=== PATIENT | female | born 1950 | race Caucasian/White ===

== ENCOUNTER → 2023-11-18 13:52 | Outpatient (REF) | payer MEDICARE, SELFPAY | LOC: RAD 13:52 | PROVIDERS: ATTENDING PHYSICIAN Obstetrics & Gynecology; FAMILY PHYSICIAN Internal Medicine | DX: C54.9 Malignant neoplasm of corpus uteri, unspecified (principal) | CPT/HCPCS: 71260; 74177; Q9967 ==

== ENCOUNTER 2023-12-30 13:35 | Emergency (ER) | payer MEDICARE, SELFPAY ==
[2023-12-30 14:14] VITALS: BP 134/54
--- NOTE | 2023-12-30 14:14 | ED.PDOC.TRB ---
ED Provider Triage
-
Patient seen by provider in Triage?: Seen in Triage
73F with PMH of endometrial cancer. diffuse abd pain with persistent diarrhea. noticed blood when wiping. no fevers. new chemo regimen this past wednesday. no vomiting. States never had the symptoms with her old chemo regimen but would intermittently
have some nausea and vomiting with that. Patient is otherwise hemodynamically stable and in no acute distress. I did order 1 L of IV fluids as I do anticipate patient will require fluids once. To place an IV.
[2023-12-30] MEDS: NSS 1000 IV (14:41)
[2023-12-30 15:11] LABS: % Basophils 0.1 % (0-2); % Eosinophils 0.3 % (0-6); % Immature Granulocytes 0.4 % (0-0.5); % Lymphocytes 4.6 % (20.5-51.1); % Monocytes 0.7 % (1.7-9.3); % Neutrophils 93.9 % (42.2-75.2); Absolute Lymphocytes 0.5 10^3/uL (1.2-3.4); Absolute Monocytes 0.1 10^3/uL (0.1-0.6); Absolute Neutrophils 10.6 10^3/uL (1.4-6.5); Hematocrit 43.4 % (37.0-47.0); Hemoglobin 14.7 g/dL (12.0-16.0); Mean Corp Hgb Conc. 33.9 g/dL (33.0-37.0); Mean Corpuscular Hgb 30.5 pg (27.0-31.0); Nucleated Red Blood Cells % 0 %; Red Blood Cell Count 4.82 10^6/uL (4.20-5.40); Red Cell Dist. Width 13.7 % (11.5-14.5); White Blood Cell Count 11.2 10^3/uL (4.8-10.8)
[2023-12-30 15:16] LABS: ALT (SGPT) 31 U/L (0-35); AST (SGOT) 40 U/L (14-36); Albumin 3.6 g/dl (3.5-5.0); Alkaline Phosphatase 80 U/L (38-126); Blood Urea Nitrogen 10 mg/dl (7-17); Calcium 8.8 mg/dl (8.4-10.2); Carbon Dioxide 20 mmol/L (22-30); Chloride 103 mmol/L (98-107); Glucose 111 mg/dl (70-99); Potassium 4.2 mmol/L (3.5-5.1); Sodium 134 mmol/L (135-145); eGFR > 60.00
--- NOTE | 2023-12-30 15:39 | ED.GENMED ---
History of Present Illness
General
Chief Complaint: Abdominal Symptoms
Source: patient
Exam Limitations: none
Time Seen by Provider: 12/30/23 15:00
Travel History
Have you had any contact with someone who has COVID-19?: No
Do you have any symptoms of coronavirus? Fever > 100 degrees, chills, cough, shortness of breath, sore throat, loss of taste or smell, muscle aches, or headache?: No
History of Present Illness
History of Present Illness:
73 year old female with history of endometrial cancer with mets to abdomen presents with abdominal pain/diarrhea onset this past Wednesday, 3 days ago. She notes multiple episodes of watery diarrhea daily. This is likely a result of the new
medication regimen for her chemo per the patient. She has had diarrhea ongoing but worse after she added 2 new agent several days ago. No vomiting. She notes mild diffuse abdominal pain. No fever. There is occasionally red blood in the stool
however she notes her bottom is very irritated. No other complaints
Phy Exam
Physical Exam
Physical Exam:
General: Well-appearing female no acute respiratory distress
HEENT: Normocephalic atraumatic
Heart: Regular rate and rhythm no murmurs lungs: Clear no wheeze or rales
Abdomen: Soft mildly diffusely tender no guarding or rebound normal bowel sounds slightly distended
Extremities: No cyanosis or edema
Course
Orders/Labs/Results
Orders:
Orders
12/30/23 14:15
0.9% Sodium Chloride 1000 ml [Nss] 1,000 ml IV BOLUS
12/30/23 14:27
Complete Blood Count/With Diff Urgent
Comprehensive Metabolic Panel Urgent
TSH Reflex To Free T4 Urgent
Comment: TSH REFLEX ADDED ON BY FLOOR 3:30PM 12-30-23
12/30/23 15:27
STOOL [C difficile Antigen & Toxins] Urgent
PETRONA Source: Feces/Stool
Specimen Description:
Stool Culture Urgent
PETRONA Source: Feces/Stool
Specimen Description:
12/30/23 15:30
Add On- LAB Urgent
Tests Added?: tsh reflex to free t4
Abnormal Lab Results
12/30/23
14:27
WBC 11.2 H 10^3/uL
(4.8-10.8)
MPV 10.7 H fL
(7.4-10.4)
Absolute Neuts (auto) 10.6 H 10^3/uL
(1.4-6.5)
Absolute Lymphs (auto) 0.5 L 10^3/uL
(1.2-3.4)
Neutrophils % 93.9 H %
(42.2-75.2)
Lymphocytes % 4.6 L %
(20.5-51.1)
Monocytes % 0.7 L %
(1.7-9.3)
Sodium 134 L mmol/L
(135-145)
Carbon Dioxide 20 L mmol/L
(22-30)
Glucose 111 H mg/dl
(70-99)
AST 40 H U/L
(14-36)
Total Protein 6.0 L g/dl
(6.3-8.2)
12/30/23 14:27
12/30/23 14:27
Vital Signs
Initial and Last Documented VS:
Initial Vital Signs
Temp Pulse Resp BP Pulse Ox
98.4 F 77 18 134/54 96
12/30/23 14:14 12/30/23 14:14 12/30/23 14:14 12/30/23 14:14 12/30/23 14:14
Last Documented Vital Signs
Temp Pulse Resp BP Pulse Ox
98.4 F 77 18 134/54 96
12/30/23 14:14 12/30/23 14:14 12/30/23 14:14 12/30/23 14:14 12/30/23 14:14
MDM/Problems Addressed
Differential Diagnosis Includes:
Ongoing diarrhea worse after starting new chemo regimen. Likely product of recent chemotherapy. Will check stool studies for infection or C. difficile. No overwhelming indication for CT scan at this time. Labs pending. Fluids ordered
*Critical Care Note
Total Time (30-74mins, 75-104mins- exclusive of procedures): Not Applicable
Update Note
Update Note:
Patient did receive a liter of fluid here and is feeling better requesting to go home. Advanced imaging not indicated at this time. Suspect diarrhea likely related to side effects of recent chemo initiation. Advise she follow-up with her
oncologist.
ED Attending Note
-
Portions of this chart may have been created with voice recognition software.� Occasional wrong word or��sound alike� substitutions may have occurred due to the inherent limitations of voice recognition software.
Discharge Plan
Departure
Patient Disposition: Home (Routine Discharge)
Date of Disposition: 12/30/23
Time of Disposition: 16:31
Patient with high blood pressure during this ER visit?: No
Discharge Problem:
Diarrhea
Instructions: Diarrhea in teens and adults
Prescriptions:
No Action
clorazepate dipotassium 3.75 MG tablet
3.75 mg PO Q12H
atenolol 25 MG tablet
12.5 mg PO BID
levothyroxine 75 MCG tablet
75 mcg PO MOFR
levothyroxine 50 MCG tablet
50 mcg PO DIRECTED
Rx Instructions:
Wednesday, Wednesday, , Wednesday, Wednesday
acetaminophen 325 MG tablet
650 mg PO Q4HPRN PRN (Reason: mild pain) 0RF
lidocaine-prilocaine 5 GRAM/TUBE cream
1 applic topical DIRECTED PRN (Reason: pre-port use)
Referrals:
Jose Giang DO [Family Provider] -
Activity Restrictions/Additional Instructions:
Stay hydrated. Please follow up with oncologist. Return if needed otherwise.
Interventions
Interventions:
*ED COVID-19 Vaccine History Last Done: 12/30/23 14:14
Discharge Date and Time
Print Language: GEORGIAN
[2023-12-30 15:50] LABS: Mean Platelet Volume 10.7 fL (7.4-10.4); Platelet Count 164 10^3/uL (130-400)
== END 2023-12-30 16:55 | disposition home or self-care (01) ==
LOC: EMR 13:35
PROVIDERS: Physician Assistant Medical; EMERGENCY PHYSICIAN Emergency Medicine; FAMILY PHYSICIAN Internal Medicine
DX: R19.7 Diarrhea, unspecified (principal); R10.84 Generalized abdominal pain; K92.1 Melena; C54.1 Malignant neoplasm of endometrium; Z91.048 Other nonmedicinal substance allergy status
CPT/HCPCS: 99284; 96360; 80053; 84443; 85025; 87045; 87046; 87324; 87427; 87449

== ENCOUNTER 2024-01-17 10:49 | Emergency (ER) | payer MEDICARE, SELFPAY ==
[2024-01-17 11:08] VITALS: BP 164/76
[2024-01-17 12:21] VITALS: BMI 21.5
[2024-01-17 12:26] VITALS: BP 161/78
[2024-01-17 12:32] LABS: % Basophils 0.7 % (0-2); % Eosinophils 0.3 % (0-6); % Immature Granulocytes 0.8 % (0-0.5); % Lymphocytes 10.8 % (20.5-51.1); % Neutrophils 79.4 % (42.2-75.2); Absolute Basophils 0.1 10^3/uL (0-0.2); Absolute Immature Granulocytes 0.1 10^3/uL (0-0.05); Absolute Monocytes 0.8 10^3/uL (0.1-0.6); Absolute Neutrophils 7.6 10^3/uL (1.4-6.5); Hematocrit 44.5 % (37.0-47.0); Hemoglobin 15.4 g/dL (12.0-16.0); Mean Corp Hgb Conc. 34.6 g/dL (33.0-37.0); Mean Corpuscular Hgb 30.7 pg (27.0-31.0); Mean Corpuscular Volume 88.6 fL (81.0-99.0); Mean Platelet Volume 9.1 fL (7.4-10.4); Nucleated Red Blood Cells % 0 %; Platelet Count 243 10^3/uL (130-400); Red Blood Cell Count 5.02 10^6/uL (4.20-5.40); Red Cell Dist. Width 14.5 % (11.5-14.5); White Blood Cell Count 9.6 10^3/uL (4.8-10.8)
[2024-01-17 12:57] LABS: ALT (SGPT) 50 U/L (0-35); AST (SGOT) 44 U/L (14-36); Alkaline Phosphatase 114 U/L (38-126); Blood Urea Nitrogen 7 mg/dl (7-17); Calcium 9.7 mg/dl (8.4-10.2); Carbon Dioxide 24 mmol/L (22-30); Chloride 104 mmol/L (98-107); Estimated Creatinine Clearance 47 ml/min; Glucose 113 mg/dl (70-99); Lipase 284 U/L (23-300); Potassium 4.6 mmol/L (3.5-5.1); Sodium 137 mmol/L (135-145); Total Bilirubin 0.4 mg/dl (0.2-1.3); Total Protein 6.6 g/dl (6.3-8.2); eGFR > 60.00
[2024-01-17] MEDS: ZOFRAN 4 MG IV (12:58)
[2024-01-17] MEDS: NSS 1000 IV (12:58)
[2024-01-17 13:00] VITALS: BP 151/97
[2024-01-17 13:14] LABS: Albumin 4.3 g/dl (3.5-5.0)
[2024-01-17 14:00] VITALS: BP 152/62
[2024-01-17 15:00] VITALS: BP 152/63
--- NOTE | 2024-01-17 15:54 | ED.GENMED ---
History of Present Illness
General
Chief Complaint: Abdominal Symptoms
Source: patient
Exam Limitations: none
Time Seen by Provider: 01/17/24 12:32
History of Present Illness
History of Present Illness:
73-year-old female with known metastatic cancer presents with feelings of nausea fatigue loose stool. She was supposed to receive a chemo treatment today but felt too bad to do so. She also is in the process of switching to the oncologist here.
No chest pain or shortness of breath
Phy Exam
Physical Exam
Physical Exam:
General: Overall well-appearing female no acute respiratory distress
HEENT: Normocephalic atraumatic mucosa dry neck is supple
Heart: Regular rate and rhythm no murmurs
Lungs: Clear no wheeze
Abdomen soft nontender nondistended guarding rebound normal bowel sounds
Extremities: No cyanosis or edema
Course
Orders/Labs/Results
Orders:
Orders
01/17/24 12:24
Complete Blood Count/With Diff Urgent
Comprehensive Metabolic Panel Urgent
Lipase Urgent
TSH Reflex To Free T4 Urgent
Comment: ADD ON
01/17/24 12:28
Add On- LAB Urgent
Tests Added?: TSH reflex free T4
01/17/24 12:47
0.9% Sodium Chloride 1000 ml [Nss] 1,000 ml IV BOLUS
Ondansetron Injectable [Zofran] 4 mg IV NOW STA
Abnormal Lab Results
01/17/24
12:24
Abs Immat Gran (auto) 0.1 H 10^3/uL
(0-0.05)
Absolute Neuts (auto) 7.6 H 10^3/uL
(1.4-6.5)
Absolute Lymphs (auto) 1.0 L 10^3/uL
(1.2-3.4)
Absolute Monos (auto) 0.8 H 10^3/uL
(0.1-0.6)
Immature Gran % 0.8 H %
(0-0.5)
Neutrophils % 79.4 H %
(42.2-75.2)
Lymphocytes % 10.8 L %
(20.5-51.1)
Glucose 113 H mg/dl
(70-99)
AST 44 H U/L
(14-36)
ALT 50 H U/L
(0-35)
01/17/24 12:24
01/17/24 12:24
Vital Signs
Initial and Last Documented VS:
Initial Vital Signs
Temp Pulse Resp BP Pulse Ox
98.0 F 66 18 164/76 96
01/17/24 11:08 01/17/24 11:08 01/17/24 11:08 01/17/24 11:08 01/17/24 11:08
Last Documented Vital Signs
Temp Pulse Resp BP Pulse Ox
98.0 F 64 18 151/97 96
01/17/24 11:08 01/17/24 13:45 01/17/24 13:45 01/17/24 13:00 01/17/24 13:45
MDM/Problems Addressed
Differential Diagnosis Includes:
Patient with overall sensation of not feeling well with nausea and occasional loose stool. Consider electrolyte abnormality versus dehydration versus product of illness and recent chemotherapy. Abdomen exam is benign. Considered CT but not
indicated at this time.
Patient was hydrated and looks well tolerating oral fluids feeling better. No indication for admission will advise she follow-up with her oncology team.
*Critical Care Note
Total Time (30-74mins, 75-104mins- exclusive of procedures): Not Applicable
ED Attending Note
-
Portions of this chart may have been created with voice recognition software.� Occasional wrong word or��sound alike� substitutions may have occurred due to the inherent limitations of voice recognition software.
Discharge Plan
Departure
Patient Disposition: Home (Routine Discharge)
Date of Disposition: 01/17/24
Time of Disposition: 15:56
Patient with high blood pressure during this ER visit?: No
Discharge Problem:
Acute dehydration
Instructions: Dehydration, Adult (DC)
Prescriptions:
No Action
clorazepate dipotassium 3.75 MG tablet
3.75 mg PO Q12H
atenolol 25 MG tablet
12.5 mg PO BID
levothyroxine 75 MCG tablet
75 mcg PO MOFR
levothyroxine 50 MCG tablet
50 mcg PO DIRECTED
Rx Instructions:
Wednesday, Wednesday, , Wednesday, Wednesday
acetaminophen 325 MG tablet
650 mg PO Q4HPRN PRN (Reason: mild pain) 0RF
lidocaine-prilocaine 5 GRAM/TUBE cream
1 applic topical DIRECTED PRN (Reason: pre-port use)
Referrals:
Jose Giang, [Family Provider] -
Activity Restrictions/Additional Instructions:
Stay hydrated. Use your nausea medicine as prescribed. Return if worse otherwise follow-up with your oncology team
Interventions
Interventions:
*Risk Screen - Suicide Last Done: 01/17/24 12:23
*General Assessment Last Done: 01/17/24 12:23
*Neglect/Abuse Screening Last Done: 01/17/24 12:23
ED- Fall Risk Assessment Last Done: 01/17/24 12:23
*ED COVID-19 Vaccine History Last Done: 01/17/24 12:23
NQ-Leisjk-Lotbbzmazf Assessment Last Done: 01/17/24 12:23
Discharge Date and Time
Print Language: TAMAZIGHT
[2024-01-17 16:00] LABS: TSH Reflex To Free T4 1.41 uIU/ml (0.47-4.68)
== END 2024-01-17 16:15 | disposition home or self-care (01) ==
LOC: EMR 10:49
PROVIDERS: EMERGENCY PHYSICIAN Emergency Medicine; FAMILY PHYSICIAN Internal Medicine; REFERRING PHYSICIAN Obstetrics & Gynecology
DX: E86.0 Dehydration (principal); R11.0 Nausea; R53.83 Other fatigue; R19.7 Diarrhea, unspecified
CPT/HCPCS: 99283; 96374; 96361; 80053; 83690; 84443; 85025

== ENCOUNTER → 2024-03-09 08:51 | Outpatient (REF) | payer MEDICARE, SELFPAY ==
[2024-03-09 09:11] VITALS: BP 145/62; BP_SYST 62
[2024-03-09] MEDS: ANCEF 10 IV (09:20)
[2024-03-09 11:10] VITALS: BP 145/62
== END ==
LOC: RADI 08:51
PROVIDERS: ATTENDING PHYSICIAN Internal Medicine Hematology & Oncology; FAMILY PHYSICIAN Internal Medicine
DX: C54.1 Malignant neoplasm of endometrium (principal)
CPT/HCPCS: 36561; 76937; 77001; 99152; 99153; C1788

== ENCOUNTER → 2024-03-28 13:33 | Outpatient (REF) | payer MEDICARE, SELFPAY | LOC: RAD 13:33 | PROVIDERS: ATTENDING PHYSICIAN Nurse Practitioner Family; FAMILY PHYSICIAN Internal Medicine | DX: C54.1 Malignant neoplasm of endometrium (principal); K62.5 Hemorrhage of anus and rectum; R11.2 Nausea with vomiting, unspecified | CPT/HCPCS: 76700 ==

== ENCOUNTER → 2024-03-28 16:16 | Outpatient (REF) | payer MEDICARE, SELFPAY ==
[2024-03-28 09:42] LABS: % Basophils 0.8 % (0-2); % Eosinophils 0.8 % (0-6); % Immature Granulocytes 0.8 % (0-0.5); % Lymphocytes 15.5 % (20.5-51.1); % Monocytes 5.4 % (1.7-9.3); % Neutrophils 76.7 % (42.2-75.2); Absolute Basophils 0.1 10^3/uL (0-0.2); Absolute Eosinophils 0.1 10^3/uL (0-0.7); Absolute Immature Granulocytes 0.1 10^3/uL (0-0.05); Absolute Monocytes 0.4 10^3/uL (0.1-0.6); Hematocrit 43.5 % (37.0-47.0); Hemoglobin 14.5 g/dL (12.0-16.0); Mean Corp Hgb Conc. 33.3 g/dL (33.0-37.0); Mean Corpuscular Hgb 31.5 pg (27.0-31.0); Mean Corpuscular Volume 94.4 fL (81.0-99.0); Mean Platelet Volume 9.7 fL (7.4-10.4); Platelet Count 225 10^3/uL (130-400); Red Blood Cell Count 4.61 10^6/uL (4.20-5.40); Red Cell Dist. Width 14.4 % (11.5-14.5); White Blood Cell Count 6.5 10^3/uL (4.8-10.8)
== END ==
LOC: OIDL 16:16
PROVIDERS: ATTENDING PHYSICIAN Internal Medicine Hematology & Oncology
DX: C54.1 Malignant neoplasm of endometrium (principal)
CPT/HCPCS: 85025

== ENCOUNTER → 2024-04-05 11:42 | Outpatient (REF) | payer MEDICARE, SELFPAY | LOC: RAD 11:42 | PROVIDERS: ATTENDING PHYSICIAN Internal Medicine Hematology & Oncology; FAMILY PHYSICIAN Internal Medicine | DX: C54.1 Malignant neoplasm of endometrium (principal); K62.5 Hemorrhage of anus and rectum; R11.2 Nausea with vomiting, unspecified | CPT/HCPCS: 71260; 74177; Q9967 ==

== ENCOUNTER → 2024-04-15 11:09 | Outpatient (REF) | payer MEDICARE, SELFPAY ==
[2024-04-15 12:43] LABS: ALT (SGPT) 38 U/L (0-35); AST (SGOT) 36 U/L (14-36); Albumin 4.1 g/dl (3.5-5.0); Alkaline Phosphatase 96 U/L (38-126); Blood Urea Nitrogen 9 mg/dl (7-17); Calcium 9.6 mg/dl (8.4-10.2); Carbon Dioxide 26 mmol/L (22-30); Chloride 100 mmol/L (98-107); Glucose 127 mg/dl (70-99); Potassium 4.1 mmol/L (3.5-5.1); Sodium 138 mmol/L (135-145); Total Bilirubin 0.5 mg/dl (0.2-1.3); Total Protein 6.2 g/dl (6.3-8.2); eGFR > 60.00
[2024-04-15 13:20] LABS: Urine Protein 12 mg/dl
[2024-04-15 13:27] LABS: % Basophils 0.6 % (0-2); % Eosinophils 0.6 % (0-6); % Immature Granulocytes 0.8 % (0-0.5); % Lymphocytes 11.7 % (20.5-51.1); % Monocytes 6.3 % (1.7-9.3); Absolute Basophils 0.1 10^3/uL (0-0.2); Absolute Eosinophils 0.1 10^3/uL (0-0.7); Absolute Immature Granulocytes 0.1 10^3/uL (0-0.05); Absolute Lymphocytes 1.1 10^3/uL (1.2-3.4); Absolute Monocytes 0.6 10^3/uL (0.1-0.6); Absolute Neutrophils 7.4 10^3/uL (1.4-6.5); Hematocrit 45.4 % (37.0-47.0); Hemoglobin 15.5 g/dL (12.0-16.0); Mean Corp Hgb Conc. 34.1 g/dL (33.0-37.0); Mean Corpuscular Hgb 31.2 pg (27.0-31.0); Mean Corpuscular Volume 91.3 fL (81.0-99.0); Nucleated Red Blood Cells % 0 %; Red Blood Cell Count 4.97 10^6/uL (4.20-5.40); Red Cell Dist. Width 14.6 % (11.5-14.5); White Blood Cell Count 9.3 10^3/uL (4.8-10.8)
[2024-04-15 16:07] LABS: Protein/creatinine Ratio 0.2
== END ==
LOC: REG 11:09
PROVIDERS: ATTENDING PHYSICIAN Internal Medicine Hematology & Oncology; FAMILY PHYSICIAN Internal Medicine
DX: C54.1 Malignant neoplasm of endometrium (principal)
CPT/HCPCS: 36415; 80053; 82570; 84156; 85025

== ENCOUNTER → 2024-04-29 08:17 | Outpatient (REF) | payer MEDICARE, SELFPAY ==
[2024-04-29 09:07] LABS: % Basophils 0.9 % (0-2); % Immature Granulocytes 0.4 % (0-0.5); % Lymphocytes 20.2 % (20.5-51.1); % Neutrophils 68.5 % (42.2-75.2); Absolute Basophils 0.1 10^3/uL (0-0.2); Absolute Eosinophils 0.1 10^3/uL (0-0.7); Absolute Lymphocytes 1.4 10^3/uL (1.2-3.4); Absolute Monocytes 0.6 10^3/uL (0.1-0.6); Absolute Neutrophils 4.7 10^3/uL (1.4-6.5); Hematocrit 44.7 % (37.0-47.0); Mean Corp Hgb Conc. 33.6 g/dL (33.0-37.0); Mean Corpuscular Hgb 30.6 pg (27.0-31.0); Mean Corpuscular Volume 91.2 fL (81.0-99.0); Mean Platelet Volume 9.5 fL (7.4-10.4); Nucleated Red Blood Cells % 0 %; Platelet Count 321 10^3/uL (130-400); Red Cell Dist. Width 13.7 % (11.5-14.5); White Blood Cell Count 6.9 10^3/uL (4.8-10.8)
[2024-04-29 09:34] LABS: ALT (SGPT) 49 U/L (0-35); AST (SGOT) 43 U/L (14-36); Albumin 4.2 g/dl (3.5-5.0); Alkaline Phosphatase 92 U/L (38-126); Blood Urea Nitrogen 10 mg/dl (7-17); Calcium 9.6 mg/dl (8.4-10.2); Carbon Dioxide 25 mmol/L (22-30); Chloride 104 mmol/L (98-107); Glucose 99 mg/dl (70-99); HDL Cholesterol 55 mg/dl; LDL Cholesterol, Calculated 120 mg/dl; Potassium 4.8 mmol/L (3.5-5.1); Sodium 140 mmol/L (135-145); Total Bilirubin 0.5 mg/dl (0.2-1.3); Total Cholesterol 202 mg/dl (50-199); Total Protein 6.5 g/dl (6.3-8.2); Triglyceride 135 mg/dl (10-149); Very Low Density Lipoprotein 27 mg/dl (0-30); eGFR > 60.00
[2024-04-29 09:51] LABS: Free T4 1.71 ng/dl (0.78-2.19)
[2024-04-29 10:04] LABS: TSH 1.91 uIU/ml (0.47-4.68)
[2024-04-29 10:14] LABS: Glycohemoglobin (HgbA1c) 5.6 % (4.0-5.6)
[2024-04-29 10:50] LABS: Protein/creatinine Ratio 0.1; Urine Protein 10 mg/dl
[2024-05-01 19:19] LABS: Hepatitis C Antibody Negative (Negative)
== END ==
LOC: REG 08:17
PROVIDERS: ATTENDING PHYSICIAN Internal Medicine Hematology & Oncology; FAMILY PHYSICIAN Internal Medicine
DX: C54.1 Malignant neoplasm of endometrium (principal); Z11.59 Encounter for screening for other viral diseases; Z13.1 Encounter for screening for diabetes mellitus; Z13.6 Encounter for screening for cardiovascular disorders
CPT/HCPCS: 36415; 80053; 80061; 82570; 83036; 84156; 84439; 84443; 85025; 86803

== ENCOUNTER → 2024-05-13 09:56 | Outpatient (REF) | payer MEDICARE, SELFPAY ==
[2024-05-13 10:33] LABS: % Basophils 0.9 % (0-2); % Eosinophils 0.7 % (0-6); % Immature Granulocytes 0.6 % (0-0.5); % Lymphocytes 17.8 % (20.5-51.1); % Monocytes 8.2 % (1.7-9.3); % Neutrophils 71.8 % (42.2-75.2); Absolute Basophils 0.1 10^3/uL (0-0.2); Absolute Eosinophils 0.1 10^3/uL (0-0.7); Absolute Lymphocytes 1.2 10^3/uL (1.2-3.4); Absolute Monocytes 0.6 10^3/uL (0.1-0.6); Absolute Neutrophils 4.9 10^3/uL (1.4-6.5); Hematocrit 41.4 % (37.0-47.0); Hemoglobin 14.1 g/dL (12.0-16.0); Mean Corp Hgb Conc. 34.1 g/dL (33.0-37.0); Mean Platelet Volume 9.5 fL (7.4-10.4); Nucleated Red Blood Cells % 0 %; Platelet Count 262 10^3/uL (130-400); Red Blood Cell Count 4.55 10^6/uL (4.20-5.40); Red Cell Dist. Width 13.6 % (11.5-14.5); White Blood Cell Count 6.8 10^3/uL (4.8-10.8)
[2024-05-13 11:08] LABS: ALT (SGPT) 55 U/L (0-35); AST (SGOT) 38 U/L (14-36); Albumin 4.2 g/dl (3.5-5.0); Alkaline Phosphatase 85 U/L (38-126); Blood Urea Nitrogen 8 mg/dl (7-17); Calcium 9.4 mg/dl (8.4-10.2); Carbon Dioxide 27 mmol/L (22-30); Chloride 102 mmol/L (98-107); Glucose 91 mg/dl (70-99); Potassium 4.8 mmol/L (3.5-5.1); Sodium 140 mmol/L (135-145); Total Bilirubin 0.3 mg/dl (0.2-1.3); Total Protein 6.4 g/dl (6.3-8.2); eGFR > 60.00
[2024-05-13 11:11] LABS: Urine Protein 11 mg/dl
== END ==
LOC: REG 09:56
PROVIDERS: ATTENDING PHYSICIAN Internal Medicine Hematology & Oncology; FAMILY PHYSICIAN Internal Medicine
DX: C54.1 Malignant neoplasm of endometrium (principal)
CPT/HCPCS: 36415; 80053; 82570; 84156; 85025

== ENCOUNTER → 2024-05-20 09:57 | Outpatient (REF) | payer MEDICARE, SELFPAY ==
[2024-05-20 10:51] LABS: % Basophils 0.9 % (0-2); % Eosinophils 0.9 % (0-6); % Immature Granulocytes 0.3 % (0-0.5); % Monocytes 3.5 % (1.7-9.3); % Neutrophils 74.4 % (42.2-75.2); Absolute Basophils 0.1 10^3/uL (0-0.2); Absolute Eosinophils 0.1 10^3/uL (0-0.7); Absolute Lymphocytes 1.2 10^3/uL (1.2-3.4); Absolute Monocytes 0.2 10^3/uL (0.1-0.6); Absolute Neutrophils 4.3 10^3/uL (1.4-6.5); Hematocrit 41.8 % (37.0-47.0); Hemoglobin 14.6 g/dL (12.0-16.0); Mean Corp Hgb Conc. 34.9 g/dL (33.0-37.0); Mean Corpuscular Hgb 30.7 pg (27.0-31.0); Mean Platelet Volume 10.5 fL (7.4-10.4); Nucleated Red Blood Cells % 0 %; Platelet Count 244 10^3/uL (130-400); Red Blood Cell Count 4.75 10^6/uL (4.20-5.40); Red Cell Dist. Width 13.2 % (11.5-14.5); White Blood Cell Count 5.8 10^3/uL (4.8-10.8)
[2024-05-20 11:02] LABS: Protein/creatinine Ratio 0.4; Urine Protein 12 mg/dl
[2024-05-20 11:15] LABS: ALT (SGPT) 73 U/L (0-35); AST (SGOT) 53 U/L (14-36); Albumin 4.3 g/dl (3.5-5.0); Alkaline Phosphatase 80 U/L (38-126); Blood Urea Nitrogen 10 mg/dl (7-17); Calcium 9.7 mg/dl (8.4-10.2); Carbon Dioxide 26 mmol/L (22-30); Chloride 102 mmol/L (98-107); Glucose 107 mg/dl (70-99); Sodium 142 mmol/L (135-145); Total Bilirubin 0.5 mg/dl (0.2-1.3); Total Protein 6.6 g/dl (6.3-8.2); eGFR > 60.00
[2024-05-20 11:20] LABS: Potassium 4.1 mmol/L (3.5-5.1)
== END ==
LOC: REG 09:57
PROVIDERS: ATTENDING PHYSICIAN Internal Medicine Hematology & Oncology; FAMILY PHYSICIAN Internal Medicine
DX: C54.1 Malignant neoplasm of endometrium (principal)
CPT/HCPCS: 36415; 80053; 82570; 84156; 85025

== ENCOUNTER 2024-05-26 16:33 | Emergency (ER) | payer MEDICARE, SELFPAY ==
[2024-05-26 16:34] VITALS: BP 127/91
[2024-05-26 17:03] LABS: % Basophils 0.7 % (0-2); % Eosinophils 0.9 % (0-6); % Immature Granulocytes 0.4 % (0-0.5); % Lymphocytes 19.8 % (20.5-51.1); % Monocytes 2.4 % (1.7-9.3); % Neutrophils 75.8 % (42.2-75.2); Absolute Eosinophils 0.1 10^3/uL (0-0.7); Absolute Lymphocytes 1.1 10^3/uL (1.2-3.4); Absolute Monocytes 0.1 10^3/uL (0.1-0.6); Absolute Neutrophils 4.1 10^3/uL (1.4-6.5); Hemoglobin 13.3 g/dL (12.0-16.0); Mean Corpuscular Hgb 31.2 pg (27.0-31.0); Mean Corpuscular Volume 89.2 fL (81.0-99.0); Mean Platelet Volume 10.1 fL (7.4-10.4); Nucleated Red Blood Cells % 0 %; Platelet Count 225 10^3/uL (130-400); Red Blood Cell Count 4.26 10^6/uL (4.20-5.40); Red Cell Dist. Width 13.4 % (11.5-14.5); White Blood Cell Count 5.4 10^3/uL (4.8-10.8)
[2024-05-26 17:11] LABS: INR 0.96; PT 12.6 Sec (11.4-14.6)
[2024-05-26 17:12] LABS: APTT 29.2 Sec (23.4-35.0)
[2024-05-26 17:30] LABS: ALT (SGPT) 54 U/L (0-35); AST (SGOT) 36 U/L (14-36); Albumin 3.9 g/dl (3.5-5.0); Alkaline Phosphatase 77 U/L (38-126); Blood Urea Nitrogen 11 mg/dl (7-17); Calcium 9.5 mg/dl (8.4-10.2); Carbon Dioxide 22 mmol/L (22-30); Chloride 104 mmol/L (98-107); Glucose 120 mg/dl (70-99); Potassium 4.3 mmol/L (3.5-5.1); Sodium 139 mmol/L (135-145); Total Bilirubin 0.5 mg/dl (0.2-1.3); Total Protein 6.2 g/dl (6.3-8.2); eGFR > 60.00
--- NOTE | 2024-05-26 19:23 | ED.GENMED ---
History of Present Illness
General
Chief Complaint: Rectal Bleeding
Source: patient
Exam Limitations: none
Time Seen by Provider: 05/26/24 18:41
History of Present Illness
History of Present Illness:
This is 73 year old female that comes in with c/o lower abd pain and rectal bleeding. States that she just had her second round of Avastin for her endometrial cancer with mets. States that this was 2 Tuesdays ago and this past Wednesday she had Taxol.
States that she has had headache, nose bleed and pain in her teeth since starting the new chemo. States that she has felt spacie since Wednesday. Today she started with lower abd pain. States that last night she went to the BR before bed and this was
unusual for her. Then she moved her bowels again in the morning. Then at 3:30pm she need to have another BM which was also unusual. States that this was bright red blood and mucous. States that it was not diarrhea. States that she has gone 3-4 times
since and a little blood on the paper. States that she had chills in the morning, has been nauseated with the lower abd pain, has a headache and dizziness. Denies any fever, chest pain, SOB, vomiting, urinary burning.
Past History
Past History
ED Past Medical History: Cancer (Thyroid cancer, Endometrial Cancer), GERD, Psychiatric (Anxiety) and Other (Headache, MVP. Idiopoathic edema, )
ED Past Surgical History: Gynecological (Hysterectomy, fibroidectomy), Tonsilectomy and Other (Partial thyroidectomy, Vocal cord Polypectomy)
Social History
Tobacco: Smoker
Alcohol: None
Personal:
Living: with family
Review of Systems
Review of Systems
All Other Systems: ROS reviewed and negative except as documented in HPI and ROS
Constitutional: Reports chills (in the morning); Denies fever
EENT: Reports no symptoms
Respiratory: Reports no symptoms; Denies cough or trouble breathing
Cardiac: Reports no symptoms; Denies chest pain
ABD/GI: Reports abdominal pain and nausea; Denies vomiting or diarrhea
: Reports no symptoms; Denies dysuria, frequency or urgency
Musculoskeletal: Reports no symptoms
Skin: Reports no symptoms
Neurological: Reports dizzy and headache
Psychiatric: Reports no symptoms
Phy Exam
General Physical Exam
General Presentation: no apparent distress (Patient refused pain medication at this time. )
General age: appears stated age
General Skin: warm and dry
General Habitus: elderly
General Mental: alert
General Hydration: appears well hydrated
ENT Exam
ENT Exam: TM's normal, pharynx normal and neck supple
Eye Exam
Eye Exam: EOMI
Cardiovascular Exam
Cardiovascular Exam: regular rate/rhythm, no edema, no murmur and normal peripheral pulses
Pulmonary Exam
Pulmonary Exam: lungs clear, no respiratory distress, no rales, chest non tender, no crackles, no rhonchi, no wheezing and no cough
Gastrointestinal Exam
Gastrointestinal Exam: normal bowel sounds, soft, no organomegaly, no pulsatile mass, non distended and tender (Lower abd tenderness with palpation)
Musculoskeletal Exam
Musculoskeletal Exam: full ROM and no edema
Skin Exam
Skin Exam: normal color, warm/dry, no rash and no petechia
Psychiatric Exam
Psychiatric Exam: normal mood/affect
Course
Orders/Labs/Results
Orders:
Orders
05/26/24 16:50
Type+Screen Urgent
Complete Blood Count/With Diff Urgent
Comprehensive Metabolic Panel Urgent
PTT Urgent
Prothrombin Time Urgent
05/26/24 19:21
CT Abd/pel W Iv And Oral Contr Urgent
Comment:
Reason For Exam: Lower abd pain, bright red blood with mucous
0.9% Sodium Chloride 1000 ml [Nss] 1,000 ml IV BOLUS
Iohexol [Omnipaque] See Protocol PO NOW STA
05/26/24 19:27
Ondansetron Injectable [Zofran] 4 mg IV NOW STA
05/26/24 19:37
Clorazepate Dipotassium [Tranxene] 3.75 mg PO NOW STA
05/26/24 19:38
Atenolol [Tenormin] 12.5 mg PO NOW STA
05/26/24 20:19
Urinalysis Reflex To Culture Urgent
Date Specimen was Collected: 05/26/24
Time Specimen was Collected: 20:05
05/26/24 22:45
Prochlorperazine [Compazine] 10 mg IV NOW STA
05/26/24 23:14
Metoclopramide [Reglan] 10 mg IV NOW STA
Abnormal Lab Results
05/26/24
16:50
MCH 31.2 H pg
(27.0-31.0)
Absolute Lymphs (auto) 1.1 L 10^3/uL
(1.2-3.4)
Neutrophils % 75.8 H %
(42.2-75.2)
Lymphocytes % 19.8 L %
(20.5-51.1)
Glucose 120 H mg/dl
(70-99)
ALT 54 H U/L
(0-35)
Total Protein 6.2 L g/dl
(6.3-8.2)
05/26/24 16:50
05/26/24 16:50
Hyperglycemia. ALT elevation. PT 12.6 with INR 0.96, PTT 29.2, Urine negative for infection.
Vital Signs
Initial and Last Documented VS:
Initial Vital Signs
Temp Pulse Resp BP Pulse Ox
97.8 F 73 16 127/91 96
05/26/24 16:34 05/26/24 16:34 05/26/24 16:34 05/26/24 16:34 05/26/24 16:34
Last Documented Vital Signs
Temp Pulse Resp BP Pulse Ox
97.8 F 68 16 138/77 97
05/26/24 16:34 05/26/24 23:55 05/26/24 16:34 05/26/24 23:55 05/26/24 23:55
MDM/Problems Addressed
Differential Diagnosis Includes:
Colitis, Metastatis disease
MDM/Problems Addressed:
This is a 73 year old female that comes in with c/o blood in her stool and mucous. States that she has lower abd pain and that this started today.
Will get labs and CT scan.
Ordered Compazine for patient as she continues wth vomiting. Patient refused as states that this give her Vertigo. Will try Reglan at this time. Patient was sent for CT.
Back into see patient. Explained that her CT shows colitis. Will start patient on antibiotics. Offered patient admission but she does not want to stay. States that the coughing comes as she gets upset and her husand knows how to settle her down.
Will give first dose of antibiotic here and have patient follow up with the family doctor and her oncologist. Patient to return with any concerns.
Chronic conditions affecting care: Cancer
Acute Exacerbation and/or Progression of Chronic Illness: Cancer
*Radiology
Radiology exam reviewed: radiology read reviewed (Ct night hawk- Mild discending and sigmoid coonic wall thickening compatible with Colitis. NO bowel obstruction. Mild ascites not significantly changed form Prior CT. Infiltrative appearance of the
omentum concerning for carcinomatosis/omental disease. NO calciied gallstones. Questionable mild ) and other (CT cont- mild gallbladder wall thickening. Urinary bladder wall thickening may be related to underdistension, consider correlation for
Cystitis. )
*Pulse Oximetry
Patient hypoxic: no
*EKG
Interpreted by ED Provider?: NA
Rate: EKG- N/A
*Design Teacher Interpretation
Rate: Design Teacher- N/A
*Critical Care Note
Total Time (30-74mins, 75-104mins- exclusive of procedures): Not Applicable
ED Attending Note
-
Portions of this chart may have been created with voice recognition software.� Occasional wrong word or��sound alike� substitutions may have occurred due to the inherent limitations of voice recognition software.
Discharge Plan
Departure
Patient Disposition: Home (Routine Discharge)
Date of Disposition: 05/27/24
Time of Disposition: 00:25
Patient with high blood pressure during this ER visit?: Yes
Condition: Good
Covid-19: Not Applicable
Discharge Problem:
Colitis
Instructions: Colitis (DC), BLOOD PRESSURE
Prescriptions:
New
amoxicillin-pot clavulanate 875-125 mg tablet
1 tab PO BID Qty: 19 0RF
No Action
clorazepate dipotassium 3.75 MG tablet
3.75 mg PO Q12H
atenolol 25 MG tablet
25 mg PO BID
lidocaine-prilocaine 5 GRAM/TUBE cream
1 applic topical DIRECTED PRN (Reason: pre-port use)
ondansetron HCl 8 mg Tablet
8 mg PO Q12H PRN (Reason: nausea)
levothyroxine [Levoxyl] 50 mcg Tablet
50 mcg PO DAILY
Referrals:
Jose Giang, [Family Provider] - Follow up in 5-7 days
Activity Restrictions/Additional Instructions:
As discussed, your blood work shows that our Liver enzyme was sightly elevated. Your CT shows that you have colitis. You have been given your first dose of antibiotic here and a prescription has been sent to your pharmacy. Please take as directed.
Please also have your Oncologist look at the CT scan as this will given them further information. IF YOU HAVE FEVER, INCREASED OR CHANGING PAIN, OR YOU HAVE ANY OTHER CONCERNS PLEASE RETURN TO THE EMERGENCY ROOM.
Interventions
Interventions:
*Risk Screen - Suicide Last Done: 05/26/24 16:34
*General Assessment Last Done: 05/26/24 16:34
*Neglect/Abuse Screening Last Done: 05/26/24 16:34
ZI-Knyktp-Hhloubzygj Assessment Last Done: 05/26/24 23:58
Discharge Date and Time
Print Language: WELSH
[2024-05-26] MEDS: OMNIPAQUE 50 ML PO (19:56)
[2024-05-26] MEDS: TENORMIN 12.5 MG PO (19:56)
[2024-05-26 19:58] VITALS: BP 174/67
[2024-05-26] MEDS: TRANXENE 3.75 MG PO (19:58)
[2024-05-26] MEDS: NSS 1000 IV (20:17)
[2024-05-26] MEDS: ZOFRAN 4 MG IV (20:17)
[2024-05-26 20:34] LABS: Urine Albumin Negative (Neg - Trace); Urine Bilirubin Negative (Negative); Urine Character Clear (Clear); Urine Color Straw; Urine Glucose Negative (Negative); Urine Ketone Negative (Negative); Urine Leukocyte Negative (Negative); Urine Nitrite Negative (Negative); Urine Occult Blood Negative (Negative); Urine Urobilinogen Negative (Neg - 1+); Urine pH 6.5 (5.0-9.0)
[2024-05-26 21:00] VITALS: BP 192/74
[2024-05-26 22:00] VITALS: BP 179/61
[2024-05-26] MEDS: REGLAN 10 MG IV (23:40)
[2024-05-26 23:55] VITALS: BP 138/77
[2024-05-27] MEDS: AUGMENTIN 875 MG/125 MG 1 TABLET PO (00:32)
== END 2024-05-27 00:43 | disposition home or self-care (01) ==
LOC: EMR 16:33
PROVIDERS: Clinical Nurse Specialist Family Health; Emergency Medicine; EMERGENCY PHYSICIAN Student in an Organized Health Care Education/Training Program; FAMILY PHYSICIAN Internal Medicine
DX: K52.9 Noninfective gastroenteritis and colitis, unspecified (principal); K21.9 Gastro-esophageal reflux disease without esophagitis; F41.9 Anxiety disorder, unspecified; I34.1 Nonrheumatic mitral (valve) prolapse; F17.200 Nicotine dependence, unspecified, uncomplicated; C54.1 Malignant neoplasm of endometrium; Z85.42 Personal history of malignant neoplasm of other parts of uterus; Z85.850 Personal history of malignant neoplasm of thyroid; Z90.710 Acquired absence of both cervix and uterus
CPT/HCPCS: 99284; 96374; 96375; 96361; 74177; 80053; 81003; 85025; 85610; 85730; 86850; 86900; 86901; Q9967

== ENCOUNTER → 2024-06-12 09:39 | Outpatient (REF) | payer MEDICARE, SELFPAY ==
[2024-06-12 10:16] LABS: % Basophils 1.1 % (0-2); % Eosinophils 0.9 % (0-6); % Immature Granulocytes 0.5 % (0-0.5); % Lymphocytes 18.8 % (20.5-51.1); % Monocytes 8.9 % (1.7-9.3); % Neutrophils 69.8 % (42.2-75.2); Absolute Basophils 0.1 10^3/uL (0-0.2); Absolute Eosinophils 0.1 10^3/uL (0-0.7); Absolute Lymphocytes 1.4 10^3/uL (1.2-3.4); Absolute Monocytes 0.7 10^3/uL (0.1-0.6); Absolute Neutrophils 5.2 10^3/uL (1.4-6.5); Hematocrit 42.7 % (37.0-47.0); Hemoglobin 14.4 g/dL (12.0-16.0); Mean Corp Hgb Conc. 33.7 g/dL (33.0-37.0); Mean Corpuscular Hgb 30.9 pg (27.0-31.0); Mean Corpuscular Volume 91.6 fL (81.0-99.0); Mean Platelet Volume 9.5 fL (7.4-10.4); Nucleated Red Blood Cells % 0 %; Platelet Count 234 10^3/uL (130-400); Red Blood Cell Count 4.66 10^6/uL (4.20-5.40); Red Cell Dist. Width 14.2 % (11.5-14.5); White Blood Cell Count 7.5 10^3/uL (4.8-10.8)
[2024-06-12 11:35] LABS: ALT (SGPT) 36 U/L (0-35); AST (SGOT) 35 U/L (14-36); Albumin 4.1 g/dl (3.5-5.0); Alkaline Phosphatase 78 U/L (38-126); Blood Urea Nitrogen 7 mg/dl (7-17); Calcium 9.3 mg/dl (8.4-10.2); Carbon Dioxide 24 mmol/L (22-30); Chloride 104 mmol/L (98-107); Glucose 102 mg/dl (70-99); Potassium 4.3 mmol/L (3.5-5.1); Sodium 140 mmol/L (135-145); Total Bilirubin 0.3 mg/dl (0.2-1.3); Total Protein 6.3 g/dl (6.3-8.2); eGFR > 60.00
== END ==
LOC: REG 09:39
PROVIDERS: ATTENDING PHYSICIAN Internal Medicine Hematology & Oncology; FAMILY PHYSICIAN Internal Medicine
DX: C54.1 Malignant neoplasm of endometrium (principal); K62.5 Hemorrhage of anus and rectum; R11.2 Nausea with vomiting, unspecified
CPT/HCPCS: 36415; 80053; 85025

== ENCOUNTER → 2024-06-13 14:40 | Outpatient (REF) | payer MEDICARE, SELFPAY ==
[2024-06-13 14:41] LABS: Magnesium 1.8 mg/dl (1.6-2.3)
== END ==
LOC: OIDL 14:40
PROVIDERS: ATTENDING PHYSICIAN Internal Medicine Hematology & Oncology
DX: C54.1 Malignant neoplasm of endometrium (principal); K62.5 Hemorrhage of anus and rectum; R11.2 Nausea with vomiting, unspecified
CPT/HCPCS: 83735

== ENCOUNTER → 2024-06-19 11:22 | Outpatient (REF) | payer MEDICARE, SELFPAY ==
[2024-06-19 12:30] LABS: % Eosinophils 1.4 % (0-6); % Immature Granulocytes 0.7 % (0-0.5); % Lymphocytes 21.6 % (20.5-51.1); % Monocytes 4.1 % (1.7-9.3); % Neutrophils 71.2 % (42.2-75.2); Absolute Basophils 0.1 10^3/uL (0-0.2); Absolute Eosinophils 0.1 10^3/uL (0-0.7); Absolute Lymphocytes 1.3 10^3/uL (1.2-3.4); Absolute Monocytes 0.2 10^3/uL (0.1-0.6); Absolute Neutrophils 4.2 10^3/uL (1.4-6.5); Hematocrit 42.1 % (37.0-47.0); Hemoglobin 13.8 g/dL (12.0-16.0); Mean Corp Hgb Conc. 32.8 g/dL (33.0-37.0); Mean Corpuscular Hgb 30.3 pg (27.0-31.0); Mean Corpuscular Volume 92.3 fL (81.0-99.0); Mean Platelet Volume 10.4 fL (7.4-10.4); Nucleated Red Blood Cells % 0 %; Platelet Count 228 10^3/uL (130-400); Red Blood Cell Count 4.56 10^6/uL (4.20-5.40); Red Cell Dist. Width 14.3 % (11.5-14.5); White Blood Cell Count 5.8 10^3/uL (4.8-10.8)
[2024-06-19 12:56] LABS: ALT (SGPT) 83 U/L (0-35); AST (SGOT) 59 U/L (14-36); Albumin 4.3 g/dl (3.5-5.0); Alkaline Phosphatase 85 U/L (38-126); Blood Urea Nitrogen 12 mg/dl (7-17); Calcium 9.5 mg/dl (8.4-10.2); Carbon Dioxide 25 mmol/L (22-30); Chloride 103 mmol/L (98-107); Glucose 102 mg/dl (70-99); Potassium 4.7 mmol/L (3.5-5.1); Sodium 138 mmol/L (135-145); Total Bilirubin 0.6 mg/dl (0.2-1.3); Total Protein 6.5 g/dl (6.3-8.2); eGFR > 60.00
== END ==
LOC: REG 11:22
PROVIDERS: ATTENDING PHYSICIAN Internal Medicine Hematology & Oncology; FAMILY PHYSICIAN Internal Medicine
DX: C54.1 Malignant neoplasm of endometrium (principal); K62.5 Hemorrhage of anus and rectum; R11.2 Nausea with vomiting, unspecified
CPT/HCPCS: 36415; 80053; 85025

== ENCOUNTER → 2024-06-26 10:08 | Outpatient (REF) | payer MEDICARE, SELFPAY ==
[2024-06-26 11:34] LABS: % Basophils 1.3 % (0-2); % Eosinophils 1.7 % (0-6); % Immature Granulocytes 0.6 % (0-0.5); % Lymphocytes 23.9 % (20.5-51.1); % Monocytes 11.4 % (1.7-9.3); % Neutrophils 61.1 % (42.2-75.2); Absolute Basophils 0.1 10^3/uL (0-0.2); Absolute Eosinophils 0.1 10^3/uL (0-0.7); Absolute Lymphocytes 1.2 10^3/uL (1.2-3.4); Absolute Monocytes 0.6 10^3/uL (0.1-0.6); Absolute Neutrophils 3.2 10^3/uL (1.4-6.5); Hematocrit 43.1 % (37.0-47.0); Hemoglobin 14.3 g/dL (12.0-16.0); Mean Corp Hgb Conc. 33.2 g/dL (33.0-37.0); Mean Corpuscular Hgb 30.8 pg (27.0-31.0); Mean Corpuscular Volume 92.7 fL (81.0-99.0); Mean Platelet Volume 9.8 fL (7.4-10.4); Nucleated Red Blood Cells % 0 %; Platelet Count 297 10^3/uL (130-400); Red Blood Cell Count 4.65 10^6/uL (4.20-5.40); Red Cell Dist. Width 14.9 % (11.5-14.5); White Blood Cell Count 5.2 10^3/uL (4.8-10.8)
[2024-06-26 12:04] LABS: ALT (SGPT) 51 U/L (0-35); AST (SGOT) 44 U/L (14-36); Albumin 4.6 g/dl (3.5-5.0); Alkaline Phosphatase 92 U/L (38-126); Blood Urea Nitrogen 10 mg/dl (7-17); Calcium 9.9 mg/dl (8.4-10.2); Carbon Dioxide 26 mmol/L (22-30); Chloride 103 mmol/L (98-107); Glucose 86 mg/dl (70-99); Potassium 5.1 mmol/L (3.5-5.1); Sodium 141 mmol/L (135-145); Total Bilirubin 0.5 mg/dl (0.2-1.3); Total Protein 7.1 g/dl (6.3-8.2); eGFR > 60.00
== END ==
LOC: REG 10:08
PROVIDERS: ATTENDING PHYSICIAN Internal Medicine Hematology & Oncology; FAMILY PHYSICIAN Internal Medicine
DX: C54.1 Malignant neoplasm of endometrium (principal); K62.5 Hemorrhage of anus and rectum; R11.2 Nausea with vomiting, unspecified
CPT/HCPCS: 36415; 80053; 85025

== ENCOUNTER → 2024-07-03 12:06 | Outpatient (REF) | payer MEDICARE, SELFPAY ==
[2024-07-03 13:27] LABS: % Basophils 1.4 % (0-2); % Eosinophils 1.2 % (0-6); % Immature Granulocytes 1.2 % (0-0.5); % Lymphocytes 21.6 % (20.5-51.1); % Monocytes 4.1 % (1.7-9.3); % Neutrophils 70.5 % (42.2-75.2); Absolute Basophils 0.1 10^3/uL (0-0.2); Absolute Eosinophils 0.1 10^3/uL (0-0.7); Absolute Immature Granulocytes 0.1 10^3/uL (0-0.05); Absolute Lymphocytes 1.3 10^3/uL (1.2-3.4); Absolute Monocytes 0.2 10^3/uL (0.1-0.6); Absolute Neutrophils 4.1 10^3/uL (1.4-6.5); Hematocrit 39.2 % (37.0-47.0); Hemoglobin 13.2 g/dL (12.0-16.0); Mean Corp Hgb Conc. 33.7 g/dL (33.0-37.0); Mean Corpuscular Hgb 30.8 pg (27.0-31.0); Mean Corpuscular Volume 91.6 fL (81.0-99.0); Mean Platelet Volume 10.9 fL (7.4-10.4); Nucleated Red Blood Cells % 0 %; Platelet Count 230 10^3/uL (130-400); Red Blood Cell Count 4.28 10^6/uL (4.20-5.40); Red Cell Dist. Width 14.7 % (11.5-14.5); White Blood Cell Count 5.8 10^3/uL (4.8-10.8)
[2024-07-03 14:01] LABS: ALT (SGPT) 47 U/L (0-35); AST (SGOT) 36 U/L (14-36); Alkaline Phosphatase 72 U/L (38-126); Blood Urea Nitrogen 9 mg/dl (7-17); Calcium 9.2 mg/dl (8.4-10.2); Carbon Dioxide 27 mmol/L (22-30); Chloride 104 mmol/L (98-107); Glucose 106 mg/dl (70-99); Potassium 4.7 mmol/L (3.5-5.1); Sodium 139 mmol/L (135-145); Total Bilirubin 0.5 mg/dl (0.2-1.3); Total Protein 6.2 g/dl (6.3-8.2); eGFR > 60.00
== END ==
LOC: REG 12:06
PROVIDERS: ATTENDING PHYSICIAN Internal Medicine Hematology & Oncology; FAMILY PHYSICIAN Internal Medicine
DX: C54.1 Malignant neoplasm of endometrium (principal); K62.5 Hemorrhage of anus and rectum; R11.2 Nausea with vomiting, unspecified
CPT/HCPCS: 36415; 80053; 85025

== ENCOUNTER → 2024-07-12 11:00 | Outpatient (REF) | payer MEDICARE, SELFPAY ==
[2024-07-12 11:55] LABS: % Basophils 2.1 % (0-2); % Eosinophils 1.3 % (0-6); % Immature Granulocytes 0.8 % (0-0.5); % Monocytes 10.2 % (1.7-9.3); % Neutrophils 52.6 % (42.2-75.2); Absolute Basophils 0.1 10^3/uL (0-0.2); Absolute Eosinophils 0.1 10^3/uL (0-0.7); Absolute Lymphocytes 1.2 10^3/uL (1.2-3.4); Absolute Monocytes 0.4 10^3/uL (0.1-0.6); Hematocrit 36.5 % (37.0-47.0); Hemoglobin 12.4 g/dL (12.0-16.0); Mean Corpuscular Hgb 30.9 pg (27.0-31.0); Mean Platelet Volume 10.2 fL (7.4-10.4); Nucleated Red Blood Cells % 0 %; Platelet Count 273 10^3/uL (130-400); Red Blood Cell Count 4.01 10^6/uL (4.20-5.40); Red Cell Dist. Width 15.4 % (11.5-14.5); White Blood Cell Count 3.7 10^3/uL (4.8-10.8)
[2024-07-12 12:13] LABS: ALT (SGPT) 44 U/L (0-35); AST (SGOT) 34 U/L (14-36); Alkaline Phosphatase 79 U/L (38-126); Blood Urea Nitrogen 7 mg/dl (7-17); Calcium 9.4 mg/dl (8.4-10.2); Carbon Dioxide 25 mmol/L (22-30); Chloride 104 mmol/L (98-107); Glucose 101 mg/dl (70-99); Potassium 4.8 mmol/L (3.5-5.1); Sodium 136 mmol/L (135-145); Total Bilirubin 0.2 mg/dl (0.2-1.3); Total Protein 6.2 g/dl (6.3-8.2); eGFR > 60.00
== END ==
LOC: REG 11:00
PROVIDERS: ATTENDING PHYSICIAN Internal Medicine Hematology & Oncology; PRIMARYCARE PHYSICIAN Internal Medicine
DX: C54.1 Malignant neoplasm of endometrium (principal); K62.5 Hemorrhage of anus and rectum; R11.2 Nausea with vomiting, unspecified
CPT/HCPCS: 36415; 80053; 85025

== ENCOUNTER → 2024-07-24 12:46 | Outpatient (REF) | payer MEDICARE, SELFPAY ==
[2024-07-24 14:09] LABS: Hematocrit 38.3 % (37.0-47.0); Hemoglobin 12.5 g/dL (12.0-16.0); Mean Corp Hgb Conc. 32.6 g/dL (33.0-37.0); Mean Corpuscular Hgb 30.6 pg (27.0-31.0); Mean Corpuscular Volume 93.6 fL (81.0-99.0); Mean Platelet Volume 9.7 fL (7.4-10.4); Platelet Count 322 10^3/uL (130-400); Red Blood Cell Count 4.09 10^6/uL (4.20-5.40); Red Cell Dist. Width 16.6 % (11.5-14.5); White Blood Cell Count 4.8 10^3/uL (4.8-10.8)
[2024-07-24 14:22] LABS: ALT (SGPT) 47 U/L (0-35); AST (SGOT) 37 U/L (14-36); Albumin 4.2 g/dl (3.5-5.0); Alkaline Phosphatase 82 U/L (38-126); Blood Urea Nitrogen 8 mg/dl (7-17); Calcium 9.5 mg/dl (8.4-10.2); Carbon Dioxide 26 mmol/L (22-30); Chloride 102 mmol/L (98-107); Glucose 91 mg/dl (70-99); Potassium 4.9 mmol/L (3.5-5.1); Sodium 137 mmol/L (135-145); Total Bilirubin 0.3 mg/dl (0.2-1.3); Total Protein 6.5 g/dl (6.3-8.2); eGFR > 60.00
[2024-07-24 14:30] LABS: % Basophils 1.3 % (0-2); % Eosinophils 1.3 % (0-6); % Immature Granulocytes 0.6 % (0-0.5); % Lymphocytes 31.9 % (20.5-51.1); % Neutrophils 54.9 % (42.2-75.2); Absolute Basophils 0.1 10^3/uL (0-0.2); Absolute Eosinophils 0.1 10^3/uL (0-0.7); Absolute Lymphocytes 1.5 10^3/uL (1.2-3.4); Absolute Monocytes 0.5 10^3/uL (0.1-0.6); Absolute Neutrophils 2.6 10^3/uL (1.4-6.5); Nucleated Red Blood Cells % 0 %
== END ==
LOC: REG 12:46
PROVIDERS: ATTENDING PHYSICIAN Internal Medicine Hematology & Oncology; FAMILY PHYSICIAN Internal Medicine
DX: C54.1 Malignant neoplasm of endometrium (principal); K62.5 Hemorrhage of anus and rectum; R11.2 Nausea with vomiting, unspecified
CPT/HCPCS: 36415; 80053; 85025

== ENCOUNTER → 2024-08-02 11:29 | Outpatient (REF) | payer MEDICARE, SELFPAY ==
[2024-08-02 13:13] LABS: % Basophils 1.1 % (0-2); % Immature Granulocytes 1.3 % (0-0.5); % Lymphocytes 23.5 % (20.5-51.1); % Monocytes 4.9 % (1.7-9.3); % Neutrophils 68.2 % (42.2-75.2); Absolute Basophils 0.1 10^3/uL (0-0.2); Absolute Eosinophils 0.1 10^3/uL (0-0.7); Absolute Immature Granulocytes 0.1 10^3/uL (0-0.05); Absolute Lymphocytes 1.4 10^3/uL (1.2-3.4); Absolute Monocytes 0.3 10^3/uL (0.1-0.6); Absolute Neutrophils 4.2 10^3/uL (1.4-6.5); Hematocrit 39.8 % (37.0-47.0); Hemoglobin 12.9 g/dL (12.0-16.0); Mean Corp Hgb Conc. 32.4 g/dL (33.0-37.0); Mean Corpuscular Hgb 30.1 pg (27.0-31.0); Mean Corpuscular Volume 92.8 fL (81.0-99.0); Mean Platelet Volume 10.4 fL (7.4-10.4); Nucleated Red Blood Cells % 0 %; Platelet Count 273 10^3/uL (130-400); Red Blood Cell Count 4.29 10^6/uL (4.20-5.40); Red Cell Dist. Width 15.8 % (11.5-14.5); White Blood Cell Count 6.1 10^3/uL (4.8-10.8)
[2024-08-02 14:15] LABS: ALT (SGPT) 53 U/L (0-35); AST (SGOT) 42 U/L (14-36); Albumin 4.2 g/dl (3.5-5.0); Alkaline Phosphatase 82 U/L (38-126); Blood Urea Nitrogen 9 mg/dl (7-17); Calcium 9.7 mg/dl (8.4-10.2); Carbon Dioxide 28 mmol/L (22-30); Chloride 100 mmol/L (98-107); Glucose 91 mg/dl (70-99); Potassium 4.7 mmol/L (3.5-5.1); Sodium 137 mmol/L (135-145); Total Bilirubin 0.6 mg/dl (0.2-1.3); Total Protein 6.5 g/dl (6.3-8.2); eGFR > 60.00
== END ==
LOC: REG 11:29
PROVIDERS: ATTENDING PHYSICIAN Internal Medicine Hematology & Oncology; FAMILY PHYSICIAN Internal Medicine
DX: C54.1 Malignant neoplasm of endometrium (principal); K62.5 Hemorrhage of anus and rectum; R11.2 Nausea with vomiting, unspecified
CPT/HCPCS: 36415; 80053; 85025

== ENCOUNTER → 2024-08-09 10:18 | Outpatient (REF) | payer MEDICARE, SELFPAY ==
[2024-08-09 11:13] LABS: % Basophils 1.9 % (0-2); % Eosinophils 2.6 % (0-6); % Immature Granulocytes 2.3 % (0-0.5); % Monocytes 6.8 % (1.7-9.3); % Neutrophils 51.4 % (42.2-75.2); Absolute Basophils 0.1 10^3/uL (0-0.2); Absolute Eosinophils 0.1 10^3/uL (0-0.7); Absolute Immature Granulocytes 0.1 10^3/uL (0-0.05); Absolute Lymphocytes 1.1 10^3/uL (1.2-3.4); Absolute Monocytes 0.2 10^3/uL (0.1-0.6); Absolute Neutrophils 1.6 10^3/uL (1.4-6.5); Hematocrit 37.6 % (37.0-47.0); Hemoglobin 12.5 g/dL (12.0-16.0); Mean Corp Hgb Conc. 33.2 g/dL (33.0-37.0); Mean Corpuscular Hgb 30.9 pg (27.0-31.0); Mean Corpuscular Volume 92.8 fL (81.0-99.0); Mean Platelet Volume 9.7 fL (7.4-10.4); Nucleated Red Blood Cells % 0 %; Platelet Count 263 10^3/uL (130-400); Red Blood Cell Count 4.05 10^6/uL (4.20-5.40); White Blood Cell Count 3.1 10^3/uL (4.8-10.8)
[2024-08-09 11:40] LABS: ALT (SGPT) 68 U/L (0-35); AST (SGOT) 51 U/L (14-36); Albumin 4.3 g/dl (3.5-5.0); Alkaline Phosphatase 90 U/L (38-126); Blood Urea Nitrogen 9 mg/dl (7-17); Calcium 9.7 mg/dl (8.4-10.2); Carbon Dioxide 26 mmol/L (22-30); Chloride 102 mmol/L (98-107); Glucose 94 mg/dl (70-99); Potassium 4.7 mmol/L (3.5-5.1); Sodium 137 mmol/L (135-145); Total Bilirubin 0.4 mg/dl (0.2-1.3); Total Protein 6.6 g/dl (6.3-8.2); eGFR > 60.00
== END ==
LOC: REG 10:18
PROVIDERS: ATTENDING PHYSICIAN Internal Medicine Hematology & Oncology
DX: C54.1 Malignant neoplasm of endometrium (principal); K62.5 Hemorrhage of anus and rectum; R11.2 Nausea with vomiting, unspecified
CPT/HCPCS: 36415; 80053; 85025

== ENCOUNTER → 2024-08-17 13:41 | Outpatient (REF) | payer MEDICARE, SELFPAY | LOC: RAD 13:41 | PROVIDERS: ATTENDING PHYSICIAN Internal Medicine Hematology & Oncology; FAMILY PHYSICIAN Internal Medicine; REFERRING PHYSICIAN Internal Medicine Endocrinology, Diabetes & Metabolism | DX: C54.1 Malignant neoplasm of endometrium (principal); K62.5 Hemorrhage of anus and rectum; R11.2 Nausea with vomiting, unspecified | CPT/HCPCS: 71260; 74177; Q9967 ==

== ENCOUNTER → 2024-10-30 11:23 | Outpatient (REF) | payer MEDICARE, SELFPAY ==
[2024-10-30 12:47] LABS: % Basophils 0.8 % (0-2); % Eosinophils 0.9 % (0-6); % Immature Granulocytes 0.4 % (0-0.5); % Lymphocytes 20.7 % (20.5-51.1); % Monocytes 6.7 % (1.7-9.3); % Neutrophils 70.5 % (42.2-75.2); Absolute Basophils 0.1 10^3/uL (0-0.2); Absolute Eosinophils 0.1 10^3/uL (0-0.7); Absolute Lymphocytes 1.5 10^3/uL (1.2-3.4); Absolute Monocytes 0.5 10^3/uL (0.1-0.6); Absolute Neutrophils 5.2 10^3/uL (1.4-6.5); Hematocrit 43.4 % (37.0-47.0); Hemoglobin 14.3 g/dL (12.0-16.0); Mean Corp Hgb Conc. 32.9 g/dL (33.0-37.0); Mean Corpuscular Hgb 29.9 pg (27.0-31.0); Mean Corpuscular Volume 90.8 fL (81.0-99.0); Mean Platelet Volume 9.8 fL (7.4-10.4); Nucleated Red Blood Cells % 0 %; Platelet Count 292 10^3/uL (130-400); Red Blood Cell Count 4.78 10^6/uL (4.20-5.40); Red Cell Dist. Width 14.3 % (11.5-14.5); White Blood Cell Count 7.4 10^3/uL (4.8-10.8)
[2024-10-30 13:19] LABS: ALT (SGPT) 61 U/L (0-35); AST (SGOT) 44 U/L (14-36); Albumin 4.2 g/dl (3.5-5.0); Alkaline Phosphatase 97 U/L (38-126); Blood Urea Nitrogen 12 mg/dl (7-17); Calcium 10.2 mg/dl (8.4-10.2); Carbon Dioxide 31 mmol/L (22-30); Chloride 103 mmol/L (98-107); Glucose 89 mg/dl (70-99); Potassium 5.4 mmol/L (3.5-5.1); Sodium 140 mmol/L (135-145); Total Bilirubin 0.4 mg/dl (0.2-1.3); Total Protein 6.7 g/dl (6.3-8.2); eGFR 58.39
[2024-10-30 19:04] LABS: CA 125 527 U/mL (0-35)
== END ==
LOC: REG 11:23
PROVIDERS: ATTENDING PHYSICIAN Internal Medicine Hematology & Oncology; FAMILY PHYSICIAN Internal Medicine
DX: C54.1 Malignant neoplasm of endometrium (principal); K62.5 Hemorrhage of anus and rectum; R11.2 Nausea with vomiting, unspecified
CPT/HCPCS: 36415; 80053; 85025; 86304

== ENCOUNTER → 2024-11-06 11:19 | Outpatient (REF) | payer MEDICARE, SELFPAY | LOC: RAD 11:19 | PROVIDERS: ATTENDING PHYSICIAN Internal Medicine Hematology & Oncology; FAMILY PHYSICIAN Internal Medicine | DX: C54.1 Malignant neoplasm of endometrium (principal); K62.5 Hemorrhage of anus and rectum; R11.2 Nausea with vomiting, unspecified | CPT/HCPCS: 71260; 74177; Q9967 ==

== ENCOUNTER → 2024-11-21 13:05 | Outpatient (REF) | payer MEDICARE, SELFPAY ==
[2024-11-21 14:14] LABS: % Basophils 0.5 % (0-2); % Eosinophils 0.7 % (0-6); % Immature Granulocytes 0.5 % (0-0.5); % Lymphocytes 18.9 % (20.5-51.1); % Monocytes 7.4 % (1.7-9.3); Absolute Eosinophils 0.1 10^3/uL (0-0.7); Absolute Lymphocytes 1.7 10^3/uL (1.2-3.4); Absolute Monocytes 0.7 10^3/uL (0.1-0.6); Absolute Neutrophils 6.4 10^3/uL (1.4-6.5); Hematocrit 40.8 % (37.0-47.0); Hemoglobin 13.7 g/dL (12.0-16.0); Mean Corp Hgb Conc. 33.6 g/dL (33.0-37.0); Mean Corpuscular Hgb 29.9 pg (27.0-31.0); Mean Corpuscular Volume 89.1 fL (81.0-99.0); Mean Platelet Volume 10.1 fL (7.4-10.4); Nucleated Red Blood Cells % 0 %; Platelet Count 228 10^3/uL (130-400); Red Blood Cell Count 4.58 10^6/uL (4.20-5.40); Red Cell Dist. Width 14.6 % (11.5-14.5); White Blood Cell Count 8.8 10^3/uL (4.8-10.8)
[2024-11-21 15:06] LABS: ALT (SGPT) 45 U/L (0-35); AST (SGOT) 39 U/L (14-36); Albumin 4.4 g/dl (3.5-5.0); Alkaline Phosphatase 81 U/L (38-126); Blood Urea Nitrogen 10 mg/dl (7-17); Calcium 9.7 mg/dl (8.4-10.2); Carbon Dioxide 27 mmol/L (22-30); Chloride 102 mmol/L (98-107); Glucose 89 mg/dl (70-99); Potassium 4.8 mmol/L (3.5-5.1); Sodium 137 mmol/L (135-145); Total Bilirubin 0.5 mg/dl (0.2-1.3); Total Protein 6.5 g/dl (6.3-8.2); eGFR > 60.00
== END ==
LOC: REG 13:05
PROVIDERS: ATTENDING PHYSICIAN Internal Medicine Hematology & Oncology
DX: C54.1 Malignant neoplasm of endometrium (principal); K62.5 Hemorrhage of anus and rectum; R11.2 Nausea with vomiting, unspecified
CPT/HCPCS: 36415; 80053; 85025

== ENCOUNTER → 2024-12-06 12:02 | Outpatient (REF) | payer MEDICARE, SELFPAY ==
[2024-12-06 13:39] LABS: % Basophils 0.8 % (0-2); % Eosinophils 0.8 % (0-6); % Immature Granulocytes 1.3 % (0-0.5); % Lymphocytes 21.4 % (20.5-51.1); % Monocytes 3.5 % (1.7-9.3); % Neutrophils 72.2 % (42.2-75.2); Absolute Basophils 0.1 10^3/uL (0-0.2); Absolute Eosinophils 0.1 10^3/uL (0-0.7); Absolute Immature Granulocytes 0.1 10^3/uL (0-0.05); Absolute Lymphocytes 1.3 10^3/uL (1.2-3.4); Absolute Monocytes 0.2 10^3/uL (0.1-0.6); Absolute Neutrophils 4.3 10^3/uL (1.4-6.5); Hematocrit 37.9 % (37.0-47.0); Hemoglobin 12.3 g/dL (12.0-16.0); Mean Corp Hgb Conc. 32.5 g/dL (33.0-37.0); Mean Corpuscular Hgb 28.9 pg (27.0-31.0); Mean Platelet Volume 10.3 fL (7.4-10.4); Nucleated Red Blood Cells % 0 %; Platelet Count 245 10^3/uL (130-400); Red Blood Cell Count 4.26 10^6/uL (4.20-5.40); Red Cell Dist. Width 14.5 % (11.5-14.5); White Blood Cell Count 5.9 10^3/uL (4.8-10.8)
[2024-12-06 14:04] LABS: ALT (SGPT) 98 U/L (0-35); AST (SGOT) 56 U/L (14-36); Albumin 4.3 g/dl (3.5-5.0); Alkaline Phosphatase 110 U/L (38-126); Blood Urea Nitrogen 9 mg/dl (7-17); Calcium 9.6 mg/dl (8.4-10.2); Carbon Dioxide 27 mmol/L (22-30); Chloride 105 mmol/L (98-107); Glucose 115 mg/dl (70-99); Potassium 4.9 mmol/L (3.5-5.1); Sodium 139 mmol/L (135-145); Total Bilirubin 0.4 mg/dl (0.2-1.3); Total Protein 6.4 g/dl (6.3-8.2); eGFR > 60.00
[2024-12-06 14:35] LABS: CA 125 704 U/mL (0-35)
== END ==
LOC: REG 12:02
PROVIDERS: ATTENDING PHYSICIAN Internal Medicine Hematology & Oncology; FAMILY PHYSICIAN Internal Medicine
DX: C54.1 Malignant neoplasm of endometrium (principal); K62.5 Hemorrhage of anus and rectum; R11.2 Nausea with vomiting, unspecified
CPT/HCPCS: 36415; 80053; 85025; 86304

== ENCOUNTER → 2024-12-13 09:43 | Outpatient (REF) | payer MEDICARE, SELFPAY ==
[2024-12-13 10:45] LABS: ALT (SGPT) 72 U/L (0-35); AST (SGOT) 34 U/L (14-36); Albumin 4.3 g/dl (3.5-5.0); Alkaline Phosphatase 85 U/L (38-126); Blood Urea Nitrogen 9 mg/dl (7-17); Calcium 9.7 mg/dl (8.4-10.2); Carbon Dioxide 29 mmol/L (22-30); Chloride 107 mmol/L (98-107); Glucose 85 mg/dl (70-99); Sodium 140 mmol/L (135-145); Total Bilirubin 0.3 mg/dl (0.2-1.3); Total Protein 6.8 g/dl (6.3-8.2); eGFR > 60.00
[2024-12-13 11:33] LABS: % Basophils 1.4 % (0-2); % Eosinophils 0.9 % (0-6); % Immature Granulocytes 0.9 % (0-0.5); % Lymphocytes 41.6 % (20.5-51.1); % Monocytes 6.3 % (1.7-9.3); % Neutrophils 48.9 % (42.2-75.2); Absolute Lymphocytes 0.9 10^3/uL (1.2-3.4); Absolute Monocytes 0.1 10^3/uL (0.1-0.6); Absolute Neutrophils 1.1 10^3/uL (1.4-6.5); Hematocrit 38.7 % (37.0-47.0); Mean Corp Hgb Conc. 33.6 g/dL (33.0-37.0); Mean Corpuscular Hgb 29.5 pg (27.0-31.0); Mean Corpuscular Volume 87.8 fL (81.0-99.0); Mean Platelet Volume 9.9 fL (7.4-10.4); Nucleated Red Blood Cells % 0 %; Platelet Count 278 10^3/uL (130-400); Red Blood Cell Count 4.41 10^6/uL (4.20-5.40); White Blood Cell Count 2.2 10^3/uL (4.8-10.8)
[2024-12-14 18:16] LABS: CA 125 525 U/mL (0-35)
== END ==
LOC: REG 09:43
PROVIDERS: ATTENDING PHYSICIAN Internal Medicine Hematology & Oncology; FAMILY PHYSICIAN Internal Medicine
DX: C54.1 Malignant neoplasm of endometrium (principal); K62.5 Hemorrhage of anus and rectum; R11.2 Nausea with vomiting, unspecified
CPT/HCPCS: 36415; 80053; 85025; 86304

== ENCOUNTER → 2024-12-27 11:49 | Outpatient (REF) | payer MEDICARE, SELFPAY ==
[2024-12-27 13:10] LABS: Hematocrit 36.1 % (37.0-47.0); Hemoglobin 11.8 g/dL (12.0-16.0); Mean Corp Hgb Conc. 32.7 g/dL (33.0-37.0); Mean Corpuscular Hgb 29.6 pg (27.0-31.0); Mean Corpuscular Volume 90.5 fL (81.0-99.0); Mean Platelet Volume 9.7 fL (7.4-10.4); Platelet Count 161 10^3/uL (130-400); Red Blood Cell Count 3.99 10^6/uL (4.20-5.40); Red Cell Dist. Width 18.5 % (11.5-14.5); White Blood Cell Count 32.3 10^3/uL (4.8-10.8)
[2024-12-27 13:37] LABS: Absolute Neutrophils -Man Diff 28.4 10^3/uL (1.4-6.5); Band Neutrophils 2 % (0-3); Lymphocytes 8 % (20-51); Metamyelocytes 2 % (-); Monocytes 2 % (2-9); Normal RBC Morphology No; Nucleated Red Blood Cells 1 (-); Platelets Checked Yes; Segmented Neutrophils 86 % (42-75)
[2024-12-27 13:38] LABS: Anisocytosis 1+; Hypochromasia 1+; Ovalocytes 1+; Polychromasia 1+; Total Cells Counted 100
[2024-12-27 14:14] LABS: ALT (SGPT) 30 U/L (0-35); AST (SGOT) 24 U/L (14-36); Albumin 4.2 g/dl (3.5-5.0); Alkaline Phosphatase 203 U/L (38-126); Blood Urea Nitrogen 5 mg/dl (7-17); Carbon Dioxide 22 mmol/L (22-30); Chloride 108 mmol/L (98-107); Glucose 125 mg/dl (70-99); Potassium 3.5 mmol/L (3.5-5.1); Sodium 143 mmol/L (135-145); Total Bilirubin 0.3 mg/dl (0.2-1.3); Total Protein 6.3 g/dl (6.3-8.2); eGFR > 60.00
[2024-12-28 19:35] LABS: CA 125 330 U/mL (0-35)
== END ==
LOC: REG 11:49
PROVIDERS: ATTENDING PHYSICIAN Internal Medicine Hematology & Oncology; FAMILY PHYSICIAN Internal Medicine
DX: C54.1 Malignant neoplasm of endometrium (principal); K62.5 Hemorrhage of anus and rectum; R11.2 Nausea with vomiting, unspecified
CPT/HCPCS: 36415; 80053; 85025; 86304

== ENCOUNTER 2024-12-29 12:58 | Emergency (ER) | payer MEDICARE, SELFPAY ==
[2024-12-29 13:00] VITALS: BP 146/95; BMI 18.1
[2024-12-29 13:02] VITALS: BP 146/95
[2024-12-29 14:00] VITALS: BP 123/47
--- NOTE | 2024-12-29 14:32 | ED.GENMED ---
History of Present Illness
General
Chief Complaint: Allergic Reaction
Source: patient
Exam Limitations: none
Time Seen by Provider: 12/29/24 14:11
Nursing documentation reviewed up to this point in time: agreed with
History of Present Illness
History of Present Illness:
74 yo female w h/o currently under treatment for endometrial cancer arrives from [facility] where she developed tightness in throat, nausea, shakiness during her 2nd dose of Carboplatin.. Given Epi Pen, Benadryl, Decadron and Solumedrol PATTERN HANGER.
Pt states she is feeling much better.
Solumedrol 125 mg, Benadryl 50 mg, Decadron 10 mg, Pepcid 20 mg, Epinephrine, at [place] prior to coming here.
Past History
Past History
ED Past Medical History: Cancer (Thyroid cancer, Endometrial Cancer), GERD, Psychiatric (Anxiety) and Other (Headache, MVP. Idiopoathic edema, )
ED Past Surgical History: Gynecological (Hysterectomy, fibroidectomy), Tonsilectomy and Other (Partial thyroidectomy, Vocal cord Polypectomy)
Social History
Tobacco: Smoker
Alcohol: None
Personal:
Living: with family
Review of Systems
Review of Systems
Allergies reviewed?: Yes
All Other Systems: ROS reviewed and negative except as documented in HPI and ROS
Phy Exam
Physical Exam
Physical Exam:
GENERAL: No acute distress. A&Ox3.
CONSTITUTIONAL: Afebrile.
EYES: clear, conjunctivae normal
ENMT: moist mucus membranes, Pharynx nl
RESPIRATORY: Regular respirations, nonlabored, lungs clear.
CARDIOVASCULAR: Regular rate and rhythm, no murmurs, no rubs.
GI: Soft, nontender, normal BS
MUSCULOSKELETAL: Moves with ease. Well perfused.
SKIN: Warm, dry, pale
PSYCH: Normal mood and affect. Well kept, interactive and appropriate
NEUROLOGIC: Awake, alert and oriented. No focal neurological deficits
Course
Orders/Labs/Results
Orders:
Orders
12/29/24 13:17
Electrocardiogram (*1) Urgent
Reason for Study: Vertigo / Dizzy
EKG- Treatment ONCE
12/29/24 14:44
CMP [Comprehensive Metabolic Panel] Urgent
Complete Blood Count/With Diff Urgent
12/29/24 15:26
Potassium Chloride [KCl] 40 meq PO NOW STA
12/29/24 15:31
Potassium Chloride [KCl] 40 meq .ROUTE .STK-MED ONE
Abnormal Lab Results
12/29/24
14:44
WBC 21.4 H 10^3/uL
(4.8-10.8)
RBC 3.43 L 10^6/uL
(4.20-5.40)
Hgb 10.2 L g/dL
(12.0-16.0)
Hct 30.6 L %
(37.0-47.0)
RDW 17.9 H %
(11.5-14.5)
MPV 10.8 H fL
(7.4-10.4)
Abs Immat Gran (auto) 0.3 H 10^3/uL
(0-0.05)
Absolute Neuts (auto) 15.0 H 10^3/uL
(1.4-6.5)
Absolute Lymphs (auto) 4.5 H 10^3/uL
(1.2-3.4)
Absolute Monos (auto) 1.5 H 10^3/uL
(0.1-0.6)
Immature Gran % 1.5 H %
(0-0.5)
Potassium 3.2 L mmol/L
(3.5-5.1)
Chloride 110 H mmol/L
(98-107)
Carbon Dioxide 19 L mmol/L
(22-30)
BUN 6 L mg/dl
(7-17)
Glucose 210 H mg/dl
(70-99)
Calcium 7.9 L mg/dl
(8.4-10.2)
Alkaline Phosphatase 174 H U/L
(38-126)
Total Protein 5.2 L g/dl
(6.3-8.2)
Albumin 3.4 L g/dl
(3.5-5.0)
12/29/24 14:44
12/29/24 14:44
Vital Signs
Initial and Last Documented VS:
Initial Vital Signs
Temp Pulse Resp BP
98.4 F 93 18 146/95
12/29/24 13:00 12/29/24 13:00 12/29/24 13:00 12/29/24 13:00
Last Documented Vital Signs
Temp Pulse Resp BP Pulse Ox
98.4 F 70 17 138/63 97
12/29/24 13:00 12/29/24 15:00 12/29/24 15:00 12/29/24 15:00 12/29/24 14:45
MDM/Problems Addressed
Differential Diagnosis Includes:
allergic reaction, adverse drug reaction, anaphylaxis
MDM/Problems Addressed:
74 yo female w h/o currently under treatment for endometrial cancer arrives from [facility] where she developed tightness in throat, nausea, shakiness during her 2nd dose of Carboplatin.. Given Epi Pen, Benadryl, Decadron and Solumedrol PATTERN HANGER.
Pt states she is feeling much better.
Solumedrol 125 mg, Benadryl 50 mg, Decadron 10 mg, Pepcid 20 mg, Epinephrine, at [place] prior to coming here.
3:00 p.m.
CBC with no clinically significant abnormality (at pt baseline)
CMP: Mild hypokalemia
3:30 p.m.
Pt back to baseline, stable for discharge, no rx for steroids as she does not want to take due to previous facial redness and swelling 24 hours after receiving a steroid.
*Critical Care Note
Total Time (30-74mins, 75-104mins- exclusive of procedures): Not Applicable
ED Attending Note
-
Portions of this chart may have been created with voice recognition software.� Occasional wrong word or��sound alike� substitutions may have occurred due to the inherent limitations of voice recognition software.
Discharge Plan
Departure
Patient Disposition: Home (Routine Discharge)
Date of Disposition: 12/29/24
Time of Disposition: 15:30
Patient with high blood pressure during this ER visit?: No
Condition: Good
Discharge Problem:
Adverse drug reaction
Instructions: Adverse Drug Reactions, Adult (DC), High-potassium diet
Prescriptions:
No Action
clorazepate dipotassium 3.75 MG tablet
3.75 mg PO Q12H
atenolol 25 MG tablet
25 mg PO BID
lidocaine-prilocaine 5 GRAM/TUBE cream
1 applic topical DIRECTED PRN (Reason: pre-port use)
ondansetron HCl 8 mg Tablet
8 mg PO Q12H PRN (Reason: nausea)
levothyroxine [Levoxyl] 50 mcg Tablet
50 mcg PO DAILY
amoxicillin-pot clavulanate 875-125 mg tablet
1 tab PO BID Qty: 19 0RF
Referrals:
Jose Giang DO [Family Provider, Internal Medicine]
Activity Restrictions/Additional Instructions:
As we discussed, you received Potassium 40 meq here. I have provided you with a list of foods high in potassium (don't overdo it, it wasn't that low).
They will check it next Wednesday at your next appointment.
You were given Solumedrol 125 mg (a steroid), Benadryl 50 mg, Decadron (a steroid) 10 mg, Pepcid (antihistamine) 20 mg, Epinephrine, at [place] prior to coming here.
Since you had a reaction to steroids in the past, we will hold off on any more steroids at this time.
Return here immediately for feeling throat swelling or any of the symptoms you experienced earlier today.
Interventions
Interventions:
*Risk Screen - Suicide Last Done: 12/29/24 13:00
*General Assessment Last Done: 12/29/24 13:00
*Neglect/Abuse Screening Last Done: 12/29/24 13:00
*ED- Fall Risk Assessment Last Done: 12/29/24 13:00
*ED COVID-19 Vaccine History Last Done: 12/29/24 13:00
*Nursing Disposition Last Done: 12/29/24 15:55
ED- Cardiac Assessment Last Done: 12/29/24 13:00
ED- Pulmonary Assessment Last Done: 12/29/24 13:00
ED-Skin Assessment Last Done: 12/29/24 13:00
Discharge Date and Time
Discharge Date/Time: 12/29/24 15:56
Print Language: [place]
[2024-12-29 14:49] LABS: % Basophils 0.5 % (0-2); % Eosinophils 0.1 % (0-6); % Immature Granulocytes 1.5 % (0-0.5); % Lymphocytes 21.1 % (20.5-51.1); % Monocytes 6.9 % (1.7-9.3); % Neutrophils 69.9 % (42.2-75.2); Absolute Basophils 0.1 10^3/uL (0-0.2); Absolute Immature Granulocytes 0.3 10^3/uL (0-0.05); Absolute Lymphocytes 4.5 10^3/uL (1.2-3.4); Absolute Monocytes 1.5 10^3/uL (0.1-0.6); Hematocrit 30.6 % (37.0-47.0); Hemoglobin 10.2 g/dL (12.0-16.0); Mean Corp Hgb Conc. 33.3 g/dL (33.0-37.0); Mean Corpuscular Hgb 29.7 pg (27.0-31.0); Mean Corpuscular Volume 89.2 fL (81.0-99.0); Mean Platelet Volume 10.8 fL (7.4-10.4); Nucleated Red Blood Cells % 0 %; Platelet Count 178 10^3/uL (130-400); Red Blood Cell Count 3.43 10^6/uL (4.20-5.40); Red Cell Dist. Width 17.9 % (11.5-14.5); White Blood Cell Count 21.4 10^3/uL (4.8-10.8)
[2024-12-29 15:00] VITALS: BP 138/63
[2024-12-29 15:16] LABS: ALT (SGPT) 28 U/L (0-35); AST (SGOT) 27 U/L (14-36); Albumin 3.4 g/dl (3.5-5.0); Alkaline Phosphatase 174 U/L (38-126); Blood Urea Nitrogen 6 mg/dl (7-17); Calcium 7.9 mg/dl (8.4-10.2); Carbon Dioxide 19 mmol/L (22-30); Chloride 110 mmol/L (98-107); Estimated Creatinine Clearance 44 ml/min; Glucose 210 mg/dl (70-99); Potassium 3.2 mmol/L (3.5-5.1); Sodium 138 mmol/L (135-145); Total Bilirubin 0.5 mg/dl (0.2-1.3); Total Protein 5.2 g/dl (6.3-8.2); eGFR > 60.00
[2024-12-29] MEDS: KCL 40 MEQ PO (15:37)
== END 2024-12-29 15:56 | disposition home or self-care (01) ==
LOC: EMR 12:58
PROVIDERS: Registered Nurse; EMERGENCY PHYSICIAN Emergency Medicine; FAMILY PHYSICIAN Internal Medicine
DX: R07.0 Pain in throat (principal); R11.0 Nausea; T45.1X5A Adverse effect of antineoplastic and immunosuppressive drugs, initial encounter; Y92.9 Unspecified place or not applicable; E87.6 Hypokalemia; F17.200 Nicotine dependence, unspecified, uncomplicated; Z85.42 Personal history of malignant neoplasm of other parts of uterus; Z85.850 Personal history of malignant neoplasm of thyroid; Z90.710 Acquired absence of both cervix and uterus; C54.1 Malignant neoplasm of endometrium
CPT/HCPCS: 99283; 80053; 85025; 93005

== ENCOUNTER → 2024-12-30 10:51 | Outpatient (REF) | payer MEDICARE, SELFPAY | LOC: RCS 10:51 | PROVIDERS: ATTENDING PHYSICIAN Internal Medicine Hematology & Oncology; FAMILY PHYSICIAN Internal Medicine | DX: C54.1 Malignant neoplasm of endometrium (principal); K62.5 Hemorrhage of anus and rectum; R11.2 Nausea with vomiting, unspecified | CPT/HCPCS: 93306; 93356 ==

== ENCOUNTER → 2025-01-03 10:44 | Outpatient (REF) | payer MEDICARE, SELFPAY ==
[2025-01-03 12:58] LABS: % Basophils 1.5 % (0-2); % Eosinophils 0.8 % (0-6); % Immature Granulocytes 1.9 % (0-0.5); % Lymphocytes 17.6 % (20.5-51.1); % Monocytes 2.8 % (1.7-9.3); % Neutrophils 75.4 % (42.2-75.2); Absolute Basophils 0.1 10^3/uL (0-0.2); Absolute Immature Granulocytes 0.1 10^3/uL (0-0.05); Absolute Lymphocytes 0.9 10^3/uL (1.2-3.4); Absolute Monocytes 0.2 10^3/uL (0.1-0.6); Hematocrit 31.4 % (37.0-47.0); Hemoglobin 10.3 g/dL (12.0-16.0); Mean Corp Hgb Conc. 32.8 g/dL (33.0-37.0); Mean Corpuscular Hgb 29.1 pg (27.0-31.0); Mean Corpuscular Volume 88.7 fL (81.0-99.0); Mean Platelet Volume 10.5 fL (7.4-10.4); Nucleated Red Blood Cells % 0 %; Platelet Count 296 10^3/uL (130-400); Red Blood Cell Count 3.54 10^6/uL (4.20-5.40); Red Cell Dist. Width 17.7 % (11.5-14.5); White Blood Cell Count 5.3 10^3/uL (4.8-10.8)
[2025-01-03 13:23] LABS: ALT (SGPT) 72 U/L (0-35); AST (SGOT) 39 U/L (14-36); Albumin 3.8 g/dl (3.5-5.0); Alkaline Phosphatase 131 U/L (38-126); Blood Urea Nitrogen 7 mg/dl (7-17); Calcium 9.3 mg/dl (8.4-10.2); Carbon Dioxide 27 mmol/L (22-30); Chloride 106 mmol/L (98-107); Glucose 111 mg/dl (70-99); Potassium 4.6 mmol/L (3.5-5.1); Sodium 139 mmol/L (135-145); Total Bilirubin 0.4 mg/dl (0.2-1.3); eGFR > 60.00
[2025-01-05 17:59] LABS: CA 125 299 U/mL (0-35)
== END ==
LOC: REG 10:44
PROVIDERS: ATTENDING PHYSICIAN Internal Medicine Hematology & Oncology; FAMILY PHYSICIAN Internal Medicine; REFERRING PHYSICIAN Internal Medicine Endocrinology, Diabetes & Metabolism
DX: C54.1 Malignant neoplasm of endometrium (principal); K62.5 Hemorrhage of anus and rectum; R11.2 Nausea with vomiting, unspecified
CPT/HCPCS: 36415; 80053; 85025; 86304

== ENCOUNTER → 2025-01-10 10:12 | Outpatient (REF) | payer MEDICARE, SELFPAY ==
[2025-01-10 12:05] LABS: ALT (SGPT) 39 U/L (0-35); AST (SGOT) 26 U/L (14-36); Albumin 4.1 g/dl (3.5-5.0); Alkaline Phosphatase 108 U/L (38-126); Blood Urea Nitrogen 6 mg/dl (7-17); Calcium 9.4 mg/dl (8.4-10.2); Carbon Dioxide 25 mmol/L (22-30); Chloride 105 mmol/L (98-107); Glucose 106 mg/dl (70-99); Potassium 4.7 mmol/L (3.5-5.1); Sodium 137 mmol/L (135-145); Total Bilirubin 0.5 mg/dl (0.2-1.3); Total Protein 6.3 g/dl (6.3-8.2); eGFR > 60.00
[2025-01-10 12:24] LABS: % Basophils 1.7 % (0-2); % Eosinophils 0.6 % (0-6); % Immature Granulocytes 1.1 % (0-0.5); % Lymphocytes 39.1 % (20.5-51.1); % Monocytes 8.6 % (1.7-9.3); % Neutrophils 48.9 % (42.2-75.2); Absolute Lymphocytes 0.7 10^3/uL (1.2-3.4); Absolute Monocytes 0.2 10^3/uL (0.1-0.6); Absolute Neutrophils 0.9 10^3/uL (1.4-6.5); Hematocrit 31.3 % (37.0-47.0); Hemoglobin 10.2 g/dL (12.0-16.0); Mean Corp Hgb Conc. 32.6 g/dL (33.0-37.0); Mean Corpuscular Hgb 29.8 pg (27.0-31.0); Mean Corpuscular Volume 91.5 fL (81.0-99.0); Mean Platelet Volume 9.8 fL (7.4-10.4); Nucleated Red Blood Cells % 0 %; Platelet Count 271 10^3/uL (130-400); Red Blood Cell Count 3.42 10^6/uL (4.20-5.40); Red Cell Dist. Width 19.8 % (11.5-14.5); White Blood Cell Count 1.7 10^3/uL (4.8-10.8)
[2025-01-12 13:27] LABS: CA 125 274 U/mL (0-35)
== END ==
LOC: REG 10:12
PROVIDERS: ATTENDING PHYSICIAN Internal Medicine Hematology & Oncology; FAMILY PHYSICIAN Internal Medicine
DX: C54.1 Malignant neoplasm of endometrium (principal); K62.5 Hemorrhage of anus and rectum; R11.2 Nausea with vomiting, unspecified
CPT/HCPCS: 36415; 80053; 85025; 86304

== ENCOUNTER 2025-01-16 13:19 | Inpatient (IN) | payer MEDICARE, SELFPAY ==
[2025-01-15 19:33] VITALS: BP 147/73
[2025-01-15 19:58] LABS: Hematocrit 29.2 % (37.0-47.0); Hemoglobin 10.0 g/dL (12.0-16.0); Mean Corp Hgb Conc. 34.2 g/dL (33.0-37.0); Mean Corpuscular Volume 88.8 fL (81.0-99.0); Nucleated Red Blood Cells % 0 %; Platelet Count 251 10^3/uL (130-400); Red Cell Dist. Width 20.5 % (11.5-14.5)
[2025-01-15 20:13] LABS: ALT (SGPT) 36 U/L (0-35); AST (SGOT) 39 U/L (14-36); Albumin 4.0 g/dl (3.5-5.0); Alkaline Phosphatase 109 U/L (38-126); Blood Urea Nitrogen 4 mg/dl (7-17); Calcium 9.0 mg/dl (8.4-10.2); Carbon Dioxide 26 mmol/L (22-30); Chloride 102 mmol/L (98-107); Glucose 136 mg/dl (70-99); Potassium 4.3 mmol/L (3.5-5.1); Sodium 133 mmol/L (135-145); Total Protein 6.2 g/dl (6.3-8.2); eGFR > 60.00
[2025-01-15 20:58] VITALS: BMI 19.5
[2025-01-15 21:00] VITALS: BP 164/54
--- NOTE | 2025-01-15 21:54 | ED.GENMED ---
History of Present Illness
<Ximena Polo PA-C - Last Filed: 01/16/25 12:45>
General
Chief Complaint: Cancer Problem
Source: patient and spouse (Spouse at bedside)
Exam Limitations: none
Time Seen by Provider: 01/15/25 21:53
Nursing documentation reviewed up to this point in time: agreed with
History of Present Illness
History of Present Illness:
TIME OF INITIAL EVALUATION
-22:09
REVIEW OF OLD RECORDS
- ED visit from 12/29/2024 after suspected reaction to chemotherapy carboplatin�discharged home with outpatient follow-up
CHIEF COMPLAINT(S)
Cough and tachycardia.
HISTORY OF PRESENT ILLNESS
The patient is a 74-year-old female with a past medical history significant for endometrial cancer, currently reporting a persistent cough for the past few weeks, described as an 'acidic' cough attributable to gastroesophageal reflux disease (GERD),
with associated sore throat and clear sputum production. The patient also reports an increased heart rate at rest, pervasive weakness, and breathlessness.
A recent history includes a severe allergic reaction to chemotherapy requiring intervention with steroids and epinephrine about two weeks ago. Since then, the patient has undergone two additional chemotherapy treatments, which she feels have
exacerbated her symptoms. She reports nausea and vomiting due to GERD and diarrhea without hematochezia.
She has no significant new abdominal pain but notes chronic discomfort in the omentum area due to metastasized endometrial cancer. The patient denies fever, chest pain, hematemesis. She has no known sick contacts.
She did recently stop her atenolol this past week.
CHRONIC MEDICAL CONDITIONS SIGNIFICANTLY AFFECTING CARE
Chronic conditions affecting care: Endometrial cancer with metastasis, GERD.
REVIEW OF SYSTEMS
- Respiratory: Cough with wheezing, shortness of breath.
- Gastrointestinal: Nausea, vomiting, diarrhea.
- Cardiovascular: Tachycardia.
- General: Weakness.
- Ear, Nose, and Throat: Sore throat.
PHYSICAL EXAM
- Vitals: Tachycardic, hypertensive
- General: Chronically ill-appearing
- HEENT: Dry mucous membranes. No significant pharyngeal erythema,, tonsillar edema or exudates, no TOOL PROGRAMMER
- Cardiovascular: Tachycardic, normal rhythm. No murmurs
- Pulmonary: Fine crackles at bilateral bases with expiratory wheeze
- Abdomen: Soft. Mild tenderness left upper abdomen. No rebound tenderness or guarding
- Neurologic: Generally weak. Alert and oriented.
- Psychiatric: Appropriate mental status, normal insight and judgement
- Extremities: Nontender, no edema, moves all extremities equally
- Skin: No rash, no lesions
PLAN
-Check labs, lactic acid
- Order chest imaging to evaluate for potential infection or other pulmonary pathology.
- Administer intravenous fluids to address potential dehydration.
-Will treat symptoms with DuoNeb, IV Pepcid, IV Zofran
DIFFERENTIAL DIAGNOSIS
The Differential Diagnosis includes, in no particular order and is not limited to:
1. Gastroesophageal reflux disease exacerbation.
2. Asthma or reactive airway disease.
3. Pulmonary infection (e.g., pneumonia).
4. Chemotherapy-induced esophagitis.
5. Tachyarrhythmia secondary to dehydration or infection.
6. Chronic obstructive pulmonary disease exacerbation.
7. Laryngitis from persistent coughing.
8. Pulmonary embolism.
9. Hypokalemia.
10. Viral upper respiratory infection.
RADIOLOGY
- Chest x-ray reviewed which shows no acute abnormalities
- CTA chest ordered
EKG
- Sinus tachycardia, 111 bpm, no acute ischemic changes
LABS
- CBC with mild anemia, hemoglobin of 10 which is stable, chemistry with mild hyponatremia and mild elevation in LFTs. Lactic acid normal.
UPDATE
- I did reassess patient at bedside when she returned from chest x-ray. She does have mild improvement in cough following DuoNeb and her lungs sound clear with no current wheeze. However�she remains tachycardic despite IV fluids. She was found to
be febrile at 100.7 F. Will draw blood cultures, give Tylenol. Given persistent tachycardia despite IV fluids�will obtain CT chest. Will check cardiac markers and proBNP.
- Case signed out to attending physician pending CT report. Patient will likely require admission.
Past History
<Ximena Polo PA-C - Last Filed: 01/16/25 12:45>
Past History
ED Past Medical History: Cancer (Thyroid cancer, Endometrial Cancer), GERD, Psychiatric (Anxiety) and Other (Headache, MVP. Idiopoathic edema, )
ED Past Surgical History: Gynecological (Hysterectomy, fibroidectomy), Tonsilectomy and Other (Partial thyroidectomy, Vocal cord Polypectomy)
Social History
Tobacco: Smoker
Alcohol: None
Personal:
Living: with family
Review of Systems
<Ximena Polo PA-C - Last Filed: 01/16/25 12:45>
Review of Systems
Allergies reviewed?: Yes
All Other Systems: ROS reviewed and negative except as documented in HPI and ROS
Phy Exam
<Ximena Polo PA-C - Last Filed: 01/16/25 12:45>
Physical Exam
Physical Exam:
See HPI
Course
<Ximena Polo PA-C - Last Filed: 01/16/25 12:45>
Orders/Labs/Results
Orders:
Orders
01/15/25 19:27
ECG [Electrocardiogram (*1)] Urgent
Reason for Study: Shortness of Breath
EKG- Treatment ONCE
01/15/25 19:47
Complete Blood Count/With Diff Urgent
Comprehensive Metabolic Panel Urgent
01/15/25 22:10
0.9% Sodium Chloride 1000 ml [Nss] 1,000 ml IV BOLUS
Famotidine [Pepcid] 20 mg IV NOW STA
Ondansetron Injectable [Zofran] 4 mg IV NOW STA
01/15/25 22:11
CR Chest - 2 Views Urgent
Comment:
Reason For Exam: Cough, tachycarida
01/15/25 22:12
Ipratropium/Albuterol Sulfate [Duoneb] 3 ml INH R NOW STA
01/15/25 23:22
Lactic Acid Q4H
Comment: CANCEL 2nd LACTIC ACID IF 1st LACTIC ACID IS LESS THAN 2
01/16/25 00:41
CT Chest PE Study Urgent
Comment:
Reason For Exam: Cough, tachycardia
01/16/25 00:59
Acetaminophen [Tylenol] 650 mg PO NOW STA
01/16/25 01:30
NT-proBNP Urgent
Troponin I Urgent
Blood Culture Q30M
PETRONA Source: Blood/Venous
Specimen Description:
01/16/25 01:38
Blood Culture Q30M
PETRONA Source: Blood/Venous
Specimen Description:
01/16/25 05:52
Azithromycin [Zithromax] 500 mg PO NOW STA
Dexamethasone Sod Phosphate [Decadron] 10 mg IV NOW STA
Ipratropium/Albuterol Sulfate [Duoneb] 3 ml INH R NOW STA
01/16/25 09:45
COVID-19 Antigen Urgent
Source: Nasal Swab
Influenza A+B Rapid Molecular Urgent
PETRONA Source: Nasal Swab
Specimen Description:
01/16/25 11:18
Admit/Transfer Patient As Directed
Co-Sign Provider:
Level of Care: Inpatient admission
Assign to:: Medical/Surgical
Physician / Group: [facility]/Hospitalist
Diagnosis: Respiratory Distress
Reason for Hospitalization: Respiratory Distress
Endometrial Cancer
Expected length of stay greater than two midnights?: Yes
ELOS- Estimated Length of Stay in days: 4
I certify the patient meets the requirements for IP care: Yes
01/16/25 11:19
PRN Pain Medication Management As Directed
May give lesser potent ordered pain med per pt: Yes
preference::
Protocol:: Medication orders for pain may be administered in a
manner that supports deferring to patient preference
when the pt is:
- Requesting an ordered lesser potent pain medication.
Least to most potent pain medications are defined
as: acetaminophen < NSAID < tramadol < opioids
(morphine, oxycodone, hydromorphone).
- Requesting a lesser dose of the same medication IF
ORDERED.
- Requesting a less intrusive route of administration
if both routes are prescribed by the provider (PO <
IV).
01/16/25 11:21
Code Status As Directed
Resuscitation Status: Do not resuscitate
Reached after discussion with pt or family/Healthcare POA: Yes
Decision communicated with: patient
01/16/25 11:22
DNR Bracelet Application ONCE
Abnormal Lab Results
01/15/25
19:47
RBC 3.29 L 10^6/uL
(4.20-5.40)
Hgb 10.0 L g/dL
(12.0-16.0)
Hct 29.2 L %
(37.0-47.0)
RDW 20.5 H %
(11.5-14.5)
Abs Immat Gran (auto) 0.1 H 10^3/uL
(0-0.05)
Absolute Neuts (auto) 9.6 H 10^3/uL
(1.4-6.5)
Absolute Lymphs (auto) 0.5 L 10^3/uL
(1.2-3.4)
Immature Gran % 0.9 H %
(0-0.5)
Neutrophils % 91.0 H %
(42.2-75.2)
Lymphocytes % 4.6 L %
(20.5-51.1)
Sodium 133 L mmol/L
(135-145)
BUN 4 L mg/dl
(7-17)
Glucose 136 H mg/dl
(70-99)
AST 39 H U/L
(14-36)
ALT 36 H U/L
(0-35)
Total Protein 6.2 L g/dl
(6.3-8.2)
01/15/25 19:47
01/15/25 19:47
Vital Signs
Initial and Last Documented VS:
Initial Vital Signs
Temp Pulse Resp BP Pulse Ox
99.3 F 115 18 147/73 95
01/15/25 19:33 01/15/25 19:33 01/15/25 19:33 01/15/25 19:33 01/15/25 19:33
Last Documented Vital Signs
Temp Pulse Resp BP Pulse Ox
98.1 F 100 26 127/61 95
01/16/25 07:59 01/16/25 12:02 01/16/25 12:02 01/16/25 12:02 01/16/25 12:02
<Edelmira Rodriguez, DO - Last Filed: 01/16/25 06:01>
Orders/Labs/Results
Orders:
Orders
01/15/25 19:27
ECG [Electrocardiogram (*1)] Urgent
Reason for Study: Shortness of Breath
EKG- Treatment ONCE
01/15/25 19:47
Complete Blood Count/With Diff Urgent
Comprehensive Metabolic Panel Urgent
01/15/25 22:10
0.9% Sodium Chloride 1000 ml [Nss] 1,000 ml IV BOLUS
Famotidine [Pepcid] 20 mg IV NOW STA
Ondansetron Injectable [Zofran] 4 mg IV NOW STA
01/15/25 22:11
CR Chest - 2 Views Urgent
Comment:
Reason For Exam: Cough, tachycarida
01/15/25 22:12
Ipratropium/Albuterol Sulfate [Duoneb] 3 ml INH R NOW STA
01/15/25 23:22
Lactic Acid Q4H
Comment: CANCEL 2nd LACTIC ACID IF 1st LACTIC ACID IS LESS THAN 2
01/16/25 00:41
CT Chest PE Study Urgent
Comment:
Reason For Exam: Cough, tachycardia
01/16/25 00:59
Acetaminophen [Tylenol] 650 mg PO NOW STA
01/16/25 01:30
NT-proBNP Urgent
Troponin I Urgent
Blood Culture Q30M
PETRONA Source: Blood/Venous
Specimen Description:
01/16/25 01:38
Blood Culture Q30M
PETRONA Source: Blood/Venous
Specimen Description:
01/16/25 05:52
Azithromycin [Zithromax] 500 mg PO NOW STA
Dexamethasone Sod Phosphate [Decadron] 10 mg IV NOW STA
Ipratropium/Albuterol Sulfate [Duoneb] 3 ml INH R NOW STA
01/16/25 09:45
COVID-19 Antigen Urgent
Source: Nasal Swab
Influenza A+B Rapid Molecular Urgent
PETRONA Source: Nasal Swab
Specimen Description:
01/16/25 11:18
Admit/Transfer Patient As Directed
Co-Sign Provider:
Level of Care: Inpatient admission
Assign to:: Medical/Surgical
Physician / Group: [facility]/Hospitalist
Diagnosis: Respiratory Distress
Reason for Hospitalization: Respiratory Distress
Endometrial Cancer
Expected length of stay greater than two midnights?: Yes
ELOS- Estimated Length of Stay in days: 4
I certify the patient meets the requirements for IP care: Yes
01/16/25 11:19
PRN Pain Medication Management As Directed
May give lesser potent ordered pain med per pt: Yes
preference::
Protocol:: Medication orders for pain may be administered in a
manner that supports deferring to patient preference
when the pt is:
- Requesting an ordered lesser potent pain medication.
Least to most potent pain medications are defined
as: acetaminophen < NSAID < tramadol < opioids
(morphine, oxycodone, hydromorphone).
- Requesting a lesser dose of the same medication IF
ORDERED.
- Requesting a less intrusive route of administration
if both routes are prescribed by the provider (PO <
IV).
01/16/25 11:21
Code Status As Directed
Resuscitation Status: Do not resuscitate
Reached after discussion with pt or family/Healthcare POA: Yes
Decision communicated with: patient
01/16/25 11:22
DNR Bracelet Application ONCE
Abnormal Lab Results
01/15/25
19:47
RBC 3.29 L 10^6/uL
(4.20-5.40)
Hgb 10.0 L g/dL
(12.0-16.0)
Hct 29.2 L %
(37.0-47.0)
RDW 20.5 H %
(11.5-14.5)
Abs Immat Gran (auto) 0.1 H 10^3/uL
(0-0.05)
Absolute Neuts (auto) 9.6 H 10^3/uL
(1.4-6.5)
Absolute Lymphs (auto) 0.5 L 10^3/uL
(1.2-3.4)
Immature Gran % 0.9 H %
(0-0.5)
Neutrophils % 91.0 H %
(42.2-75.2)
Lymphocytes % 4.6 L %
(20.5-51.1)
Sodium 133 L mmol/L
(135-145)
BUN 4 L mg/dl
(7-17)
Glucose 136 H mg/dl
(70-99)
AST 39 H U/L
(14-36)
ALT 36 H U/L
(0-35)
Total Protein 6.2 L g/dl
(6.3-8.2)
01/15/25 19:47
01/15/25 19:47
Vital Signs
Temp: 100.9 F
Initial and Last Documented VS:
Initial Vital Signs
Temp Pulse Resp BP Pulse Ox
99.3 F 115 18 147/73 95
01/15/25 19:33 01/15/25 19:33 01/15/25 19:33 01/15/25 19:33 01/15/25 19:33
Last Documented Vital Signs
Temp Pulse Resp BP Pulse Ox
98.1 F 100 26 127/61 95
01/16/25 07:59 01/16/25 12:02 01/16/25 12:02 01/16/25 12:02 01/16/25 12:02
<Elsa Gannon, DO - Last Filed: 01/16/25 08:36>
Orders/Labs/Results
Orders:
Orders
01/15/25 19:27
ECG [Electrocardiogram (*1)] Urgent
Reason for Study: Shortness of Breath
EKG- Treatment ONCE
01/15/25 19:47
Complete Blood Count/With Diff Urgent
Comprehensive Metabolic Panel Urgent
01/15/25 22:10
0.9% Sodium Chloride 1000 ml [Nss] 1,000 ml IV BOLUS
Famotidine [Pepcid] 20 mg IV NOW STA
Ondansetron Injectable [Zofran] 4 mg IV NOW STA
01/15/25 22:11
CR Chest - 2 Views Urgent
Comment:
Reason For Exam: Cough, tachycarida
01/15/25 22:12
Ipratropium/Albuterol Sulfate [Duoneb] 3 ml INH R NOW STA
01/15/25 23:22
Lactic Acid Q4H
Comment: CANCEL 2nd LACTIC ACID IF 1st LACTIC ACID IS LESS THAN 2
01/16/25 00:41
CT Chest PE Study Urgent
Comment:
Reason For Exam: Cough, tachycardia
01/16/25 00:59
Acetaminophen [Tylenol] 650 mg PO NOW STA
01/16/25 01:30
NT-proBNP Urgent
Troponin I Urgent
Blood Culture Q30M
PETRONA Source: Blood/Venous
Specimen Description:
01/16/25 01:38
Blood Culture Q30M
PETRONA Source: Blood/Venous
Specimen Description:
01/16/25 05:52
Azithromycin [Zithromax] 500 mg PO NOW STA
Dexamethasone Sod Phosphate [Decadron] 10 mg IV NOW STA
Ipratropium/Albuterol Sulfate [Duoneb] 3 ml INH R NOW STA
01/16/25 09:45
COVID-19 Antigen Urgent
Source: Nasal Swab
Influenza A+B Rapid Molecular Urgent
PETRONA Source: Nasal Swab
Specimen Description:
01/16/25 11:18
Admit/Transfer Patient As Directed
Co-Sign Provider:
Level of Care: Inpatient admission
Assign to:: Medical/Surgical
Physician / Group: [facility]/Hospitalist
Diagnosis: Respiratory Distress
Reason for Hospitalization: Respiratory Distress
Endometrial Cancer
Expected length of stay greater than two midnights?: Yes
ELOS- Estimated Length of Stay in days: 4
I certify the patient meets the requirements for IP care: Yes
01/16/25 11:19
PRN Pain Medication Management As Directed
May give lesser potent ordered pain med per pt: Yes
preference::
Protocol:: Medication orders for pain may be administered in a
manner that supports deferring to patient preference
when the pt is:
- Requesting an ordered lesser potent pain medication.
Least to most potent pain medications are defined
as: acetaminophen < NSAID < tramadol < opioids
(morphine, oxycodone, hydromorphone).
- Requesting a lesser dose of the same medication IF
ORDERED.
- Requesting a less intrusive route of administration
if both routes are prescribed by the provider (PO <
IV).
01/16/25 11:21
Code Status As Directed
Resuscitation Status: Do not resuscitate
Reached after discussion with pt or family/Healthcare POA: Yes
Decision communicated with: patient
01/16/25 11:22
DNR Bracelet Application ONCE
Abnormal Lab Results
01/15/25
19:47
RBC 3.29 L 10^6/uL
(4.20-5.40)
Hgb 10.0 L g/dL
(12.0-16.0)
Hct 29.2 L %
(37.0-47.0)
RDW 20.5 H %
(11.5-14.5)
Abs Immat Gran (auto) 0.1 H 10^3/uL
(0-0.05)
Absolute Neuts (auto) 9.6 H 10^3/uL
(1.4-6.5)
Absolute Lymphs (auto) 0.5 L 10^3/uL
(1.2-3.4)
Immature Gran % 0.9 H %
(0-0.5)
Neutrophils % 91.0 H %
(42.2-75.2)
Lymphocytes % 4.6 L %
(20.5-51.1)
Sodium 133 L mmol/L
(135-145)
BUN 4 L mg/dl
(7-17)
Glucose 136 H mg/dl
(70-99)
AST 39 H U/L
(14-36)
ALT 36 H U/L
(0-35)
Total Protein 6.2 L g/dl
(6.3-8.2)
01/15/25 19:47
01/15/25 19:47
Vital Signs
Initial and Last Documented VS:
Initial Vital Signs
Temp Pulse Resp BP Pulse Ox
99.3 F 115 18 147/73 95
01/15/25 19:33 01/15/25 19:33 01/15/25 19:33 01/15/25 19:33 01/15/25 19:33
Last Documented Vital Signs
Temp Pulse Resp BP Pulse Ox
98.1 F 100 26 127/61 95
01/16/25 07:59 01/16/25 12:02 01/16/25 12:02 01/16/25 12:02 01/16/25 12:02
<Ximena Polo PA-C - Last Filed: 01/16/25 12:45>
*Pulse Oximetry
SaO2: 96
Oxygen Mode of Delivery: Room air
Patient hypoxic: no
*EKG
Interpreted by ED Provider?: Yes
EKG Intrepretation Date: 01/15/25
Interpretation: abnormal
Comparison EKG: no changes
Heart Rate: 111
Rate: tachycardiac
Rhythm: sinus
Rice: normal axis
Interval: normal QT interval
QRS Pattern: normal QRS
Ischemia: non-specific ST changes
*Tuber Operator Interpretation
Rate: tachycardiac
Interpretation: abnormal
Heart Rate: 108
Rhythm: sinus
*Critical Care Note
Total Time (30-74mins, 75-104mins- exclusive of procedures): Not Applicable
<Edelmira Rodriguez DO - Last Filed: 01/16/25 06:01>
*Radiology
Radiology exam reviewed: radiology read reviewed (CT of the chest/PE study shows no evidence of PE. There is evidence of bronchitis/bronchiolitis versus aspiration. No definitive infiltrate.)
<Elsa Gannon DO - Last Filed: 01/16/25 08:36>
Update Note
Update Note:
Attending signout note (Elsa Gannon DO)
08:00 -alerted by nursing staff of patient's dyspnea and hypoxia. Patient's initial disposition was home. This is a 74-year-old female with history of endometrial carcinoma receiving chemotherapy. She is presenting for cough, worsening episodes
of coughing with difficulty breathing, which all started after receiving IV dose of carboplatin 2 weeks ago. Most recent chemotherapy was 4 days ago. Vital signs stable in the emergency department, initially tachycardic. Patient had extensive
workup in the emergency department, including CT of her chest, without acute pathology. Noted to have low-grade fever in the ER. Patient received DuoNebs in the ER with concern for possible bronchitis. Upon discharge planning, patient got up to
the bathroom, became acutely dyspneic, desaturated to the 80s. Unsafe disposition home at this time. On my assessment, patient hypoxic at rest, high 80s. Rhonchorous breath sounds and wheezing. Concern for reactive airway disease versus
bronchitis. Patient received 2 DuoNebs and steroids while in the hospital. Will plan for admission given hypoxia, with continued respiratory monitoring and treatment
ED Attending Note
<Ximena Polo PA-C - Last Filed: 01/16/25 12:45>
-
Portions of this chart may have been created with voice recognition software.� Occasional wrong word or��sound alike� substitutions may have occurred due to the inherent limitations of voice recognition software.
<Edelmira R. Rodriguez, DO - Last Filed: 01/16/25 06:01>
ED Attending Note
Patient seen and examined by attending physician: Yes
I performed a history and physical exam of patient and discussed management with resident, I reviewed resident's note and agree with documented findings and plan of care.: Yes
ED Attending Note:
74-year-old woman with history of endometrial carcinoma currently receiving chemotherapy treatments via [facility]. She states after receiving an IV dose of carboplatin 2 weeks ago and reports acute adverse reaction with some
shortness of breath, cough, tightness in throat and nausea treated with EpiPen, Benadryl, Decadron. Since then she has had persistent cough. Cough has been worsening with episodes of paroxysms of cough with gagging and vomiting. She has not
noticed a fever, nor chest pain.
Most recent chemotherapy dose was Wednesday, 3 days ago.
She also has history of MVP, palpitations and had been chronically maintained on atenolol 12.5 mg twice daily. With cough and shortness of breath over the past 2 weeks, oncologist recommended she discontinue her atenolol which was stopped 4 days
ago.
She presents tonight with complaints of palpitations, loose stools, generalized weakness and nausea along with ongoing cough, posttussive emesis. Multiple home COVID test have been negative.
No close contacts with similar symptoms.
74-year-old woman appears her stated age, awake and alert, noted to have mildly nasal, stuffy voice. Noted to have low-grade fever up to 100.9 �F.
No cough appreciated during my exam.
Lungs with scant scattered expiratory wheezing, no rales or rhonchi.
Heart with regular rate, mildly tachycardic, split S2.
Concern for pneumonia, CHF, other consideration is PE.
Labs thus far are reassuring with normal white blood cell count, mild but stable anemia. Minimally elevated LFTs but stable and unchanged from previous. Abdomen is soft without appreciable tenderness.
Chest x-ray overall unremarkable. Nothing to suggest CHF nor infiltrate.
Will check CT of the chest/PE study. Will check troponin, EKG, BNP and noted to have low-grade fever thus we will check lactic acid, blood cultures.
Will give Tylenol for fever.
05:45
Patient had been feeling improved, markedly improved after nebulizer treatment but now has return of cough, wheezing, shortness of breath.
Mild resting tachypnea, mild to moderate dyspnea on exertion and lungs with scattered expiratory wheezing.
CT shows no evidence of PE. There is evidence of bronchitis/bronchiolitis. No evidence of infiltrate.
Pulse ox 93 to 95% on room air. She is currently afebrile. Overall eager to be discharged to home.
Will repeat DuoNeb nebulizer and given IV dose of Decadron.
Would recommend initiation of Zithromax for coverage of potential pertussis as cause for asthmatic bronchitis.
Will plan to discharge to home with prednisone taper, prescription for Zithromax and nebulizer along with prescription for DuoNeb Nebules.
Prompt follow-up with oncologist for recheck.
Return precautions discussed.
Discharge Plan
Departure
Patient Disposition: Admit
Date of Disposition: 01/16/25
Time of Disposition: 08:38
Presentation/result/management discussed w/ accepting MD/DO: Hospitalist
Patient with high blood pressure during this ER visit?: No
Condition: Fair
Discharge Problem:
Dyspnea, Hypoxia, Bronchitis
Prescriptions:
No Action
clorazepate dipotassium 3.75 MG tablet
3.75 mg PO Q12H
atenolol 25 MG tablet
12.5 mg PO BID
levothyroxine [Levoxyl] 50 mcg Tablet
50 mcg PO DAILY
loperamide 2 mg Tablet
2 mg PO BIDPRN PRN (Reason: dairrhea)
bismuth subsalicylate [Pepto-Bismol] 262 mg Tablet,Chewable
2 tab PO DAILYPRN PRN (Reason: gerd)
loratadine [Claritin] 10 mg Tablet
10 mg PO DAILY
calcium carb-D3-mag ox-zinc ox 333 mg-133 unit -133 mg-5 mg Tablet
1 tab PO DAILY
Referrals:
Remy Box DO [Active, Hematology / Oncology] - Call in 1-3 days for appt
Jose Giang DO [Family Provider, Internal Medicine] - Call in 1-3 days for appt
Interventions
Interventions:
*Risk Screen - Suicide Last Done: 01/15/25 19:33
*General Assessment Last Done: 01/15/25 19:33
*Neglect/Abuse Screening Last Done: 01/15/25 19:33
*ED- Fall Risk Assessment Last Done: 01/15/25 20:48
*ED COVID-19 Vaccine History Last Done: 01/15/25 20:48
*Nursing Disposition Last Done: 01/16/25 07:59
Discharge Date and Time
Print Language: WOLOF
[2025-01-15 22:00] VITALS: BP 158/61
[2025-01-15] MEDS: ZOFRAN 4 MG IV (22:50)
[2025-01-15] MEDS: PEPCID 20 MG IV (22:54)
[2025-01-15 23:00] VITALS: BP 151/50
[2025-01-15] MEDS: NSS 1000 IV (23:03)
[2025-01-15] MEDS: DUONEB 3 ML INH (23:06)
[2025-01-16] VITALS (14 sets, daily range): BP systolic 93–171; BP diastolic 33–65; BMI 19.3
[2025-01-16] MEDS: TYLENOL 650 MG PO (01:44)
[2025-01-16 02:23] LABS: Troponin I 0.034 ng/ml
[2025-01-16] MEDS: DECADRON 10 MG IV (06:09)
[2025-01-16] MEDS: DUONEB 3 ML INH ×3 (06:10→19:23)
[2025-01-16] MEDS: ZITHROMAX 500 MG PO (06:10)
[2025-01-16 10:13] LABS: COVID-19 Antigen Negative (Negative)
--- NOTE | 2025-01-16 11:33 | W.PN.HOSP.TC ---
Today's Communication/Plan
-
Decadron
Azithromycin
Assessment / Plan
Assessment / Plan
Acute respiratory distress
had been coughing past 2-3 weeks, becoming sob today that rapidly worsened. Unclear if this is infectious or inflammatory
will consult Pulm and Onc
Hx of metastatic endometrial cancer
originally dx in 2020. Follows with Dr. Box in office. Underwent robotic assisted lap hysterectomy 07/29/2021
Distant past hx of Thyroid Cancer
Cigarette use and as of yesterday still smoking 1/2 ppd
P:IV Decadron
duonebs
Pulm and Onc consults
empiric Azithromycin
DNR and confirmed x 2 with patient
see dictated note
Anticipated Discharge: > 48 hours
Subjective/Interval History
-
Date of Service: January 16, 2025
remains very sob
Objective Data
-
Vital Signs:
Vital Signs
Temp Pulse Resp BP Pulse Ox
98.1 F 94 19 116/65 95
01/16/25 07:59 01/16/25 09:47 01/16/25 09:47 01/16/25 09:47 01/16/25 09:52
Review of Systems
-
History Source: Patient and Coordinated Provider
Constitutional: Reports Fever (100.9)
EENT: Reports No Symptoms Reported
Respiratory: Reports Trouble Breathing (remains very sob)
Cardiac: Reports No Symptoms; Denies Chest Pain
Abdomen/GI: Reports Abdominal Pain (chronic related to known cancer)
Musculoskeletal: Reports No Symptoms
Neuro: Reports No Symptoms
Physical Exam
-
General: Well Developed, Well Nourished and No Apparent Distress (at rest on oxygen)
HEENT: Normocephalic
Respiratory: Clear to Auscultation; Negative Wheezes, Rales or Rhonchi
Cardiac: Regular Rhythm and S1/S2
GI: Soft, Nontender and Nondistended
Genito-urinary: No Costovertebral Tender
Musculoskeletal: No Clubbing, No Cyanosis and No Edema
Skin: Warm and Dry
Neuro: Awake, Alert and Oriented
--- NOTE | 2025-01-16 14:09 | EDRN ---
Patient taken to room 339-1 on stretcher on O2 2LNC by prosthetic technician.
--- NOTE | 2025-01-16 14:19 | PTCARENOTE ---
pt received from ED. ambulated from stretcher. awake alert x3. tachycardia and hypertensive, SOB at rest. Very Pronounced inspiratory and expiratory wheezes- paging respiratory. abd soft, NT pt reports weight loss and decreased appetite. cont b&B.
trace pedal edema, pt reports baseline d/t chemo. pt also has HX of neuropathy. skin CDI. +PP CB in reach. spouse at bedside, awaiting respiratory
[2025-01-16] MEDS: DUONEB INH (14:36)
--- NOTE | 2025-01-16 15:12 | CON.PUL ---
Consultation
Consultation Request
Date/Time Consultation Requested: 01/16/2025
Date/Time Consultation Performed: 01/16/2025
Requesting Provider: Tab Balderas
Performing Provider: Shruthi Frank
Reason for Consultation: Dyspnea
Medical History
-
Chief Complaint: Shortness of breath
History of Present Illness:
Patient is a 74-year-old female who presented to the hospital with few weeks of progressively increasing weakness, shortness of breath. Patient also reports that her oxygen saturation at home have been running around 90-92. She has close to
72-fwvh-ddtt smoking history and currently smokes about a pack per day. Patient reports frequent cough occasional wheezing and significant exertional dyspnea. Over the last few days she is reporting increased cough with clear expectoration with
occasional wheezing. Symptoms tend to be worse when she lies down and also reports occasional episodes of gastroesophageal reflux disease with regurgitation. She takes Tums on an as-needed basis currently. In the emergency room, patient had a CT
scan performed which showed bilateral bronchitis changes without any consolidation and some mediastinal lymphadenopathy. Pulmonary consultation was requested for further input.
Known history of high-grade carcinosarcoma of the endometrium, s/p surgery in 2021, currently on chemotherapy. Patient also carries a diagnosis of papillary thyroid carcinoma s/p surgery.
Patient had an ER visit on 12/29 after second dose of carboplatin when she developed tightness in throat, nausea, shakiness which was treated with EpiPen, Benadryl, Decadron. Patient improved in the emergency room and was subsequently discharged.
Past medical history: Endometrial Sarco-carcinoma, diagnosed in 2021 s/p extensive abdominal surgery, gastroesophageal reflux disease
Social history. Smokes about a pack per day since age 14, more than 80-mvcg-cztc smoking history
Allergies / Home Medications
Allergies
Allergy/AdvReac Type Severity Reaction Status Date / Time
ENVIRONMENTAL Allergy Unknown Uncoded 05/26/24 16:34
Home Medications
�Medication �Instructions �Recorded �Confirmed �Last Taken �Type
atenolol 25 mg tablet 12.5 mg PO BID Blood Pressure 07/23/21 01/16/2525 History
clorazepate dipotassium 3.75 mg 3.75 mg PO Q12H Neurological 07/23/21 01/16/25 01/15/25 History
tablet Condition
levothyroxine 50 mcg tablet 50 mcg PO DAILY Thyroid 03/07/24 01/16/25 01/15/25 History
(Levoxyl)
bismuth subsalicylate 262 mg 2 tab PO DAILYPRN PRN gerd 01/16/25 01/16/25 Unknown History
chewable tablet (Pepto-Bismol)
calcium 333 mg-vit D3 133 1 tab PO DAILY Supplement 01/16/25 01/16/25 Unknown History
unit-magnesium 133 mg-zinc 5 mg
tablet
loperamide 2 mg tablet 2 mg PO BIDPRN PRN dairrhea 01/16/25 01/16/25 Unknown History
loratadine 10 mg tablet (Claritin) 10 mg PO DAILY Allergies 01/16/25 01/16/25 01/15/25 History
Review of Systems
-
Hematologic/Lymphatic: Other (All 14 systems reviewed and negative except as stated above in the history of present illness.)
Vitals / Labs / Diagnostic Testing
Vital Signs
Temp Pulse Resp BP Pulse Ox
98.0 F 98 20 171/65 96
01/16/25 14:22 01/16/25 14:26 01/16/25 14:26 01/16/25 14:22 01/16/25 14:26
Lab Data
01/15/25 19:47
01/15/25 19:47
Microbiology
01/16/25 09:45 Nasal Swab Influenza Types A & B (POLLY) - Final
Negative for Influenza A & B, NAAT
Negative results must be combined with clinical observations
and patient history.
Nucleic Acid Amplification test (NAAT)performed on the
[employer] platform.
Diagnostic Testing:
Physical Exam
-
HEENT: Normocephalic
Cardiovascular: S1/S2
Respiratory: Rhonchi and Other (Faint end expiratory wheezing)
GI: Soft and Non Distended
Neurology: Awake and Alert
Skin: Warm
General: Comfortable
Assessment
-
#1. Acute bronchitis
- ?Infectious vs GERD related
- Influenza A, B screen negative. Blood cultures pending, WBC count is normal and patient is afebrile. Lactate is normal at 0.9
- Continue Azithromycin for Atypical pneumonitis coverage
- Start PPI 40 mg daily, frequent GERD symptoms with regurgitation
- Follow up on c/s.
#2. Hyperactive airway disease, suspect underlying undiagnosed COPD with Acute exacerbation
- Patient has more than 79-ttze-[id number] smoking history, suspect underlying COPD with current presentation consistent with acute exacerbation with acute bronchitis
- Continue Duoneb, short term steroids and monitor.
- Add nebulized budesonide twice daily
- Will check bedside spirometry
#3. Mediastinal lymphadenopathy.
- ?Infection related vs malignant with know h/o CA Endometrium
- Monitor for now, can pursue short term CT imaging in 6 weeks time
- With longstanding history of smoking, malignancy is certainly a concern
#4. H/o Smoking.
- Patient smokes about a pack per day since age 14, has close to 31-espy-lvjm smoking history
- Last cigarette was 2 days ago
- Suspect patient has underlying undiagnosed COPD
Other medical diagnoses:
- Endometrial Sarcocarcinoma, since 2021, Oncology service on case
- Poor tolerance of chemotherapeutic agents.
Total time spent on this consultation/encounter __80__ minutes which includes review of history, physical exam, medications, laboratory data, personal review of imaging, extensive review of outpatient records, discussion with care team and
respiratory therapy.
Data:
CT-PE 12/2024: Suboptimal opacification of the pulmonary arteries. No evidence for central pulmonary embolism.
Diffuse bronchial wall thickening, new from prior examination, suggesting bronchitis. Branching small nodular opacities within the mid to lower lungs bilaterally, suggesting small airway pneumonitis, also new.
Mediastinal lymphadenopathy as described, increasing from prior CT examinations, and suspicious for neoplastic lymphadenopathy.
13 mm nodular low-density lesion in the region of the splenic hilum and the left upper quadrant the abdomen, suspicious for a peritoneal neoplastic implant. Small amount of ascites within the upper abdomen, mainly within the left upper quadrant,
raising concern for ascites associated with peritoneal carcinomatosis.
Probable cholelithiasis.
CXR 12/2024: No evidence of active cardiopulmonary disease.
ECHO 12/2024: Left ventricle is small in size. LV ejection fraction is >75%, by visual
assessment. No regional wall motion abnormalities are seen. Global longitudinal
strain values are within normal limits GLS -21.6%.
Normal right ventricular size and function.
Mild tricuspid regurgitation. Estimated pulmonary artery pressure of 40-45
mmHg.
Normal pericardium without effusion.
No prior study available for comparison.
[2025-01-16] MEDS: CLARITIN 10 MG PO (15:37)
[2025-01-16] MEDS: HEPARIN 5000 UNITS SC ×2 (15:38→22:19)
[2025-01-16] MEDS: DECADRON 4 MG IV ×2 (15:38→23:35)
--- NOTE | 2025-01-16 16:06 | CON.ONC ---
Consultation
-
Date Consultation Requested: 01/16/25
Date Consultation Performed: 01/16/25
Requesting Provider: Dr Balderas
Performing Provider: Lynette Lovelace
Reason for Consultation: endometrial cancer, bronchitis
Impression
Impression
metastatic endometrial cancer
bronchitis
Plan
Plan
antibiotics, steroids, nebs/inhalers per primary team; pulm consult pending
Suspect infectious bronchitis more than drug-induced pneumonitis, though will await pulm input
CBC adequate, monitor
outpatient f/u with Dr. Box on 01/31/25, next chemo scheduled for 02/02
Patient History
History of Present Illness
This is a 74yo F w/ metastatic endometrial cancer, on abraxane chemotherapy (carboplatin recently stopped due to episode of hypotension/confusion). Last chemo was on 01/12, with GCSF on 01/15. She presented to the ER yesterday with low grade fever,
cough, and weakness. CT suggested bronchitis. She's been started on abx and steroids. Pulm consult is pending.
Past-Medical/Surgical History
PMH - as per the HPI
Patient Medication
�Medication �Instructions �Recorded �Confirmed �Last Taken �Type
atenolol 25 mg tablet 12.5 mg PO BID Blood Pressure 07/23/21 01/16/25 01/15/25 History
clorazepate dipotassium 3.75 mg 3.75 mg PO Q12H Neurological 07/23/21 01/16/25 01/15/25 History
tablet Condition
levothyroxine 50 mcg tablet 50 mcg PO DAILY Thyroid 03/07/24 01/16/25 01/15/25 History
(Levoxyl)
bismuth subsalicylate 262 mg 2 tab PO DAILYPRN PRN gerd 01/16/25 01/16/25 Unknown History
chewable tablet (Pepto-Bismol)
calcium 333 mg-vit D3 133 1 tab PO DAILY Supplement 01/16/25 01/16/25 Unknown History
unit-magnesium 133 mg-zinc 5 mg
tablet
loperamide 2 mg tablet 2 mg PO BIDPRN PRN dairrhea 01/16/25 01/16/25 Unknown History
loratadine 10 mg tablet (Claritin) 10 mg PO DAILY Allergies 01/16/25 01/16/25 01/15/25 History
Active Medications
Generic Name Dose Route Start Last Admin
Trade Name Freq PRN Reason Stop Dose Admin
Albuterol/Ipratropium 3 ml 01/16/25 14:17 01/16/25 14:36
Ipratropium 0.5/Albuterol 3 Mg (3 Ml Ampul) INH Not Given
R QID JUAN
Protocol
Alprazolam 0.5 mg 01/16/25 16:03
Alprazolam 0.5 Mg Tablet PO 02/13/25 16:02
Q6HPRN PRN
anxiety
Bisacodyl 10 mg 01/16/25 14:17
Bisacodyl 10 Mg Rectal Suppository RECTAL 02/13/25 14:16
[id number] PRN
constipation
Bismuth Subsalicylate 2 tablet 01/16/25 14:17
Pepto-Bismol Chewable Tablet (Bismuth Subsalicylate 262 Mg) PO 02/13/25 14:16
DAILYPRN PRN
gerd
Calcium/Vitamin D 500 mg 01/17/25 08:00
Calcium Carbonate 500 Mg/Vitamin D 5 Mcg (200 Units) Tablet PO 02/14/25 07:59
DAILY JUAN
Clorazepate Dipotassium 3.75 mg 01/16/25 20:00
Clorazepate Dipotassium 3.75 Mg Tablet PO 02/13/25 19:59
Q12 JUAN
Dexamethasone Sodium Phosphate 4 mg 01/16/25 16:00 01/16/25 15:38
Dexamethasone 4 Mg/Ml 1 Ml Vial IV 02/13/25 15:59 4 mg
Q8H JUAN Administration
Heparin Sodium 5,000 units 01/16/25 14:17 01/16/25 15:38
Heparin 5,000 Units/Ml 1 Ml Vial SC 02/13/25 14:16 5,000 units
Q12 JUAN Administration
Azithromycin 250 mg/ Sodium 252.5 mls @ 252.5 mls/hr 01/17/25 08:00
Chloride IV
Q24H JUAN
Levothyroxine Sodium 50 mcg 01/16/25 14:17 01/16/25 15:43
Levothyroxine 50 Mcg Tablet PO 02/13/25 14:16 Not Given
DAILY@0600 JUAN
Loperamide HCl 2 mg 01/16/25 14:42
Loperamide 2 Mg Capsule PO 02/13/25 14:41
BIDPRN PRN
dairrhea
Loratadine 10 mg 01/16/25 14:17 01/16/25 15:37
Loratadine 10 Mg Tablet PO 02/13/25 14:16 10 mg
DAILY JUAN Administration
Ondansetron HCl 4 mg 01/16/25 16:04
Ondansetron 4 Mg/2 Ml Vial IV 02/13/25 16:03
Q6HPRN PRN
nausea
Oxycodone HCl 5 mg 01/16/25 14:17
Oxycodone 5 Mg Regular Release Tablet PO 01/30/25 14:16
Q4HPRN PRN
moderate pain
Polyethylene Glycol 17 grams 01/16/25 14:17
Polyethylene Glycol Powder 17 Grams Packet PO 02/13/25 14:16
DAILYPRN PRN
constipation
Senna/Docusate Sodium 1 tablet 01/16/25 14:17
Docusate W/Senna (Nayana-Colace) Tablet PO 02/13/25 14:16
BIDPRN PRN
constipation
Sodium Chloride 0 flush 01/16/25 15:00
Sodium Chloride 0.9% (Flush) Syringe IV 02/13/25 14:59
PER PROTOCOL JUAN
Physical Exam
-
General: Well Developed, Well Nourished and Conversant; Negative Appears in Distress
HEENT: Negative Jaundice
Cardiology: Normal Sinus Rhythm
Pulmonary: Rales
Musculoskeletal: No Clubbing, No Cyanosis and No Edema
Neurology: Non Focal, No Lateralizing Symptoms and No Word Finding Difficulty
Skin: Warm and Dry
Psych: Anxious
Labs
Lab Results
WBC 10.6 10^3/uL (4.8-10.8) 01/15/25 19:47
RBC 3.29 10^6/uL (4.20-5.40) L 01/15/25 19:47
Hgb 10.0 g/dL (12.0-16.0) L 01/15/25 19:47
Hct 29.2 % (37.0-47.0) L 01/15/25 19:47
MCV 88.8 fL (81.0-99.0) 01/15/25 19:47
MCH 30.4 pg (27.0-31.0) 01/15/25 19:47
MCHC 34.2 g/dL (33.0-37.0) 01/15/25 19:47
RDW 20.5 % (11.5-14.5) H 01/15/25 19:47
Plt Count 251 10^3/uL (130-400) 01/15/25 19:47
MPV 9.7 fL (7.4-10.4) 01/15/25 19:47
Abs Immat Gran (auto) 0.1 10^3/uL (0-0.05) H 01/15/25 19:47
Absolute Neuts (auto) 9.6 10^3/uL (1.4-6.5) H 01/15/25 19:47
Absolute Lymphs (auto) 0.5 10^3/uL (1.2-3.4) L 01/15/25 19:47
Absolute Monos (auto) 0.2 10^3/uL (0.1-0.6) 01/15/25 19:47
Absolute Eos (auto) 0.1 10^3/uL (0-0.7) 01/15/25 19:47
Absolute Basos (auto) 0.0 10^3/uL (0-0.2) 01/15/25 19:47
Immature Gran % 0.9 % (0-0.5) H 01/15/25 19:47
Neutrophils % 91.0 % (42.2-75.2) H 01/15/25 19:47
Lymphocytes % 4.6 % (20.5-51.1) L 01/15/25 19:47
Monocytes % 2.3 % (1.7-9.3) 01/15/25 19:47
Eosinophils % 0.8 % (0-6) 01/15/25 19:47
Basophils % 0.4 % (0-2) 01/15/25 19:47
Creatinine 0.7 mg/dL (0.6-1.0) 01/15/25 19:47
Vital Signs
Vital Signs
Temp Pulse Resp BP Pulse Ox
98.0 F 98 20 171/65 96
01/16/25 14:22 01/16/25 14:26 01/16/25 14:26 01/16/25 14:22 01/16/25 14:26
[2025-01-16] MEDS: PROTONIX 40 MG PO (17:08)
[2025-01-16] MEDS: ZOFRAN 4 MG IV (17:13)
[2025-01-16] MEDS: XANAX 0.5 MG PO (17:23)
[2025-01-16] MEDS: PULMICORT 0.5 MG INH (19:23)
[2025-01-16] MEDS: TRANXENE 3.75 MG PO (19:51)
[2025-01-17 06:36] LABS: Blood Urea Nitrogen 4 mg/dl (7-17); Calcium 8.5 mg/dl (8.4-10.2); Carbon Dioxide 25 mmol/L (22-30); Chloride 107 mmol/L (98-107); Estimated Creatinine Clearance 41 ml/min; Glucose 114 mg/dl (70-99); Potassium 4.4 mmol/L (3.5-5.1); Sodium 135 mmol/L (135-145); eGFR > 60.00
[2025-01-17 07:00] VITALS: BP 108/49
[2025-01-17] MEDS: PULMICORT 0.5 MG INH ×2 (07:08→19:35)
[2025-01-17] MEDS: DUONEB 3 ML INH ×4 (07:09→19:35)
[2025-01-17 07:44] LABS: Hematocrit 23.5 % (37.0-47.0); Hemoglobin 8.0 g/dL (12.0-16.0); Mean Corp Hgb Conc. 34.0 g/dL (33.0-37.0); Mean Corpuscular Volume 91.1 fL (81.0-99.0); Nucleated Red Blood Cells % 0 %; Platelet Count 208 10^3/uL (130-400); Red Cell Dist. Width 21.5 % (11.5-14.5)
[2025-01-17] MEDS: TRANXENE 3.75 MG PO ×2 (08:08→20:43)
[2025-01-17] MEDS: OSCAL 500 + D 500 MG PO (08:09)
[2025-01-17] MEDS: CLARITIN 10 MG PO (08:09)
[2025-01-17] MEDS: PROTONIX 40 MG PO (08:09)
[2025-01-17] MEDS: DECADRON 4 MG IV (08:10)
[2025-01-17] MEDS: HEPARIN 5000 UNITS SC ×2 (08:10→20:43)
[2025-01-17] MEDS: ZITHROMAX 252.5 MG IV (08:11)
[2025-01-17 08:23] LABS: Absolute Neutrophils -Man Diff 17.4 10^3/uL (1.4-6.5)
[2025-01-17 08:24] LABS: Normal RBC Morphology No; Platelets Checked Yes; Total Cells Counted 100
[2025-01-17 08:25] LABS: Anisocytosis 2+; Hypochromasia 1+; Polychromasia Slight
[2025-01-17 08:33] LABS: Hepatitis C Antibody Negative (Negative)
--- NOTE | 2025-01-17 11:01 | W.PN.PUL3 ---
Today's Communication / Plan
-
- Switch to Solumedrol 40 mg daily
- Continue Duoneb, Budesonide, Azithromycin
- Bedside Spirometry ordered
Assessment
-
Patient is a 74-year-old female who presented to the hospital with few weeks of progressively increasing weakness, shortness of breath. Patient also reports that her oxygen saturation at home have been running around 90-92. She has close to
57-gyqb-npbf smoking history and currently smokes about a pack per day. Patient reports frequent cough occasional wheezing and significant exertional dyspnea. Over the last few days she is reporting increased cough with clear expectoration with
occasional wheezing. Symptoms tend to be worse when she lies down and also reports occasional episodes of gastroesophageal reflux disease with regurgitation. She takes Tums on an as-needed basis currently. In the emergency room, patient had a CT
scan performed which showed bilateral bronchitis changes without any consolidation and some mediastinal lymphadenopathy. Pulmonary consultation was requested for further input.
Known history of high-grade carcinosarcoma of the endometrium, s/p surgery in 2021, currently on chemotherapy. Patient also carries a diagnosis of papillary thyroid carcinoma s/p surgery.
Patient had an ER visit on 12/29 after second dose of carboplatin when she developed tightness in throat, nausea, shakiness which was treated with EpiPen, Benadryl, Decadron. Patient improved in the emergency room and was subsequently discharged
#1. Acute bronchitis
- ?Infectious vs GERD related
- Influenza A, B screen negative. Blood cultures pending, WBC count was normal and patient is afebrile. Lactate is normal at 0.9
- Continue Azithromycin for Atypical pneumonitis coverage
- Started PPI 40 mg daily, frequent GERD symptoms with regurgitation
- Follow up on c/s.
#2. Hyperactive airway disease, suspect underlying undiagnosed COPD with Acute exacerbation
- Patient has more than 11-cdkg-bgti smoking history, suspect underlying COPD with current presentation consistent with acute exacerbation with acute bronchitis
- Continue Duoneb, short term steroids and monitor.
- Added nebulized budesonide twice daily
- Will check bedside spirometry
- D/c and start Solumedrol 40 mg IV daily
#3. Mediastinal lymphadenopathy.
- ?Infection related vs malignant with know h/o CA Endometrium
- Monitor for now, can pursue short term CT imaging in 6 weeks time
- With longstanding history of smoking, malignancy is certainly a concern
#4. H/o Smoking.
- Patient smokes about a pack per day since age 14, has close to 56-nqao-mfpr smoking history
- Last cigarette was 2 days ago
- Suspect patient has underlying undiagnosed COPD
Other medical diagnoses:
- Endometrial Sarcocarcinoma, since 2021, Oncology service on case
- Poor tolerance of chemotherapeutic agents.
Total time spent on this consultation/encounter __43__ minutes which includes review of history, physical exam, medications, laboratory data, personal review of imaging, extensive review of outpatient records, discussion with care team and
respiratory therapy.
Data:
CT-PE 12/2024: Suboptimal opacification of the pulmonary arteries. No evidence for central pulmonary embolism.
Diffuse bronchial wall thickening, new from prior examination, suggesting bronchitis. Branching small nodular opacities within the mid to lower lungs bilaterally, suggesting small airway pneumonitis, also new.
Mediastinal lymphadenopathy as described, increasing from prior CT examinations, and suspicious for neoplastic lymphadenopathy.
13 mm nodular low-density lesion in the region of the splenic hilum and the left upper quadrant the abdomen, suspicious for a peritoneal neoplastic implant. Small amount of ascites within the upper abdomen, mainly within the left upper quadrant,
raising concern for ascites associated with peritoneal carcinomatosis.
Probable cholelithiasis.
CXR 12/2024: No evidence of active cardiopulmonary disease.
ECHO 12/2024: Left ventricle is small in size. LV ejection fraction is >75%, by visual
assessment. No regional wall motion abnormalities are seen. Global longitudinal
strain values are within normal limits GLS -21.6%.
Normal right ventricular size and function.
Mild tricuspid regurgitation. Estimated pulmonary artery pressure of 40-45
mmHg.
Normal pericardium without effusion.
No prior study available for comparison.
Subjective Data
-
Date of Service:
Date of Service: January 17, 2025
Subjective:
Patient comfortably lying in bed no acute distress, continues to feel shortness of breath and wheezing particularly with exertion
Review of Systems
Genitourinary: Other (No new symptoms reported)
Objective Data
Data Reviewed
Vital Signs / I&O / Oxygen:
Vital Signs
Temp Pulse Resp BP Pulse Ox
97.7 F 88 16 108/49 95
01/17/25 07:00 01/17/25 07:09 01/17/25 07:09 01/17/25 07:00 01/17/25 07:09
Intake and Output
01/16/25 01/17/25 01/18/25
06:59 06:59 06:59
Intake Total 120 / 120 480 / 480
Balance 120 / 120 480 / 480
SaO2 95
Nasal Cannula flow liters per 4
minute
Physical Exam
General: Comfortable
HEENT: Normocephalic
Cardiovascular: S1-S2
Respiratory: Wheeze and Other (Diffuse end expiratory wheezing)
GI: Soft and Non Distended
Neurology: Awake and Alert
Skin: Warm
Labs/Micro/Reports
Lab Data
01/17/25 07:32
01/17/25 05:55
Microbiology
01/16/25 01:30 Blood/Venous Blood Culture - Preliminary
No Growth in 24 hours- Final report to follow
01/16/25 01:38 Blood/Venous Blood Culture - Preliminary
No Growth in 24 hours- Final report to follow
01/16/25 09:45 Nasal Swab Influenza Types A & B (POLLY) - Final
Negative for Influenza A & B, NAAT
Negative results must be combined with clinical observations
and patient history.
Nucleic Acid Amplification test (NAAT)performed on the
[email or web address] platform.
[2025-01-17] MEDS: XANAX 0.5 MG PO (13:12)
[2025-01-17] MEDS: NON-FORMULARY ITEM PO (13:12)
--- NOTE | 2025-01-17 13:24 | PTCARENOTE ---
pt anxious, talking about chemo, wanting to get back to chemo, wanting to feel stronger, asking if chemo is actually working....very fast repetitive and anxious conversations. Tearful, looking at pictures of herself 3 years ago and saying 'I don't
even know her anymore'. Pt complains she feels SOB when she is talking. reassurance and education provided, PRN xanex administered, rest encouraged. Reaching out to [facility] and volunteer services.
--- NOTE | 2025-01-17 14:18 | W.PN.HOSP.TC ---
Today's Communication/Plan
-
continue current Tx
check procal and sputum
recheck CBC
Assessment / Plan
Assessment / Plan
Acute respiratory distress. Lungs demonstrate improved air movement, but pt states she is not feeling any better
had been coughing past 2-3 weeks, becoming sob day of admission that rapidly worsened. Unclear if this is infectious or inflammatory
consulted Pulm and Onc, input appreciated
Reviewed with Dr. Frank, he recommends getting a procalcitonin level and sputum sample
WBC 10.6-->19.8k
Hx of metastatic endometrial cancer
originally dx in 2020. Follows with Dr. Box in office. Underwent robotic assisted lap hysterectomy 07/29/2021
Distant past hx of Thyroid Cancer
Cigarette use and as of day prior to admission still smoking 1/2 ppd
P:IV Decadron, changed to Solumedrol
duonebs
Pulm and Onc consults
empiric Azithromycin
DNR and confirmed x 2 with patient
Anticipated Discharge: > 48 hours
Subjective/Interval History
-
Date of Service: January 17, 2025
States feels much better
Objective Data
-
Labs:
Laboratory Results
01/17/25 01/17/25
05:55 07:32
WBC Cancelled 19.8 H
Hgb Cancelled 8.0 L
Hct Cancelled 23.5 L
Plt Count Cancelled 208
Sodium 135
Potassium 4.4
Chloride 107
Carbon Dioxide 25
BUN 4 L
Creatinine 0.8
Glucose 114 H
Calcium 8.5
Vital Signs:
Vital Signs
Temp Pulse Resp BP Pulse Ox
97.7 F 94 18 108/49 95
01/17/25 07:00 01/17/25 12:34 01/17/25 12:34 01/17/25 07:00 01/17/25 07:09
I&O
01/16/25 01/17/25 01/18/25
06:59 06:59 06:59
Intake Total 120 / 120 480 / 480
Balance 120 / 120 480 / 480
Review of Systems
-
History Source: Patient and Coordinated Provider
Constitutional: Reports Fever (100.9 01/16, 02:19, afebrile since)
EENT: Reports No Symptoms Reported
Respiratory: Reports Trouble Breathing (remains very sob)
Cardiac: Reports No Symptoms; Denies Chest Pain
Abdomen/GI: Reports Abdominal Pain (chronic related to known cancer)
Musculoskeletal: Reports No Symptoms
Neuro: Reports No Symptoms
Physical Exam
-
General: Well Developed, Well Nourished, No Apparent Distress and Appears Chronically Ill
HEENT: Normocephalic
Respiratory: Wheezes (improved air movement with coarse wheeze); Negative Rales or Rhonchi
Cardiac: Regular Rhythm and S1/S2
GI: Soft, Nontender and Nondistended
Genito-urinary: No Costovertebral Tender
Musculoskeletal: No Clubbing, No Cyanosis and No Edema
Skin: Warm and Dry
Neuro: Awake, Alert and Oriented
[2025-01-17 15:00] VITALS: BP 98/42
[2025-01-17 15:20] VITALS: BMI 19.3
--- NOTE | 2025-01-17 16:34 | CM ---
Pt is sleeping oriented who
lives with her Wilberto . Nurse asked me to speak with and not wake her. Spoke with Wilberto he said they lives in 2 story home with 0 steps to enter and 10 steps to bed bathroom . She has been sleeping on first floor. She is
independent in activates of daily living.She does not drive .No adaptive devices.On new oxygen . Will need home oxygen test.
No VN in past . No SNF hx
Pharmacy [address]
PCP Dr Giang
[employer] for oxygen need. Plan will depend on hospital course
[2025-01-17] MEDS: SOLU-MEDROL PF 40 MG IV (17:22)
[2025-01-17 23:00] VITALS: BP 130/55
[2025-01-18] VITALS (9 sets, daily range): BP systolic 95–169; BP diastolic 42–68; PULSE 2–119
[2025-01-18] MEDS: NON-FORMULARY ITEM 1 UNIT PO (05:39)
[2025-01-18 05:42] LABS: Hematocrit 23.5 % (37.0-47.0); Hemoglobin 7.8 g/dL (12.0-16.0); Mean Corp Hgb Conc. 33.2 g/dL (33.0-37.0); Mean Corpuscular Volume 91.4 fL (81.0-99.0); Platelet Count 254 10^3/uL (130-400); Red Cell Dist. Width 21.3 % (11.5-14.5)
[2025-01-18 06:07] LABS: Procalcitonin 0.23 ng/ml (0.0-0.25)
[2025-01-18 06:22] LABS: ALT (SGPT) 22 U/L (0-35); AST (SGOT) 21 U/L (14-36); Albumin 3.4 g/dl (3.5-5.0); Alkaline Phosphatase 114 U/L (38-126); Blood Urea Nitrogen 6 mg/dl (7-17); Calcium 8.9 mg/dl (8.4-10.2); Carbon Dioxide 26 mmol/L (22-30); Chloride 103 mmol/L (98-107); Estimated Creatinine Clearance 47 ml/min; Glucose 87 mg/dl (70-99); Potassium 4.0 mmol/L (3.5-5.1); Sodium 134 mmol/L (135-145); Total Protein 5.5 g/dl (6.3-8.2); eGFR > 60.00
[2025-01-18] MEDS: DUONEB 3 ML INH ×4 (07:24→20:16)
[2025-01-18] MEDS: PULMICORT 0.5 MG INH ×2 (07:24→20:16)
--- NOTE | 2025-01-18 07:33 | W.PN.ONC2 ---
Addendum entered and electronically signed by Horace Huitron MD 01/19/25 06:25:
Acute Reparatory failure
Addendum entered and electronically signed by Horace Huitron MD 01/18/25 07:52:
Saw order from pulm to switch from Dex 4 IV Q8 to Solu-Mederol 40 QD yesterday. I still want her to get higher dose in light of worsening respiratory status...1 gm QD x 3 days.
Original Note:
Today's Communication / Plan
-
New concerns that we have chemo related pneumonitis or worse endometrial cancer POD in the lungs.
Pulse Solu-Mederol.
CA-125
Impression
Impression
metastatic endometrial cancer
Dyspnea and respiratory failure
bronchitis
DNR
Plan
Plan
antibiotics, steroids, nebs/inhalers are not improving her symptoms.
Sp02 on 4L 87%...increased to 6L and repeat SpO2 91%.
On Dex 4 mg Q8.
Will give pulse higher dose Solu-Medrol as opposed to Bronchitis dose Dex in case Abraxane pneumonitis.
Start Solu-Mederol 1 gm QD x 3 days
Initially this was suggestive of acute bronchitis > chemotherapy related pneumonitis.
I am now concerned that this could be at least potentially 2* to POD in lung (lymphangitic pneumonitis from endometrial cancer) especially based on the 01/16 CT that shows potential POD in lungs and mediastinum:
>>>>>
Diffuse bronchial wall thickening, new from prior examination, suggesting bronchitis. Branching small nodular opacities within the mid to lower lungs bilaterally, suggesting small airway pneumonitis, also new. Mediastinal lymphadenopathy as
described, increasing from prior CT examinations, and suspicious for neoplastic lymphadenopathy.
>>>>>
WBC rising but this can be G-CSF related as that was given on 01/15.
CA-125 has been improving since recent salvage Carbo + Abraxane was started but Carbo stopped permanently 2* to severe Carboplatin reaction
Subjective/Objective
Chief Complaint
ACS Oncology F/U
Subjective
Patient feeling worse since admission 01/16. Worse SOB, cannot eat or talk without dyspnea. Still with diarrhea. MiniNeb aren't helping her at all.
Vital Signs:
Vital Signs
Temp Pulse Resp BP Pulse Ox
97.7 F 107 16 130/55 96
01/17/25 23:00 01/17/25 23:00 01/17/25 23:00 01/17/25 23:00 01/17/25 23:00
Lab Results:
Laboratory Data
WBC 30.8 10^3/uL (4.8-10.8) H 01/18/25 05:03
Hgb 7.8 g/dL (12.0-16.0) L 01/18/25 05:03
Plt Count 254 10^3/uL (130-400) D 01/18/25 05:03
eGFR > 60.00 01/18/25 05:03
Physical Exam
Unable to talk comfortably in complete sentences.
HEENT: No Jaundice
Cardiology: S1 and S2
Pulmonary: Other (decreased air movement); No Rales or Rhonchi
GI: Soft
Extremities: No C/C/E
[2025-01-18 07:46] LABS: Absolute Neutrophils -Man Diff 25.5 10^3/uL (1.4-6.5)
[2025-01-18 07:47] LABS: Anisocytosis 1+; Normal RBC Morphology No; Platelets Checked Yes
[2025-01-18 07:48] LABS: Acanthocytes 1+; Hypochromasia 1+; Polychromasia 1+; Total Cells Counted 100
[2025-01-18] MEDS: TRANXENE 3.75 MG PO ×2 (07:48→19:44)
[2025-01-18] MEDS: CLARITIN 10 MG PO (07:48)
[2025-01-18] MEDS: SOLU-MEDROL PF 40 MG IV (07:48)
[2025-01-18] MEDS: HEPARIN 5000 UNITS SC ×2 (07:48→19:44)
[2025-01-18] MEDS: PROTONIX 40 MG PO (07:48)
[2025-01-18] MEDS: OSCAL 500 + D 500 MG PO (07:48)
[2025-01-18] MEDS: ZITHROMAX 252.5 MG IV (07:53)
[2025-01-18] MEDS: XANAX 0.5 MG PO (08:00)
[2025-01-18] MEDS: SOLU-MEDROL 258 MG IV (09:00)
--- NOTE | 2025-01-18 10:11 | CM ---
Patient transferred to IMU for higher level of care.
Oxygen needs have increased to 5 liters Oxygen.
PLAN Will depend on hospital course of care.
[2025-01-18] MEDS: ROCEPHIN 1000 MG IV (10:20)
[2025-01-18] MEDS: STERILE WATER FOR INJECTION 10 ML IV (10:20)
[2025-01-18 10:34] LABS: B.E. 1.0 mmol/L; HCO3 25.1 mmol/L (21-28); O2 Saturation % 99.9 % (94-98); PCO2 37 mmHg (32-35); PO2 91 mmHg (83-108)
--- NOTE | 2025-01-18 10:45 | PN.CDI ---
CDI
- -
CDI:
Physician Documentation Request
Admit Date: 01/16/25 13:19
Dear Doctor,
Please review the following and provide your response in the progress notes.
Clinical Indicators:
Pt admitted with acute bronchitis vs chemo related pneumonitis
Oncology progress note 01/18, ' Saw order from pulm to switch from Dex 4 IV Q8 to Solu-Mederol 40 QD yesterday. I still want her to get higher dose in light of worsening respiratory status...1 gm QD x 3 days....Dyspnea and respiratory
failure....Unable to talk comfortably in complete sentences....Pulmonary: Other (decreased air movement...'
Pt now on 5 LPM via NC
Please Clarify which of the following accurately represents the acuity of the (Reparatory failure ):
Acute
Acute on Chronic
Other ( please specify)
Use of terms such as suspected, likely, concern for, or probable (associated with a specific diagnosis that is being evaluated, monitored, or treated as if it exists) are acceptable and can be coded in the inpatient setting, when documented at the
time of discharge.
Thank you,
Janice Recio RN
CDI Specialist
[place] [facility]
Please use your independent medical judgment in providing your response.
--- NOTE | 2025-01-18 10:50 | PN.CDI ---
CDI
- -
CDI:
Physician Documentation Request
Admit Date: 01/16/25 13:19
Dear Doctor Andrey,
Please review the following and provide your response in the progress notes.
Clinical Indicators:
Pt admitted with Acute respiratory distress Acute Bronchitis vs Chemo induced Pneumonitis
Progress note 01/17, ' Reviewed with Dr. Frank, he recommends getting a procalcitonin level and sputum sample
WBC 10.6-->19.8k...Fever (100.9 01/16...'
On admission Tmax 100.9, HR 116, Respirations 30 bands 12( 01/17)
On Zithromax
Please clarify which of the following most accurately describes the status of the patient's infection:
Sepsis- POA
- Systemic manifestations of infection, with 2 or more SIRS criteria which include:
- Fever >100.9 degrees F or hypothermia < 96.8 degrees F
- Leukocytosis - WBC > 12,000 or leukopenia - WBC < 4,000 or > 10% bands
- Tachycardia > 90 beats per minute
- Tachypnea - RR > 20 breaths per minute or PaCO2 , 32mmHg
Source: Merck Manual 2012
Sepsis-evolved during hospitalization
Acute bronchitis only, Without Systemic Illness
Other
Use of terms such as suspected, likely, concern for, or probable (associated with a specific diagnosis that is being evaluated, monitored, or treated as if it exists) are acceptable and can be coded in the inpatient setting, when documented at the
time of discharge.
Thank you,
Janice Recio RN
CDI Specialist
[place] [facility]
Please use your independent medical judgment in providing your response.
--- NOTE | 2025-01-18 13:25 | W.PN.PUL3 ---
Today's Communication / Plan
-
- Stat ABG
- Initiate BiPAP 12 x 6 in view of increased work of breathing, transfer to IMU
- Follow-up chest x-ray and VBG in a.m
- Continue IV azithromycin, add ceftriaxone 1 g daily
Assessment
-
Patient is a 74-year-old female who presented to the hospital with few weeks of progressively increasing weakness, shortness of breath. Patient also reports that her oxygen saturation at home have been running around 90-92. She has close to
[id number] smoking history and currently smokes about a pack per day. Patient reports frequent cough occasional wheezing and significant exertional dyspnea. Over the last few days she is reporting increased cough with clear expectoration with
occasional wheezing. Symptoms tend to be worse when she lies down and also reports occasional episodes of gastroesophageal reflux disease with regurgitation. She takes Tums on an as-needed basis currently. In the emergency room, patient had a CT
scan performed which showed bilateral bronchitis changes without any consolidation and some mediastinal lymphadenopathy. Pulmonary consultation was requested for further input.
Known history of high-grade carcinosarcoma of the endometrium, s/p surgery in 2021, currently on chemotherapy. Patient also carries a diagnosis of papillary thyroid carcinoma s/p surgery.
Patient had an ER visit on 12/29 after second dose of carboplatin when she developed tightness in throat, nausea, shakiness which was treated with EpiPen, Benadryl, Decadron. Patient improved in the emergency room and was subsequently discharged
#1. Worsening acute hypoxic respiratory failure (01/18/2025)
- Overnight patient has increased oxygen requirement, increased to wheezing as well as work of breathing. Accessory muscle use during my evaluation
- Stat ABG, 7.44, 37, 91 on 5 L oxygen. Chest x-ray, 01/18, without any active infiltrates.
- Bedside spirometry 01/17, severe obstructive airway disease with postbronchodilator FEV1 of 0.57 L.
- CT scan and today's x-ray are not suggestive of typical groundglass opacities noted in chemotherapy related pneumonitis
- Patient's worsening status appears more related to obstructive airway disease, start BiPAP in view of increased work of breathing, supplemental oxygen to keep saturations above 90%, will transfer patient to IMU for close monitoring. Reviewed
oncology correspondence, 1 g Solu-Medrol daily started in case patient has underlying chemotherapy related pneumonitis
- Discussed CODE STATUS with patient, she confirmed DNR/DNI
- Follow-up chest x-ray and VBG in a.m.
#1a. Acute bronchitis
- ?Infectious vs GERD related
- Influenza A, B screen negative. Blood cultures pending, WBC count was normal and patient is afebrile. Lactate is normal at 0.9
- Patient has been on azithromycin for atypical coverage. Procalcitonin borderline at 0.23, add ceftriaxone 1 g daily for CAP coverage
- Started PPI 40 mg daily, frequent GERD symptoms with regurgitation
- Follow up on c/s
- Admission CT scan and today's chest x-ray are not suggestive of any parenchymal opacities. No typical groundglass multifocal opacities noted as seen in severe chemotherapy related pneumonitis.
- Reviewed oncology correspondence, 1 g Solu-Medrol daily started for presumed underlying chemical therapy related pneumonitis.
- Follow-up chest x-ray in a.m.
#2. Hyperactive airway disease, suspect underlying undiagnosed COPD with Acute exacerbation
- Patient has more than 46-[id number]-[id number] smoking history, bedside spirometry suggestive of severe obstructive airway disease
- Continue Duoneb, short term steroids and monitor.
- Added nebulized budesonide twice daily
#3. Mediastinal lymphadenopathy.
- ?Infection related vs malignant with know h/o CA Endometrium
- Monitor for now, can pursue short term CT imaging in 6 weeks time
- With longstanding history of smoking, malignancy is certainly a concern
#4. H/o Smoking.
- Patient smokes about a pack per day since age 14, has close to 79-rgci-rgus smoking history
- Last cigarette was 2 days ago
Other medical diagnoses:
- Endometrial Sarcocarcinoma, since 2021, Oncology service on case
- Poor tolerance of chemotherapeutic agents.
Total time spent on this consultation/encounter __63__ minutes which includes review of history, physical exam, medications, laboratory data, personal review of imaging, extensive review of outpatient records, discussion with care team and
respiratory therapy.
Data:
CT-PE 12/2024: Suboptimal opacification of the pulmonary arteries. No evidence for central pulmonary embolism.
Diffuse bronchial wall thickening, new from prior examination, suggesting bronchitis. Branching small nodular opacities within the mid to lower lungs bilaterally, suggesting small airway pneumonitis, also new.
Mediastinal lymphadenopathy as described, increasing from prior CT examinations, and suspicious for neoplastic lymphadenopathy.
13 mm nodular low-density lesion in the region of the splenic hilum and the left upper quadrant the abdomen, suspicious for a peritoneal neoplastic implant. Small amount of ascites within the upper abdomen, mainly within the left upper quadrant,
raising concern for ascites associated with peritoneal carcinomatosis.
Probable cholelithiasis.
CXR 12/2024: No evidence of active cardiopulmonary disease.
ECHO 12/2024: Left ventricle is small in size. LV ejection fraction is >75%, by visual
assessment. No regional wall motion abnormalities are seen. Global longitudinal
strain values are within normal limits GLS -21.6%.
Normal right ventricular size and function.
Mild tricuspid regurgitation. Estimated pulmonary artery pressure of 40-45
mmHg.
Normal pericardium without effusion.
No prior study available for comparison.
Subjective Data
-
Date of Service:
Date of Service: January 18, 2025
Subjective:
Patient appears more short of breath today, increased work of breathing as well as increased oxygen requirement
Review of Systems
Genitourinary: Other (Increased chest tightness, accessory muscle use, increased work of breathing.)
Objective Data
Data Reviewed
Vital Signs / I&O / Oxygen:
Vital Signs
Temp Pulse Resp BP Pulse Ox
98.7 F 110 20 169/67 91
01/18/25 07:00 01/18/25 10:32 01/18/25 10:32 01/18/25 07:00 01/18/25 10:32
Intake and Output
01/17/25 01/18/25 01/19/25
06:59 06:59 06:59
Intake Total 120 / 120 780 / 780 480 / 480
Balance 120 / 120 780 / 780 480 / 480
SaO2 91
Nasal Cannula flow liters per 2
minute
Physical Exam
General: Respiratory Distress (Mild)
HEENT: Normocephalic
Cardiovascular: S1-S2
Respiratory: Wheeze (Increased wheezing), Accessory Resp Muscle Use and Other (Diffuse end expiratory wheezing)
GI: Soft and Non Distended
Neurology: Awake and Alert
Skin: Warm
Labs/Micro/Reports
Lab Data
01/18/25 05:03
01/18/25 05:03
Laboratory Results
01/18/25
10:19
pH 7.44
pCO2 37 H
pO2 91
HCO3 25.1
O2 Delivery Level
Microbiology
01/16/25 01:38 Blood/Venous Blood Culture - Preliminary
No Growth in 48 hours- Final report to follow
01/16/25 01:30 Blood/Venous Blood Culture - Preliminary
No Growth in 48 hours- Final report to follow
01/16/25 09:45 Nasal Swab Influenza Types A & B (POLLY) - Final
Negative for Influenza A & B, NAAT
Negative results must be combined with clinical observations
and patient history.
Nucleic Acid Amplification test (NAAT)performed on the
[employer] platform.
--- NOTE | 2025-01-18 14:59 | PTCARENOTE ---
1459 Pt transferred to 3345 a bed report given to JOSE LUIS Serrano. All belongs with pt's .
[2025-01-18] MEDS: CHLORASEPTIC/SORE THROAT SPRAY 1 SPRAY PO ×2 (15:39→22:13)
--- NOTE | 2025-01-18 15:39 | PTCARENOTE ---
Pt arrived to floor on stretcher; Pulled over to bed with assistance; Pt on 4L O2 via NC, SpO2 = 92%; Pt dyspneic on exertion and at rest, Pt needed to be redirected frequently to stop talking and take breaths through nose. Lungs with Rhonchi, exp
wheeze and noted to be course; AAO x 3; HR ~ 110's-120's; Oriented to room, call cronin within reach. Will continue to monitor and assess.
--- NOTE | 2025-01-18 16:49 | W.PN.HOSP.TC ---
Today's Communication/Plan
-
Rocephin added
steroid dosing changed
pt transferred to IMU
Assessment / Plan
Assessment / Plan
Acute respiratory distress. Lungs demonstrate improved air movement, but pt states she is not feeling any better
had been coughing past 2-3 weeks, becoming sob day of admission that rapidly worsened. Unclear if this is infectious or inflammatory
consulted Pulm and Onc, input appreciated. Input appreciated. Agree with Dr. Huitron that significant concern for lymphangitic pneumonitis from endometrial cancer
Reviewed with Dr. Frank, he recommends getting a procalcitonin level and sputum sample
WBC 10.6-->19.8-->30.8k
Procalcitonin 0.23
Leukocytosis possibly due to G-CSF given on 01/15 versus steroids or related to progressive cancer
Sepsis present on admission
Rocephin added to medication
Hx of metastatic endometrial cancer
originally dx in 2020. Follows with Dr. Box in office. Underwent robotic assisted lap hysterectomy 07/29/2021
Distant past hx of Thyroid Cancer
Cigarette use and as of day prior to admission still smoking 1/2 ppd
P:IV Decadron, changed to Solumedrol, dose now 1 gm daily
duonebs
Pulm and Onc consults
empiric Azithromycin, Rocephin added
DNR and confirmed x 2 with patient
extensive review of situation with at bedside
Anticipated Discharge: > 48 hours
Subjective/Interval History
-
Date of Service: January 18, 2025
Does not feel well
Objective Data
-
Labs:
Laboratory Results
01/18/25 01/18/25
05:03 10:19
WBC 30.8 H
Hgb 7.8 L
Hct 23.5 L
Plt Count 254 D
HCO3 25.1
Sodium 134 L
Potassium 4.0
Chloride 103
Carbon Dioxide 26
BUN 6 L
Creatinine 0.7
Glucose 87
Calcium 8.9
Total Bilirubin 0.4
AST 21
ALT 22
Alkaline Phosphatase 114
Vital Signs:
Vital Signs
Temp Pulse Resp BP Pulse Ox
97.8 F 107 19 169/67 95
01/18/25 15:40 01/18/25 15:37 01/18/25 15:37 01/18/25 07:00 01/18/25 15:37
I&O
01/17/25 01/18/25 01/19/25
06:59 06:59 06:59
Intake Total 120 / 120 780 / 780 480 / 480
Balance 120 / 120 780 / 780 480 / 480
Review of Systems
-
History Source: Patient and Coordinated Provider
Constitutional: Reports Fever (100.9 01/16, 02:19, afebrile since)
EENT: Reports No Symptoms Reported
Respiratory: Reports Trouble Breathing (remains very sob)
Cardiac: Reports No Symptoms; Denies Chest Pain
Abdomen/GI: Reports Abdominal Pain (chronic related to known cancer, not worse than baseline)
Musculoskeletal: Reports No Symptoms
Neuro: Reports No Symptoms
Physical Exam
-
General: Well Developed, Well Nourished, No Apparent Distress and Appears Chronically Ill
HEENT: Normocephalic
Respiratory: Wheezes (improved air movement with coarse wheeze); Negative Rales or Rhonchi
Cardiac: Regular Rhythm and S1/S2
GI: Soft, Nontender, Nondistended and Normal Bowel Sounds
Genito-urinary: No Costovertebral Tender
Musculoskeletal: No Clubbing, No Cyanosis and No Edema
Skin: Warm and Dry
Neuro: Awake, Alert and Oriented
[2025-01-18] MEDS: TENORMIN 12.5 MG PO ×2 (17:18→22:10)
[2025-01-18 18:41] LABS: CA 125 156 U/mL (0-35)
[2025-01-19] VITALS (12 sets, daily range): BP systolic 109–147; BP diastolic 48–79; PULSE 2–111
[2025-01-19] MEDS: NON-FORMULARY ITEM 1 UNIT PO (05:10)
[2025-01-19 05:18] LABS: Venous Blood Gas B.E. 2.1 mmol/L (-4 to +4); Venous Blood Gas O2 Sat % 91.2 %
--- NOTE | 2025-01-19 05:23 | PTCARENOTE ---
received patient from previous RN. Patient is AAO3 and very pleasant. 5l NC CHAVEZ with harsh dry cough at times. assessment and vital signs as documented. Morning lab drawn. No acute events overnight. call cronin in reach.
[2025-01-19 05:32] LABS: Hematocrit 25.2 % (37.0-47.0); Hemoglobin 8.5 g/dL (12.0-16.0); Mean Corp Hgb Conc. 33.7 g/dL (33.0-37.0); Mean Corpuscular Volume 91.3 fL (81.0-99.0); Platelet Count 286 10^3/uL (130-400); Red Cell Dist. Width 21.8 % (11.5-14.5)
[2025-01-19 05:46] LABS: Blood Urea Nitrogen 8 mg/dl (7-17); Calcium 9.2 mg/dl (8.4-10.2); Carbon Dioxide 26 mmol/L (22-30); Chloride 106 mmol/L (98-107); Estimated Creatinine Clearance 41 ml/min; Glucose 108 mg/dl (70-99); Potassium 4.4 mmol/L (3.5-5.1); Sodium 138 mmol/L (135-145); eGFR > 60.00
[2025-01-19 06:07] LABS: Absolute Neutrophils -Man Diff 56.1 10^3/uL (1.4-6.5)
[2025-01-19 06:08] LABS: Anisocytosis 1+; Normal RBC Morphology No; Platelets Checked Yes; Total Cells Counted 100
--- NOTE | 2025-01-19 06:51 | W.PN.ONC2 ---
Today's Communication / Plan
-
CA-125 remains improved.
Continue aggressive Tx or resp failure and bronchospasm.
Impression
Impression
metastatic endometrial cancer
Dyspnea and respiratory failure
bronchitis
Leukocytosis (GCSF, Steroids, infection/inflammation)
DNR
Plan
Plan
Somewhat improved likely a combo of higher dose steroids and pulm Tx of bronchospasm.
On Solu-Mederol 1 gm QD x 3 days. Will defer to pulmonary management of resp failure going forward.
Suspect metastatic disease might be contributing to her resp failure based on CT:
Mediastinal lymphadenopathy as described, increasing from prior CT examinations, and suspicious for neoplastic lymphadenopathy although could all be inflammatory.
WBC rising but this can be G-CSF related as that was given on 01/15 in addition to inflammatory and steroid related leukemoid reaction
CA-125 has been improving since recent salvage Carbo + Abraxane was started but Carbo stopped permanently 2* to severe Carboplatin reaction. It still is continuing to improve
Subjective/Objective
Chief Complaint
ACS Heme Onc
Subjective
Currently on commode. States better day and night yesterday. Speaking better (friends came to visit). Less cough. Slept better. Breathless now but up to commode.
Vital Signs:
Vital Signs
Temp Pulse Resp BP Pulse Ox
97.0 F 94 18 126/62 88
01/19/25 03:30 01/19/25 05:15 01/19/25 05:15 01/19/25 04:00 01/19/25 05:15
Lab Results:
Laboratory Data
WBC 79.1 10^3/uL (4.8-10.8) H* 01/19/25 05:09
Hgb 8.5 g/dL (12.0-16.0) L 01/19/25 05:09
Plt Count 286 10^3/uL (130-400) 01/19/25 05:09
eGFR > 60.00 01/19/25 05:09
Laboratory Tests
12/06/24 12/27/24 01/03/25
12:23 12:16 11:01
CA 125 Antigen 704 H 330 H 299 H
01/10/25 01/18/25
10:36 05:03
CA 125 Antigen 274 H 156 H
Physical Exam
Deferred PE as on commode but still some accessory muscle usage.
Orders
Orders
Orders From Last 24 Hours
01/18/25 08:00
MethylPREDNISolone. [Solu-Medrol] 1,000 mg 0.9% Sodium Chloride 250 ml [Nss] 250 ml IV Q24H
[2025-01-19] MEDS: SOLU-MEDROL 258 MG IV (08:15)
[2025-01-19] MEDS: TENORMIN 12.5 MG PO ×2 (08:16→20:42)
[2025-01-19] MEDS: XANAX 0.5 MG PO ×2 (08:17→23:17)
[2025-01-19] MEDS: OSCAL 500 + D 500 MG PO (08:17)
[2025-01-19] MEDS: PROTONIX 40 MG PO (08:17)
[2025-01-19] MEDS: TRANXENE 3.75 MG PO ×2 (08:17→20:42)
[2025-01-19] MEDS: CLARITIN PO ×2 (08:17→08:20)
[2025-01-19] MEDS: PULMICORT 0.5 MG INH ×2 (08:18→20:41)
[2025-01-19] MEDS: DUONEB 3 ML INH ×4 (08:18→20:41)
[2025-01-19] MEDS: HEPARIN 5000 UNITS SC ×2 (08:19→20:43)
[2025-01-19] MEDS: ZITHROMAX 252.5 MG IV (09:42)
[2025-01-19] MEDS: ZOFRAN 4 MG IV (10:41)
[2025-01-19] MEDS: ROCEPHIN 1000 MG IV (11:16)
[2025-01-19] MEDS: STERILE WATER FOR INJECTION 10 ML IV (11:16)
--- NOTE | 2025-01-19 13:24 | CM ---
Patient with Hx metastatic endometrial cancer with Dx Acute respiratory distress, sepsis. O2 6L. Receiving IV Abx, IV methylprednisone. Per nurse; A/O, weak gait/transfers.
Patient would benefit from PT/OT Evals when medically stable/appropriate.
Plan TBD.
--- NOTE | 2025-01-19 15:42 | PTCARENOTE ---
Rec'd pt this AM. Pt becomes very tachypnic, short of breath and desats when OOB to BSC. Placed on 6L with MF NC, increased O2 to 10L for recovery when pt getting back to bed. all other vital signs stable. spouse at bedside.
--- NOTE | 2025-01-19 17:36 | W.PN.HOSP.TC ---
Today's Communication/Plan
-
continue current Tx
Follow labs
Assessment / Plan
Assessment / Plan
Acute respiratory distress. Lungs demonstrate improved air movement, but pt states she is not feeling any better
had been coughing past 2-3 weeks, becoming sob day of admission that rapidly worsened. Unclear if this is infectious or inflammatory
consulted Pulm and Onc, input appreciated. Input appreciated. Agree with Dr. Huitron that significant concern for lymphangitic pneumonitis from endometrial cancer
Reviewed with Dr. Frank, he recommends getting a procalcitonin level and sputum sample
WBC 10.6-->19.8-->30.8-->79.1k
(Dr Huitron feels leukocytosis could be due to G-CSF, steroids, infection/inflammation)
Procalcitonin 0.23
Pt appears ill, though also appears to be showing some degree of improvement
Leukocytosis possibly due to G-CSF given on 01/15 versus steroids or related to progressive cancer
Sepsis present on admission
Rocephin added to medication
Hx of metastatic endometrial cancer
originally dx in 2020. Follows with Dr. Box in office. Underwent robotic assisted lap hysterectomy 07/29/2021
Distant past hx of Thyroid Cancer
Cigarette use and as of day prior to admission still smoking 1/2 ppd
P:IV Decadron, changed to Solumedrol, dose now 1 gm daily
duonebs
Pulm and Onc consults. Reviewed extensively with pulmonary
empiric Azithromycin, Rocephin added
DNR and confirmed x 2 with patient
extensive review of situation with at bedside
Anticipated Discharge: > 48 hours
Subjective/Interval History
-
Date of Service: January 19, 2025
Pt remains very weak
Objective Data
-
Labs:
Laboratory Results
01/19/25
05:09
WBC 79.1 H*
Sodium 138
Potassium 4.4
Chloride 106
Carbon Dioxide 26
BUN 8
Creatinine 0.8
Glucose 108 H
Calcium 9.2
Vital Signs:
Vital Signs
Temp Pulse Resp BP Pulse Ox
97.8 F 84 16 135/58 99
01/19/25 15:10 01/19/25 15:58 01/19/25 15:58 01/19/25 14:11 01/19/25 15:58
I&O
01/18/25 01/19/25 01/20/25
06:59 06:59 06:59
Intake Total 780 / 780 480 / 480
Balance 780 / 780 480 / 480
Review of Systems
-
History Source: Patient and Coordinated Provider
Constitutional: Reports Fever (100.9 01/16, 02:19, afebrile since)
EENT: Reports No Symptoms Reported
Respiratory: Reports Trouble Breathing (remains very sob)
Cardiac: Reports No Symptoms; Denies Chest Pain
Abdomen/GI: Reports Abdominal Pain (chronic related to known cancer, not worse than baseline)
Musculoskeletal: Reports No Symptoms
Neuro: Reports No Symptoms
Physical Exam
-
General: Well Developed, Well Nourished, No Apparent Distress and Appears Chronically Ill
HEENT: Normocephalic
Respiratory: Wheezes (improved air movement with coarse wheeze); Negative Rales or Rhonchi
Cardiac: Regular Rhythm and S1/S2
GI: Soft, Nontender, Nondistended and Normal Bowel Sounds
Genito-urinary: No Costovertebral Tender
Musculoskeletal: No Clubbing, No Cyanosis and No Edema
Skin: Warm and Dry
Neuro: Awake, Alert and Oriented
--- NOTE | 2025-01-19 18:22 | W.PN.PUL3 ---
Today's Communication / Plan
-
- Continue mid flow during daytime
- BiPAP nightly as well as as needed during daytime
- Follow-up chest x-ray and ABG in a.m.
Assessment
-
Patient is a 74-year-old female who presented to the hospital with few weeks of progressively increasing weakness, shortness of breath. Patient also reports that her oxygen saturation at home have been running around 90-92. She has close to
64-uyrp-uzfz smoking history and currently smokes about a pack per day. Patient reports frequent cough occasional wheezing and significant exertional dyspnea. Over the last few days she is reporting increased cough with clear expectoration with
occasional wheezing. Symptoms tend to be worse when she lies down and also reports occasional episodes of gastroesophageal reflux disease with regurgitation. She takes Tums on an as-needed basis currently. In the emergency room, patient had a CT
scan performed which showed bilateral bronchitis changes without any consolidation and some mediastinal lymphadenopathy. Pulmonary consultation was requested for further input.
Known history of high-grade carcinosarcoma of the endometrium, s/p surgery in 2021, currently on chemotherapy. Patient also carries a diagnosis of papillary thyroid carcinoma s/p surgery.
Patient had an ER visit on 12/29 after second dose of carboplatin when she developed tightness in throat, nausea, shakiness which was treated with EpiPen, Benadryl, Decadron. Patient improved in the emergency room and was subsequently discharged
#1. Worsening acute hypoxic respiratory failure (01/18/2025)
- Overnight patient has increased oxygen requirement, increased to wheezing as well as work of breathing. Accessory muscle use during my evaluation
- Stat ABG, 7.44, 37, 91 on 5 L oxygen. Chest x-ray, 01/18, without any active infiltrates.
- Bedside spirometry 01/17, severe obstructive airway disease with postbronchodilator FEV1 of 0.57 L.
- CT scan and x-ray are not suggestive of typical groundglass opacities noted in chemotherapy related pneumonitis
- Patient's worsening status appears more related to obstructive airway disease, started BiPAP in view of increased work of breathing, supplemental oxygen to keep saturations above 90%, transferred patient to IMU for close monitoring. Reviewed
oncology correspondence, 1 g Solu-Medrol daily started in case patient has underlying chemotherapy related pneumonitis
- Discussed CODE STATUS with patient, she confirmed DNR/DNI
- 01/19, doing better, Mid flow during day time, BIPAP nightly and as needed for work of breathing.
#1a. Acute bronchitis
- ?Infectious vs GERD related
- Influenza A, B screen negative. Blood cultures pending, WBC count was normal and patient is afebrile. Lactate is normal at 0.9
- Patient has been on azithromycin for atypical coverage. Procalcitonin borderline at 0.23, added ceftriaxone 1 g daily for CAP coverage
- Started PPI 40 mg daily, frequent GERD symptoms with regurgitation
- Follow up on c/s
- Admission CT scan and today's chest x-ray are not suggestive of any parenchymal opacities. No typical groundglass multifocal opacities noted as seen in severe chemotherapy related pneumonitis.
- Reviewed oncology correspondence, 1 g Solu-Medrol daily started for presumed underlying chemical therapy related pneumonitis.
- Follow-up chest x-ray in a.m. ABG in AM,
#2. Hyperactive airway disease, suspect underlying undiagnosed COPD with Acute exacerbation
- Patient has more than 80-[id number]-[id number] smoking history, bedside spirometry suggestive of severe obstructive airway disease
- Continue Duoneb, short term steroids and monitor.
- Added nebulized budesonide twice daily
#3. Mediastinal lymphadenopathy.
- ?Infection related vs malignant with know h/o CA Endometrium
- Monitor for now, can pursue short term CT imaging in 6 weeks time
- With longstanding history of smoking, malignancy is certainly a concern
#4. H/o Smoking.
- Patient smokes about a pack per day since age 14, has close to 58-wkwb-hqvh smoking history
- Last cigarette was 2 days ago
Other medical diagnoses:
- Endometrial Sarcocarcinoma, since 2021, Oncology service on case
- Poor tolerance of chemotherapeutic agents.
Total time spent on this consultation/encounter __43__ minutes which includes review of history, physical exam, medications, laboratory data, personal review of imaging, extensive review of outpatient records, discussion with care team and
respiratory therapy.
Data:
CT-PE 12/2024: Suboptimal opacification of the pulmonary arteries. No evidence for central pulmonary embolism.
Diffuse bronchial wall thickening, new from prior examination, suggesting bronchitis. Branching small nodular opacities within the mid to lower lungs bilaterally, suggesting small airway pneumonitis, also new.
Mediastinal lymphadenopathy as described, increasing from prior CT examinations, and suspicious for neoplastic lymphadenopathy.
13 mm nodular low-density lesion in the region of the splenic hilum and the left upper quadrant the abdomen, suspicious for a peritoneal neoplastic implant. Small amount of ascites within the upper abdomen, mainly within the left upper quadrant,
raising concern for ascites associated with peritoneal carcinomatosis.
Probable cholelithiasis.
CXR 12/2024: No evidence of active cardiopulmonary disease.
ECHO 12/2024: Left ventricle is small in size. LV ejection fraction is >75%, by visual
assessment. No regional wall motion abnormalities are seen. Global longitudinal
strain values are within normal limits GLS -21.6%.
Normal right ventricular size and function.
Mild tricuspid regurgitation. Estimated pulmonary artery pressure of 40-45
mmHg.
Normal pericardium without effusion.
No prior study available for comparison.
Subjective Data
-
Date of Service:
Date of Service: January 19, 2025
Subjective:
Reports feeling somewhat better
Review of Systems
Genitourinary: Other (No new symptoms reported )
Objective Data
Data Reviewed
Vital Signs / I&O / Oxygen:
Vital Signs
Temp Pulse Resp BP Pulse Ox
97.8 F 103 22 136/65 97
01/19/25 15:10 01/19/25 18:00 01/19/25 18:00 01/19/25 18:00 01/19/25 18:00
Intake and Output
01/18/25 01/19/25 01/20/25
06:59 06:59 06:59
Intake Total 780 / 780 480 / 480
Balance 780 / 780 480 / 480
SaO2 97
Nasal Cannula flow liters per 6
minute
Physical Exam
General: Comfortable
HEENT: Normocephalic
Cardiovascular: S1-S2
Respiratory: Wheeze (Improving wheezing)
GI: Soft and Non Distended
Neurology: Awake and Alert
Skin: Warm
Labs/Micro/Reports
Lab Data
01/19/25 05:09
01/19/25 05:09
Microbiology
01/16/25 01:38 Blood/Venous Blood Culture - Preliminary
No Growth in 72 hours- Final report to follow
01/16/25 01:30 Blood/Venous Blood Culture - Preliminary
No Growth in 72 hours- Final report to follow
[2025-01-20] VITALS (11 sets, daily range): BP systolic 106–159; BP diastolic 37–107
[2025-01-20] MEDS: PEPTO-BISMOL 2 TABLET PO (02:55)
[2025-01-20] MEDS: NON-FORMULARY ITEM 1 UNIT PO (04:57)
[2025-01-20 05:10] LABS: Hematocrit 24.3 % (37.0-47.0); Hemoglobin 8.1 g/dL (12.0-16.0); Mean Corp Hgb Conc. 33.3 g/dL (33.0-37.0); Mean Corpuscular Volume 93.1 fL (81.0-99.0); Platelet Count 263 10^3/uL (130-400); Red Cell Dist. Width 22.6 % (11.5-14.5)
--- NOTE | 2025-01-20 05:18 | PTCARENOTE ---
This morning critical WBC result of 113.4 reported to JOHN Paredes.
Pt remains on 5-6L NC. Tolerated Bipap for about 2 overs overnight. Prn xanax given for anxiety. Up to BSC to void; no gi/gu complaints. Repositioning self while in bed. CHAVEZ & coughing episodes intermittently. NSR/ST on tele. Afebrile. Right SQ port
dressing intact, +blood return, Hep locked. Call cronin and tray table within reach. Pt calls appropriately for assistance. thankful for care.
[2025-01-20 05:26] LABS: AST (SGOT) 42 U/L (14-36); Albumin 3.5 g/dl (3.5-5.0); Alkaline Phosphatase 234 U/L (38-126); Blood Urea Nitrogen 13 mg/dl (7-17); Calcium 8.9 mg/dl (8.4-10.2); Carbon Dioxide 29 mmol/L (22-30); Chloride 105 mmol/L (98-107); Estimated Creatinine Clearance 41 ml/min; Glucose 114 mg/dl (70-99); Potassium 4.0 mmol/L (3.5-5.1); Sodium 140 mmol/L (135-145); Total Protein 5.7 g/dl (6.3-8.2); eGFR > 60.00
[2025-01-20 05:37] LABS: ALT (SGPT) 45 U/L (0-35)
[2025-01-20 05:49] LABS: B.E. 2.6 mmol/L; HCO3 27.2 mmol/L (21-28); O2 Saturation % 98.0 % (94-98); PCO2 41 mmHg (32-35); PO2 72 mmHg (83-108)
[2025-01-20 06:43] LABS: Absolute Neutrophils -Man Diff 78.2 10^3/uL (1.4-6.5); Anisocytosis 2+; Normal RBC Morphology No; Platelets Checked Yes
[2025-01-20 06:46] LABS: Toxic Granulation 1+
[2025-01-20 06:47] LABS: Hypochromasia 1+; Polychromasia 1+; Vacuolated Segs 1+
[2025-01-20 06:48] LABS: Acanthocytes Occasional; Schistocytes Occasional
[2025-01-20 06:49] LABS: Total Cells Counted 100
[2025-01-20] MEDS: DUONEB 3 ML INH ×3 (08:08→21:08)
[2025-01-20] MEDS: PULMICORT 0.5 MG INH ×2 (08:08→21:07)
--- NOTE | 2025-01-20 08:27 | W.PN.ONC2 ---
Today's Communication / Plan
-
Slowly improving.
Impression
Impression
metastatic endometrial cancer
Dyspnea and respiratory failure
bronchitis
Leukocytosis (GCSF, Steroids, infection/inflammation)
DNR
Plan
Plan
Slowly improving.
Will defer steroid management to pulmonary but likely can wean down the Solu-Medrol.
Leukocytosis from G-CSF given 01/15 + steroids. Very marked leukocytosis but not harmful.
CA-125 has been improving since recent salvage Carbo + Abraxane was started but Carbo stopped permanently 2* to severe Carboplatin reaction. It still is continuing to improve
Subjective/Objective
Chief Complaint
ACS Heme Onc
Subjective
Seems slightly better today. Less air hunger and accessory muscle use.
Vital Signs:
Vital Signs
Temp Pulse Resp BP Pulse Ox
98.6 F 76 16 141/64 93
01/20/25 03:08 01/20/25 08:13 01/20/25 08:13 01/20/25 06:00 01/20/25 08:13
Lab Results:
Laboratory Data
WBC 113.4 10^3/uL (4.8-10.8) H* 01/20/25 04:54
Hgb 8.1 g/dL (12.0-16.0) L 01/20/25 04:54
Plt Count 263 10^3/uL (130-400) 01/20/25 04:54
eGFR > 60.00 01/20/25 04:54
Physical Exam
Cardiology: Normal Sinus Rhythm, S1 and S2
Pulmonary: Clear
GI: Soft
[2025-01-20] MEDS: HEPARIN 5000 UNITS SC ×2 (08:35→20:43)
[2025-01-20] MEDS: SOLU-MEDROL 258 MG IV (08:35)
[2025-01-20] MEDS: PROTONIX 40 MG PO (08:35)
[2025-01-20] MEDS: TENORMIN 12.5 MG PO ×2 (08:35→20:44)
[2025-01-20] MEDS: CLARITIN PO ×2 (08:36→08:41)
[2025-01-20] MEDS: TRANXENE 3.75 MG PO ×2 (08:36→20:44)
[2025-01-20] MEDS: OSCAL 500 + D 500 MG PO (08:36)
--- NOTE | 2025-01-20 09:43 | W.PN.HOSP.TC ---
Today's Communication/Plan
-
continue current Rx, follow labs
Assessment / Plan
Assessment / Plan
Acute respiratory distress. Lungs demonstrate improved air movement, but pt states she is not feeling any better
had been coughing past 2-3 weeks [employer], becoming sob day of admission that rapidly worsened. Unclear if this is infectious or inflammatory
consulted Pulm and Onc, input appreciated. Input appreciated. Agree with Dr. Huitron that significant concern for lymphangitic pneumonitis from endometrial cancer
Reviewed with Dr. Frank, he recommended getting a procalcitonin level and sputum sample (no sputum obtained)
WBC 10.6-->19.8-->30.8-->79.1-->113.4k
(Dr Huitron feels leukocytosis could be due to G-CSF, steroids, infection/inflammation)
Procalcitonin 0.23
Pt appears ill, though also appears to be showing some degree of improvement, voice is stronger. Marginal appetite, Ensure added, reviewed with Madyson to make sure pt receives.
Remains very weak
Leukocytosis possibly due to G-CSF given on 01/15 versus steroids or related to progressive cancer
Sepsis present on admission
Rocephin added to medication
Hx of metastatic endometrial cancer
originally dx in 2020. Follows with Dr. Box in office. Underwent robotic assisted lap hysterectomy 07/29/2021
Distant past hx of Thyroid Cancer
Cigarette use and as of day prior to admission still smoking 1/2 ppd
P:IV Decadron, changed to Solumedrol, dose now 1 gm daily
duonebs
Pulm and Onc consults. Reviewed extensively with pulmonary
empiric Azithromycin, Rocephin added
DNR and confirmed x 2 with patient
extensive review of situation with at bedside 01/20
Anticipated Discharge: > 48 hours
Subjective/Interval History
-
Date of Service: January 20, 2025
More alert and stronger voice today
Objective Data
-
Labs:
Laboratory Results
01/20/25 01/20/25
04:54 05:35
WBC 113.4 H*
Hgb 8.1 L
Hct 24.3 L
Plt Count 263
HCO3 27.2
Sodium 140
Potassium 4.0
Chloride 105
Carbon Dioxide 29
BUN 13
Creatinine 0.8
Glucose 114 H
Calcium 8.9
Total Bilirubin 0.3
AST 42 H
ALT 45 H
Alkaline Phosphatase 234 H
Vital Signs:
Vital Signs
Temp Pulse Resp BP Pulse Ox
98.2 F 91 23 124/68 96
01/20/25 07:03 01/20/25 08:28 01/20/25 08:28 01/20/25 08:28 01/20/25 08:30
I&O
01/19/25 01/20/25 01/21/25
06:59 06:59 06:59
Intake Total 480 / 480 240 / 240
Balance 480 / 480 240 / 240
Review of Systems
-
History Source: Patient and Coordinated Provider
Constitutional: Reports Fever (100.9 01/16, 02:19, afebrile since)
EENT: Reports No Symptoms Reported
Respiratory: Reports Trouble Breathing (remains very sob)
Cardiac: Reports No Symptoms; Denies Chest Pain
Abdomen/GI: Reports Abdominal Pain (chronic related to known cancer, not worse than baseline)
Musculoskeletal: Reports No Symptoms
Neuro: Reports No Symptoms
Physical Exam
-
General: Well Developed, Well Nourished, No Apparent Distress and Appears Chronically Ill
HEENT: Normocephalic
Respiratory: Wheezes (improved air movement with coarse wheeze); Negative Rales or Rhonchi
Cardiac: Regular Rhythm and S1/S2
GI: Soft, Nontender, Nondistended and Normal Bowel Sounds
Genito-urinary: No Costovertebral Tender
Musculoskeletal: No Clubbing, No Cyanosis and No Edema
Skin: Warm and Dry
Neuro: Awake, Alert and Oriented
[2025-01-20] MEDS: STERILE WATER FOR INJECTION 10 ML IV (10:25)
[2025-01-20] MEDS: ZITHROMAX 252.5 MG IV (10:25)
[2025-01-20] MEDS: ROCEPHIN 1000 MG IV (10:25)
--- NOTE | 2025-01-20 13:50 | PTCARENOTE ---
Pt's assessment as documented. Aox3; anxious at times. NSR on tele monitor. Satting mid 90's on 4L MF, however pt desats on exertion and requires time to recover. OOB to BSC X1. Medications administered as ordered. Ringing appropriately, call cronin
within reach.
--- NOTE | 2025-01-20 15:47 | W.PN.PUL3 ---
Today's Communication / Plan
-
- Continue mid flow during daytime
- BiPAP nightly as well as as needed during daytime
- Continue pulse dose steroids
- DuoNebs + budesonide
- Aspiration precautions
- Antibiotics
- Pulmonary service will continue to follow along
Assessment
-
Patient is a 74-year-old female who presented to the hospital with few weeks of progressively increasing weakness, shortness of breath. Patient also reports that her oxygen saturation at home have been running around 90-92. She has close to
48-ozot-ydpa smoking history and currently smokes about a pack per day. Patient reports frequent cough occasional wheezing and significant exertional dyspnea. Over the last few days she is reporting increased cough with clear expectoration with
occasional wheezing. Symptoms tend to be worse when she lies down and also reports occasional episodes of gastroesophageal reflux disease with regurgitation. She takes Tums on an as-needed basis currently. In the emergency room, patient had a CT
scan performed which showed bilateral bronchitis changes without any consolidation and some mediastinal lymphadenopathy. Pulmonary consultation was requested for further input.
Known history of high-grade carcinosarcoma of the endometrium, s/p surgery in 2021, currently on chemotherapy. Patient also carries a diagnosis of papillary thyroid carcinoma s/p surgery.
Patient had an ER visit on 12/29 after second dose of carboplatin when she developed tightness in throat, nausea, shakiness which was treated with EpiPen, Benadryl, Decadron. Patient improved in the emergency room and was subsequently discharged
#1. Worsening acute hypoxic respiratory failure (01/18/2025)
- Patient has increased oxygen requirement, increased to wheezing as well as work of breathing --> improved as of 01/20 and now breathing comfortably on 4L/min NC
- Stat ABG, 7.44, 37, 91 on 5 L oxygen. Chest x-ray, 01/18, without any active infiltrates.
- Bedside spirometry 01/17, severe obstructive airway disease with postbronchodilator FEV1 of 0.57 L, although difficult study with prebronchodilator effort poor; repeat as outpatient
- CT scan and x-ray are not suggestive of typical groundglass opacities noted in chemotherapy related pneumonitis
- Patient's worsening status appears more related to obstructive airway disease, started BiPAP in view of increased work of breathing, supplemental oxygen to keep saturations above 90%, transferred patient to IMU for close monitoring. Reviewed
oncology correspondence, 1 g Solu-Medrol daily started in case patient has underlying chemotherapy related pneumonitis
- Discussed CODE STATUS with patient, she confirmed DNR/DNI
- 01/19, doing better, Mid flow during day time, BIPAP nightly and as needed for work of breathing.
#1a. Acute bronchitis
- ?Infectious vs GERD related
- Influenza A, B screen negative. Blood cultures show NGTD; lactate 0.9 on 01/15/2025
- Patient has been on azithromycin for atypical coverage. Procalcitonin borderline at 0.23, continue ceftriaxone (started 01/18) 1 g daily for CAP coverage
- Continue PPI 40 mg daily, frequent GERD symptoms with regurgitation
- Admission CT scan and chest x-ray are not suggestive of any parenchymal opacities. No typical groundglass multifocal opacities noted as seen in severe chemotherapy related pneumonitis.
- Reviewed oncology correspondence, 1 g Solu-Medrol daily started for presumed underlying chemical therapy related pneumonitis.
#2. Hyperactive airway disease, suspect underlying undiagnosed COPD with Acute exacerbation
- Patient has more than 98-hwcj-ibwu smoking history, bedside spirometry suggestive of severe obstructive airway disease, however pre-BD effort is poor; repeat full PFT as outpatient
- Continue Duoneb, steroids as above; continue to monitor.
- Continue nebulized budesonide twice daily
#3. Mediastinal lymphadenopathy.
- ?Infection related vs malignant with know h/o CA Endometrium
- Monitor for now, can pursue short term CT imaging in 6 weeks time
- With longstanding history of smoking, malignancy is certainly a concern
#4. H/o Smoking.
- Patient smokes about a pack per day since age 14, has close to 16-vcjv-eolq smoking history
- Last cigarette was >2 days ago
Other medical diagnoses:
- Endometrial Sarcocarcinoma, since 2021, Oncology service on case
- Poor tolerance of chemotherapeutic agents.
Pulmonary service will continue to follow along
Total time spent on this consultation/encounter __36__ minutes which includes review of history, physical exam, medications, laboratory data, personal review of imaging, extensive review of outpatient records, discussion with care team and
respiratory therapy.
Data:
CT-PE 12/2024: Suboptimal opacification of the pulmonary arteries. No evidence for central pulmonary embolism.
Diffuse bronchial wall thickening, new from prior examination, suggesting bronchitis. Branching small nodular opacities within the mid to lower lungs bilaterally, suggesting small airway pneumonitis, also new.
Mediastinal lymphadenopathy as described, increasing from prior CT examinations, and suspicious for neoplastic lymphadenopathy.
13 mm nodular low-density lesion in the region of the splenic hilum and the left upper quadrant the abdomen, suspicious for a peritoneal neoplastic implant. Small amount of ascites within the upper abdomen, mainly within the left upper quadrant,
raising concern for ascites associated with peritoneal carcinomatosis.
Probable cholelithiasis.
CXR 12/2024: No evidence of active cardiopulmonary disease.
ECHO 12/2024: Left ventricle is small in size. LV ejection fraction is >75%, by visual
assessment. No regional wall motion abnormalities are seen. Global longitudinal
strain values are within normal limits GLS -21.6%.
Normal right ventricular size and function.
Mild tricuspid regurgitation. Estimated pulmonary artery pressure of 40-45
mmHg.
Normal pericardium without effusion.
No prior study available for comparison.
Subjective Data
-
Date of Service:
Date of Service: January 20, 2025
Chief Complaint: Pulmonary Follow Up
Subjective:
Patient seen and evaluated earlier this morning (late note entry). Currently resting in bed in no acute distress. Heart rate 78, BP 126/72 and saturating 99% on 4 L/min nasal cannula. No acute events reported overnight. Denies AYALA, abdominal
pain, nausea, fevers or chills. Placed onto BiPAP in the evening but only tolerated for a few hours.
Review of Systems
General: Other (Negative unless mentioned above)
Objective Data
Data Reviewed
Vital Signs / I&O / Oxygen:
Vital Signs
Temp Pulse Resp BP Pulse Ox
98.2 F 91 23 124/68 96
01/20/25 07:03 01/20/25 08:28 01/20/25 08:28 01/20/25 08:28 01/20/25 08:30
Intake and Output
01/19/25 01/20/25 01/21/25
06:59 06:59 06:59
Intake Total 480 / 480 240 / 240
Balance 480 / 480 240 / 240
SaO2 96
Nasal Cannula flow liters per 4
minute
Physical Exam
General: Respiratory Distress (negative) and Comfortable
HEENT: Normocephalic and Anicteric
Cardiovascular: S1-S2 and Peripheral Edema (negative)
Respiratory: Wheeze (Improving wheezing), Crackles (negative) and Rhonchi (negative)
GI: Soft, Non Distended, Non Tender and Normal Bowel Sounds
Neurology: Awake, Alert and Tremors (negative)
Skin: Warm, Dry and Cyanosis (negative)
Labs/Micro/Reports
Lab Data
01/20/25 04:54
01/20/25 04:54
Laboratory Results
01/20/25
05:35
pH 7.43
pCO2 41 H
pO2 72 L
HCO3 27.2
O2 Delivery Level
Microbiology
01/16/25 01:38 Blood/Venous Blood Culture - Preliminary
No Growth in 4 days- Final report to follow
01/16/25 01:30 Blood/Venous Blood Culture - Preliminary
No Growth in 4 days- Final report to follow
[2025-01-21] VITALS (12 sets, daily range): BP systolic 130–155; BP diastolic 51–110
[2025-01-21] MEDS: XANAX 0.5 MG PO (05:10)
[2025-01-21] MEDS: NON-FORMULARY ITEM 1 UNIT PO (05:28)
--- NOTE | 2025-01-21 05:48 | PTCARENOTE ---
No acute changes overnight. Remains on 4L. Refused Bipap HS. CHAVEZ when OOB; recovers upon rest. PRN xanax given per pt request. Up to BSC; one person assist. NSR on tele. call cronin and tray table within reach.
[2025-01-21 06:00] LABS: Hematocrit 24.6 % (37.0-47.0); Hemoglobin 8.0 g/dL (12.0-16.0); Mean Corp Hgb Conc. 32.5 g/dL (33.0-37.0); Mean Corpuscular Volume 93.9 fL (81.0-99.0); Platelet Count 240 10^3/uL (130-400); Red Cell Dist. Width 22.7 % (11.5-14.5)
[2025-01-21 06:11] LABS: Blood Urea Nitrogen 15 mg/dl (7-17); Calcium 9.0 mg/dl (8.4-10.2); Carbon Dioxide 28 mmol/L (22-30); Chloride 105 mmol/L (98-107); Estimated Creatinine Clearance 41 ml/min; Glucose 121 mg/dl (70-99); Potassium 3.8 mmol/L (3.5-5.1); Sodium 140 mmol/L (135-145); eGFR > 60.00
[2025-01-21 06:38] LABS: Absolute Neutrophils -Man Diff 82.3 10^3/uL (1.4-6.5); Anisocytosis 2+; Macrocytosis 2+; Normal RBC Morphology No; Platelets Checked Yes; Polychromasia 2+; Total Cells Counted 100
--- NOTE | 2025-01-21 06:41 | W.PN.ONC2 ---
Today's Communication / Plan
-
Weaned steroids today (Solu-Mederol 1 gm QD x 3 days down to Prednisone 1 mg/kg = 40 mg PO daily) if okay with pulmonary. Prefer they resume steroid management going forward for respiratory failure.
Impression
Impression
metastatic endometrial cancer
Dyspnea and respiratory failure
bronchitis w bronchospasm
Leukocytosis (GCSF, Steroids, infection/inflammation)
DNR
Plan
Plan
Continues to slowly improve.
Still on high dose Solu-Medrol . Prefer to have pulmonary take over steroid management but since I increased Solu-Medrol will reduce back to Prednisone 1 mg/kg this AM BUT prefer for pulmonary to manage steroids for bronchospasm going forward.
Leukocytosis from G-CSF given 01/15 + steroids. Very marked leukocytosis but not harmful.
CA-125 has been improving since recent salvage Carbo + Abraxane was started but Carbo stopped permanently 2* to severe Carboplatin reaction. It still is continuing to improve.
Not sure if this is I/O related pneumonitis. Seems as if pulmonary feels this is mostly bronchitis.
Subjective/Objective
Chief Complaint
ACS Heme Onc
Subjective
Asleep when I made rounds. First time. Seems to be breathing much better but still states she gets winded ambulating to commode.
Vital Signs:
Vital Signs
Temp Pulse Resp BP Pulse Ox
97.9 F 76 17 140/65 97
01/21/25 04:30 01/21/25 06:29 01/21/25 06:29 01/21/25 06:29 01/21/25 06:29
Lab Results:
Laboratory Data
WBC 90.5 10^3/uL (4.8-10.8) H* 01/21/25 05:27
Hgb 8.0 g/dL (12.0-16.0) L 01/21/25 05:27
Plt Count 240 10^3/uL (130-400) 01/21/25 05:27
eGFR > 60.00 01/21/25 05:27
Physical Exam
Pulmonary: Other (decreased, improving wheezing)
Extremities: No C/C/E
Orders
Orders
Orders From Last 24 Hours
01/21/25 08:00
Prednisone [Deltasone] 40 mg PO DAILY
--- NOTE | 2025-01-21 08:08 | W.PN.HOSP.TC ---
Addendum entered and electronically signed by Tab Balderas MD 01/21/25 15:54:
Azithromycin stopped
Original Note:
Today's Communication/Plan
-
continue oxygen support
encourage OOB to chair
Ensure supplement
Assessment / Plan
Assessment / Plan
Acute respiratory distress. Lungs demonstrate improved air movement, but pt states she is not feeling any better, though not worsening. Feels weak
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 Unclear if this is infectious or inflammatory
consulted Pulm and Onc, input appreciated. Agree with Dr. Huitron that significant concern for lymphangitic pneumonitis from endometrial cancer. Steroids decreased today back down to 40 mg daily Prednisone
Reviewed with Dr. Frank, he recommended getting a procalcitonin level and sputum sample (no sputum obtained)
WBC 10.6-->19.8-->30.8-->79.1-->113.4-->90.5k
(Dr Huitron feels leukocytosis could be due to G-CSF, steroids, infection/inflammation)
Procalcitonin 0.[address] scan 01/16: Suboptimal opacification of the pulmonary arteries. No evidence for central pulmonary embolism.
Diffuse bronchial wall thickening, new from prior examination, suggesting bronchitis. Branching small nodular opacities within the mid to lower lungs bilaterally, suggesting small airway pneumonitis, also new.
Mediastinal lymphadenopathy as described, increasing from prior CT examinations, and suspicious for neoplastic lymphadenopathy.
13 mm nodular low-density lesion in the region of the splenic hilum and the left upper quadrant the abdomen, suspicious for a peritoneal neoplastic implant. Small amount of ascites within the upper abdomen, mainly within the left upper quadrant,
raising concern for ascites associated with peritoneal carcinomatosis.
Probable cholelithiasis.
Pt appears ill, though also appears to be showing some degree of improvement, voice is stronger. Marginal appetite, Ensure added, reviewed with Madyson to make sure pt receives and hopefully can tolerate
Remains very weak. Pt encouraged to be oob to chair, reviewed with nursing
Glu 121 - fortunately pt tolerated high dose steroids without diabetic manifestations
Oxygen sat 99% on 5 L/M NC midflow
01/20 CXR: Small faint opacity in the lingula likely related to atelectasis. Mild bilateral peribronchial thickening/bronchitis. No pleural effusion or pneumothorax. Stable right Port-A-Cath with the catheter tip in the SVC. The cardiomediastinal
silhouette is normal.
Leukocytosis possibly due to G-CSF given on 01/15 versus steroids or related to progressive cancer
Sepsis present on admission
Rocephin added to medication
Hx of metastatic endometrial cancer
originally dx in 2020. Follows with Dr. Box in office. Underwent robotic assisted lap hysterectomy 07/29/2021
Distant past hx of Thyroid Cancer
Cigarette use and as of day prior to admission still smoking 1/2 ppd
P:IV Decadron, changed to Solumedrol, dose 1 gm daily, as of 01/21 back to Prednisone 40 mg daily
duonebs
Pulm and Onc consults.
empiric Azithromycin, Rocephin added
DNR and confirmed x 2 with patient
extensive review of situation with at bedside 01/20
Anticipated Discharge: > 48 hours
Subjective/Interval History
-
Date of Service: January 21, 2025
In good spirits. Remains weak, but denies active abd pain, still sob with any activity
Objective Data
-
Labs:
Laboratory Results
01/21/25
05:27
WBC 90.5 H*
Hgb 8.0 L
Hct 24.6 L
Plt Count 240
Sodium 140
Potassium 3.8
Chloride 105
Carbon Dioxide 28
BUN 15
Creatinine 0.8
Glucose 121 H
Calcium 9.0
Vital Signs:
Vital Signs
Temp Pulse Resp BP Pulse Ox
97.9 F 76 17 140/65 97
01/21/25 04:30 01/21/25 06:29 01/21/25 06:29 01/21/25 06:29 01/21/25 06:29
I&O
01/20/25 01/21/25 01/22/25
06:59 06:59 06:59
Intake Total 240 / 240
Balance 240 / 240
Review of Systems
-
History Source: Patient and Coordinated Provider
Constitutional: Reports Fever (100.9 01/16, 02:19, afebrile since)
EENT: Reports No Symptoms Reported
Respiratory: Reports Trouble Breathing (remains very sob)
Cardiac: Reports No Symptoms; Denies Chest Pain
Abdomen/GI: Reports Abdominal Pain (chronic related to known cancer, not worse than baseline, currently she is denying pain)
Musculoskeletal: Reports No Symptoms
Neuro: Reports No Symptoms
Physical Exam
-
General: Well Developed, Well Nourished, No Apparent Distress and Appears Chronically Ill
HEENT: Normocephalic
Respiratory: Wheezes (improved air movement with coarse wheeze) and Rhonchi (sonorous rhonchi on deep breaths with forced expiration); Negative Rales
Cardiac: Regular Rhythm and S1/S2
GI: Soft, Nontender, Nondistended and Normal Bowel Sounds
Genito-urinary: No Costovertebral Tender
Musculoskeletal: No Clubbing, No Cyanosis and No Edema
Skin: Warm and Dry
Neuro: Awake, Alert and Oriented
[2025-01-21] MEDS: DUONEB 3 ML INH ×2 (08:12→20:15)
[2025-01-21] MEDS: PULMICORT 0.5 MG INH ×2 (08:12→20:15)
[2025-01-21] MEDS: CLARITIN PO (08:13)
[2025-01-21] MEDS: ROCEPHIN 1000 MG IV (09:30)
[2025-01-21] MEDS: STERILE WATER FOR INJECTION 10 ML IV (09:31)
[2025-01-21] MEDS: TENORMIN 12.5 MG PO ×2 (09:31→19:38)
[2025-01-21] MEDS: HEPARIN 5000 UNITS SC ×2 (09:31→19:38)
[2025-01-21] MEDS: PROTONIX 40 MG PO (09:32)
[2025-01-21] MEDS: DELTASONE 40 MG PO (09:32)
[2025-01-21] MEDS: TRANXENE 3.75 MG PO ×2 (09:32→19:39)
[2025-01-21] MEDS: OSCAL 500 + D 500 MG PO (09:32)
--- NOTE | 2025-01-21 13:47 | PTCARENOTE ---
Pt's assessment as documented. Aox3; anxious at times. NSR on tele monitor. Satting mid 90's on 4L MF. OOB to BSC X1. Medications administered as ordered. Ringing appropriately, call cronin within reach.
[2025-01-21] MEDS: CHLORASEPTIC/SORE THROAT SPRAY 1 SPRAY PO (15:30)
[2025-01-21] MEDS: VENTOLIN NEBULES 1.25 MG INH (15:30)
--- NOTE | 2025-01-21 16:22 | W.PN.PUL3 ---
Today's Communication / Plan
-
- Continue midflow during daytime, prn BiPAP
- s/p pulse dose steroids, now on prednisone 40mg daily -continue weaning as she clinically improves
- DuoNebs + budesonide
- Add nebulized 3% BID
- Acapella
- [place] saline mist
- Aspiration precautions
- Antibiotics
- Pulmonary service will continue to follow along
Assessment
-
Patient is a 74-year-old female who presented to the hospital with few weeks of progressively increasing weakness, shortness of breath. Patient also reports that her oxygen saturation at home have been running around 90-92. She has close to
94-tvbi-[id number] smoking history and currently smokes about a pack per day. Patient reports frequent cough occasional wheezing and significant exertional dyspnea. Over the last few days she is reporting increased cough with clear expectoration with
occasional wheezing. Symptoms tend to be worse when she lies down and also reports occasional episodes of gastroesophageal reflux disease with regurgitation. She takes Tums on an as-needed basis currently. In the emergency room, patient had a CT
scan performed which showed bilateral bronchitis changes without any consolidation and some mediastinal lymphadenopathy. Pulmonary consultation was requested for further input.
Known history of high-grade carcinosarcoma of the endometrium, s/p surgery in 2021, currently on chemotherapy. Patient also carries a diagnosis of papillary thyroid carcinoma s/p surgery.
Patient had an ER visit on 12/29 after second dose of carboplatin when she developed tightness in throat, nausea, shakiness which was treated with EpiPen, Benadryl, Decadron. Patient improved in the emergency room and was subsequently discharged
#1. Worsening acute hypoxic respiratory failure (01/18/2025)
- Patient has increased oxygen requirement, increased to wheezing as well as work of breathing --> improved as of 01/20 and now breathing comfortably on 4-6L/min NC
- Stat ABG, 7.44, 37, 91 on 5 L oxygen. Chest x-ray, 01/18, without any active infiltrates.
- Bedside spirometry 01/17, severe obstructive airway disease with postbronchodilator FEV1 of 0.57 L, although difficult study with pre-bronchodilator effort poor; repeat as outpatient
- CT scan and x-ray are not suggestive of typical groundglass opacities noted in chemotherapy related pneumonitis
- Patient's worsening status appears more related to obstructive airway disease, started BiPAP in view of increased work of breathing, supplemental oxygen to keep saturations above 90%, transferred patient to IMU for close monitoring. Reviewed
oncology correspondence, 1 g Solu-Medrol daily started in case patient has underlying chemotherapy related pneumonitis
- Now down to prednisone 40mg daily --> continue weaning with assistance of oncology
- Discussed CODE STATUS with patient, she confirmed DNR/DNI
- 01/19, doing better, Mid flow during day time, BIPAP nightly and as needed for work of breathing.
#1a. Acute bronchitis
- ?Infectious vs GERD related
- Influenza A, B screen negative. Blood cultures show NGTD; lactate 0.9 on 01/15/2025
- Patient has been on azithromycin for atypical coverage. Procalcitonin borderline at 0.23, continue ceftriaxone (started 01/18) 1 g daily for CAP coverage
- Continue PPI 40 mg daily, frequent GERD symptoms with regurgitation
- Admission CT scan and chest x-ray are not suggestive of any parenchymal opacities. No typical groundglass multifocal opacities noted as seen in severe chemotherapy related pneumonitis.
- Reviewed oncology correspondence, 1 g Solu-Medrol daily started for presumed underlying chemical therapy related pneumonitis --> now on prednisone 40mg daily; continue to wean as she clinically improves
- She continues to complain of difficulty getting out her phlegm as well as nasal congestion. Start nebulized 3% as well as [place] mist.
- Acapella
#2. Hyperactive airway disease, suspect underlying undiagnosed COPD with Acute exacerbation
- Patient has more than 07-[id number]-hjpn smoking history, bedside spirometry suggestive of severe obstructive airway disease, however pre-BD effort is poor; repeat full PFT as outpatient
- Continue Duoneb, steroids as above; continue to monitor.
- Continue nebulized budesonide twice daily
#3. Mediastinal lymphadenopathy.
- ?Infection related vs malignant with know h/o CA Endometrium
- Monitor for now, can pursue short term CT imaging in 6 weeks time
- With longstanding history of smoking, malignancy is certainly a concern
#4. H/o Smoking.
- Patient smokes about a pack per day since age 14, has close to 49-[id number]-bpkl smoking history
- Last cigarette was >2 days ago
Other medical diagnoses:
- Endometrial Sarcocarcinoma, since 2021, Oncology service on case
- Poor tolerance of chemotherapeutic agents.
Pulmonary service will continue to follow along
Total time spent on this consultation/encounter __41__ minutes which includes review of history, physical exam, medications, laboratory data, personal review of imaging, extensive review of outpatient records, discussion with care team and
respiratory therapy.
Data:
CT-PE 12/2024: Suboptimal opacification of the pulmonary arteries. No evidence for central pulmonary embolism.
Diffuse bronchial wall thickening, new from prior examination, suggesting bronchitis. Branching small nodular opacities within the mid to lower lungs bilaterally, suggesting small airway pneumonitis, also new.
Mediastinal lymphadenopathy as described, increasing from prior CT examinations, and suspicious for neoplastic lymphadenopathy.
13 mm nodular low-density lesion in the region of the splenic hilum and the left upper quadrant the abdomen, suspicious for a peritoneal neoplastic implant. Small amount of ascites within the upper abdomen, mainly within the left upper quadrant,
raising concern for ascites associated with peritoneal carcinomatosis.
Probable cholelithiasis.
CXR 12/2024: No evidence of active cardiopulmonary disease.
ECHO 12/2024: Left ventricle is small in size. LV ejection fraction is >75%, by visual
assessment. No regional wall motion abnormalities are seen. Global longitudinal
strain values are within normal limits GLS -21.6%.
Normal right ventricular size and function.
Mild tricuspid regurgitation. Estimated pulmonary artery pressure of 40-45
mmHg.
Normal pericardium without effusion.
No prior study available for comparison.
Subjective Data
-
Date of Service:
Date of Service: January 21, 2025
Chief Complaint: Pulmonary Follow Up
Subjective:
Patient was seen and evaluated earlier today (late note entry). Currently breathing comfortably on 6 L/min nasal cannula, saturating 95%. Patient's , Omar, present at bedside. She has a cough with difficulty getting out her phlegm due to
overall generalized weakness. Also has nasal congestion which is not helping. She currently denies AYALA, nausea, vomiting, fevers or chills.
Review of Systems
General: Other (Negative unless mentioned above)
Objective Data
Data Reviewed
Vital Signs / I&O / Oxygen:
Vital Signs
Temp Pulse Resp BP Pulse Ox
98.8 F 66 25 140/65 96
01/21/25 08:19 01/21/25 08:16 01/21/25 08:16 01/21/25 06:29 01/21/25 08:48
Intake and Output
01/20/25 01/21/25 01/22/25
06:59 06:59 06:59
Intake Total 240 / 240
Balance 240 / 240
SaO2 96
Nasal Cannula flow liters per 4
minute
Physical Exam
General: Respiratory Distress (negative) and Comfortable
HEENT: Normocephalic and Anicteric
Cardiovascular: S1-S2 and Peripheral Edema (negative)
Respiratory: Wheeze (negative), Crackles (Bilateral), Rhonchi (negative) and Non-Labored Respirations
GI: Soft, Non Distended, Non Tender and Normal Bowel Sounds
Neurology: Awake, Alert, Oriented and Tremors (negative)
Skin: Warm, Dry and Cyanosis (negative)
Labs/Micro/Reports
Lab Data
01/21/25 05:27
01/21/25 05:27
Microbiology
01/16/25 01:38 Blood/Venous Blood Culture - Final
No Growth - Final Report
01/16/25 01:30 Blood/Venous Blood Culture - Final
No Growth - Final Report
[2025-01-21] MEDS: OCEAN, SALINE MIST 2 SPRAYS NASAL ×2 (18:21→19:40)
[2025-01-21] MEDS: SODIUM CHLORIDE 3% FOR INHALATION 1 VIAL INH (20:15)
--- NOTE | 2025-01-21 20:42 | PTCARENOTE ---
Caring for patient overnight. aaox3, anxious. Denies pain. Denies SOB, just c/o shallow breathing & difficulty having a productive cough from being tired. Remains on 4LNC, bipap overnight and educated the importance of this. NSR on monitor. OOB to
BSC x1. R SQ port. pt c/o ringing & difficulty hearing that has begun since having respiratory issues. Will continue to monitor.
[2025-01-22] VITALS (16 sets, daily range): BP systolic 121–170; BP diastolic 48–73; PULSE 77; O2SAT 96–98
[2025-01-22] MEDS: NON-FORMULARY ITEM 1 UNIT PO (05:46)
[2025-01-22 06:16] LABS: Hematocrit 24.6 % (37.0-47.0); Hemoglobin 8.1 g/dL (12.0-16.0); Mean Corp Hgb Conc. 32.9 g/dL (33.0-37.0); Mean Corpuscular Volume 94.6 fL (81.0-99.0); Platelet Count 198 10^3/uL (130-400); Red Cell Dist. Width 22.9 % (11.5-14.5)
[2025-01-22 06:36] LABS: Blood Urea Nitrogen 18 mg/dl (7-17); Calcium 8.5 mg/dl (8.4-10.2); Carbon Dioxide 30 mmol/L (22-30); Chloride 105 mmol/L (98-107); Estimated Creatinine Clearance 41 ml/min; Glucose 94 mg/dl (70-99); Potassium 3.7 mmol/L (3.5-5.1); Sodium 139 mmol/L (135-145); eGFR > 60.00
[2025-01-22] MEDS: DUONEB 3 ML INH ×2 (07:22→19:51)
[2025-01-22] MEDS: SODIUM CHLORIDE 3% FOR INHALATION 1 VIAL INH ×2 (07:22→19:51)
[2025-01-22] MEDS: PULMICORT 0.5 MG INH ×2 (07:22→19:51)
[2025-01-22 07:44] LABS: Absolute Neutrophils -Man Diff 42.4 10^3/uL (1.4-6.5); Platelets Checked Yes
[2025-01-22 07:45] LABS: Anisocytosis 2+; Normal RBC Morphology No; Polychromasia 1+; Total Cells Counted 100
[2025-01-22] MEDS: PROTONIX 40 MG PO (07:52)
[2025-01-22] MEDS: OSCAL 500 + D 500 MG PO (07:52)
[2025-01-22] MEDS: DELTASONE 40 MG PO (07:52)
[2025-01-22] MEDS: TENORMIN 12.5 MG PO ×2 (07:53→19:53)
[2025-01-22] MEDS: CLARITIN PO (07:53)
[2025-01-22] MEDS: TRANXENE 3.75 MG PO ×2 (07:54→19:54)
[2025-01-22] MEDS: OCEAN, SALINE MIST 2 SPRAYS NASAL ×4 (07:55→19:59)
[2025-01-22] MEDS: HEPARIN 5000 UNITS SC ×2 (07:55→19:54)
[2025-01-22] MEDS: STERILE WATER FOR INJECTION 10 ML IV (11:21)
[2025-01-22] MEDS: ROCEPHIN 1000 MG IV (11:21)
--- NOTE | 2025-01-22 11:30 | W.PN.PUL3 ---
Today's Communication / Plan
-
Continues to be improved objectively and subjectively
Increase activity, physical therapy, encourage ambulation
Steroid taper per oncology
Consider discontinuing antibiotics in the next 48 hours depending on clinical course
DVT prophylaxis, GI prophylaxis continues
Assessment
-
Patient is a 74-year-old female who presented to the hospital with few weeks of progressively increasing weakness, shortness of breath. Patient also reports that her oxygen saturation at home have been running around 90-92. She has close to
14-dobb-mmey smoking history and currently smokes about a pack per day. Patient reports frequent cough occasional wheezing and significant exertional dyspnea. Over the last few days she is reporting increased cough with clear expectoration with
occasional wheezing. Symptoms tend to be worse when she lies down and also reports occasional episodes of gastroesophageal reflux disease with regurgitation. She takes Tums on an as-needed basis currently. In the emergency room, patient had a CT
scan performed which showed bilateral bronchitis changes without any consolidation and some mediastinal lymphadenopathy. Pulmonary consultation was requested for further input.
Known history of high-grade carcinosarcoma of the endometrium, s/p surgery in 2021, currently on chemotherapy. Patient also carries a diagnosis of papillary thyroid carcinoma s/p surgery.
Patient had an ER visit on 12/29 after second dose of carboplatin when she developed tightness in throat, nausea, shakiness which was treated with EpiPen, Benadryl, Decadron. Patient improved in the emergency room and was subsequently discharged
#1. Worsening acute hypoxic respiratory failure (01/18/2025)
- Patient has increased oxygen requirement, increased to wheezing as well as work of breathing --> improved as of 01/20 and now breathing comfortably on 4L, 99%
- Stat ABG, 7.44, 37, 91 on 5 L oxygen. Chest x-ray, 01/18, without any active infiltrates.
- Bedside spirometry 01/17, severe obstructive airway disease with postbronchodilator FEV1 of 0.57 L, although difficult study with pre-bronchodilator effort poor; repeat as outpatient
- CT scan and x-ray are not suggestive of typical groundglass opacities noted in chemotherapy related pneumonitis
- Patient's worsening status appears more related to obstructive airway disease, started BiPAP in view of increased work of breathing, supplemental oxygen to keep saturations above 90%, transferred patient to IMU for close monitoring. Reviewed
oncology correspondence, 1 g Solu-Medrol daily started in case patient has underlying chemotherapy related pneumonitis, now on prednisone 40 mg
- continue weaning with assistance of oncology
- Discussed CODE STATUS with patient, she confirmed DNR/DNI
- Overall much improved as of 01/22
- Physical therapy, encourage ambulation
#1a. Acute bronchitis
- ?Infectious vs GERD related
- Influenza A, B screen negative. Blood cultures show NGTD; lactate 0.9 on 01/15/2025
- Patient has been on azithromycin for atypical coverage. Procalcitonin borderline at 0.23, ceftriaxone (started 01/18) 1 g daily for CAP coverage, consider discontinuation in the next 24 to 48 hours
- Continue PPI 40 mg daily, frequent GERD symptoms with regurgitation
- Admission CT scan and chest x-ray are not suggestive of any parenchymal opacities. No typical groundglass multifocal opacities noted as seen in severe chemotherapy related pneumonitis.
- Reviewed oncology correspondence, 1 g Solu-Medrol daily started for presumed underlying chemical therapy related pneumonitis --> now on prednisone 40mg daily; continue to wean as she clinically improves
- She continues to complain of difficulty getting out her phlegm as well as nasal congestion. Start nebulized 3% as well as [place] mist.
- Acapella
#2. Hyperactive airway disease, suspect underlying undiagnosed COPD with Acute exacerbation
- Patient has more than 32-gtvj-[id number] smoking history, bedside spirometry suggestive of severe obstructive airway disease, however pre-BD effort is poor; repeat full PFT as outpatient
- Continue Duoneb, steroids as above; continue to monitor.
- Continue nebulized budesonide twice daily
#3. Mediastinal lymphadenopathy.
- ?Infection related vs malignant with know h/o CA Endometrium
- Monitor for now, can pursue short term CT imaging in 6 weeks time
- With longstanding history of smoking, malignancy is certainly a concern
#4. H/o Smoking.
- Patient smokes about a pack per day since age 14, has close to 32-bhro-wodj smoking history
- Last cigarette was >2 days ago
Other medical diagnoses:
- Endometrial Sarcocarcinoma, since 2021, Oncology service on case
- Poor tolerance of chemotherapeutic agents.
DVT prophylaxis: Subcutaneous heparin 5000 units every 12h
GI prophylaxis: Remains on pantoprazole
Pulmonary service will continue to follow along
Data:
CT-PE 12/2024: Suboptimal opacification of the pulmonary arteries. No evidence for central pulmonary embolism.
Diffuse bronchial wall thickening, new from prior examination, suggesting bronchitis. Branching small nodular opacities within the mid to lower lungs bilaterally, suggesting small airway pneumonitis, also new.
Mediastinal lymphadenopathy as described, increasing from prior CT examinations, and suspicious for neoplastic lymphadenopathy.
13 mm nodular low-density lesion in the region of the splenic hilum and the left upper quadrant the abdomen, suspicious for a peritoneal neoplastic implant. Small amount of ascites within the upper abdomen, mainly within the left upper quadrant,
raising concern for ascites associated with peritoneal carcinomatosis.
Probable cholelithiasis.
CXR 12/2024: No evidence of active cardiopulmonary disease.
ECHO 12/2024: Left ventricle is small in size. LV ejection fraction is >75%, by visual
assessment. No regional wall motion abnormalities are seen. Global longitudinal
strain values are within normal limits GLS -21.6%.
Normal right ventricular size and function.
Mild tricuspid regurgitation. Estimated pulmonary artery pressure of 40-45
mmHg.
Normal pericardium without effusion.
No prior study available for comparison.
Subjective Data
-
Date of Service:
Date of Service: January 22, 2025
Chief Complaint: Pulmonary Follow Up
Subjective:
Patient feels much improved but is feeling wiped out. I did observe earlier this morning on the commode. She had some lightheadedness and was profoundly fatigued upon returning to bed but otherwise overall feels improved. Denies chest pain,
significant cough. Appears to be in good spirits, currently on 4 L, 99%
Objective Data
Data Reviewed
Vital Signs / I&O / Oxygen:
Vital Signs
Temp Pulse Resp BP Pulse Ox
98.6 F 85 16 163/71 97
01/22/25 07:49 01/22/25 08:00 01/22/25 08:00 01/22/25 07:53 01/22/25 08:00
SaO2 97
Nasal Cannula flow liters per 4
minute
Physical Exam
General: Comfortable
HEENT: Normocephalic and Anicteric
Cardiovascular: S1-S2, Regular Rhythm, Murmur (n), Rub (n), Peripheral Edema (negative) and Calf Tenderness (n)
Respiratory: Wheeze (negative), Crackles (Few at base), Rhonchi (negative), Non-Labored Respirations and Stridor (n)
GI: Soft, Non Distended, Non Tender and Normal Bowel Sounds
Neurology: Awake, Alert and No Motor Deficits (Able to sit up without assistance)
Skin: Warm, Dry, Cyanosis (negative) and Rash (n)
Labs/Micro/Reports
Lab Data
01/22/25 05:47
01/22/25 05:47
Microbiology
01/16/25 01:38 Blood/Venous Blood Culture - Final
No Growth - Final Report
01/16/25 01:30 Blood/Venous Blood Culture - Final
No Growth - Final Report
--- NOTE | 2025-01-22 13:48 | W.PN.HOSP.TC ---
Today's Communication/Plan
-
Monitor vital signs see plan
PT
Continue with prednisone per pulmonary and oncology
Continue with nebs, Pulmicort
Continue with antibiotics for now
Wean oxygen as tolerated
Assessment / Plan
Assessment / Plan
Acute hypoxic respiratory failure. Likely secondary to acute bronchitis
had been coughing past 2-3 weeks [employer], becoming sob day of admission that rapidly worsened. Unclear if this is infectious or inflammatory
consulted Pulm and Onc, input appreciated. Steroids decreased today back down to 40 mg daily Prednisone
Further steroids per oncology and pulmonary
Pulmonary does not believe this is secondary to pneumonitis and rather appears more likely bronchitis
WBC 10.6-->19.8-->30.8-->79.1-->113.4-->90.5k, now coming down. 51 today
(Dr Huitron feels leukocytosis could be due to G-CSF, steroids, infection/inflammation)
Procalcitonin 0.[address] scan 01/16: Suboptimal opacification of the pulmonary arteries. No evidence for central pulmonary embolism.
Diffuse bronchial wall thickening, new from prior examination, suggesting bronchitis. Branching small nodular opacities within the mid to lower lungs bilaterally, suggesting small airway pneumonitis, also new.
Mediastinal lymphadenopathy as described, increasing from prior CT examinations, and suspicious for neoplastic lymphadenopathy.
13 mm nodular low-density lesion in the region of the splenic hilum and the left upper quadrant the abdomen, suspicious for a peritoneal neoplastic implant. Small amount of ascites within the upper abdomen, mainly within the left upper quadrant,
raising concern for ascites associated with peritoneal carcinomatosis.
Probable cholelithiasis.
Pt appears ill, though also appears to be showing some degree of improvement, voice is stronger. Marginal appetite, Ensure added,
PT
Currently on 4 L O2, wean oxygen as tolerated
01/20 CXR: Small faint opacity in the lingula likely related to atelectasis. Mild bilateral peribronchial thickening/bronchitis. No pleural effusion or pneumothorax. Stable right Port-A-Cath with the catheter tip in the SVC. The cardiomediastinal
silhouette is normal.
Leukocytosis possibly due to G-CSF given on 01/15 versus steroids or related to progressive cancer
Sepsis present on admission
Rocephin added to medication
Hx of metastatic endometrial cancer
originally dx in 2020. Follows with Dr. Box in office. Underwent robotic assisted lap hysterectomy 07/29/2021
Anemia of chronic disease
Monitor
Distant past hx of Thyroid Cancer
Cigarette use and as of day prior to admission still smoking 1/2 ppd
P: Continue with steroids, nebs
duonebs, pulmicort
Pulm and Onc consults.
empiric Azithromycin, Rocephin added
Consider discontinuation in next 48 hours if continues to improve
Does not have formal COPD diagnosis, suggest outpatient PFTs
DNR and confirmed x 2 with patient
General: Well Developed, Well Nourished, No Apparent Distress and Appears Chronically Ill
HEENT: Normocephalic
Respiratory: Wheezes (improved air movement with coarse wheeze); Negative Rales or Rhonchi
Cardiac: Regular Rhythm and S1/S2
GI: Soft, Nontender, Nondistended and Normal Bowel Sounds
Genito-urinary: No Costovertebral Tender
Musculoskeletal: No Edema
Neuro: Awake, Alert and Oriented
I spent a total of 52 minutes with the patient or on the floor. More than 50% of this time involved counseling and coordination of care.
Anticipated Discharge: > 48 hours
Subjective/Interval History
-
Date of Service: January 22, 2025
Denies pain
Objective Data
-
Labs:
Laboratory Results
01/22/25
05:47
WBC 51.1 H*
Hgb 8.1 L
Hct 24.6 L
Plt Count 198
Sodium 139
Potassium 3.7
Chloride 105
Carbon Dioxide 30
BUN 18 H
Creatinine 0.8
Glucose 94
Calcium 8.5
Vital Signs:
Vital Signs
Temp Pulse Resp BP Pulse Ox
97.6 F 81 24 137/57 92
01/22/25 11:25 01/22/25 12:00 01/22/25 12:00 01/22/25 12:00 01/22/25 12:00
I&O
01/21/25 01/22/25 01/23/25
06:59 06:59 06:59
Intake Total 480 / 480
Balance 480 / 480
--- NOTE | 2025-01-22 16:53 | PTCARENOTE ---
AOx3. Patient anxious throughout shift, but refused PRN anxiety medication. [place]. 4L midflow with SpO2 greater than 92%. Dry non productive cough. NSR on monitor. Stress incontinence. Poor appetite. Assist x1 when OOB. Call cronin within reach, bed in
lowest position, and bed of wheels locked
[2025-01-23] VITALS (12 sets, daily range): BP systolic 108–159; BP diastolic 42–73
[2025-01-23] MEDS: NON-FORMULARY ITEM 1 UNIT PO (04:21)
--- NOTE | 2025-01-23 04:49 | PTCARENOTE ---
Caring for pt overnight. NSR pac/SA. Remains on 4LNC. occasional cough. pt oob to bscx1. denies pain. in good spirits. VSS. will monitor.
[2025-01-23 04:52] LABS: Hematocrit 25.5 % (37.0-47.0); Hemoglobin 8.4 g/dL (12.0-16.0); Mean Corp Hgb Conc. 32.9 g/dL (33.0-37.0); Mean Corpuscular Volume 94.8 fL (81.0-99.0); Platelet Count 195 10^3/uL (130-400); Red Cell Dist. Width 22.8 % (11.5-14.5)
[2025-01-23 05:01] LABS: Blood Urea Nitrogen 19 mg/dl (7-17); Calcium 8.0 mg/dl (8.4-10.2); Carbon Dioxide 33 mmol/L (22-30); Chloride 105 mmol/L (98-107); Estimated Creatinine Clearance 41 ml/min; Glucose 83 mg/dl (70-99); Potassium 3.3 mmol/L (3.5-5.1); Sodium 140 mmol/L (135-145); eGFR > 60.00
[2025-01-23] MEDS: KCL 40 MEQ PO (06:19)
[2025-01-23] MEDS: PROTONIX 40 MG PO (07:24)
[2025-01-23] MEDS: TRANXENE 3.75 MG PO ×2 (07:24→20:47)
[2025-01-23] MEDS: CLARITIN PO (07:24)
[2025-01-23] MEDS: DELTASONE 40 MG PO (07:25)
[2025-01-23] MEDS: OSCAL 500 + D 500 MG PO (07:25)
[2025-01-23] MEDS: TENORMIN 12.5 MG PO ×2 (07:25→20:47)
[2025-01-23] MEDS: HEPARIN 5000 UNITS SC ×2 (07:25→20:48)
[2025-01-23] MEDS: OCEAN, SALINE MIST 2 SPRAYS NASAL ×4 (07:28→20:48)
[2025-01-23 07:33] LABS: Absolute Neutrophils -Man Diff 25.6 10^3/uL (1.4-6.5); Normal RBC Morphology No; Platelets Checked Yes
[2025-01-23 07:36] LABS: Anisocytosis 1+; Basophilic Stippling 1+; Hypochromasia 1+; Ovalocytes FEW; Polychromasia 1+; Schistocytes RARE
[2025-01-23] MEDS: PULMICORT 0.5 MG INH (07:36)
[2025-01-23] MEDS: SODIUM CHLORIDE 3% FOR INHALATION 1 VIAL INH ×2 (07:36→20:30)
[2025-01-23] MEDS: DUONEB 3 ML INH (07:36)
[2025-01-23 07:37] LABS: Total Cells Counted 100
[2025-01-23] MEDS: ROCEPHIN 1000 MG IV (09:19)
[2025-01-23] MEDS: STERILE WATER FOR INJECTION 10 ML IV (09:19)
--- NOTE | 2025-01-23 12:31 | W.PN.PUL3 ---
Today's Communication / Plan
-
- Discontinue budesonide and DuoNeb scheduled, start Symbicort twice daily as well as Spiriva
- Patient will need triple therapy LAMA/LABA/ICS at discharge
- Discontinue IV ceftriaxone, patient has received more than 5 days of antibiotics
- Continue prednisone tapering, will lower by 10 mg every 4 days
- Continue 3% nebulized saline twice a day along with albuterol for 48 hours more and then will switch to as needed
- Patient can transfer out of IMU
- Discharge planning
Assessment
-
Patient is a 74-year-old female who presented to the hospital with few weeks of progressively increasing weakness, shortness of breath. Patient also reports that her oxygen saturation at home have been running around 90-92. She has close to
[id number] smoking history and currently smokes about a pack per day. Patient reports frequent cough occasional wheezing and significant exertional dyspnea. Over the last few days she is reporting increased cough with clear expectoration with
occasional wheezing. Symptoms tend to be worse when she lies down and also reports occasional episodes of gastroesophageal reflux disease with regurgitation. She takes Tums on an as-needed basis currently. In the emergency room, patient had a CT
scan performed which showed bilateral bronchitis changes without any consolidation and some mediastinal lymphadenopathy. Pulmonary consultation was requested for further input.
Known history of high-grade carcinosarcoma of the endometrium, s/p surgery in 2021, currently on chemotherapy. Patient also carries a diagnosis of papillary thyroid carcinoma s/p surgery.
Patient had an ER visit on 12/29 after second dose of carboplatin when she developed tightness in throat, nausea, shakiness which was treated with EpiPen, Benadryl, Decadron. Patient improved in the emergency room and was subsequently discharged
#1. Worsening acute hypoxic respiratory failure (01/18/2025)
- Patient had increased oxygen requirement, increased to wheezing as well as work of breathing --> improved as of 01/20 and now breathing comfortably on 4L, 99%
- Stat ABG, 7.44, 37, 91 on 5 L oxygen. Chest x-ray, 01/18, without any active infiltrates.
- Bedside spirometry 01/17, severe obstructive airway disease with postbronchodilator FEV1 of 0.57 L, although difficult study with pre-bronchodilator effort poor; repeat as outpatient
- CT scan and x-ray are not suggestive of typical groundglass opacities noted in chemotherapy related pneumonitis
- Patient's worsening status appeared more related to obstructive airway disease, started BiPAP in view of increased work of breathing, supplemental oxygen to keep saturations above 90%, transferred patient to IMU for close monitoring. Reviewed
oncology correspondence, 1 g Solu-Medrol daily started in case patient has underlying chemotherapy related pneumonitis, now on prednisone 40 mg
- Discussed CODE STATUS with patient, she confirmed DNR/DNI
- Overall much improved as of 01/22
- Physical therapy, encourage ambulation
- Patient is off BiPAP now and currently on mid flow nasal cannula only.
#1a. Acute bronchitis
- ?Infectious vs GERD related
- Influenza A, B screen negative. Blood cultures show NGTD; lactate 0.9 on 01/15/2025
- Patient has received more than 5 days of IV antibiotics, off azithromycin now, discontinue ceftriaxone
- Continue PPI 40 mg daily, frequent GERD symptoms with regurgitation
- Admission CT scan and chest x-ray are not suggestive of any parenchymal opacities. No typical groundglass multifocal opacities noted as seen in severe chemotherapy related pneumonitis.
- Continue short-term hypertonic saline along with albuterol
- Acapella
#2. Hyperactive airway disease, suspect underlying undiagnosed COPD with Acute exacerbation
- Patient has more than [id number] smoking history, bedside spirometry suggestive of severe obstructive airway disease, however pre-BD effort is poor; repeat full PFT as outpatient
- Switch DuoNeb and budesonide to Symbicort as well as Spiriva to continue LAMA/LABA/ICS therapy
#3. Mediastinal lymphadenopathy.
- ?Infection related vs malignant with know h/o CA Endometrium
- Monitor for now, can pursue short term CT imaging in 6 weeks time
- With longstanding history of smoking, malignancy is certainly a concern
#4. H/o Smoking.
- Patient smokes about a pack per day since age 14, has close to [id number] smoking history
- Last cigarette was >2 days prior to admission
Other medical diagnoses:
- Endometrial Sarcocarcinoma, since 2021, Oncology service on case
- Poor tolerance of chemotherapeutic agents.
DVT prophylaxis: Subcutaneous heparin 5000 units every 12h
GI prophylaxis: Remains on pantoprazole
Pulmonary service will continue to follow along
Data:
CT-PE 12/2024: Suboptimal opacification of the pulmonary arteries. No evidence for central pulmonary embolism.
Diffuse bronchial wall thickening, new from prior examination, suggesting bronchitis. Branching small nodular opacities within the mid to lower lungs bilaterally, suggesting small airway pneumonitis, also new.
Mediastinal lymphadenopathy as described, increasing from prior CT examinations, and suspicious for neoplastic lymphadenopathy.
13 mm nodular low-density lesion in the region of the splenic hilum and the left upper quadrant the abdomen, suspicious for a peritoneal neoplastic implant. Small amount of ascites within the upper abdomen, mainly within the left upper quadrant,
raising concern for ascites associated with peritoneal carcinomatosis.
Probable cholelithiasis.
CXR 12/2024: No evidence of active cardiopulmonary disease.
ECHO 12/2024: Left ventricle is small in size. LV ejection fraction is >75%, by visual
assessment. No regional wall motion abnormalities are seen. Global longitudinal
strain values are within normal limits GLS -21.6%.
Normal right ventricular size and function.
Mild tricuspid regurgitation. Estimated pulmonary artery pressure of 40-45
mmHg.
Normal pericardium without effusion.
No prior study available for comparison.
Subjective Data
-
Date of Service:
Date of Service: January 23, 2025
Chief Complaint: Pulmonary Follow Up
Subjective:
Patient appears more comfortable, wheezing essentially resolved.
Review of Systems
Genitourinary: Other (No new pulmonary symptoms reported)
Objective Data
Data Reviewed
Vital Signs / I&O / Oxygen:
Vital Signs
Temp Pulse Resp BP Pulse Ox
97.8 F 69 15 137/56 97
01/23/25 07:49 01/23/25 10:00 01/23/25 10:00 01/23/25 10:00 01/23/25 10:00
Intake and Output
01/22/25 01/23/25 01/24/25
06:59 06:59 06:59
Intake Total 600 / 600
Balance 600 / 600
SaO2 97
Nasal Cannula flow liters per 2
minute
Physical Exam
General: Comfortable
HEENT: Normocephalic and Anicteric
Cardiovascular: S1-S2, Regular Rhythm, Murmur (n), Rub (n), Peripheral Edema (negative) and Calf Tenderness (n)
Respiratory: Wheeze (negative), Crackles (Few at base), Rhonchi (negative), Non-Labored Respirations and Stridor (n)
GI: Soft, Non Distended, Non Tender and Normal Bowel Sounds
Neurology: Awake, Alert and No Motor Deficits (Able to sit up without assistance)
Skin: Warm, Dry, Cyanosis (negative) and Rash (n)
Labs/Micro/Reports
Lab Data
01/23/25 03:51
01/23/25 03:51
Microbiology
01/16/25 01:38 Blood/Venous Blood Culture - Final
No Growth - Final Report
01/16/25 01:30 Blood/Venous Blood Culture - Final
No Growth - Final Report
--- NOTE | 2025-01-23 12:42 | W.PN.HOSP.TC ---
Today's Communication/Plan
-
Monitor vital signs see plan
Home O2 evaluation tomorrow
Wean oxygen as tolerated
Continue with breathing treatments, prednisone
Transfer to the floor
Replete potassium
Assessment / Plan
Assessment / Plan
Acute hypoxic respiratory failure. Likely secondary to acute bronchitis
had been coughing past 2-3 weeks [employer], becoming sob day of admission that rapidly worsened. Unclear if this is infectious or inflammatory
consulted Pulm and Onc, input appreciated. Currently on prednisone 40 mg daily, discussed with pulmonary and will lower by 10 mg every 4 days.
Further steroids per oncology and pulmonary
Pulmonary does not believe this is secondary to pneumonitis and rather appears more likely bronchitis. Need triple therapy with LAMA/LAMA/ICS
WBC 10.6-->19.8-->30.8-->79.1-->113.4-->90.5k, now coming down. 29K today
(Dr Huitron feels leukocytosis could be due to G-CSF, steroids, infection/inflammation)
Procalcitonin 0.[address] scan 01/16: Suboptimal opacification of the pulmonary arteries. No evidence for central pulmonary embolism.
Diffuse bronchial wall thickening, new from prior examination, suggesting bronchitis. Branching small nodular opacities within the mid to lower lungs bilaterally, suggesting small airway pneumonitis, also new.
Mediastinal lymphadenopathy as described, increasing from prior CT examinations, and suspicious for neoplastic lymphadenopathy.
13 mm nodular low-density lesion in the region of the splenic hilum and the left upper quadrant the abdomen, suspicious for a peritoneal neoplastic implant. Small amount of ascites within the upper abdomen, mainly within the left upper quadrant,
raising concern for ascites associated with peritoneal carcinomatosis.
Probable cholelithiasis.
Pt appears ill, though also appears to be showing some degree of improvement, voice is stronger. Marginal appetite, Ensure added,
PT
Currently on 4 L O2, wean oxygen as tolerated. Home O2 evaluation tomorrow
01/20 CXR: Small faint opacity in the lingula likely related to atelectasis. Mild bilateral peribronchial thickening/bronchitis. No pleural effusion or pneumothorax. Stable right Port-A-Cath with the catheter tip in the SVC. The cardiomediastinal
silhouette is normal.
Leukocytosis possibly due to G-CSF given on 01/15 versus steroids or related to progressive cancer
Sepsis present on admission
Rocephin added to medication
Hx of metastatic endometrial cancer
originally dx in 2020. Follows with Dr. Box in office. Underwent robotic assisted lap hysterectomy 07/29/2021
Anemia of chronic disease
Monitor
Hypokalemia
Replete
Distant past hx of Thyroid Cancer
Cigarette use and as of day prior to admission still smoking 1/2 ppd
P: Continue with steroids, nebs
duonebs, pulmicort
Pulm and Onc consults.
Discussed with pulmonary, stopped further antibiotic
Does not have formal COPD diagnosis, suggest outpatient PFTs
DNR and confirmed x 2 with patient
General: Well Developed, Well Nourished, No Apparent Distress and Appears Chronically Ill
HEENT: Normocephalic
Respiratory: Wheezes (improved air movement with coarse wheeze); Negative Rales or Rhonchi
Cardiac: Regular Rhythm and S1/S2
GI: Soft, Nontender, Nondistended and Normal Bowel Sounds
Genito-urinary: No Costovertebral Tender
Musculoskeletal: No Edema
Neuro: Awake, Alert and Oriented
I spent a total of 51 minutes with the patient or on the floor. More than 50% of this time involved counseling and coordination of care.
Anticipated Discharge: Within 24 hours
Subjective/Interval History
-
Date of Service: January 23, 2025
denies nausea
Objective Data
-
Labs:
Laboratory Results
01/23/25
03:51
WBC 29.1 H
Hgb 8.4 L
Hct 25.5 L
Plt Count 195
Sodium 140
Potassium 3.3 L
Chloride 105
Carbon Dioxide 33 H
BUN 19 H
Creatinine 0.8
Glucose 83
Calcium 8.0 L
Vital Signs:
Vital Signs
Temp Pulse Resp BP Pulse Ox
98.4 F 69 15 137/56 97
01/23/25 11:33 01/23/25 10:00 01/23/25 10:00 01/23/25 10:00 01/23/25 10:00
I&O
01/22/25 01/23/25 01/24/25
06:59 06:59 06:59
Intake Total 600 / 600
Balance 600 / 600
[2025-01-23] MEDS: SPIRIVA RESPIMAT 2.5 MCG INH (13:06)
[2025-01-23] MEDS: DESENEX/MITRAZOL/ZEASORB TOPICAL ×2 (13:18→20:46)
--- NOTE | 2025-01-23 13:20 | CM ---
Patient with Hx metastatic endometrial cancer with Dx Acute respiratory distress, sepsis. O2 2L. PT/OT Evals recommend HH.
Met with patient and ; discussed possible d/c needs for d/c tomorrow.
Patient/ aware MD will order home O2 assessment for home O2.
Patient will be staying on couch on first floor for a few days and will stay downstairs with her also.
Offered [facility]N for SN/PT/OT and patient chooses [facility] ---> referral to [facility] liaison.
Patient has [employer] care insurance- patient and considering hiring caregiver and using the [employer] insurance for this. Provided caregiver list to who will be calling the insurance carrier today- he is thinking of starting
with caregiver 4hrs/day.
Plan follow up after home O2 assessment.
Plan home with [facility], possible home O2 and possible caregiver.
--- NOTE | 2025-01-23 15:26 | W.PN.ONC ---
Today's Communication / Plan
-
Continues to slowly improve.
Prednisone 40mg/d, per pulm - reduce daily dose x10mg/d every 4 days
Inhalers, nebs, etc
f/u with Dr. Box next week to consider further treatment of her cancer
Impression
Impression
metastatic endometrial cancer
Dyspnea and respiratory failure
bronchitis w bronchospasm
Leukocytosis (GCSF, Steroids, infection/inflammation)
DNR
Plan
Plan
Continues to slowly improve.
Prednisone 40mg/d, per pulm - reduce daily dose x10mg/d every 4 days
Inhalers, nebs, etc
f/u with Dr. Box next week to consider further treatment of her cancer
Subjective/Objective
Subjective/Objective
still feeling winded with little exertion, though O2 needs are improving
at bedside
Vital Signs:
Vital Signs
Temp Pulse Resp BP Pulse Ox
98.4 F 70 21 122/46 98
01/23/25 11:33 01/23/25 14:00 01/23/25 14:00 01/23/25 14:00 01/23/25 14:00
Lab Results:
Laboratory Data
WBC 29.1 10^3/uL (4.8-10.8) H 01/23/25 03:51
Hgb 8.4 g/dL (12.0-16.0) L 01/23/25 03:51
Plt Count 195 10^3/uL (130-400) 01/23/25 03:51
eGFR > 60.00 01/23/25 03:51
--- NOTE | 2025-01-23 15:35 | VNURNOTE ---
Home Health Liaison met with patient at bedside to discuss [facility] nurse/therapy, visits, schedule and homebound status. Patient is agreeable and understands that visits at home will be 2-3 x per week to assess and teach medical management. Patient is
aware that [facility] will contact them for start of care in 1-2 days after discharge from . Will watch if new home 02 needs closer to [place].
[facility] referral completed in [facility].
--- NOTE | 2025-01-23 16:14 | PTCARENOTE ---
AOx3. Patient anxious at times. [place]. 2L midflow with SpO2 greater than 92%. Dry non productive cough. NSR on monitor. Patient c/o of being dizzy at times during ambulation. BP stable. Stress incontinence. Poor appetite. Assist x1 when OOB. Call cronin
within reach, bed in lowest position, and bed of wheels locked
[2025-01-23] MEDS: SYMBICORT 160/4.5 MCG INHALER 2 PUFF INH (20:30)
[2025-01-23] MEDS: VENTOLIN NEBULES 2.5 MG INH (20:30)
[2025-01-24] MEDS: XANAX 0.5 MG PO ×2 (03:08→22:30)
[2025-01-24 03:57] LABS: Hematocrit 27.3 % (37.0-47.0); Hemoglobin 9.1 g/dL (12.0-16.0); Mean Corp Hgb Conc. 33.3 g/dL (33.0-37.0); Mean Corpuscular Volume 95.1 fL (81.0-99.0); Platelet Count 203 10^3/uL (130-400); Red Cell Dist. Width 22.4 % (11.5-14.5)
[2025-01-24 04:10] LABS: Blood Urea Nitrogen 18 mg/dl (7-17); Calcium 8.8 mg/dl (8.4-10.2); Carbon Dioxide 32 mmol/L (22-30); Chloride 106 mmol/L (98-107); Estimated Creatinine Clearance 47 ml/min; Glucose 85 mg/dl (70-99); Potassium 3.6 mmol/L (3.5-5.1); Sodium 138 mmol/L (135-145); eGFR > 60.00
[2025-01-24] MEDS: NON-FORMULARY ITEM 1 UNIT PO (05:15)
--- NOTE | 2025-01-24 05:26 | PTCARENOTE ---
2L NC in place. Patient is med/surg status. Up to BSC assist x1. Prn xanax provided for anxiety. RCW port dressing intact, +blood return. Labs sent. pt thankful for care. call cronin within reach.
[2025-01-24 05:40] LABS: Absolute Neutrophils -Man Diff 22.6 10^3/uL (1.4-6.5); Anisocytosis 1+; Macrocytosis 2+; Normal RBC Morphology No; Platelets Checked Yes; Total Cells Counted 100
[2025-01-24 07:27] VITALS: BP 130/48
[2025-01-24] MEDS: VENTOLIN NEBULES 2.5 MG INH ×2 (07:31→19:13)
[2025-01-24] MEDS: SODIUM CHLORIDE 3% FOR INHALATION 1 VIAL INH ×2 (07:31→19:13)
[2025-01-24] MEDS: SPIRIVA RESPIMAT 2.5 MCG 2 PUFF INH (07:31)
[2025-01-24] MEDS: SYMBICORT 160/4.5 MCG INHALER 2 PUFF INH ×2 (07:32→19:13)
--- NOTE | 2025-01-24 08:00 | PTCARENOTE ---
Received patient from night RN. Assessment completed and documented in shift assessment.
Patient is pleasant, AAOX4. Ambulatory in room/hallway with RT/PT. Weaned to RA. Lungs diminished, crackles at the bases. Skin intact. R CW Port patent, hep locked. Non-monitored patient. No edema, + pulses. Round abdomen, + BS and + flatus. LBM
today. Voiding on BSC.
[2025-01-24] MEDS: CLARITIN PO ×2 (09:04→09:09)
[2025-01-24] MEDS: PROTONIX 40 MG PO (09:04)
[2025-01-24] MEDS: TENORMIN 12.5 MG PO ×2 (09:04→20:27)
[2025-01-24] MEDS: HEPARIN 5000 UNITS SC ×2 (09:06→20:25)
[2025-01-24] MEDS: OSCAL 500 + D 500 MG PO (09:06)
[2025-01-24] MEDS: DELTASONE 40 MG PO (09:06)
[2025-01-24] MEDS: TRANXENE 3.75 MG PO ×2 (09:06→20:25)
[2025-01-24] MEDS: OCEAN, SALINE MIST 2 SPRAYS NASAL ×4 (09:07→20:26)
[2025-01-24] MEDS: DESENEX/MITRAZOL/ZEASORB 1 APPLIC TOPICAL ×2 (09:07→20:26)
--- NOTE | 2025-01-24 10:56 | W.PN.PUL3 ---
Today's Communication / Plan
-
- Afrin spray each nostril twice a day for 3 days
- Transfer out of IMU
- Monitor for 24 hours on inhaler therapy, anticipate discharge 01/25
- Assess for home oxygen need prior to discharge
- Lower prednisone to 30 mg daily
Assessment
-
Patient is a 74-year-old female who presented to the hospital with few weeks of progressively increasing weakness, shortness of breath. Patient also reports that her oxygen saturation at home have been running around 90-92. She has close to
64-pryv-oizb smoking history and currently smokes about a pack per day. Patient reports frequent cough occasional wheezing and significant exertional dyspnea. Over the last few days she is reporting increased cough with clear expectoration with
occasional wheezing. Symptoms tend to be worse when she lies down and also reports occasional episodes of gastroesophageal reflux disease with regurgitation. She takes Tums on an as-needed basis currently. In the emergency room, patient had a CT
scan performed which showed bilateral bronchitis changes without any consolidation and some mediastinal lymphadenopathy. Pulmonary consultation was requested for further input.
Known history of high-grade carcinosarcoma of the endometrium, s/p surgery in 2021, currently on chemotherapy. Patient also carries a diagnosis of papillary thyroid carcinoma s/p surgery.
Patient had an ER visit on 12/29 after second dose of carboplatin when she developed tightness in throat, nausea, shakiness which was treated with EpiPen, Benadryl, Decadron. Patient improved in the emergency room and was subsequently discharged
#1. Worsening acute hypoxic respiratory failure (01/18/2025)
- Patient had increased oxygen requirement, increased to wheezing as well as work of breathing --> improved as of 01/20 and now breathing comfortably on 4L, 99%
- Stat ABG, 7.44, 37, 91 on 5 L oxygen. Chest x-ray, 01/18, without any active infiltrates.
- Bedside spirometry 01/17, severe obstructive airway disease with postbronchodilator FEV1 of 0.57 L, although difficult study with pre-bronchodilator effort poor; repeat as outpatient
- CT scan and x-ray are not suggestive of typical groundglass opacities noted in chemotherapy related pneumonitis
- Patient's worsening status appeared more related to obstructive airway disease, started BiPAP in view of increased work of breathing, supplemental oxygen to keep saturations above 90%, transferred patient to IMU for close monitoring. Reviewed
oncology correspondence, 1 g Solu-Medrol daily started in case patient has underlying chemotherapy related pneumonitis, now on prednisone 40 mg
- Discussed CODE STATUS with patient, she confirmed DNR/DNI
- Overall much improved as of 01/22
- Physical therapy, encourage ambulation
- 01/24, patient noted to be on room air saturating 94 to 96% after ambulating.
#1a. Acute bronchitis
- ?Infectious vs GERD related
- Influenza A, B screen negative. Blood cultures show NGTD; lactate 0.9 on 01/15/2025
- Patient has received more than 5 days of IV antibiotics, off azithromycin now, discontinue ceftriaxone
- Continue PPI 40 mg daily, frequent GERD symptoms with regurgitation
- Admission CT scan and chest x-ray are not suggestive of any parenchymal opacities. No typical groundglass multifocal opacities noted as seen in severe chemotherapy related pneumonitis.
- Continue short-term hypertonic saline along with albuterol
- Acapella valve
#2. Hyperactive airway disease, suspect underlying undiagnosed COPD with Acute exacerbation
- Patient has more than 99-[id number]-xywo smoking history, bedside spirometry suggestive of severe obstructive airway disease, however pre-BD effort is poor; repeat full PFT as outpatient
- Switched DuoNeb and budesonide to Symbicort as well as Spiriva to continue LAMA/LABA/ICS therapy
- Patient tolerated transition to inhaler therapy well. Did not need any as needed nebulized therapy
#3. Mediastinal lymphadenopathy.
- ?Infection related vs malignant with know h/o CA Endometrium
- Monitor for now, can pursue short term CT imaging in 6 weeks time
- With longstanding history of smoking, malignancy is certainly a concern
#4. H/o Smoking.
- Patient smokes about a pack per day since age 14, has close to 65-wrjf-bwdm smoking history
- Last cigarette was >2 days prior to admission
#5. Nasal Congestion
- Start Afrin spray twice a day x 3 days, start Flonase after discharge
Other medical diagnoses:
- Endometrial Sarcocarcinoma, since 2021, Oncology service on case
- Poor tolerance of chemotherapeutic agents.
DVT prophylaxis: Subcutaneous heparin 5000 units every 12h
GI prophylaxis: Remains on pantoprazole
Pulmonary service will continue to follow along
Data:
CT-PE 12/2024: Suboptimal opacification of the pulmonary arteries. No evidence for central pulmonary embolism.
Diffuse bronchial wall thickening, new from prior examination, suggesting bronchitis. Branching small nodular opacities within the mid to lower lungs bilaterally, suggesting small airway pneumonitis, also new.
Mediastinal lymphadenopathy as described, increasing from prior CT examinations, and suspicious for neoplastic lymphadenopathy.
13 mm nodular low-density lesion in the region of the splenic hilum and the left upper quadrant the abdomen, suspicious for a peritoneal neoplastic implant. Small amount of ascites within the upper abdomen, mainly within the left upper quadrant,
raising concern for ascites associated with peritoneal carcinomatosis.
Probable cholelithiasis.
CXR 12/2024: No evidence of active cardiopulmonary disease.
ECHO 12/2024: Left ventricle is small in size. LV ejection fraction is >75%, by visual
assessment. No regional wall motion abnormalities are seen. Global longitudinal
strain values are within normal limits GLS -21.6%.
Normal right ventricular size and function.
Mild tricuspid regurgitation. Estimated pulmonary artery pressure of 40-45
mmHg.
Normal pericardium without effusion.
No prior study available for comparison.
Subjective Data
-
Date of Service:
Date of Service: January 24, 2025
Chief Complaint: Pulmonary Follow Up
Subjective:
Patient comfortably walking in the hallway today on room air, significant overall improvement.
Review of Systems
Genitourinary: Other (Right ear stuffiness improved, persistent symptoms on the left side also left-sided nasal congestion.)
Objective Data
Data Reviewed
Vital Signs / I&O / Oxygen:
Vital Signs
Temp Pulse Resp BP Pulse Ox
98.0 F 88 18 130/48 93
01/24/25 07:27 01/24/25 09:04 01/24/25 07:38 01/24/25 09:04 01/24/25 07:38
Intake and Output
01/23/25 01/24/25 01/25/25
06:59 06:59 06:59
Intake Total 600 / 600
Balance 600 / 600
SaO2 93
Nasal Cannula flow liters per 2
minute
Physical Exam
General: Comfortable
HEENT: Normocephalic and Anicteric
Cardiovascular: S1-S2, Regular Rhythm, Murmur (n), Rub (n), Peripheral Edema (negative) and Calf Tenderness (n)
Respiratory: Wheeze (negative), Crackles (Few at base), Rhonchi (negative), Non-Labored Respirations and Stridor (n)
GI: Soft, Non Distended, Non Tender and Normal Bowel Sounds
Neurology: Awake, Alert and No Motor Deficits (Able to sit up without assistance)
Skin: Warm, Dry, Cyanosis (negative) and Rash (n)
Labs/Micro/Reports
Lab Data
01/24/25 03:15
01/24/25 03:15
[2025-01-24 11:23] VITALS: BP 119/52; PULSE 78; O2SAT 97
[2025-01-24] MEDS: AFRIN NASAL SPRAY 1 SPRAYS NASAL (12:35)
--- NOTE | 2025-01-24 13:48 | W.PN.HOSP.TC ---
Today's Communication/Plan
-
Monitor vital signs see plan
Home O2 evaluation
Continue with Spiriva and Symbicort
Pulmonary following
Hopeful discharge tomorrow
Assessment / Plan
Assessment / Plan
Acute hypoxic respiratory failure. Likely secondary to acute bronchitis
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 Unclear if this is infectious or inflammatory
consulted Pulm and Onc, input appreciated. Currently on prednisone 40 mg daily, discussed with pulmonary and will lower by 10 mg every 4 days.
Further steroids per oncology and pulmonary
Pulmonary does not believe this is secondary to pneumonitis and rather appears more likely bronchitis. Need triple therapy with LAMA/LAMA/ICS
WBC 10.6-->19.8-->30.8-->79.1-->113.4-->90.5k, now coming down. 29K today
(Dr Huitron feels leukocytosis could be due to G-CSF, steroids, infection/inflammation)
Procalcitonin 0.[address] scan 01/16: Suboptimal opacification of the pulmonary arteries. No evidence for central pulmonary embolism.
Diffuse bronchial wall thickening, new from prior examination, suggesting bronchitis. Branching small nodular opacities within the mid to lower lungs bilaterally, suggesting small airway pneumonitis, also new.
Mediastinal lymphadenopathy as described, increasing from prior CT examinations, and suspicious for neoplastic lymphadenopathy.
13 mm nodular low-density lesion in the region of the splenic hilum and the left upper quadrant the abdomen, suspicious for a peritoneal neoplastic implant. Small amount of ascites within the upper abdomen, mainly within the left upper quadrant,
raising concern for ascites associated with peritoneal carcinomatosis.
Probable cholelithiasis.
Pt appears ill, though also appears to be showing some degree of improvement, voice is stronger. Marginal appetite, Ensure added,
PT
Weaned off oxygen
01/20 CXR: Small faint opacity in the lingula likely related to atelectasis. Mild bilateral peribronchial thickening/bronchitis. No pleural effusion or pneumothorax. Stable right Port-A-Cath with the catheter tip in the SVC. The cardiomediastinal
silhouette is normal.
Leukocytosis possibly due to G-CSF given on 01/15 versus steroids or related to progressive cancer
Sepsis present on admission
Rocephin added to medication
Hx of metastatic endometrial cancer
originally dx in 2020. Follows with Dr. Box in office. Underwent robotic assisted lap hysterectomy 07/29/2021
Anemia of chronic disease
Monitor
Hypokalemia
Replete
Distant past hx of Thyroid Cancer
Cigarette use and as of day prior to admission still smoking 1/2 ppd
P: Continue with steroids, nebs
duonebs, pulmicort
Pulm and Onc consults.
Discussed with pulmonary, stopped further antibiotic
Does not have formal COPD diagnosis, suggest outpatient PFTs
DNR and confirmed x 2 with patient
General: Well Developed, Well Nourished, No Apparent Distress and Appears Chronically Ill
HEENT: Normocephalic
Respiratory: Wheezes (improved air movement with coarse wheeze); Negative Rales or Rhonchi
Cardiac: Regular Rhythm and S1/S2
GI: Soft, Nontender, Nondistended and Normal Bowel Sounds
Genito-urinary: No Costovertebral Tender
Musculoskeletal: No Edema
Neuro: Awake, Alert and Oriented
Anticipated Discharge: Within 24 hours
Subjective/Interval History
-
Date of Service: January 24, 2025
Denies pain
Objective Data
-
Labs:
Laboratory Results
01/24/25
03:15
WBC 23.8 H
Hgb 9.1 L
Hct 27.3 L
Plt Count 203
Sodium 138
Potassium 3.6
Chloride 106
Carbon Dioxide 32 H
BUN 18 H
Creatinine 0.7
Glucose 85
Calcium 8.8
Vital Signs:
Vital Signs
Temp Pulse Resp BP Pulse Ox
98.0 F 88 18 130/48 93
01/24/25 07:27 01/24/25 09:04 01/24/25 07:38 01/24/25 09:04 01/24/25 07:38
I&O
01/23/25 01/24/25 01/25/25
06:59 06:59 06:59
Intake Total 600 / 600
Balance 600 / 600
[2025-01-24 14:04] VITALS: BP 141/58
--- NOTE | 2025-01-24 14:04 | W.PN.ONC2 ---
Today's Communication / Plan
-
Discharge planning. Has follow up with Dr. Box 01/31/2025
prednisone management per pulmonary
Impression
Impression
metastatic endometrial cancer
Dyspnea and respiratory failure
bronchitis w bronchospasm
Leukocytosis (GCSF, Steroids, infection/inflammation)
DNR
Plan
Plan
Continues to slowly improve.
Prednisone 40mg/d, per pulm - reduce daily dose x10mg/d every 4 days
Inhalers, nebs, etc
f/u with Dr. Box next week to consider further treatment of her cancer
Subjective/Objective
Subjective
ambulating without CHAVEZ
eager for d/c
Vital Signs:
Vital Signs
Temp Pulse Resp BP Pulse Ox
98.0 F 88 18 130/48 93
01/24/25 07:27 01/24/25 09:04 01/24/25 07:38 01/24/25 09:04 01/24/25 07:38
Lab Results:
Laboratory Data
WBC 23.8 10^3/uL (4.8-10.8) H 01/24/25 03:15
Hgb 9.1 g/dL (12.0-16.0) L 01/24/25 03:15
Plt Count 203 10^3/uL (130-400) 01/24/25 03:15
eGFR > 60.00 01/24/25 03:15
Physical Exam
HEENT: Moist Mucous Membranes; No Jaundice
Cardiology: Normal Sinus Rhythm
Pulmonary: Clear
GI: Soft
Extremities: Pulses Present; No Edema
Neuro: Non Focal
--- NOTE | 2025-01-24 16:52 | PTCARENOTE ---
pt transferred from IMU. report given by JOSE LUIS Holm. pt is AAO*3, Vss, room air. bedside with the pt. updated. pt oriented to the room. call cronin within the reach.
[2025-01-24] MEDS: AFRIN NASAL SPRAY 2 SPRAYS NASAL (20:26)
[2025-01-24 23:45] VITALS: BP 151/62
[2025-01-25] MEDS: NON-FORMULARY ITEM 1 UNIT PO (05:13)
[2025-01-25 05:36] LABS: Blood Urea Nitrogen 14 mg/dl (7-17); Calcium 8.6 mg/dl (8.4-10.2); Carbon Dioxide 31 mmol/L (22-30); Chloride 106 mmol/L (98-107); Estimated Creatinine Clearance 54 ml/min; Glucose 86 mg/dl (70-99); Potassium 3.5 mmol/L (3.5-5.1); Sodium 138 mmol/L (135-145); eGFR > 60.00
[2025-01-25 05:48] LABS: Hematocrit 26.7 % (37.0-47.0); Hemoglobin 9.0 g/dL (12.0-16.0); Mean Corp Hgb Conc. 33.7 g/dL (33.0-37.0); Mean Corpuscular Volume 93.0 fL (81.0-99.0); Nucleated Red Blood Cells % 0.2 %; Platelet Count 178 10^3/uL (130-400); Red Cell Dist. Width 23.0 % (11.5-14.5)
[2025-01-25] MEDS: SPIRIVA RESPIMAT 2.5 MCG 2 PUFF INH (07:20)
[2025-01-25] MEDS: VENTOLIN NEBULES 2.5 MG INH (07:20)
[2025-01-25] MEDS: SODIUM CHLORIDE 3% FOR INHALATION 1 VIAL INH (07:20)
[2025-01-25] MEDS: SYMBICORT 160/4.5 MCG INHALER 2 PUFF INH (07:21)
[2025-01-25 07:40] VITALS: BP 148/62
[2025-01-25] MEDS: OCEAN, SALINE MIST 2 SPRAYS NASAL (08:42)
[2025-01-25] MEDS: PROTONIX 40 MG PO (08:43)
[2025-01-25] MEDS: CLARITIN 10 MG PO (08:43)
[2025-01-25] MEDS: TENORMIN 12.5 MG PO (08:43)
[2025-01-25] MEDS: AFRIN NASAL SPRAY 2 SPRAYS NASAL (08:43)
[2025-01-25] MEDS: OSCAL 500 + D 500 MG PO (08:44)
[2025-01-25] MEDS: TRANXENE 3.75 MG PO (08:44)
[2025-01-25] MEDS: DELTASONE 30 MG PO (08:44)
[2025-01-25] MEDS: HEPARIN SC ×2 (08:44→08:51)
[2025-01-25] MEDS: DESENEX/MITRAZOL/ZEASORB 1 APPLIC TOPICAL (08:45)
--- NOTE | 2025-01-25 09:47 | W.PN.ONC ---
Today's Communication / Plan
-
Continues to slowly improve.
Prednisone 40mg/d, per pulm - reduce daily dose x10mg/d every 4 days
Inhalers, nebs, etc
f/u in the office next Wednesday 01/31
Impression
Impression
metastatic endometrial cancer
Dyspnea and respiratory failure
bronchitis w bronchospasm
Leukocytosis (GCSF, Steroids, infection/inflammation)
DNR
Subjective/Objective
Subjective/Objective
Lisandra appears to be at her baseline from a respiratory status perspective.
Vital Signs:
Vital Signs
Temp Pulse Resp BP Pulse Ox
97.8 F 75 18 148/62 95
01/25/25 07:40 01/25/25 08:43 01/25/25 07:40 01/25/25 08:43 01/25/25 07:40
No scleral icterus
Heart regular
Lungs without rales, rhonchi that clear with cough on the left
Abdomen is soft no shifting dullness appreciated
Extremities without pretibial edema or asymmetry
Lab Results:
Laboratory Data
WBC 18.5 10^3/uL (4.8-10.8) H 01/25/25 04:49
Hgb 9.0 g/dL (12.0-16.0) L 01/25/25 04:49
Plt Count 178 10^3/uL (130-400) 01/25/25 04:49
eGFR > 60.00 01/25/25 04:49
--- NOTE | 2025-01-25 10:31 | CM ---
Received consult to stacie Mahoneyi inhaler, 2 puffs, BID. Placed a call to patient's preferred pharmacy, [facility] in [place]. Spoke with a pharmacist named, Wenceslao, she ran the inhaler cost and stated that for 30 days, the inhaler would cost patient 126.74
under her current insurance plan.
Plan: Case management will continue to follow and assist with discharge planning. Will watch for VN, o2 needs prior to discharge. Per previous CM note, patient also weighing the benefits of having privately paid caregivers.
--- NOTE | 2025-01-25 10:39 | W.PN.PUL3 ---
Today's Communication / Plan
-
- Ok to d/c from Pulmonary stand point
- Breztri #2 Puffs BID and Albuterol nebz qid PRN at d/c
- Prednisone 30 mg x 4 then 20 mg x 4 then 10mg x 4days then d/c
- Assess for Home O2 need if any
- Out patient follow up with Pulmonary clinic in 2 weeks time
- As needed intranasal Flonase for nasal congestion.
Assessment
-
Patient is a 74-year-old female who presented to the hospital with few weeks of progressively increasing weakness, shortness of breath. Patient also reports that her oxygen saturation at home have been running around 90-92. She has close to
87-kfcp-bytt smoking history and currently smokes about a pack per day. Patient reports frequent cough occasional wheezing and significant exertional dyspnea. Over the last few days she is reporting increased cough with clear expectoration with
occasional wheezing. Symptoms tend to be worse when she lies down and also reports occasional episodes of gastroesophageal reflux disease with regurgitation. She takes Tums on an as-needed basis currently. In the emergency room, patient had a CT
scan performed which showed bilateral bronchitis changes without any consolidation and some mediastinal lymphadenopathy. Pulmonary consultation was requested for further input.
Known history of high-grade carcinosarcoma of the endometrium, s/p surgery in 2021, currently on chemotherapy. Patient also carries a diagnosis of papillary thyroid carcinoma s/p surgery.
Patient had an ER visit on 12/29 after second dose of carboplatin when she developed tightness in throat, nausea, shakiness which was treated with EpiPen, Benadryl, Decadron. Patient improved in the emergency room and was subsequently discharged
#1. Worsening acute hypoxic respiratory failure (01/18/2025)
- Patient had increased oxygen requirement, increased to wheezing as well as work of breathing --> improved as of 01/20 and now breathing comfortably on 4L, 99%
- Stat ABG, 7.44, 37, 91 on 5 L oxygen. Chest x-ray, 01/18, without any active infiltrates.
- Bedside spirometry 01/17, severe obstructive airway disease with postbronchodilator FEV1 of 0.57 L, although difficult study with pre-bronchodilator effort poor; repeat as outpatient
- CT scan and x-ray are not suggestive of typical groundglass opacities noted in chemotherapy related pneumonitis
- Patient's worsening status appeared more related to obstructive airway disease, started BiPAP in view of increased work of breathing, supplemental oxygen to keep saturations above 90%, transferred patient to IMU for close monitoring. Reviewed
oncology correspondence, 1 g Solu-Medrol daily started in case patient has underlying chemotherapy related pneumonitis, now on prednisone 40 mg
- Discussed CODE STATUS with patient, she confirmed DNR/DNI
- Overall much improved as of 01/22
- Physical therapy, encourage ambulation
- 01/24, patient noted to be on room air saturating 94 to 96% after ambulating
- 01/25 patient ambulating on room air without difficulty. No further wheezing.
#1a. Acute bronchitis
- ?Infectious vs GERD related
- Influenza A, B screen negative. Blood cultures show NGTD; lactate 0.9 on 01/15/2025
- Patient has received more than 5 days of IV antibiotics, off azithromycin now, discontinue ceftriaxone
- Continue PPI 40 mg daily, frequent GERD symptoms with regurgitation
- Admission CT scan and chest x-ray are not suggestive of any parenchymal opacities. No typical groundglass multifocal opacities noted as seen in severe chemotherapy related pneumonitis.
- Continued short-term hypertonic saline along with albuterol
- Acapella valve
#2. Hyperactive airway disease, suspect underlying undiagnosed COPD with Acute exacerbation
- Patient has more than 60-pnqe-xvqj smoking history, bedside spirometry suggestive of severe obstructive airway disease, however pre-BD effort is poor; repeat full PFT as outpatient
- Switched DuoNeb and budesonide to Symbicort as well as Spiriva to continue LAMA/LABA/ICS therapy
- Patient tolerated transition to inhaler therapy well. Did not need any as needed nebulized therapy
#3. Mediastinal lymphadenopathy.
- ?Infection related vs malignant with know h/o CA Endometrium
- Monitor for now, can pursue short term CT imaging in 6 weeks time
- With longstanding history of smoking, malignancy is certainly a concern
#4. H/o Smoking.
- Patient smokes about a pack per day since age 14, has close to 40-rgrq-fmgk smoking history
- Last cigarette was >2 days prior to admission
#5. Nasal Congestion
- Started Afrin spray twice a day x 3 days, start Flonase after discharge
Other medical diagnoses:
- Endometrial Sarcocarcinoma, since 2021, Oncology service on case
- Poor tolerance of chemotherapeutic agents.
DVT prophylaxis: Subcutaneous heparin 5000 units every 12h
GI prophylaxis: Remains on pantoprazole
Pulmonary service will continue to follow along
Data:
CT-PE 12/2024: Suboptimal opacification of the pulmonary arteries. No evidence for central pulmonary embolism.
Diffuse bronchial wall thickening, new from prior examination, suggesting bronchitis. Branching small nodular opacities within the mid to lower lungs bilaterally, suggesting small airway pneumonitis, also new.
Mediastinal lymphadenopathy as described, increasing from prior CT examinations, and suspicious for neoplastic lymphadenopathy.
13 mm nodular low-density lesion in the region of the splenic hilum and the left upper quadrant the abdomen, suspicious for a peritoneal neoplastic implant. Small amount of ascites within the upper abdomen, mainly within the left upper quadrant,
raising concern for ascites associated with peritoneal carcinomatosis.
Probable cholelithiasis.
CXR 12/2024: No evidence of active cardiopulmonary disease.
ECHO 12/2024: Left ventricle is small in size. LV ejection fraction is >75%, by visual
assessment. No regional wall motion abnormalities are seen. Global longitudinal
strain values are within normal limits GLS -21.6%.
Normal right ventricular size and function.
Mild tricuspid regurgitation. Estimated pulmonary artery pressure of 40-45
mmHg.
Normal pericardium without effusion.
No prior study available for comparison.
Subjective Data
-
Date of Service:
Date of Service: January 25, 2025
Chief Complaint: Pulmonary Follow Up
Subjective:
Patient comfortably lying in bed, currently on room air, ambulating in hallway without difficulty.
Review of Systems
Genitourinary: Other (No new pulmonary symptoms, tolerating inhaler therapy well.)
Objective Data
Data Reviewed
Vital Signs / I&O / Oxygen:
Vital Signs
Temp Pulse Resp BP Pulse Ox
97.8 F 75 18 148/62 95
01/25/25 07:40 01/25/25 08:43 01/25/25 07:40 01/25/25 08:43 01/25/25 07:40
Intake and Output
01/24/25 01/25/25 01/26/25
06:59 06:59 06:59
Intake Total 480 / 480
Balance 480 / 480
SaO2 95
Nasal Cannula flow liters per 2
minute
Physical Exam
General: Comfortable
HEENT: Normocephalic and Anicteric
Cardiovascular: S1-S2, Regular Rhythm, Murmur (n), Rub (n), Peripheral Edema (negative) and Calf Tenderness (n)
Respiratory: Wheeze (negative), Crackles (Few at base), Rhonchi (negative), Non-Labored Respirations and Stridor (n)
GI: Soft, Non Distended, Non Tender and Normal Bowel Sounds
Neurology: Awake, Alert and No Motor Deficits (Able to sit up without assistance)
Skin: Warm, Dry, Cyanosis (negative) and Rash (n)
Labs/Micro/Reports
Lab Data
01/25/25 04:49
01/25/25 04:49
--- NOTE | 2025-01-25 11:39 | W.PN.HOSP.TC ---
Today's Communication/Plan
-
Monitor vital signs see plan
breztri on dc
albuterol prn
Prednisone with taper
Time of discharge 38 minutes
Assessment / Plan
Assessment / Plan
Acute hypoxic respiratory failure. Likely secondary to acute bronchitis
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 Unclear if this is infectious or inflammatory
consulted Pulm and Onc, input appreciated. Currently on prednisone 40 mg daily, discussed with pulmonary and will lower by 10 mg every 4 days.
Further steroids per oncology and pulmonary
Pulmonary does not believe this is secondary to pneumonitis and rather appears more likely bronchitis. Need triple therapy with LAMA/LAMA/ICS
WBC 10.6-->19.8-->30.8-->79.1-->113.4-->90.5k, now coming down
(Dr Huitron feels leukocytosis could be due to G-CSF, steroids, infection/inflammation)
Procalcitonin 0.[address] scan 01/16: Suboptimal opacification of the pulmonary arteries. No evidence for central pulmonary embolism.
Diffuse bronchial wall thickening, new from prior examination, suggesting bronchitis. Branching small nodular opacities within the mid to lower lungs bilaterally, suggesting small airway pneumonitis, also new.
Mediastinal lymphadenopathy as described, increasing from prior CT examinations, and suspicious for neoplastic lymphadenopathy.
13 mm nodular low-density lesion in the region of the splenic hilum and the left upper quadrant the abdomen, suspicious for a peritoneal neoplastic implant. Small amount of ascites within the upper abdomen, mainly within the left upper quadrant,
raising concern for ascites associated with peritoneal carcinomatosis.
Probable cholelithiasis.
Pt appears ill, though also appears to be showing some degree of improvement, voice is stronger. Marginal appetite, Ensure added,
PT
Weaned off oxygen
01/20 CXR: Small faint opacity in the lingula likely related to atelectasis. Mild bilateral peribronchial thickening/bronchitis. No pleural effusion or pneumothorax. Stable right Port-A-Cath with the catheter tip in the SVC. The cardiomediastinal
silhouette is normal.
Leukocytosis possibly due to G-CSF given on 01/15 versus steroids or related to progressive cancer
Sepsis present on admission
Now resolved
Hx of metastatic endometrial cancer
originally dx in 2020. Follows with Dr. Box in office. Underwent robotic assisted lap hysterectomy 07/29/2021
Anemia of chronic disease
Monitor
Hypokalemia
Replete
Distant past hx of Thyroid Cancer
Cigarette use and as of day prior to admission still smoking 1/2 ppd
P: Continue with steroids, nebs
Pulm and Onc consults.
Discussed with pulmonary, stopped further antibiotic
Does not have formal COPD diagnosis, suggest outpatient PFTs
Continue with LABA/ICS/LAMA. Prednisone with taper. Albuterol through nebulizer
DNR and confirmed x 2 with patient
General: Well Developed, Well Nourished, No Apparent Distress and Appears Chronically Ill
HEENT: Normocephalic
Respiratory: Wheezes (improved air movement with coarse wheeze); Negative Rales or Rhonchi
Cardiac: Regular Rhythm and S1/S2
GI: Soft, Nontender, Nondistended and Normal Bowel Sounds
Genito-urinary: No Costovertebral Tender
Musculoskeletal: No Edema
Neuro: Awake, Alert and Oriented
Anticipated Discharge: Today
Subjective/Interval History
-
Date of Service: January 25, 2025
Feeling better
Objective Data
-
Labs:
Laboratory Results
01/25/25
04:49
WBC 18.5 H
Hgb 9.0 L
Hct 26.7 L
Plt Count 178
Sodium 138
Potassium 3.5
Chloride 106
Carbon Dioxide 31 H
BUN 14
Creatinine 0.6
Glucose 86
Calcium 8.6
Vital Signs:
Vital Signs
Temp Pulse Resp BP Pulse Ox
97.8 F 75 18 148/62 96
01/25/25 07:40 01/25/25 08:43 01/25/25 07:40 01/25/25 08:43 01/25/25 11:00
I&O
01/24/25 01/25/25 01/26/25
06:59 06:59 06:59
Intake Total 480 / 480
Balance 480 / 480
--- NOTE | 2025-01-25 12:29 | W.DCSUMMARY ---
Discharge Summary
Discharge Data
Date of Admission: 01/16/25
Date of Discharge: 01/25/25
-
Pending Results: No
Hospital Course
74-year-old female with past medical history of metastatic endometrial cancer, anemia of chronic disease, history of thyroid cancer, smoking came to the hospital with acute hypoxic respiratory failure secondary to acute bronchitis. There was also
discussion that patient symptoms could be secondary to pneumonitis secondary to malignancy however after evaluation it appeared patient likely had bronchitis. Patient initially was started on high-dose of steroids which was later transitioned to
oral prednisone with taper. Patient was seen by pulmonary throughout hospitalization. Patient discharged was started on Breztri along with albuterol as needed. Patient instructed to follow-up with pulmonary soon outpatient. Initially she
required oxygenation however prior to discharge she was able to be weaned off oxygen. Patient was also initially on antibiotics which was later discontinued. Once her symptoms continue to improve, she was then discharged home with instructions to
follow-up with all her physicians outpatient.
Discharge Plan
-
Patient Disposition: Home (Routine Discharge)
Discharge Diagnosis/Procedures: Acute hypoxic respiratory failure secondary to acute bronchitis
Suspected obstructive lung disease
Metastatic endometrial cancer
Anemia of chronic disease
Diet: As tolerated
Activity: As tolerated
Driving Restrictions: As prior to admission
Referrals:
Remy Box DO [Active, Hematology / Oncology]
Jose Giang DO [Family Provider, Internal Medicine] - in less than 1 week
Shruthi Frank MD [Active, Pulmonary Medicine] - in two weeks
Prescriptions:
New
Breztri Aerosphere 160-9-4.8 mcg/actuation HFA aerosol inhaler
2 inh inhalation QAM AND QPM Qty: 10.7 0RF
albuterol sulfate 1.25 mg/3 mL Solution For Nebulization
1.25 mg inhalation R Q4HPRN PRN (Reason: SOB/wheezing/assist with cough) Qty: 90 0RF
pantoprazole 40 mg Tablet,Delayed Release (Dr/Ec)
40 mg PO DAILY Qty: 30 0RF
(DME) nebulizers Misc
See Rx Instructions .Route Qty: 1 0RF
Rx Instructions:
As directed
prednisone 10 mg Tablet
See Rx Instructions .ROUTE .COMPLEX Qty: 21 0RF
Rx Instructions:
Take By Mouth:
30 mg daily x3 days,
20 mg daily x4 days, 10 mg daily x4 days.
Continued
clorazepate dipotassium 3.75 MG tablet
3.75 mg PO Q12H
atenolol 25 MG tablet
12.5 mg PO BID
levothyroxine [Levoxyl] 50 mcg Tablet
50 mcg PO DAILY
loperamide 2 mg Tablet
2 mg PO BIDPRN PRN (Reason: dairrhea)
bismuth subsalicylate [Pepto-Bismol] 262 mg Tablet,Chewable
2 tab PO DAILYPRN PRN (Reason: gerd)
loratadine [Claritin] 10 mg Tablet
10 mg PO DAILY
calcium carb-D3-mag ox-zinc ox 333 mg-133 unit -133 mg-5 mg Tablet
1 tab PO DAILY
Discharge Orders:
Discharge Patient (As Directed); Ordered 01/25/25
Ordered By: Dion Reagan
Discharge Date and Time
Discharge Date/Time: 01/25/25 13:14
Print Language: MONTENEGRIN
[2025-01-25 12:49] VITALS: BP 138/62
--- NOTE | 2025-01-26 08:39 | CM ---
Received message from spouse that the patient was unable to receive medication from [facility] yesterday due to pharmacy closed at 1:30pm. CM called and spoke with the patient. CM explained that all [facility] pharmacies close from 1:30-2:00 daily for lunch and
then reopen. Patient said she received a text from [facility] that they will open today at 10am. She will received medication today. Patient knows to follow-up with water supervisor as outpatient.
== END 2025-01-25 13:14 | disposition home or self-care (01) | DRG 871 ==
LOC: 4 EAST ACU 13:19
PROVIDERS: Emergency Medicine; Internal Medicine Hematology & Oncology; Nurse Practitioner Family; Physician Assistant; ADMITTING PHYSICIAN Internal Medicine; ATTENDING PHYSICIAN Internal Medicine; CONSULT PHYSICIAN Internal Medicine; CONSULT PHYSICIAN Internal Medicine Hematology & Oncology; EMERGENCY PHYSICIAN Student in an Organized Health Care Education/Training Program; FAMILY PHYSICIAN Internal Medicine
PROC: 5A09357 Assistance with Respiratory Ventilation, Less than 24 Consecutive Hours, Continuous Positive Airway Pressure (ICD-10-PCS; 2025-01-18)
DX: A41.9 Sepsis, unspecified organism (principal); J96.01 Acute respiratory failure with hypoxia; J20.9 Acute bronchitis, unspecified; C54.1 Malignant neoplasm of endometrium; D63.8 Anemia in other chronic diseases classified elsewhere; Z79.890 Hormone replacement therapy; Z85.850 Personal history of malignant neoplasm of thyroid; K21.9 Gastro-esophageal reflux disease without esophagitis; Z80.49 Family history of malignant neoplasm of other genital organs; F17.210 Nicotine dependence, cigarettes, uncomplicated; Z11.52 Encounter for screening for COVID-19; Z66 Do not resuscitate; R59.0 Localized enlarged lymph nodes; E87.6 Hypokalemia; F41.9 Anxiety disorder, unspecified; G89.29 Other chronic pain; Z90.710 Acquired absence of both cervix and uterus
CPT/HCPCS: 36600; 71045; 71046; 71275; 80048; 80053; 82805; 83605; 83880; 84145; 84484; 85025; 86304; 86803; 87040; 87502; 87811; 93005; 93971; 94060; 94640; 94660; 97116; 97163; 97166; 97530; 97535; 99406; Q9967

== ENCOUNTER 2025-01-28 09:42 | Emergency (ER) | payer MEDICARE, SELFPAY ==
[2025-01-28 09:45] VITALS: BP 129/60; BMI 20.2
[2025-01-28 10:00] VITALS: BP 124/51
[2025-01-28 10:56] LABS: ALT (SGPT) 65 U/L (0-35); AST (SGOT) 26 U/L (14-36); Albumin 3.5 g/dl (3.5-5.0); Alkaline Phosphatase 156 U/L (38-126); Blood Urea Nitrogen 13 mg/dl (7-17); Calcium 9.0 mg/dl (8.4-10.2); Carbon Dioxide 24 mmol/L (22-30); Chloride 108 mmol/L (98-107); Estimated Creatinine Clearance 47 ml/min; Glucose 107 mg/dl (70-99); Potassium 3.7 mmol/L (3.5-5.1); Sodium 137 mmol/L (135-145); Total Protein 5.4 g/dl (6.3-8.2); eGFR > 60.00
[2025-01-28 11:00] VITALS: BP 134/51
[2025-01-28 11:06] LABS: Hematocrit 29.7 % (37.0-47.0); Hemoglobin 10.0 g/dL (12.0-16.0); Mean Corp Hgb Conc. 33.7 g/dL (33.0-37.0); Mean Corpuscular Volume 94.9 fL (81.0-99.0); Platelet Count 315 10^3/uL (130-400); Red Cell Dist. Width 23.4 % (11.5-14.5)
[2025-01-28 11:08] LABS: Nucleated Red Blood Cells % 0 %
[2025-01-28 12:00] VITALS: BP 139/54
[2025-01-28 12:02] LABS: Anisocytosis 1+; Hypochromasia 1+; Normal RBC Morphology No
[2025-01-28 12:03] LABS: Macrocytosis Occasional; Polychromasia Slight
[2025-01-28] MEDS: DILAUDID 0.25 MG IV (12:38)
[2025-01-28] MEDS: TORADOL 15 MG IV (12:38)
[2025-01-28 13:00] VITALS: BP 124/34
[2025-01-28 14:37] LABS: Urine Character Clear (Clear)
[2025-01-28 14:51] LABS: Urine Squamous Cell >30 /LPF (Few)
[2025-01-28 14:52] LABS: Urine Red Blood Cell 0-2 /HPF (0-2); Urine White Cell 0-2 /HPF (0-5)
[2025-01-28 14:54] VITALS: BP 107/53
--- NOTE | 2025-01-28 15:01 | ED.GENMED ---
History of Present Illness
General
Chief Complaint: Generalized Pain
Source: patient
Exam Limitations: none
Time Seen by Provider: 01/28/25 12:05
Nursing documentation reviewed up to this point in time: agreed with
History of Present Illness
History of Present Illness:
74-year-old female with a past medical history of metastatic endometrial cancer with mets to the omentum treated with chemo just recently restarted about a month ago, anemia, recent hospitalization from 01-16 to 01-25 for a bronchitis/pneumonitis
treated with high-dose steroids and transition to steroid taper presents for lower back pain radiating around to her left hip down her legs bilaterally but worse on the left. Patient says she has had ongoing mild neuropathy in her feet worse on the
left. More recently since starting the chemotherapy back up she has noticed pain radiating from her back into her legs. After this recent hospitalization she says since being home on 7�3 she has had increasing difficulty walking due to pain. She
feels the pain in her left lower back wrapping around her SI joint and down the back of her leg. She also feels it on the right but is not as significant. She is able to move her hip and had no trauma. There is no new neurologic deficits. She is
not incontinent or having any urinary retention. She is able to get herself to the bathroom but says she is crying due to pain. She is not taking anything other than Tylenol. She is not prescribed anything for chronic pain. There has been no new
fever, skin changes, cold foot
the pain is reported producible with hip flexion and ambulation
Past History
Past History
ED Past Medical History: Cancer (Thyroid cancer, Endometrial Cancer), GERD, Psychiatric (Anxiety) and Other (Headache, MVP. Idiopoathic edema, )
ED Past Surgical History: Gynecological (Hysterectomy, fibroidectomy), Tonsilectomy and Other (Partial thyroidectomy, Vocal cord Polypectomy)
Social History
Tobacco: Smoker
Alcohol: None
Personal:
Living: with family
Review of Systems
Review of Systems
Allergies reviewed?: Yes
All Other Systems: Not applicable
Phy Exam
Physical Exam
Physical Exam:
GENERAL: Alert , in no apparent distress, comfortable at rest
HEAD: NCAT
NECK: no midline tenderness, active ROM intact, no paraspinal muscle tenderness;
CARDIAC: Regular rate and rhythm, no edema
LUNGS: Clear breath sounds bilaterally, no acute respiratory distress, no wheezes/rales/rhonchi
ABDOMEN: Soft, without focal tenderness, no r/g, no cvat, normal bowel sounds, nondistended
NEUROLOGICAL: Alert and oriented, no focal neuro deficits, CN intact, 5/5 strength, sensation intact, ambulation slight limp left leg
SKIN: Warm and dry,
MUSCULOSKELETAL: No edema, well perfused.
some mild tenderness to L greater trochanter
normal sensation
normal pulses
full ROM of the hip with some pain with flexion and internal rotation
R hip much less p[ainful, full ROM
Back: No midline tenderness,mild L SI joitn tenderness
neg straigh tleg raise
normal pulses, no edema
PSYCH: Normal and appropriate interaction.
Course
Orders/Labs/Results
Orders:
Orders
01/28/25 10:20
CMP [Comprehensive Metabolic Panel] Urgent
Complete Blood Count/With Diff Urgent
Creatine Phosphokinase Urgent
Comment: ADD ON
01/28/25 12:28
Add On- LAB Urgent
Tests Added?: cpk
HYDROmorphone [Dilaudid] 0.25 mg IV NOW STA
Ketorolac [Toradol] 15 mg IV NOW STA
Hip, Left 2-3 Views [CR Hip - LT w/wo Pel 2-3 Vw*] Urgent
Comment:
Reason For Exam: cancer, L hip pain
Include a pelvis x-ray?: Yes
Lumbar Spine Complete, 4 View [CR Lumbar Spine Comp Min 4 Vw*] Urgent
Comment:
Reason For Exam: cancer lower back pain down legs
01/28/25 14:29
Urinalysis Reflex To Culture Urgent
Date Specimen was Collected: 01/28/25
Time Specimen was Collected: 12:33
Urine Microscopic Reflex Cult Urgent
01/28/25 15:23
Oxycodone [Roxicodone] 5 mg PO NOW STA
Abnormal Lab Results
01/28/25 01/28/25
10:20 14:29
WBC 15.2 H 10^3/uL
(4.8-10.8)
RBC 3.13 L 10^6/uL
(4.20-5.40)
Hgb 10.0 L g/dL
(12.0-16.0)
Hct 29.7 L %
(37.0-47.0)
MCH 31.9 H pg
(27.0-31.0)
RDW 23.4 H %
(11.5-14.5)
Abs Immat Gran (auto) 0.2 H 10^3/uL
(0-0.05)
Absolute Neuts (auto) 14.2 H 10^3/uL
(1.4-6.5)
Absolute Lymphs (auto) 0.5 L 10^3/uL
(1.2-3.4)
Immature Gran % 1.0 H %
(0-0.5)
Neutrophils % 92.9 H %
(42.2-75.2)
Lymphocytes % 3.4 L %
(20.5-51.1)
Chloride 108 H mmol/L
(98-107)
Glucose 107 H mg/dl
(70-99)
ALT 65 H U/L
(0-35)
Alkaline Phosphatase 156 H U/L
(38-126)
Creatine Kinase < 20 L U/L
(30-135)
Total Protein 5.4 L g/dl
(6.3-8.2)
Urine Bacteria (Reflex) Few A
(Negative)
Urine Albumin (Reflex) 1+ A
(Neg - Trace)
01/28/25 10:20
01/28/25 10:20
Vital Signs
Initial and Last Documented VS:
Initial Vital Signs
Temp Pulse Resp BP Pulse Ox
37.2 C 59 18 129/60 98
01/28/25 09:45 01/28/25 09:45 01/28/25 09:45 01/28/25 09:45 01/28/25 09:45
Last Documented Vital Signs
Temp Pulse Resp BP Pulse Ox
37.2 C 56 21 107/53 97
01/28/25 09:45 01/28/25 13:12 01/28/25 13:12 01/28/25 14:54 01/28/25 15:05
MDM/Problems Addressed
Differential Diagnosis Includes:
bony mets, sciatica, radicluopathy, chemo reaction, uti, bursitis,
MDM/Problems Addressed:
74-year-old with metastatic endometrial cancer with mets to the omentum on IV chemotherapy presents for increasing left-sided back pain radiating into her left leg over the past for 5 days since being hospitalized and on steroids for
bronchitis/pneumonitis. She is no longer on antibiotics. Patient is on 30 mg of prednisone today and will downtrend to 20 tomorrow. She has not had any trauma. Sounds like her neuropathy in her feet is ongoing and that she has had some pain in
her hips and legs but is much worse than usual. There is no signs of cauda equina she has neurovascularly intact. I am able to range her hips bilaterally, she has more discomfort with the left one but can fully flex it and I can rotate passively
to reproduce some discomfort. There is no skin changes. She has no bony tenderness to her back. Patient screening labs show a downtrending leukocytosis of 15 down from 18 previously 113,000, stable hemoglobin, CPK is normal.
Screening x-rays independently reviewed by me do not show any signs of fractures, lytic lesions/metastatic lesions. Patient's pain is likely combination of lumbar radiculopathy/sciatica versus neuropathy. She was given a dose of IV Dilaudid which
she tolerated. Will discharge on oral opiate. Stool regimen encouraged to prevent constipation. Return precautions. Patient was able to ambulate several times to the bathroom
*Pulse Oximetry
SaO2: 97
Oxygen Mode of Delivery: Room air
Patient hypoxic: no (97)
*Critical Care Note
Total Time (30-74mins, 75-104mins- exclusive of procedures): Not Applicable
ED Attending Note
-
Portions of this chart may have been created with voice recognition software.� Occasional wrong word or��sound alike� substitutions may have occurred due to the inherent limitations of voice recognition software.
Discharge Plan
Departure
Patient Disposition: Home (Routine Discharge)
Date of Disposition: 01/28/25
Time of Disposition: 15:10
Patient with high blood pressure during this ER visit?: No
Condition: Fair
Covid-19: Not Applicable
Discharge Problem:
Sciatica, Neuropathy
Instructions: Peripheral neuropathy, Sciatica - ED discharge instructions
Prescriptions:
New
oxycodone 5 mg tablet
5 mg PO Q8H PRN (Reason: Pain) Qty: 12 0RF
No Action
clorazepate dipotassium 3.75 MG tablet
3.75 mg PO Q12H
atenolol 25 MG tablet
12.5 mg PO BID
levothyroxine [Levoxyl] 50 mcg Tablet
50 mcg PO DAILY
loperamide 2 mg Tablet
2 mg PO BIDPRN PRN (Reason: dairrhea)
bismuth subsalicylate [Pepto-Bismol] 262 mg Tablet,Chewable
2 tab PO DAILYPRN PRN (Reason: gerd)
loratadine [Claritin] 10 mg Tablet
10 mg PO DAILY
calcium carb-D3-mag ox-zinc ox 333 mg-133 unit -133 mg-5 mg Tablet
1 tab PO DAILY
Breztri Aerosphere 160-9-4.8 mcg/actuation HFA aerosol inhaler
2 inh inhalation QAM AND QPM Qty: 10.7 0RF
albuterol sulfate 1.25 mg/3 mL Solution For Nebulization
1.25 mg inhalation R Q4HPRN PRN (Reason: SOB/wheezing/assist with cough) Qty: 90 0RF
pantoprazole 40 mg Tablet,Delayed Release (Dr/Ec)
40 mg PO DAILY Qty: 30 0RF
(DME) nebulizers Misc
See Rx Instructions .Route Qty: 1 0RF
Rx Instructions:
As directed
prednisone 10 mg Tablet
See Rx Instructions .ROUTE .COMPLEX Qty: 21 0RF
Rx Instructions:
Take By Mouth:
30 mg daily x3 days,
20 mg daily x4 days, 10 mg daily x4 days.
Referrals:
Jose Giang, [Family Provider, Internal Medicine] - Follow up in 2-3 days
Activity Restrictions/Additional Instructions:
You can try the pain medication as prescribed to help with your pain. You can continue Tylenol 3 times a day. Oxycodone for more severe pain every 6-8 hours as needed. If you are using the oxycodone you should be taking a stool softener or
laxative.
Follow-up with the family doctor. You may require more imaging if this progresses. Return to the ER for fever, inability to walk, falls, new weakness or numbness, incontinence of urine or any concerns
Interventions
Interventions:
*Risk Screen - Suicide Last Done: 01/28/25 09:45
*General Assessment Last Done: 01/28/25 09:45
*Neglect/Abuse Screening Last Done: 01/28/25 09:45
*ED- Fall Risk Assessment Last Done: 01/28/25 09:45
*ED COVID-19 Vaccine History Last Done: 01/28/25 09:45
*Nursing Disposition Last Done: 01/28/25 15:43
Discharge Date and Time
Discharge Date/Time: 01/28/25 15:43
Print Language: GUATEMALAN
[2025-01-28] MEDS: ROXICODONE 5 MG PO (15:26)
== END 2025-01-28 15:43 | disposition home or self-care (01) ==
LOC: EMR 09:42
PROVIDERS: Physician Assistant; Registered Nurse; EMERGENCY PHYSICIAN Emergency Medicine; FAMILY PHYSICIAN Internal Medicine
DX: M54.42 Lumbago with sciatica, left side (principal); M79.605 Pain in left leg; M79.604 Pain in right leg; G62.9 Polyneuropathy, unspecified; M25.552 Pain in left hip; M25.551 Pain in right hip; C54.1 Malignant neoplasm of endometrium; C79.9 Secondary malignant neoplasm of unspecified site; D64.9 Anemia, unspecified; K21.9 Gastro-esophageal reflux disease without esophagitis; F41.9 Anxiety disorder, unspecified; I34.1 Nonrheumatic mitral (valve) prolapse; F17.200 Nicotine dependence, unspecified, uncomplicated; Z85.850 Personal history of malignant neoplasm of thyroid; Z91.048 Other nonmedicinal substance allergy status
CPT/HCPCS: 99284; 96374; 96375; 72110; 73502; 80053; 81003; 81015; 82550; 85025

== ENCOUNTER 2025-01-31 15:22 | Inpatient (IN) | payer MEDICARE, SELFPAY ==
[2025-01-31] VITALS (9 sets, daily range): BP systolic 80–149; BP diastolic 41–57; BMI 16.9; BMI 18.9
[2025-01-31 11:17] LABS: Hematocrit 27.8 % (37.0-47.0); Hemoglobin 9.2 g/dL (12.0-16.0); Mean Corp Hgb Conc. 33.1 g/dL (33.0-37.0); Mean Corpuscular Volume 95.2 fL (81.0-99.0); Nucleated Red Blood Cells % 0 %; Platelet Count 315 10^3/uL (130-400); Red Cell Dist. Width 23.1 % (11.5-14.5)
[2025-01-31] MEDS: ZOVIRAX INJECTION 107.6 MG IV (11:24)
[2025-01-31 11:31] LABS: ALT (SGPT) 41 U/L (0-35); AST (SGOT) 22 U/L (14-36); Albumin 3.5 g/dl (3.5-5.0); Alkaline Phosphatase 118 U/L (38-126); Blood Urea Nitrogen 13 mg/dl (7-17); Calcium 8.8 mg/dl (8.4-10.2); Carbon Dioxide 24 mmol/L (22-30); Chloride 107 mmol/L (98-107); Estimated Creatinine Clearance 41 ml/min; Glucose 135 mg/dl (70-99); Potassium 4.2 mmol/L (3.5-5.1); Sodium 134 mmol/L (135-145); Total Protein 5.7 g/dl (6.3-8.2); eGFR > 60.00
--- NOTE | 2025-01-31 13:03 | ED.GENMED ---
History of Present Illness
General
Chief Complaint: Extremity Pain (non-traumatic)
Source: patient
Exam Limitations: none
Time Seen by Provider: 01/31/25 09:10
Nursing documentation reviewed up to this point in time: agreed with
History of Present Illness
History of Present Illness:
74-year-old female past medical history of chronic back pain currently on chemo with metastatic endometrial cancer presenting to the emergency department today with concerns of left leg discomfort worsening over the past week or so with rash
worsening over the past 3 days described as blisters to the left foot. Pain is significant to the point where she is having difficulty ambulating secondary to pain.
Past History
Past History
ED Past Medical History: Cancer (Thyroid cancer, Endometrial Cancer), GERD, Psychiatric (Anxiety) and Other (Headache, MVP. Idiopoathic edema, )
ED Past Surgical History: Gynecological (Hysterectomy, fibroidectomy), Tonsilectomy and Other (Partial thyroidectomy, Vocal cord Polypectomy)
Social History
Tobacco: Smoker
Alcohol: None
Personal:
Living: with family
Review of Systems
Review of Systems
Allergies reviewed?: Yes
All Other Systems: ROS reviewed and negative except as documented in HPI and ROS
Phy Exam
Physical Exam
Physical Exam:
GENERAL: Alert , in no apparent distress
EYE: pupils equal and reactive
NECK: Supple, no significant adenopathy.
ENT: o/p clr, mmm.
CARDIAC: Regular rate and rhythm .
LUNGS: Clear breath sounds bilaterally, no acute respiratory distress, no wheezes/rales/rhonchi
ABDOMEN: Soft, without focal tenderness, no r/g, no cvat
NEUROLOGICAL: Alert and oriented, no focal neuro deficits
SKIN: Grouped vesicles to the top of the left foot with erythematous base warm and dry, skin intact.
MUSCULOSKELETAL: No edema, well perfused.
PSYCH: Normal and appropriate interaction.
Course
Orders/Labs/Results
Orders:
Orders
01/31/25 10:00
EKG [Electrocardiogram (*1)] Urgent
Reason for Study: Fatigue / Weakness
EKG- Treatment ONCE
Urinalysis Reflex To Culture Urgent
0.9% Sodium Chloride 500 ml [Nss] 500 ml IV BOLUS
01/31/25 10:04
Acyclovir [Zovirax Injection] 380 mg 0.9% Sodium Chloride 100 ml [Nss] 100 ml IV NOW
01/31/25 10:42
CBC/With Diff [Complete Blood Count/With Diff] Urgent
CMP [Comprehensive Metabolic Panel] Urgent
01/31/25 11:37
Gabapentin [Neurontin] 100 mg PO NOW STA
Ketorolac [Toradol] 15 mg IV NOW STA
Abnormal Lab Results
01/31/25
10:42
RBC 2.92 L 10^6/uL
(4.20-5.40)
Hgb 9.2 L g/dL
(12.0-16.0)
Hct 27.8 L %
(37.0-47.0)
MCH 31.5 H pg
(27.0-31.0)
RDW 23.1 H %
(11.5-14.5)
Abs Immat Gran (auto) 0.1 H 10^3/uL
(0-0.05)
Absolute Neuts (auto) 8.9 H 10^3/uL
(1.4-6.5)
Absolute Lymphs (auto) 0.3 L 10^3/uL
(1.2-3.4)
Immature Gran % 0.7 H %
(0-0.5)
Neutrophils % 93.5 H %
(42.2-75.2)
Lymphocytes % 3.6 L %
(20.5-51.1)
Sodium 134 L mmol/L
(135-145)
Glucose 135 H mg/dl
(70-99)
ALT 41 H U/L
(0-35)
Total Protein 5.7 L g/dl
(6.3-8.2)
01/31/25 10:42
01/31/25 10:42
Vital Signs
Initial and Last Documented VS:
Initial Vital Signs
Temp Pulse Resp BP Pulse Ox
98.2 F 72 18 80/57 98
01/31/25 08:42 01/31/25 08:42 01/31/25 08:42 01/31/25 08:42 01/31/25 08:42
Last Documented Vital Signs
Temp Pulse Resp BP Pulse Ox
98.5 F 72 18 143/48 98
01/31/25 08:44 01/31/25 08:42 01/31/25 08:42 01/31/25 11:22 01/31/25 13:04
MDM/Problems Addressed
MDM/Problems Addressed:
74-year-old female presenting to the emergency department today with concerns of a rash to the left significant difficulty with ambulating over the past few days. Worsening leg pain over the past week. On arrival initial blood pressure 80/57
however this was repeated and above 100 over 40s. No lightheadedness no chest pain or shortness of breath. Labs obtained at patient's baseline. EKG without emergent findings. Left foot with grouped vesicles on erythematous base. Labs
unremarkable. Upon review shingles with patient use immunosuppressive's is recommended give IV acyclovir. Otherwise attempted pain control with Toradol, gabapentin as well as oxycodone. Patient claims the pain is still severe unable to ambulate
plan to admit for pain control and further treatment and monitoring.
*Pulse Oximetry
SaO2: 98
Oxygen Mode of Delivery: Room air
Patient hypoxic: no (98)
*Critical Care Note
Total Time (30-74mins, 75-104mins- exclusive of procedures): Not Applicable
ED Attending Note
-
Portions of this chart may have been created with voice recognition software.� Occasional wrong word or��sound alike� substitutions may have occurred due to the inherent limitations of voice recognition software.
Discharge Plan
Departure
Patient Disposition: Admit
Date of Disposition: 01/31/25
Time of Disposition: 14:04
Admit to: Med/Surg
Admit to doctor: Htay
Presentation/result/management discussed w/ accepting MD/DO: Hospitalist
Patient with high blood pressure during this ER visit?: No
Condition: Good
Covid-19: Not Applicable
Discharge Problem:
Shingles, Left leg pain
Prescriptions:
No Action
clorazepate dipotassium 3.75 MG tablet
3.75 mg PO Q12H
atenolol 25 MG tablet
12.5 mg PO BID
levothyroxine [Levoxyl] 50 mcg Tablet
50 mcg PO DAILY
loperamide 2 mg Tablet
2 mg PO BIDPRN PRN (Reason: DIARRHEA)
calcium carb-D3-mag ox-zinc ox 333 mg-133 unit -133 mg-5 mg Tablet
1 tab PO DAILY
pantoprazole 40 mg Tablet,Delayed Release (Dr/Ec)
40 mg PO DAILY Qty: 30 0RF
prednisone 10 mg Tablet
See Rx Instructions .ROUTE .COMPLEX Qty: 21 0RF
Rx Instructions:
Start 01/26/25-
30 mg daily x3 days, 20 mg daily x4 days, 10 mg daily x4 days.
oxycodone 5 mg tablet
5 mg PO Q8HPRN PRN (Reason: severe pain)
Patient Comments:
Pt reports experiencing pain over past 2 days such that med was taken q6h as opposed to q8h as prescribed. last dose 01/30/25 evening
Breztri Aerosphere 160-9-4.8 mcg/actuation HFA aerosol inhaler
2 inh inhalation R BID
Referrals:
Jose Giang, [Family Provider, Internal Medicine]
Interventions
Interventions:
*Risk Screen - Suicide Last Done: 01/31/25 09:22
*General Assessment Last Done: 01/31/25 09:22
*Neglect/Abuse Screening Last Done: 01/31/25 09:22
*ED- Fall Risk Assessment Last Done: 01/31/25 09:22
*ED COVID-19 Vaccine History Last Done: 01/31/25 09:22
ED-Skin Assessment Last Done: 01/31/25 09:22
ED-Peripheral Vascular Assessment Last Done: 01/31/25 09:22
ED-Musculoskeletal Assessment Last Done: 01/31/25 09:22
Discharge Date and Time
Print Language: WALLIS[place]
[2025-01-31] MEDS: NSS 500 IV (13:07)
[2025-01-31] MEDS: NEURONTIN 100 MG PO ×2 (13:11→20:30)
[2025-01-31] MEDS: TORADOL 15 MG IV (13:11)
[2025-01-31 13:48] LABS: Normal RBC Morphology No
[2025-01-31 13:49] LABS: Anisocytosis 1+; Hypochromasia 1+; Ovalocytes Slight; Polychromasia Slight
--- NOTE | 2025-01-31 14:23 | HPS.HSE ---
Addendum entered and electronically signed by Naga Muse MD 01/31/25 15:03:
CORRECTION:
Presumed acute VCZ shingles to left foot associated with acute neuropathic pain
Asso. with ambulatory dysfunction due to foot pain
s/p PO Prednisone for acute reactive lung to recent chemo ( finished on on last Wednesday) currently <del>PO</del> <del>prednisone</del> <del>taper</del> <del>dose</del>
Original Note:
Family Physician
-
Family Physician: Jose Giang
Chief Complaint
-
pain full rash at Lt foot
History of Present Illness
HPI
74M smoker , chronic back pain, currently on chemo with metastatic endometrial CA seen at ER:
- concerns of left leg discomfort worsening over the past week
- new onset of rash worsening over the past 3 days described as blisters to the left foot.
- Pain is significant to the point where she is having difficulty ambulating secondary to pain.
Medical History
Past Medical History
Past Medical History: Reports Cancer (HX endometrial metastatic CA,), HTN and Psychiatric
Past Surgical History: Reports None
Social History
Tobacco: Non-smoker
Alcohol: Occasional
Family History
Family History: Not pertinent
Allergies / Home Medications
Allergies reflects when Allergies were last updated in tracx.
Home Medications with original date entered in tracx
Allergy/Medication List:
Allergies
Allergy/AdvReac Type Severity Reaction Status Date / Time
ENVIRONMENTAL Allergy Unknown Uncoded 05/26/24 16:34
Home Medications
atenolol 25 mg tablet 12.5 mg PO BID Blood Pressure 07/23/21
clorazepate dipotassium 3.75 mg tablet 3.75 mg PO Q12H Neurological Condition 07/23/21
levothyroxine 50 mcg tablet (Levoxyl) 50 mcg PO DAILY Thyroid 03/07/24
calcium 333 mg-vit D3 133 unit-magnesium 133 mg-zinc 5 mg tablet 1 tab PO DAILY Supplement 01/16/25
loperamide 2 mg tablet 2 mg PO BIDPRN PRN DIARRHEA 01/16/25
pantoprazole 40 mg tablet,delayed release 40 mg PO DAILY #30 tabs 01/25/25
prednisone 10 mg tablet See Rx Instructions .Route .COMPLEX #21 tabs 01/25/25
budesonide 160 mcg-glycopyr 9 mcg-formot 4.8 mcg/actuation HFA inhaler (Breztri Aerosphere) 2 inh inhalation R BID 01/31/25
oxycodone 5 mg tablet 5 mg PO Q8HPRN PRN severe pain 01/31/25
Review of Systems
-
Constitutional: Reports No Symptoms
EENT: Reports No Symptoms
Respiratory: Reports No Symptoms
Cardiac: Reports No Symptoms
Abdomen/GI: Reports No Symptoms
: Reports No Symptoms
Musculoskeletal: Reports No Symptoms
Skin: Reports See HPI
Neurological: Reports No Symptoms
Endocrine: Reports No Symptoms
Hematologic/Lymphatic: Reports No Symptoms
Psych: Reports No Symptoms
Physical Exam
Vital Signs
Vital Signs
Temp Pulse Resp BP Pulse Ox
98.5 F 72 18 143/48 98
01/31/25 08:44 01/31/25 08:42 01/31/25 08:42 01/31/25 11:22 01/31/25 13:04
Physical Exam
General: Well Developed, Well Nourished and No Apparent Distress
HEENT: NormoCephalic, Moist mucous membranes and Atraumatic
Respiratory: Clear
Cardiac: S1/S2 and Regular Rhythm; No Murmur or Rub
GI: Soft, Non Tender, Non Distended and Normal Bowel Sounds; No Organomegaly
Rectal: Deferred by Provider
Musculoskeletal: No Clubbing, No Cyanosis and No Edema
Skin: Rash (Grouped vesicles to the top of the left foot with erythematous base warm and dry, skin intact.)
Neuro: Nonfocal/grossly intact
Laboratory Results
-
01/31/25 10:42
01/31/25 10:42
Laboratory Results
Total Bilirubin 0.7 mg/dl (0.2-1.3) 01/31/25 10:42
AST 22 U/L (14-36) 01/31/25 10:42
ALT 41 U/L (0-35) H 01/31/25 10:42
Alkaline Phosphatase 118 U/L (38-126) 01/31/25 10:42
Data Reviewed
-
Lab Data: Labs Reviewed by me
Impression/Plan
-
VS
01/31/25
08:42 01/31/25
11:22
Temp 98.2 F
Pulse 72
Blood pressure 80/57 143/48
SaO2 98
Labs
01/25/25 01/31/25
04:49 10:42
WBC 9.5
Hgb 9.0 L 9.2 L
Plt Count 315
Sodium 134 L
Creatinine 0.7
eGFR > 60.00
ALT 41 H
UA sent
Last hospitalist admission: 01/16/25 -01/25/25
DC DX;
- Acute hypoxic respiratory failure secondary to acute bronchitis
- Suspected obstructive lung disease
- Metastatic endometrial cancer
- Anemia of chronic disease
ASSESSMENT & PLAN
Pending Rx reconciliation
Presumed acute VCZ shingles to left foot associated with acute neuropathic pain
Asso. with ambulatory dysfunction due to foot pain
Currently on PO prednisone taper dose
- IV acyclovir
- Gabapentin 100mg tid - escalade as tolerated
Hypotensive on arrival
s/p IV NS @ 100 - rapidly improved BP
HX endometrial metastatic CA, on chemo
metastatic endometrial cancer
Dyspnea and respiratory failure
bronchitis w bronchospasm
Leukocytosis (GCSF, Steroids, infection/inflammation)
Follows with [facility]
Benign HTN
- cont atenolol
Hypothyroid
- stble
- on LT4
HX anxiety
- on Clonazepam
DVT Px: LMWH
Code: DNR
IP MS
[2025-01-31] MEDS: NEURONTIN PO (19:57)
[2025-01-31] MEDS: SYMBICORT 160/4.5 MCG INHALER 2 PUFF INH (20:12)
[2025-01-31] MEDS: TENORMIN 12.5 MG PO (20:27)
[2025-01-31] MEDS: LOVENOX 40 MG SC (20:27)
[2025-01-31] MEDS: TRANXENE 3.75 MG PO (20:27)
[2025-02-01] MEDS: ZOVIRAX INJECTION 108 MG IV ×3 (00:04→23:54)
[2025-02-01] MEDS: ROXICODONE 5 MG PO ×2 (00:05→23:59)
[2025-02-01 05:05] LABS: Hematocrit 25.8 % (37.0-47.0); Hemoglobin 8.5 g/dL (12.0-16.0); Mean Corp Hgb Conc. 32.9 g/dL (33.0-37.0); Mean Corpuscular Volume 97.7 fL (81.0-99.0); Platelet Count 289 10^3/uL (130-400); Red Cell Dist. Width 22.8 % (11.5-14.5)
[2025-02-01 05:25] LABS: Blood Urea Nitrogen 14 mg/dl (7-17); Calcium 8.2 mg/dl (8.4-10.2); Carbon Dioxide 24 mmol/L (22-30); Chloride 110 mmol/L (98-107); Estimated Creatinine Clearance 36 ml/min; Glucose 82 mg/dl (70-99); Potassium 4.2 mmol/L (3.5-5.1); Sodium 135 mmol/L (135-145); eGFR > 60.00
--- NOTE | 2025-02-01 07:24 | W.PN.HOSP.TC ---
Today's Communication/Plan
-
IV acyclovir. ID consult
Assessment / Plan
Assessment / Plan
Physical exam:
General: Acutely ill
HEENT: Normocephalic, Atraumatic and Moist Mucous Membranes
Respiratory: Clear to Auscultation; Negative Wheezes, Rales or Rhonchi
Cardiac: Regular Rhythm and S1/S2
GI: Soft, Nontender and Nondistended
Musculoskeletal: No Clubbing, No Cyanosis and No Edema
Skin: Left lower extremity vesiculopapular rash including dorsum of the left foot and calf following dermatome pattern, tenderness present.
Neuro: Awake, Alert and Oriented, no neurological deficits
Psych: Anxious
A/P:
Herpes zoster left lower extremity:
Continue IV acyclovir
Continue gabapentin and oxycodone as needed
Encourage oral intake and monitor renal function while on acyclovir
ID consult-discussed with ID via [place] text today
Discussed with at bedside
Hypotension upon admission:
Received IV fluids
Blood pressure has remained stable
Anemia of chronic disease:
Hemoglobin 8.5 today
Continue to monitor hemoglobin
Hypertension:
On atenolol 12.5 mg twice a day with holding parameters and tolerating well now
Hypothyroidism:
Levothyroxine 50 mcg p.o. daily
Anxiety:
On Tranxene 3.75 mg p.o. every 12 hours
History of recent pneumonitis/reactive airway disease (suspected COPD):
Completing taper course of steroids-still on prednisone 10 mg for 3 more days
Completed recent course of antibiotics
Continue home inhalers
History of metastatic endometrial cancer (endometrial sarcocarcinoma):
She follows up with oncology as outpatient
Mild hyponatremia:
Resolved
Mild hypocalcemia:
Calcium gluconate x 1
DVT prophylaxis:
Lovenox SQ
CODE STATUS:
DNR
Total time spent on today's encounter was 52 minutes which included time spent in counseling the patient/family regarding diagnosis and treatment plan as listed above, goals of care, and symptom management. Case was discussed with nursing staff,
specialists, and care coordinators/case management. All labs and imaging personally reviewed by me. Remainder the time spent in detailed review of previous records, lab data, imaging, and other medical provider documentation.
Anticipated Discharge: 24 - 48 hours
Subjective/Interval History
-
Date of Service: February 01, 2025
Patient still has pain on her left lower extremity and rash present. She also complains of back pain. Afebrile
Objective Data
-
Labs:
Laboratory Results
02/01/25
04:41
WBC 5.1
Hgb 8.5 L
Hct 25.8 L
Plt Count 289
Sodium 135
Potassium 4.2
Chloride 110 H
Carbon Dioxide 24
BUN 14
Creatinine 0.8
Glucose 82
Calcium 8.2 L
Vital Signs:
Vital Signs
Temp Pulse Resp BP Pulse Ox
98.2 F 69 16 149/51 98
01/31/25 23:15 01/31/25 23:15 01/31/25 23:15 01/31/25 23:15 01/31/25 23:15
I&O
01/31/25 02/01/25 02/02/25
06:59 06:59 06:59
Intake Total 170 / 170
Output Total 0 / 0
Balance 170 / 170
[2025-02-01 07:41] VITALS: BP 123/44
[2025-02-01] MEDS: SPIRIVA RESPIMAT 2.5 MCG 2 PUFF INH (07:54)
[2025-02-01] MEDS: SYMBICORT 160/4.5 MCG INHALER 2 PUFF INH ×2 (07:54→21:21)
[2025-02-01] MEDS: NEURONTIN 100 MG PO ×3 (08:18→20:57)
[2025-02-01] MEDS: PROTONIX 40 MG PO (08:18)
[2025-02-01] MEDS: TRANXENE 3.75 MG PO ×2 (08:19→19:08)
--- NOTE | 2025-02-01 08:40 | VNURNOTE ---
Chart reviewed. Patient is current with VN. Will continue to follow hospital course and DC plans.
[2025-02-01] MEDS: DELTASONE 10 MG PO (09:18)
[2025-02-01] MEDS: TENORMIN 12.5 MG PO ×2 (09:23→20:56)
--- NOTE | 2025-02-01 12:52 | CM ---
CM following re: discharge planning.
Reviewed pt's chart, met with pt.
pt is a 74 year old female, admitted with primary dx of new onset of rash worsening of Left foot, currently on chemo with metastatic endometrial CA.
Pt reports she lives with 2SH, no steps to enter, has supportive family. Pt described herself as independent in all areas [employer], current with [facility]. Pt expressed her desire to return back home at discharge with resumptions of [facility] and family
support.
PT and OT will evaluate the pt to determine a level of care at discharge.
PCP: Jose Giang
Pharmacy: [facility].
D/C plan: uncertain at this time, possibly return back home with resumptions of [facility] and family support.
CM will follow with discharge plan updates as hospitalization progresses
[2025-02-01 13:30] VITALS: BMI 18.9
[2025-02-01] MEDS: CALCIUM GLUCONATE 100 IV (13:43)
[2025-02-01 15:00] VITALS: BP 121/52
--- NOTE | 2025-02-01 15:47 | CON.ID ---
Consultation
-
Date/Time Consultation Requested: 02/01/2025 0856
Date/Time Consultation Performed: 02/01/2025 1517
Requesting Provider: Dr. Gr
Performing Provider: Dr. Banks
Reason for Consultation: Left S1 shingles
Chief Complaint / Past History
History of Present Illness
Lisandra Ballard is a 74-year-old female being evaluated at the request of Dr. Gr in regards to left foot shingles. History is obtained from chart review, along with patient interview.
The patient has a significant past medical history of metastatic endometrial cancer, and reports that she had been recently hospitalized at [facility] secondary to reactions following administration of chemotherapy. She reports that
following her recent discharge she began to have left foot pain which was sharp and burning in nature. She presented to the ER on 01/28, but no rash was seen at that time. It is noted that there were no skin changes or other manifestations. She was
discharged home, but notes that following discharge she began to develop some vesicles on the dorsum of the left foot, and has now developed some further vesicles. She denies any recent fevers or chills. She notes that she has not previously
received the shingles vaccine, although she does recall having chickenpox as a child.
Past History
Additional Past Medical History:
Thyroid cancer
Endometrial cancer
GERD
Anxiety
Mitral valve prolapse
Additional Past Surgical History:
Hysterectomy
Thyroidectomy
Tonsillectomy
Partial thyroidectomy
Allergy History:
ENVIRONMENTAL Allergy (Uncoded 05/26/24 16:34)
Unknown
Medications Reviewed: Yes
Current Antibiotics:
Acyclovir 400 mg IV every 12 hours
Social History
Tobacco: Non-Smoker
Alcohol: None
Drug: None
Personal:
Living: With Family
Family History
Family History: Not Pertinent
Review of Systems
Vital Signs
Temp Pulse Resp BP Pulse Ox
97.8 F 76 16 123/44 99
02/01/25 07:41 02/01/25 09:23 02/01/25 08:10 02/01/25 09:23 02/01/25 08:12
Physical Exam
Physical Exam
Constitutional: No Acute Distress, Comfortable and Non-toxic
Eyes: No Conjunctival Hemorrhage and Sclera Anicteric
Oral: No Thrush and No Ulcers
Cardiovascular: S1/S2; Negative S3/S4
Pulmonary: Clear and Non Labored
Gastrointestinal: Soft, Non Tender and Non Distended
Skin: Warm, Dry and Rash (Vesicular rash noted along dorsum of left foot wrapping around to posterior calf area. Also diffuse erythema noted. Several isolated vesicles noted on calf.)
Neurological: Awake and Alert
Psychological: Calm
Lab / Diagnostic Study Results
02/01/25 04:41
02/01/25 04:41
Abs Immat Gran (auto) 0.1 10^3/uL (0-0.05) H 01/31/25 10:42
Absolute Neuts (auto) 8.9 10^3/uL (1.4-6.5) H 01/31/25 10:42
Absolute Lymphs (auto) 0.3 10^3/uL (1.2-3.4) L 01/31/25 10:42
Absolute Monos (auto) 0.2 10^3/uL (0.1-0.6) 01/31/25 10:42
Absolute Basos (auto) 0.0 10^3/uL (0-0.2) 01/31/25 10:42
Immature Gran % 0.7 % (0-0.5) H 01/31/25 10:42
Neutrophils % 93.5 % (42.2-75.2) H 01/31/25 10:42
Lymphocytes % 3.6 % (20.5-51.1) L 01/31/25 10:42
Monocytes % 2.1 % (1.7-9.3) 01/31/25 10:42
Eosinophils % 0.0 % (0-6) 01/31/25 10:42
Basophils % 0.1 % (0-2) 01/31/25 10:42
Assessment / Plan
Left L5 vs. S1 shingles (presumptive based on clinical presentation)
Immunocompromised patient secondary to meds
Thyroid cancer
Endometrial cancer
GERD
Anxiety
Mitral valve prolapse
Recommendations:
Continue with acyclovir at current dosing (400 mg IV every 12 hours) given renal insufficiency and weight.
Monitor white count and temperature curve.
The area can be covered, but patient is somewhat immunocompromised thus may need to remain in airborne isolation. Will further discuss with Infection Prevention.
Swab of area sent for HSV and VZV PCR testing.
Care Review
Plan reviewed with: Physician
[2025-02-01] MEDS: LOVENOX 40 MG SC (17:24)
[2025-02-01] MEDS: DILAUDID 0.5 MG IV (19:11)
[2025-02-01 23:33] VITALS: BP 111/48
[2025-02-02 05:02] LABS: Hematocrit 25.8 % (37.0-47.0); Hemoglobin 8.6 g/dL (12.0-16.0); Mean Corp Hgb Conc. 33.3 g/dL (33.0-37.0); Mean Corpuscular Volume 96.6 fL (81.0-99.0); Nucleated Red Blood Cells % 0 %; Platelet Count 269 10^3/uL (130-400); Red Cell Dist. Width 22.5 % (11.5-14.5)
[2025-02-02 05:24] LABS: Blood Urea Nitrogen 10 mg/dl (7-17); Calcium 7.9 mg/dl (8.4-10.2); Carbon Dioxide 24 mmol/L (22-30); Chloride 109 mmol/L (98-107); Estimated Creatinine Clearance 46 ml/min; Glucose 84 mg/dl (70-99); Potassium 4.1 mmol/L (3.5-5.1); Sodium 135 mmol/L (135-145); eGFR > 60.00
[2025-02-02] MEDS: NON-FORMULARY ITEM 1 UNIT PO (05:45)
[2025-02-02 07:00] VITALS: BP 137/49
--- NOTE | 2025-02-02 07:51 | W.PN.HOSP.TC ---
Addendum entered and electronically signed by Salazar Gr MD 02/02/25 13:19:
Patient is in need of a rosemary walker to prevent falls due to unsteady gait.
Original Note:
Today's Communication/Plan
-
Discharge planning today
Assessment / Plan
Assessment / Plan
Physical exam:
General: No acute distress
HEENT: Normocephalic, Atraumatic and Moist Mucous Membranes
Respiratory: Clear to Auscultation; Negative Wheezes, Rales or Rhonchi
Cardiac: Regular Rhythm and S1/S2
GI: Soft, Nontender and Nondistended
Musculoskeletal: No Clubbing, No Cyanosis and No Edema
Skin: Left lower extremity vesiculopapular rash including dorsum of the left foot and calf following dermatome pattern, tenderness present.
Neuro: Awake, Alert and Oriented, no neurological deficits
Psych: Anxious
A/P:
Herpes zoster left lower extremity:
Change IV acyclovir to oral valacyclovir
Continue gabapentin and oxycodone as needed
Encourage oral intake and monitor renal function while on acyclovir
ID consult appreciated
Discussed with at bedside
ID clears her for discharge
Hypotension upon admission:
Received IV fluids
Blood pressure has remained stable
Anemia of chronic disease:
Hemoglobin 8.6 today
Continue to monitor hemoglobin
Hypertension:
On atenolol 12.5 mg twice a day with holding parameters and tolerating well now
Hypothyroidism:
Levothyroxine 50 mcg p.o. daily
Anxiety:
On Tranxene 3.75 mg p.o. every 12 hours
History of recent pneumonitis/reactive airway disease (suspected COPD):
Completing taper course of steroids-still on prednisone 10 mg for 2 more days
Completed recent course of antibiotics
Continue home inhalers
History of metastatic endometrial cancer (endometrial sarcocarcinoma):
She follows up with oncology as outpatient
Mild hyponatremia:
Resolved
Mild hypocalcemia:
Calcium gluconate x 1
DVT prophylaxis:
Lovenox SQ
CODE STATUS:
DNR
Anticipated Discharge: Today
Subjective/Interval History
-
Date of Service: February 02, 2025
Patient feels better overall. Still has pain on her left foot although improved. Afebrile
Objective Data
-
Labs:
Laboratory Results
02/02/25
04:43
WBC 4.3 L
Hgb 8.6 L
Hct 25.8 L
Plt Count 269
Sodium 135
Potassium 4.1
Chloride 109 H
Carbon Dioxide 24
BUN 10
Creatinine 0.7
Glucose 84
Calcium 7.9 L
Vital Signs:
Vital Signs
Temp Pulse Resp BP Pulse Ox
98.0 F 75 18 111/48 98
02/01/25 23:33 02/01/25 23:33 02/01/25 23:33 02/01/25 23:33 02/01/25 23:33
I&O
02/01/25 02/02/25 02/03/25
06:59 06:59 06:59
Intake Total 170 / 170 1328 / 1328
Output Total 0 / 0 400 / 400
Balance 170 / 170 928 / 928
--- NOTE | 2025-02-02 08:34 | W.PN.ID1 ---
Date of Service
Date of Service: February 02, 2025
Today's Communication
Continue antiviral medication.
Assessment / Plan
Left L5 vs. S1 shingles (presumptive based on clinical presentation)
Immunocompromised patient secondary to meds
Thyroid cancer
Endometrial cancer
GERD
Anxiety
Mitral valve prolapse
Recommendations:
Continue with acyclovir at current dosing (400 mg IV every 12 hours) given renal insufficiency and weight.
Although patient is 'immunocompromised', patient is at less risk of dissemination as compared to those with BMT or GVH.
--> At discharge, can transition patient to valacyclovir 1 g p.o. TID, to continue through 02/09/25
Patient to remain in airborne isolation while inpatient.
Swab of area sent for HSV and VZV PCR testing to confirm diagnosis.
Chief Complaint
-: Other (Left L5 dermatome shingles)
Subjective / Review of Systems
Patient seen and examined. Reports ongoing discomfort in the left leg. Notes difficulty placing weight on the foot secondary to lancinating pain.
Review of Systems: No Fever and No Chills
Vital Signs / Physical Exam
Vital Signs
Vital Signs
Temp Pulse Resp BP Pulse Ox
98.0 F 75 18 111/48 98
02/01/25 23:33 02/01/25 23:33 02/01/25 23:33 02/01/25 23:33 02/01/25 23:33
Physical Exam
Constitutional: No Acute Distress, Comfortable, Chronically Ill and Non-toxic
Eyes: Sclera Anicteric
Cardiovascular: S1/S2; Negative S3/S4
Pulmonary: Non Labored
Gastrointestinal: Normal Bowel Sounds
Skin: Rash (Vesicles noted on dorsum of left foot. Vesicles also noted up leg in a L5 dermatome distribution. )
Neurological: Awake, Alert and Oriented
Psychological: Calm
Objective Data
Lab Data
Lab Results
02/02/25 04:43
02/02/25 04:43
Estimated Creat Clear 46 ml/min 02/02/25 04:43
Total Bilirubin 0.7 mg/dl (0.2-1.3) 01/31/25 10:42
AST 22 U/L (14-36) 01/31/25 10:42
ALT 41 U/L (0-35) H 01/31/25 10:42
Alkaline Phosphatase 118 U/L (38-126) 01/31/25 10:42
Most recent labs reviewed.
Care Review
Plan reviewed with: Physician (Hospitalist)
[2025-02-02] MEDS: TRANXENE 3.75 MG PO (08:56)
[2025-02-02] MEDS: PROTONIX 40 MG PO (08:56)
[2025-02-02] MEDS: NEURONTIN 100 MG PO (08:56)
[2025-02-02] MEDS: DELTASONE 10 MG PO (08:56)
[2025-02-02] MEDS: TENORMIN 12.5 MG PO (08:56)
[2025-02-02] MEDS: SYMBICORT 160/4.5 MCG INHALER 2 PUFF INH (08:58)
[2025-02-02] MEDS: SPIRIVA RESPIMAT 2.5 MCG 2 PUFF INH (08:58)
--- NOTE | 2025-02-02 10:59 | W.DCSUMMARY ---
Discharge Summary
Discharge Data
Date of Admission: 01/31/25
Date of Discharge: 02/02/25
Total time spent discharging patient (in min): 35
-
Pending Results: No
Hospital Course
Patient 74-year-old female history of thyroid cancer, endometrial cancer, mitral valve prolapse, presented to the hospital with left lower extremity rash associated with significant pain consistent with herpes zoster. She is immunocompromised. She
was started on IV acyclovir and she tolerated well and her renal function remained stable. ID was consulted. She also was treated with pain medications and improving. ID recommended to switch to oral antiviral and she can be discharged from
[facility]. PT evaluated the patient prior to discharge as well. She will be discharged in medically stable condition today.
Discharge duration: 35 minutes
Discharge Plan
-
Patient Disposition: Home with Home Care
Discharge Diagnosis/Procedures: Herpes Zoster. Immunocompromised status.
Condition: Fair
Diet: Regular
Activity: As tolerated
Blood Work: Please PCP to order CBC, BMP
Referrals:
Jose Giang DO [Family Provider, Internal Medicine] - in less than 1 week
Prescriptions:
New
valacyclovir 500 mg Tablet
1,000 mg PO TID 8 Days Qty: 48 0RF
gabapentin 100 mg Capsule
100 mg PO TID 30 Days Qty: 90 0RF
oxycodone 10 mg tablet
10 mg PO Q8H PRN (Reason: Severe Pain) Qty: 7 0RF
sennosides [Senokot] 8.6 mg tablet
8.6 mg PO DAILY Qty: 7 0RF
Continued
clorazepate dipotassium 3.75 MG tablet
3.75 mg PO Q12H
atenolol 25 MG tablet
12.5 mg PO BID
levothyroxine [Levoxyl] 50 mcg Tablet
50 mcg PO DAILY
loperamide 2 mg Tablet
2 mg PO BIDPRN PRN (Reason: DIARRHEA)
calcium carb-D3-mag ox-zinc ox 333 mg-133 unit -133 mg-5 mg Tablet
1 tab PO DAILY
pantoprazole 40 mg Tablet,Delayed Release (Dr/Ec)
40 mg PO DAILY Qty: 30 0RF
prednisone 10 mg Tablet
See Rx Instructions .ROUTE .COMPLEX Qty: 21 0RF
Rx Instructions:
Start 01/26/25-
30 mg daily x3 days, 20 mg daily x4 days, 10 mg daily x4 days.
oxycodone 5 mg tablet
5 mg PO Q8HPRN PRN (Reason: severe pain)
Patient Comments:
Pt reports experiencing pain over past 2 days such that med was taken q6h as opposed to q8h as prescribed. last dose 01/30/25 evening
Breztri Aerosphere 160-9-4.8 mcg/actuation HFA aerosol inhaler
2 inh inhalation R BID
Discharge Orders:
Discharge Patient (As Directed); Ordered 02/02/25
Ordered By: Salazar Gr
Discharge Date and Time
Print Language: WOLOF
--- NOTE | 2025-02-02 11:17 | CM ---
CM following re: discharge planning.
Reviewed pt's chart, met with pt and pt's at bedside.
Discharge order noted. Both pt and her are aware and pt is requested to be evaluated by PT and possibly to have a walker at discharge. PT is aware to evaluate the pt.
IMM reviewed, placed on chart, pt has a copy.
[facility] will resume VN services upon the discharge. [facility] liaison following.
Please fax discharge instructions to [facility] at [phone]
D/C plan: home with resumptions of [facility] and family support. to transport.
[2025-02-02] MEDS: VALTREX 1000 MG PO (11:21)
[2025-02-02 11:31] VITALS: BP 128/48
[2025-02-02 12:26] VITALS: BP 123/43
--- NOTE | 2025-02-02 12:49 | VATNOTE ---
Primary RN has flushed SQ port with NSS and heparin. Pt. for discharge to home. Port de-accessed per unit request.
--- NOTE | 2025-02-02 13:58 | VNURNOTE ---
Rec'ed info that PT recommending a Jr Walker. Rx, clinicals sent to [facility]. Spoke to Rosy and informed her pt DC today. Confirmed they accept her insurance. This author found out after faxing info that pt going home immediately.
Updated DME co, Per Rosy, delivery will be tomorrow to home. CM updated.
[2025-02-05 14:08] LABS: HSV 1 Subtype by PCR Not Detected; HSV 2 Subtype by PCR Not Detected
== END 2025-02-02 14:00 | disposition home health service (06) | DRG 596 ==
LOC: 2 NORTH 15:22
PROVIDERS: Physician Assistant; ADMITTING PHYSICIAN Internal Medicine; ATTENDING PHYSICIAN Hospitalist; CONSULT PHYSICIAN Internal Medicine Infectious Disease; EMERGENCY PHYSICIAN Student in an Organized Health Care Education/Training Program; FAMILY PHYSICIAN Internal Medicine
DX: B02.9 Zoster without complications (principal); D84.9 Immunodeficiency, unspecified; I95.9 Hypotension, unspecified; I10 Essential (primary) hypertension; F41.9 Anxiety disorder, unspecified; D63.8 Anemia in other chronic diseases classified elsewhere; Z66 Do not resuscitate; C54.1 Malignant neoplasm of endometrium
CPT/HCPCS: 80048; 80053; 85025; 85027; 87529; 87798; 93005; 94640; 96374; 96375; 97163; 99285; 99406

== ENCOUNTER 2025-02-19 14:01 | Emergency (ER) | payer MEDICARE, SELFPAY ==
[2025-02-19 14:24] VITALS: BP 114/53
[2025-02-19 14:52] LABS: Hematocrit 28.4 % (37.0-47.0); Hemoglobin 9.3 g/dL (12.0-16.0); Mean Corp Hgb Conc. 32.7 g/dL (33.0-37.0); Mean Corpuscular Volume 96.6 fL (81.0-99.0); Platelet Count 276 10^3/uL (130-400); Red Cell Dist. Width 16.7 % (11.5-14.5)
[2025-02-19 15:00] LABS: ALT (SGPT) 19 U/L (0-35); AST (SGOT) 22 U/L (14-36); Albumin 3.5 g/dl (3.5-5.0); Alkaline Phosphatase 85 U/L (38-126); Blood Urea Nitrogen 8 mg/dl (7-17); Calcium 8.9 mg/dl (8.4-10.2); Carbon Dioxide 27 mmol/L (22-30); Chloride 103 mmol/L (98-107); Glucose 105 mg/dl (70-99); Potassium 4.2 mmol/L (3.5-5.1); Sodium 132 mmol/L (135-145); Total Protein 5.8 g/dl (6.3-8.2); eGFR > 60.00
[2025-02-19 15:41] VITALS: BMI 18.8
[2025-02-19 15:43] VITALS: BP 118/59
--- NOTE | 2025-02-19 16:26 | ED.GENMED ---
History of Present Illness
<LUIS Escalante - Last Filed: 02/19/25 18:04>
General
Chief Complaint: Skin Problem
Source: patient and family ()
Time Seen by Provider: 02/19/25 14:31
History of Present Illness
History of Present Illness:
Patient is a 74 y/o F currently being treated with chemotherapy for endometrial cancer presents to ED with continued complaints of L leg and foot pain after diagnosis of herpes zoster 3 weeks ago. Patient reports 8/10 that improves with use of
oxycodone medication, however she continues to have significant pain with ambulation along with medial thigh numbness and posterior left leg neuropathy. Patient reports radiation of pain through back with neck flexion. She was prompted to be seen
in the ED today as she had concerns about running out of pain medication and home health nurse was concerned about persistent pain and neurological symptoms.
Herpes zoster was treated with IV acyclovir and patient completed course of PO valacyclovir 02/09/25.
Patient admits to 5 lbs weight loss over past two months and decreased appetite. Patient denies headache, fever, confusion, changes to vision, chest pain, and SOB.
Past History
<LUIS Escalante - Last Filed: 02/19/25 18:04>
Past History
ED Past Medical History: Cancer (Thyroid cancer, Endometrial Cancer), GERD, Psychiatric (Anxiety) and Other (Headache, MVP. Idiopoathic edema, )
ED Past Surgical History: Gynecological (Hysterectomy, fibroidectomy), Tonsilectomy and Other (Partial thyroidectomy, Vocal cord Polypectomy)
Social History
Tobacco: Smoker
Alcohol: None
Personal:
Living: with family
Review of Systems
<LUIS Escalante - Last Filed: 02/19/25 18:04>
Review of Systems
Allergies reviewed?: Yes
Other source history: family ()
Constitutional: Reports weight loss (5 lbs over last 2 months); Denies fever or fatigue
Respiratory: Reports no symptoms
Cardiac: Reports no symptoms
ABD/GI: Reports no symptoms
: Reports no symptoms
Skin: Reports rash (Healing herpes zoster rash left foot )
Neurological: Reports numbness (Left medial thigh ); Denies dizzy or headache
Phy Exam
<ST BorisOH - Last Filed: 02/19/25 18:04>
General Physical Exam
General Presentation: no apparent distress
General age: appears stated age
General Skin: warm and dry
General Habitus: cachetic and elderly
General Mental: alert
General Hydration: dry mucous membranes
Cardiovascular Exam
Cardiovascular Exam: regular rate/rhythm
Heart Sounds: normal
Pulmonary Exam
Pulmonary Exam: lungs clear, no respiratory distress and no wheezing
Gastrointestinal Exam
Gastrointestinal Exam: normal bowel sounds, soft and non distended
Musculoskeletal Exam
Musculoskeletal Exam: full ROM
Course
<Lynette Myers [facility] - Last Filed: 02/19/25 18:04>
Orders/Labs/Results
Orders:
Orders
02/19/25 14:31
CMP [Comprehensive Metabolic Panel] Urgent
Complete Blood Count/No Diff Urgent
02/19/25 16:13
Case Management Consult ONCE
Case Management Consult: Discharge Planning
Ketorolac [Toradol] 15 mg IV NOW STA
Oxycodone [Roxicodone] 5 mg PO NOW STA
Physical Therapy Consult [Pt Eval And Treat] Urgent
Activity Level: Ambulate
02/19/25 16:14
0.9% Sodium Chloride 500 ml [Nss] 500 ml IV BOLUS
02/19/25 19:00
Heparin Pf [Heparin Lock Flush] 500 unit IV PER PROTOCOL
Abnormal Lab Results
02/19/25
14:31
RBC 2.94 L 10^6/uL
(4.20-5.40)
Hgb 9.3 L g/dL
(12.0-16.0)
Hct 28.4 L %
(37.0-47.0)
MCH 31.6 H pg
(27.0-31.0)
MCHC 32.7 L g/dL
(33.0-37.0)
RDW 16.7 H %
(11.5-14.5)
Sodium 132 L mmol/L
(135-145)
Glucose 105 H mg/dl
(70-99)
Total Protein 5.8 L g/dl
(6.3-8.2)
02/19/25 14:31
02/19/25 14:31
Vital Signs
Initial and Last Documented VS:
Initial Vital Signs
Temp Pulse Resp BP Pulse Ox
98.1 F 60 16 114/53 100
02/19/25 14:24 02/19/25 14:24 02/19/25 14:24 02/19/25 14:24 02/19/25 14:24
Last Documented Vital Signs
Temp Pulse Resp BP Pulse Ox
98.1 F 60 18 151/53 100
02/19/25 14:24 02/19/25 18:10 02/19/25 18:10 02/19/25 18:10 02/19/25 18:10
<Gabriel Atkinson MD - Last Filed: 02/19/25 19:57>
Orders/Labs/Results
Orders:
Orders
02/19/25 14:31
CMP [Comprehensive Metabolic Panel] Urgent
Complete Blood Count/No Diff Urgent
02/19/25 16:13
Case Management Consult ONCE
Case Management Consult: Discharge Planning
Ketorolac [Toradol] 15 mg IV NOW STA
Oxycodone [Roxicodone] 5 mg PO NOW STA
Physical Therapy Consult [Pt Eval And Treat] Urgent
Activity Level: Ambulate
02/19/25 16:14
0.9% Sodium Chloride 500 ml [Nss] 500 ml IV BOLUS
02/19/25 19:00
Heparin Pf [Heparin Lock Flush] 500 unit IV PER PROTOCOL
Abnormal Lab Results
02/19/25
14:31
RBC 2.94 L 10^6/uL
(4.20-5.40)
Hgb 9.3 L g/dL
(12.0-16.0)
Hct 28.4 L %
(37.0-47.0)
MCH 31.6 H pg
(27.0-31.0)
MCHC 32.7 L g/dL
(33.0-37.0)
RDW 16.7 H %
(11.5-14.5)
Sodium 132 L mmol/L
(135-145)
Glucose 105 H mg/dl
(70-99)
Total Protein 5.8 L g/dl
(6.3-8.2)
02/19/25 14:31
02/19/25 14:31
Vital Signs
Initial and Last Documented VS:
Initial Vital Signs
Temp Pulse Resp BP Pulse Ox
98.1 F 60 16 114/53 100
02/19/25 14:24 02/19/25 14:24 02/19/25 14:24 02/19/25 14:24 02/19/25 14:24
Last Documented Vital Signs
Temp Pulse Resp BP Pulse Ox
98.1 F 60 18 151/53 100
02/19/25 14:24 02/19/25 18:10 02/19/25 18:10 02/19/25 18:10 02/19/25 18:10
<LUIS Escalante - Last Filed: 02/19/25 18:04>
MDM/Problems Addressed
Differential Diagnosis Includes:
Differential diagnosis includes but is not limited to:
1. Post herpetic neuralgia
2. Disseminated herpes zoster
3. Menigitis
MDM/Problems Addressed:
Post herpetic neuralgia
1. Consult PT for functional status evaluation
2. Consult Case management to review home health and home PT/OT needs
3. IV tramadol for pain
4. PO Oxycodone 5mg for pain
5. IV fluids
Chronic conditions affecting care:
Endometrial cancer
Chronic conditions affecting care: Immunosuppressed
<LUIS Escalante - Last Filed: 02/19/25 18:04>
*Pulse Oximetry
SaO2: 100
Oxygen Mode of Delivery: Room air
Patient hypoxic: no
*Critical Care Note
Total Time (30-74mins, 75-104mins- exclusive of procedures): Not Applicable
<LUIS Escalante - Last Filed: 02/19/25 18:04>
Update Note
Update Note:
PT evaluated - patient was able to ambulate without dyer assistant and no pain, PT recommends continue weekly at home therapy to maintain strength and independence
Case management unavailable to evaluate at this time
ED Attending Note
<LUIS Escalante - Last Filed: 02/19/25 18:04>
-
Portions of this chart may have been created with voice recognition software.� Occasional wrong word or��sound alike� substitutions may have occurred due to the inherent limitations of voice recognition software.
<Gabriel Atkinson MD - Last Filed: 02/19/25 19:57>
ED Attending Note
Patient seen and examined by attending physician: Yes
ED Attending Note:
Patient currently being treated for endometrial cancer, status post acyclovir treatment for foot shingles, presents to ED secondary to persistent shooting pain in her left leg and foot despite finishing acyclovir and taking pain medication.
However, patient was prescribed oxycodone, has been hesitant to take the medicine, due to side effect and with fear that she may be running out of pain medication. She does have visiting nurse at home as well as home physical therapy scheduled.
Denies fever or chills. Denies nausea or vomiting. Denies new trauma. Denies loss of sensation or weakness.
Physical Exam
General: mild painful distress, not acutely ill. afebrile
Head: nc/at. eomi
Neck: supple. no meningeal signs
Neuro: alert and oriented. no focal neurological deficits
Skin: left foot: macular rash noted over dorsal aspect without open drainage with minimal tenderness to palpation
Psychiatric: well kept. interactive and cooperative
Extremities: no edema. no calf tenderness.
Patient evaluated by physical therapy. Patient able to ambulate independently with steady gait, without assistance. Does not feel that patient is in need of any acute evaluation in the hospital or rehab facility. Recommends more persistent use of
rollator walker, which she already has at home, until her symptoms improve. Discussed treatment options, including observation versus [facility]. At this time, patient and spouse feel comfortable going home with prescription for longer
duration of pain medication. Patient will continue to be evaluated at home by visiting nurse and physical therapy, as well as PCP follow-up as an outpatient. Patient will return to ED with worsening symptoms.
Discharge Plan
Departure
Patient Disposition: Home (Routine Discharge)
Date of Disposition: 02/19/25
Time of Disposition: 18:52
Patient with high blood pressure during this ER visit?: Yes
Condition: Good
Discharge Problem:
Post herpetic neuralgia
Instructions: Neuropathic pain
Prescriptions:
New
oxycodone-acetaminophen [Percocet] 5-325 mg Tablet
1 tab PO Q4HPRN PRN (Reason: pain) Qty: 15 0RF
No Action
clorazepate dipotassium 3.75 MG tablet
3.75 mg PO Q12H
atenolol 25 MG tablet
12.5 mg PO BID
levothyroxine [Levoxyl] 50 mcg Tablet
50 mcg PO DAILY
loperamide 2 mg Tablet
2 mg PO BIDPRN PRN (Reason: DIARRHEA)
calcium carb-D3-mag ox-zinc ox 333 mg-133 unit -133 mg-5 mg Tablet
1 tab PO DAILY
pantoprazole 40 mg Tablet,Delayed Release (Dr/Ec)
40 mg PO DAILY Qty: 30 0RF
prednisone 10 mg Tablet
See Rx Instructions .ROUTE .COMPLEX Qty: 21 0RF
Rx Instructions:
Start 01/26/25-
30 mg daily x3 days, 20 mg daily x4 days, 10 mg daily x4 days.
oxycodone 5 mg tablet
5 mg PO Q8HPRN PRN (Reason: severe pain)
Patient Comments:
Pt reports experiencing pain over past 2 days such that med was taken q6h as opposed to q8h as prescribed. last dose 01/30/25 evening
Breztri Aerosphere 160-9-4.8 mcg/actuation HFA aerosol inhaler
2 inh inhalation R BID
valacyclovir 500 mg Tablet
1,000 mg PO TID 8 Days Qty: 48 0RF
gabapentin 100 mg Capsule
100 mg PO TID 30 Days Qty: 90 0RF
oxycodone 10 mg tablet
10 mg PO Q8H PRN (Reason: Severe Pain) Qty: 7 0RF
sennosides [Senokot] 8.6 mg tablet
8.6 mg PO DAILY Qty: 7 0RF
Referrals:
Jose Giang DO [Family Provider, Internal Medicine]
Activity Restrictions/Additional Instructions:
As discussed, please follow-up with your primary care physician for continual evaluation and treatment. Please speak with your primary care physician about obtaining outpatient CT scan of the chest, abdomen pelvis. Your prescription has been sent
electronically to [facility] pharmacy in [place].
Interventions
Interventions:
*Risk Screen - Suicide Last Done: 02/19/25 14:24
*General Assessment Last Done: 02/19/25 14:24
*Neglect/Abuse Screening Last Done: 02/19/25 14:24
*ED- Fall Risk Assessment Last Done: 02/19/25 14:24
*ED COVID-19 Vaccine History Last Done: 02/19/25 14:24
*Nursing Disposition Last Done: 02/19/25 19:07
ED-Skin Assessment Last Done: 02/19/25 15:44
Discharge Date and Time
Discharge Date/Time: 02/19/25 19:08
Print Language: KAZAKH
[2025-02-19 17:07] VITALS: BP 122/48; PULSE 59; O2SAT 100
[2025-02-19 17:14] VITALS: BP 123/46
[2025-02-19] MEDS: NSS 500 IV (17:15)
[2025-02-19] MEDS: ROXICODONE 5 MG PO (17:19)
[2025-02-19] MEDS: TORADOL 15 MG IV (17:20)
[2025-02-19 18:10] VITALS: BP 151/53
--- NOTE | 2025-02-19 19:01 | VATNOTE ---
right subq port deaccessed per protocol; brisk blood return noted prior to.
== END 2025-02-19 19:08 | disposition home or self-care (01) ==
LOC: EMR 14:01
PROVIDERS: Emergency Medicine; EMERGENCY PHYSICIAN Emergency Medicine; FAMILY PHYSICIAN Internal Medicine
DX: B02.29 Other postherpetic nervous system involvement (principal); K21.9 Gastro-esophageal reflux disease without esophagitis; F41.9 Anxiety disorder, unspecified; R51.9 Headache, unspecified; I34.1 Nonrheumatic mitral (valve) prolapse; D84.81 Immunodeficiency due to conditions classified elsewhere; D84.821 Immunodeficiency due to drugs; F17.200 Nicotine dependence, unspecified, uncomplicated; Z85.42 Personal history of malignant neoplasm of other parts of uterus; Z85.850 Personal history of malignant neoplasm of thyroid; Z90.710 Acquired absence of both cervix and uterus
CPT/HCPCS: 99283; 96374; 96361; 80053; 85027

== ENCOUNTER → 2025-04-05 13:03 | Outpatient (REF) | payer MEDICARE, SELFPAY | LOC: DHVS 13:03 | PROVIDERS: ATTENDING PHYSICIAN Internal Medicine; OTHER PHYSICIAN Internal Medicine Hematology & Oncology | DX: R20.9 Unspecified disturbances of skin sensation (principal) | CPT/HCPCS: 73502; 93925 ==

== ENCOUNTER → 2025-04-26 14:13 | Outpatient (REF) | payer MEDICARE, SELFPAY | LOC: MRI 3T 14:13 | PROVIDERS: ATTENDING PHYSICIAN Internal Medicine | DX: M48.062 Spinal stenosis, lumbar region with neurogenic claudication (principal) | CPT/HCPCS: 72148 ==

== ENCOUNTER → 2025-06-18 11:40 | Outpatient (REF) | payer MEDICARE, SELFPAY ==
[2025-06-18 12:30] LABS: Hematocrit 34.5 % (37.0-47.0); Hemoglobin 10.4 g/dL (12.0-16.0); Mean Corp Hgb Conc. 30.1 g/dL (33.0-37.0); Mean Corpuscular Volume 86.3 fL (81.0-99.0); Nucleated Red Blood Cells % 0 %; Platelet Count 325 10^3/uL (130-400); Red Cell Dist. Width 16.5 % (11.5-14.5)
[2025-06-18 12:53] LABS: ALT (SGPT) 19 U/L (0-35); AST (SGOT) 26 U/L (14-36); Albumin 3.7 g/dl (3.5-5.0); Alkaline Phosphatase 92 U/L (38-126); Blood Urea Nitrogen 9 mg/dl (7-17); Calcium 9.4 mg/dl (8.4-10.2); Carbon Dioxide 31 mmol/L (22-30); Chloride 105 mmol/L (98-107); Glucose 86 mg/dl (70-99); Potassium 4.6 mmol/L (3.5-5.1); Sodium 137 mmol/L (135-145); Total Protein 6.1 g/dl (6.3-8.2); eGFR > 60.00
== END ==
LOC: REG 11:40
PROVIDERS: ATTENDING PHYSICIAN Internal Medicine Hematology & Oncology
DX: C54.1 Malignant neoplasm of endometrium (principal); K62.5 Hemorrhage of anus and rectum; R11.2 Nausea with vomiting, unspecified
CPT/HCPCS: 36415; 80053; 84443; 85025

== ENCOUNTER → 2025-06-22 11:04 | Outpatient (REF) | payer MEDICARE, SELFPAY | LOC: RAD 11:04 | PROVIDERS: ATTENDING PHYSICIAN Internal Medicine Hematology & Oncology; FAMILY PHYSICIAN Internal Medicine | DX: C54.1 Malignant neoplasm of endometrium (principal); K62.5 Hemorrhage of anus and rectum; R11.2 Nausea with vomiting, unspecified | CPT/HCPCS: 71260; 74177; Q9967 ==

== ENCOUNTER 2025-07-19 16:14 | Inpatient (IN) | payer MEDICARE, SELFPAY ==
[2025-07-19] VITALS (8 sets, daily range): BP systolic 127–170; BP diastolic 54–80; BMI 20.6; BMI 20.7
[2025-07-19 11:48] LABS: Hematocrit 38.8 % (37.0-47.0); Hemoglobin 12.6 g/dL (12.0-16.0); Mean Corp Hgb Conc. 32.5 g/dL (33.0-37.0); Mean Corpuscular Volume 80.7 fL (81.0-99.0); Nucleated Red Blood Cells % 0 %; Platelet Count 380 10^3/uL (130-400); Red Cell Dist. Width 16.3 % (11.5-14.5)
--- NOTE | 2025-07-19 12:12 | ED.GENMED ---
History of Present Illness
<Yu Winters PA-C - Last Filed: 07/19/25 18:36>
General
Chief Complaint: Abdominal Symptoms
Source: patient
Exam Limitations: none
Time Seen by Provider: 07/19/25 11:57
History of Present Illness
History of Present Illness:
74yoF with a history of metastatic endometrial cancer, hypertension, hypothyroidism presenting via EMS for evaluation of abdominal pain and vomiting. Symptoms began about 4 days ago. She has been treating herself for thrush with leftover
clotrimazole troches. She has been vomiting persistently over the past several days and has been unable to tolerate any p.o. intake. She is also experiencing generalized abdominal pain and distention. She woke up today with a 'terrible sense of
woe' and fear and decided to come to the ED. Last bowel movement was 2 days ago. She reports decreased urine output. She denies any fevers, chills, hematemesis, coffee ground emesis, chest pain, shortness of breath. She is currently in between
treatments for her cancer and follows with Dr. Box. Last chemotherapy treatment was this past summer. CT scan on 06/22 showed 'increased retroperitoneal and pelvic lymphadenopathy as well as new peritoneal/mesenteric soft tissue nodules
concerning for worsening metastatic disease. There is moderate abdominal pelvic ascites with loculated fluid extending along the lesser curvature the stomach.'
Past History
<Yu Winters PA-C - Last Filed: 07/19/25 18:36>
Past History
ED Past Medical History: Cancer (Thyroid cancer, Endometrial Cancer), GERD, Psychiatric (Anxiety) and Other (Headache, MVP. Idiopoathic edema, )
ED Past Surgical History: Gynecological (Hysterectomy, fibroidectomy), Tonsilectomy and Other (Partial thyroidectomy, Vocal cord Polypectomy)
Social History
Tobacco: Smoker
Alcohol: None
Personal:
Living: with family
Phy Exam
<Yu Winters PA-C - Last Filed: 07/19/25 18:36>
Physical Exam
Physical Exam:
Ill appearing, pale
General Physical Exam
General Presentation: moderate distress
General Skin: warm, dry and pale
General Habitus: elderly
General Mental: alert
ENT Exam
ENT Exam: normocephalic
Cardiovascular Exam
Cardiovascular Exam: regular rate/rhythm
Pulmonary Exam
Pulmonary Exam: lungs clear, no respiratory distress, no rales, no crackles, no rhonchi and no wheezing
Gastrointestinal Exam
Gastrointestinal Exam: soft, distended, tender and other (Abdomen distended with generalized tenderness)
Neurological Exam
Neurological Exam: alert
Taylor Coma Scale
Eye Opening: Spontaneous
Verbal Response: Oriented
Motor Response: Obeys Commands
GCS Total Score: 15
Skin Exam
Skin Exam: normal color and warm/dry
Psychiatric Exam
Psychiatric Exam: normal mood/affect
Course
<Yu Winters PA-C - Last Filed: 07/19/25 18:36>
Orders/Labs/Results
Orders:
Orders
07/19/25 11:28
Complete Blood Count/With Diff Urgent
Comprehensive Metabolic Panel Urgent
Lipase Urgent
Magnesium Urgent
Comment: ADDON
07/19/25 12:10
Add On- LAB Urgent
Tests Added?: magnesium
Electrocardiogram (*1) Urgent
Reason for Study: QTc Monitoring
EKG- Treatment ONCE
0.9% Sodium Chloride 500 ml [Nss] 500 ml IV BOLUS
Iohexol [Omnipaque] See Protocol PO NOW STA
07/19/25 12:11
CT Abd/pel W Iv And Oral Contr Urgent
Comment:
Reason For Exam: generalized abd pain, bloating, vomiting
07/19/25 12:12
Ondansetron Injectable [Zofran] 4 mg IV NOW STA
07/19/25 12:13
Ondansetron Injectable [Zofran] 4 mg .ROUTE .STK-MED ONE
07/19/25 12:21
Lactate Level [Lactic Acid] Urgent
07/19/25 12:31
Prochlorperazine [Compazine] 10 mg IV NOW STA
07/19/25 14:18
Ondansetron Injectable [Zofran] 4 mg IV NOW STA
07/19/25 Dinner
NPO
Allow oral meds: Yes
Allow clear liquids: No
07/19/25 15:27
NG Tube [GI tube insertion- Treatment] ONCE
07/19/25 15:44
Chest X-ray Portable [CR Chest Portable - 1 View] Urgent
Comment:
Reason For Exam: confirm NG tube placement
Reason Study Needs to be Portable: Unable to Transport
07/19/25 16:08
Admit/Transfer Patient As Directed
Co-Sign Provider:
Level of Care: Inpatient admission
Assign to:: Medical/Surgical
Physician / Group: chinmay
Diagnosis: small bowel obstruction
Reason for Hospitalization: small bowel obstruction
Expected length of stay greater than two midnights?: Yes
ELOS- Estimated Length of Stay in days: 2
I certify the patient meets the requirements for IP care: Yes
Code Status As Directed
Resuscitation Status: Do not resuscitate
Reached after discussion with pt or family/Healthcare POA: Yes
DNR Bracelet Application ONCE
PRN Pain Medication Management As Directed
May give lesser potent ordered pain med per pt: Yes
preference::
Protocol:: Medication orders for pain may be administered in a
manner that supports deferring to patient preference
when the pt is:
- Requesting an ordered lesser potent pain medication.
Least to most potent pain medications are defined
as: acetaminophen < NSAID < tramadol < opioids
(morphine, oxycodone, hydromorphone).
- Requesting a lesser dose of the same medication IF
ORDERED.
- Requesting a less intrusive route of administration
if both routes are prescribed by the provider (PO <
IV).
07/19/25 16:33
HYDROmorphone [Dilaudid] 0.5 mg IV Q4HPRN PRN
07/19/25 17:58
0.9% Sodium Chloride 1000 ml [Nss] 1,000 ml IV 100 mls/hr
Docusate W/Senna [Senokot-S] 1 tablet PO BIDPRN PRN
Ondansetron Injectable [Zofran] 4 mg IV Q6HPRN PRN
07/19/25 17:58
SURGICAL CONSULT Routine
Consulting Provider: Maurilio Dias
Was physician already notified: Yes
Activity As Directed
Activity Level: As Tolerated
Vital Signs As Directed
Frequency: Per unit guidelines
DX Deep Vein Thrombosis Video Routine
07/19/25 20:00
Heparin 5,000 units SC Q12
07/20/25 06:00
Complete Blood Count/With Diff IN AM
Comprehensive Metabolic Panel IN AM
Abnormal Lab Results
07/19/25
11:28
WBC 11.3 H 10^3/uL
(4.8-10.8)
MCV 80.7 L fL
(81.0-99.0)
MCH 26.2 L pg
(27.0-31.0)
MCHC 32.5 L g/dL
(33.0-37.0)
RDW 16.3 H %
(11.5-14.5)
Absolute Neuts (auto) 9.6 H 10^3/uL
(1.4-6.5)
Absolute Lymphs (auto) 0.9 L 10^3/uL
(1.2-3.4)
Absolute Monos (auto) 0.7 H 10^3/uL
(0.1-0.6)
Neutrophils % 84.7 H %
(42.2-75.2)
Lymphocytes % 8.2 L %
(20.5-51.1)
Sodium 132 L mmol/L
(135-145)
Chloride 94 L mmol/L
(98-107)
Creatinine 1.2 H mg/dL
(0.6-1.0)
Glucose 128 H mg/dl
(70-99)
Alkaline Phosphatase 136 H U/L
(38-126)
07/19/25 11:28
07/19/25 11:28
Vital Signs
Initial and Last Documented VS:
Initial Vital Signs
Temp Pulse Resp BP Pulse Ox
98.6 F 65 16 130/54 94
07/19/25 11:25 07/19/25 11:25 07/19/25 11:25 07/19/25 11:25 07/19/25 11:25
Last Documented Vital Signs
Temp Pulse Resp BP Pulse Ox
98.8 F 72 17 144/63 96
07/19/25 18:13 07/19/25 18:13 07/19/25 18:13 07/19/25 18:13 07/19/25 18:13
<Chema Padilla MD - Last Filed: 07/19/25 13:56>
Orders/Labs/Results
Orders:
Orders
07/19/25 11:28
Complete Blood Count/With Diff Urgent
Comprehensive Metabolic Panel Urgent
Lipase Urgent
Magnesium Urgent
Comment: ADDON
07/19/25 12:10
Add On- LAB Urgent
Tests Added?: magnesium
Electrocardiogram (*1) Urgent
Reason for Study: QTc Monitoring
EKG- Treatment ONCE
0.9% Sodium Chloride 500 ml [Nss] 500 ml IV BOLUS
Iohexol [Omnipaque] See Protocol PO NOW STA
07/19/25 12:11
CT Abd/pel W Iv And Oral Contr Urgent
Comment:
Reason For Exam: generalized abd pain, bloating, vomiting
07/19/25 12:12
Ondansetron Injectable [Zofran] 4 mg IV NOW STA
07/19/25 12:13
Ondansetron Injectable [Zofran] 4 mg .ROUTE .STK-MED ONE
07/19/25 12:21
Lactate Level [Lactic Acid] Urgent
07/19/25 12:31
Prochlorperazine [Compazine] 10 mg IV NOW STA
07/19/25 14:18
Ondansetron Injectable [Zofran] 4 mg IV NOW STA
07/19/25 Dinner
NPO
Allow oral meds: Yes
Allow clear liquids: No
07/19/25 15:27
NG Tube [GI tube insertion- Treatment] ONCE
07/19/25 15:44
Chest X-ray Portable [CR Chest Portable - 1 View] Urgent
Comment:
Reason For Exam: confirm NG tube placement
Reason Study Needs to be Portable: Unable to Transport
07/19/25 16:08
Admit/Transfer Patient As Directed
Co-Sign Provider:
Level of Care: Inpatient admission
Assign to:: Medical/Surgical
Physician / Group: chinmay
Diagnosis: small bowel obstruction
Reason for Hospitalization: small bowel obstruction
Expected length of stay greater than two midnights?: Yes
ELOS- Estimated Length of Stay in days: 2
I certify the patient meets the requirements for IP care: Yes
Code Status As Directed
Resuscitation Status: Do not resuscitate
Reached after discussion with pt or family/Healthcare POA: Yes
DNR Bracelet Application ONCE
PRN Pain Medication Management As Directed
May give lesser potent ordered pain med per pt: Yes
preference::
Protocol:: Medication orders for pain may be administered in a
manner that supports deferring to patient preference
when the pt is:
- Requesting an ordered lesser potent pain medication.
Least to most potent pain medications are defined
as: acetaminophen < NSAID < tramadol < opioids
(morphine, oxycodone, hydromorphone).
- Requesting a lesser dose of the same medication IF
ORDERED.
- Requesting a less intrusive route of administration
if both routes are prescribed by the provider (PO <
IV).
07/19/25 16:33
HYDROmorphone [Dilaudid] 0.5 mg IV Q4HPRN PRN
07/19/25 17:58
0.9% Sodium Chloride 1000 ml [Nss] 1,000 ml IV 100 mls/hr
Docusate W/Senna [Senokot-S] 1 tablet PO BIDPRN PRN
Ondansetron Injectable [Zofran] 4 mg IV Q6HPRN PRN
07/19/25 17:58
SURGICAL CONSULT Routine
Consulting Provider: Maurilio Dias
Was physician already notified: Yes
Activity As Directed
Activity Level: As Tolerated
Vital Signs As Directed
Frequency: Per unit guidelines
DX Deep Vein Thrombosis Video Routine
07/19/25 20:00
Heparin 5,000 units SC Q12
07/20/25 06:00
Complete Blood Count/With Diff IN AM
Comprehensive Metabolic Panel IN AM
Abnormal Lab Results
07/19/25
11:28
WBC 11.3 H 10^3/uL
(4.8-10.8)
MCV 80.7 L fL
(81.0-99.0)
MCH 26.2 L pg
(27.0-31.0)
MCHC 32.5 L g/dL
(33.0-37.0)
RDW 16.3 H %
(11.5-14.5)
Absolute Neuts (auto) 9.6 H 10^3/uL
(1.4-6.5)
Absolute Lymphs (auto) 0.9 L 10^3/uL
(1.2-3.4)
Absolute Monos (auto) 0.7 H 10^3/uL
(0.1-0.6)
Neutrophils % 84.7 H %
(42.2-75.2)
Lymphocytes % 8.2 L %
(20.5-51.1)
Sodium 132 L mmol/L
(135-145)
Chloride 94 L mmol/L
(98-107)
Creatinine 1.2 H mg/dL
(0.6-1.0)
Glucose 128 H mg/dl
(70-99)
Alkaline Phosphatase 136 H U/L
(38-126)
07/19/25 11:28
07/19/25 11:28
Vital Signs
Initial and Last Documented VS:
Initial Vital Signs
Temp Pulse Resp BP Pulse Ox
98.6 F 65 16 130/54 94
07/19/25 11:25 07/19/25 11:25 07/19/25 11:25 07/19/25 11:25 07/19/25 11:25
Last Documented Vital Signs
Temp Pulse Resp BP Pulse Ox
98.8 F 72 17 144/63 96
07/19/25 18:13 07/19/25 18:13 07/19/25 18:13 07/19/25 18:13 07/19/25 18:13
Yannilt;Yu Winters PA-C - Last Filed: 07/19/25 18:36>
MDM/Problems Addressed
Differential Diagnosis Includes:
74yoF here with abd pain, bloating, and vomiting x 4 days. Hx of metastatic endometrial cancer currently in between treatments. VSS. Patient is ill appearing on exam and abdomen distended. Differential diagnosis includes: SBO, ascites, perforated
viscous, dehydration
Initial ED plan: Check abdominal labs, lactate, EKG, and CT abdomen with IV/PO contrast. IV Zofran and fluid bolus for symptoms.
<Yu Winters PA-C - Last Filed: 07/19/25 18:36>
*Pulse Oximetry
SaO2: 93
Oxygen Mode of Delivery: Room air
Patient hypoxic: no
*EKG
Interpreted by ED Provider?: Yes
EKG Intrepretation Date: 07/19/25
Heart Rate: 55
Rate: bradycardiac
Rhythm: sinus
[place]: normal axis
QRS Pattern: low voltage
Ischemia: no ischemia
*Critical Care Note
Total Time (30-74mins, 75-104mins- exclusive of procedures): Not Applicable
<Yu Winters PA-C - Last Filed: 07/19/25 18:36>
Update Note
Update Note:
Labs reveal a mild SURYA with a creatinine of 1.2 (up from baseline of 0.7-0.8). CT shows small bowel obstruction as well as moderate to large volume ascites. NG tube ordered. General surgery notified and patient admitted to the hospitalist service
for further management.
ED Attending Note
<Yu Winters PA-C - Last Filed: 07/19/25 18:36>
-
Portions of this chart may have been created with voice recognition software.� Occasional wrong word or��sound alike� substitutions may have occurred due to the inherent limitations of voice recognition software.
<Chema Padilla MD - Last Filed: 07/19/25 13:56>
ED Attending Note
Patient seen and examined by attending physician: Yes
ED Attending Note:
I have seen and evaluated the patient with a [id number] encounter. I have spoken to the advance practicer provider and involved in the medical history, the physical exam, medical decision making.
Evaluation and management service: agree unless noted differently below.
Results interpretation: agree unless noted differently below.
Focused HPI: 74-year-old female with history as noted significant for endometrial cancer presents to the emergency department for nausea and vomiting. Symptoms ongoing over the past week generally worsening over the past few days. Associated with
abdominal discomfort and severe bloating. She has had some constipation recently has not moved her bowels for 3 days although has had poor p.o. intake because of vomiting. No fevers or chills. She reports prior surgical history of hysterectomy.
Physical exam: Awake and alert, chronically ill-appearing and holding emesis bag with occasional retching. Vital signs are significant for mild tachypnea but no hypoxia; she is normotensive, nontachycardic, not febrile. Her abdomen is markedly
distended and tympanic, diffuse tenderness.
Medical Decision Makin-year-old female with history as noted presents for evaluation of nausea and vomiting, abdominal discomfort, increased bloating. Has not moved her bowels for 3 days. Vitals and exam as above. Labs here are significant
for mild leukocytosis, renal insufficiency. LFTs acceptable. Awaiting results of CT suspect she may have small bowel obstruction but regardless has required multiple rounds of antiemetic will need admission pending imaging. Fluids in progress,
continue fluid resuscitation and antiemetics as needed.
Discharge Plan
Departure
Patient Disposition: Admit
Date of Disposition: 07/19/25
Time of Disposition: 15:39
Presentation/result/management discussed w/ accepting MD/DO: Hospitalist
Discharge Problem:
Small bowel obstruction
Interventions
Interventions:
*General Assessment Last Done: 07/19/25 11:24
*Neglect/Abuse Screening Last Done: 07/19/25 11:24
*ED COVID-19 Vaccine History Last Done: 07/19/25 11:24
*ED Influenza Vaccine History Last Done: 12/25/25 11:24
*Risk Screen - Suicide (C-SSRS) Last Done: 07/19/25 11:24
*Nursing Disposition Last Done: 07/19/25 17:54
KI-Owpydm-Rwohfdnsqk Assessment Last Done: 07/19/25 11:35
Discharge Date and Time
Discharge Date/Time: 07/19/25 17:54
[2025-07-19] MEDS: NSS 500 IV (12:22)
[2025-07-19] MEDS: OMNIPAQUE 50 ML PO (12:22)
[2025-07-19 12:23] LABS: ALT (SGPT) 20 U/L (0-35); AST (SGOT) 28 U/L (14-36); Albumin 4.0 g/dl (3.5-5.0); Alkaline Phosphatase 136 U/L (38-126); Blood Urea Nitrogen 11 mg/dl (7-17); Calcium 9.6 mg/dl (8.4-10.2); Carbon Dioxide 30 mmol/L (22-30); Chloride 94 mmol/L (98-107); Estimated Creatinine Clearance 27 ml/min; Glucose 128 mg/dl (70-99); Lipase 83 U/L (23-300); Potassium 4.7 mmol/L (3.5-5.1); Sodium 132 mmol/L (135-145); Total Protein 6.6 g/dl (6.3-8.2); eGFR 46.91
[2025-07-19] MEDS: ZOFRAN 4 MG IV ×2 (12:23→14:21)
[2025-07-19] MEDS: COMPAZINE 10 MG IV (12:35)
[2025-07-19 13:35] LABS: Magnesium 2.1 mg/dl (1.6-2.3)
--- NOTE | 2025-07-19 16:11 | HPS.HSE ---
Family Physician
-
Family Physician: Jose Giang
Chief Complaint
-
abdominal pain
History of Present Illness
74-year-old female past medical history of thyroid cancer status post partial thyroidectomy, endometrial cancer status post hysterectomy with metastasis to omentum, mitral valve prolapse, hypertension, GERD, anxiety, presenting for abdominal pain
and vomiting starting 4 days ago. She has generalized abdominal pain and distention. Last bowel movement 2 days ago. She has decreased urine output. Denies fevers or chills or blood in the vomit. Denies chest pain or shortness of breath.
She states that she was aware of liver metastases on prior CT scan. She attempted to have a paracentesis previously but was told there was not enough fluid to drain.
She denies smoking or alcohol use.
Medical History
Past Medical History
Past Medical History: Reports Other ( thyroid cancer status post partial thyroidectomy, endometrial cancer status post hysterectomy with metastasis to omentum, mitral valve prolapse, hypertension, GERD, anxiety,)
Past Surgical History: Reports Other (Gynecological (Hysterectomy, fibroidectomy), Tonsilectomy and Other (Partial thyroidectomy, Vocal cord Polypectomy))
Social History
Tobacco: Non-smoker
Alcohol: None
Drug: None
Family History
Family History: Not pertinent
Allergies / Home Medications
Allergies reflects when Allergies were last updated in [facility].
Home Medications with original date entered in [facility]
Allergy/Medication List:
Allergies
Allergy/AdvReac Type Severity Reaction Status Date / Time
ENVIRONMENTAL Allergy Unknown Uncoded 07/19/25 11:25
Home Medications
atenolol 25 mg tablet 12.5 mg PO BID Blood Pressure 07/23/21
clorazepate dipotassium 3.75 mg tablet 3.75 mg PO Q12H Neurological Condition 07/23/21
levothyroxine 50 mcg tablet (Levoxyl) 50 mcg PO DAILY Thyroid 03/07/24
calcium 333 mg-vit D3 133 unit-magnesium 133 mg-zinc 5 mg tablet 1 tab PO DAILY Supplement 01/16/25
loperamide 2 mg tablet 2 mg PO BIDPRN PRN DIARRHEA 01/16/25
pantoprazole 40 mg tablet,delayed release 40 mg PO DAILY #30 tabs 01/25/25
prednisone 10 mg tablet See Rx Instructions .Route .COMPLEX #21 tabs 01/25/25
budesonide 160 mcg-glycopyr 9 mcg-formot 4.8 mcg/actuation HFA inhaler (Breztri Aerosphere) 2 inh inhalation R BID 01/31/25
oxycodone 5 mg tablet 5 mg PO Q8HPRN PRN severe pain 01/31/25
gabapentin 100 mg capsule 100 mg PO TID 30 days #90 caps 02/02/25
oxycodone 10 mg tablet 10 mg PO Q8H PRN Severe Pain #7 tabs 02/02/25
sennosides 8.6 mg tablet (Senokot) 8.6 mg PO DAILY #7 tabs 02/02/25
valacyclovir 500 mg tablet 1,000 mg (2 x 500 mg) PO TID 8 days #48 tabs 02/02/25
oxycodone-acetaminophen 5 mg-325 mg tablet (Percocet) 1 tab PO Q4HPRN PRN pain #15 tabs 02/19/25
Review of Systems
-
History Source: Patient
A 12 point ROS was completed and negative except as noted: Yes
Constitutional: Reports No Symptoms
EENT: Reports No Symptoms
Respiratory: Reports No Symptoms
Cardiac: Reports No Symptoms
Abdomen/GI: Reports See HPI
: Reports No Symptoms
Musculoskeletal: Reports No Symptoms
Skin: Reports No Symptoms
Neurological: Reports No Symptoms
Endocrine: Reports No Symptoms
Hematologic/Lymphatic: Reports No Symptoms
Psych: Reports No Symptoms
Physical Exam
Vital Signs
Vital Signs
Temp Pulse Resp BP Pulse Ox
98.6 F 83 28 143/80 95
07/19/25 11:25 07/19/25 16:00 07/19/25 16:00 07/19/25 16:00 07/19/25 16:00
Physical Exam
General: Well Developed, Well Nourished and No Apparent Distress
HEENT: NormoCephalic, Moist mucous membranes and Atraumatic
Respiratory: Clear
Cardiac: S1/S2 and Regular Rhythm; No Murmur or Rub
GI: Non Distended, Normal Bowel Sounds, Tender and Distended; No Organomegaly
Rectal: Deferred by Provider
Musculoskeletal: No Clubbing, No Cyanosis and No Edema
Skin: No Rash
Neuro: Nonfocal/grossly intact
Laboratory Results
-
07/19/25 11:28
07/19/25 11:28
Laboratory Results
Lactic Acid 1.0 mmol/L (0.7-2.0) 07/19/25 12:21
Total Bilirubin 0.5 mg/dl (0.2-1.3) 07/19/25 11:28
AST 28 U/L (14-36) 07/19/25 11:28
ALT 20 U/L (0-35) 07/19/25 11:28
Alkaline Phosphatase 136 U/L (38-126) H 07/19/25 11:28
Lipase 83 U/L (23-300) 07/19/25 11:28
Data Reviewed
-
Lab Data: Labs Reviewed by me
Old Records: Reviewed
Impression/Plan
-
IMPRESSION:
PLAN:
# Small bowel obstruction
-CT abdomen pelvis shows small bowel obstruction, transition in the central pelvis to the right of midline, moderate to large volume ascites which is progressed, decrease in size of lesser sac fluid collection, 2 small low-attenuation structures in
the liver slightly increased in size suspicious for metastatic disease
- N.p.o.
-NG tube
-Zofran, Dilaudid
- General Surgery consulted
# Ascites likely from liver metastases from endometrial cancer
- IR for paracentesis
- Fluid studies
Endometrial cancer with metastasis to omentum status post hysterectomy
- Follows Dr. Jarrett
- Last had chemotherapy in the summer
Thyroid cancer status post partial thyroidectomy
-hold levothyroxine
Mitral valve prolapse
Essential hypertension
-hold atenolol
GERD
Anxiety
DNR/DNI
DVT prophylaxis�heparin
N.p.o.
[2025-07-19] MEDS: DILAUDID 0.5 MG IV ×2 (16:36→19:45)
--- NOTE | 2025-07-19 17:13 | EDCM ---
Reviewed chart and met with pt and bedside in ED. They [place] [address] , no [place].
Independent in ADLS, personal care and ambulation at baseline, does have RW and SPC, does not normally use.
PMH includes Endometrial cancer, thyroid cancer, HTN, Hypothyroid, Thyroid cancer, GERD, Anxiety. Follow with Dr Box at [facility].
Confirms prescription coverage.
Hx [facility], no hx SNF
PCP: Jose Giang
Pharmacy: [facility] [address]
Anticipate discharge home, CM will continue to follow for all discharge planning needs.
[2025-07-19] MEDS: NSS 1000 IV (18:20)
[2025-07-19] MEDS: CHLORASEPTIC/SORE THROAT SPRAY 1 SPRAY PO (19:45)
[2025-07-19] MEDS: HEPARIN SC (19:51)
[2025-07-20] MEDS: DILAUDID 0.5 MG IV ×4 (00:17→16:04)
[2025-07-20] MEDS: NSS 1000 IV ×2 (04:10→16:11)
[2025-07-20 06:04] LABS: Hematocrit 34.4 % (37.0-47.0); Hemoglobin 11.3 g/dL (12.0-16.0); Mean Corp Hgb Conc. 32.8 g/dL (33.0-37.0); Mean Corpuscular Volume 79.1 fL (81.0-99.0); Nucleated Red Blood Cells % 0 %; Platelet Count 359 10^3/uL (130-400); Red Cell Dist. Width 16.2 % (11.5-14.5)
[2025-07-20 06:29] LABS: ALT (SGPT) 18 U/L (0-35); AST (SGOT) 25 U/L (14-36); Albumin 3.5 g/dl (3.5-5.0); Alkaline Phosphatase 120 U/L (38-126); Blood Urea Nitrogen 14 mg/dl (7-17); Calcium 8.7 mg/dl (8.4-10.2); Carbon Dioxide 24 mmol/L (22-30); Chloride 100 mmol/L (98-107); Estimated Creatinine Clearance 30 ml/min; Glucose 104 mg/dl (70-99); Potassium 4.2 mmol/L (3.5-5.1); Sodium 134 mmol/L (135-145); Total Protein 5.8 g/dl (6.3-8.2); eGFR 52.08
--- NOTE | 2025-07-20 07:10 | W.PN.HOSP.TC ---
Today's Communication/Plan
-
Surgery input
IVF, NG tube, NPO for decompression
Contact oncologist
Assessment / Plan
Assessment / Plan
74yoF PMH PMH thyroid cx s/p thyroidectomy, metastatic endometrial cx, MVP, HTN, GERD here for SBO.
AFVSS. Ct demonstrated SBO with transition point and mod ascites. Paracentesis today 2.5L removed. Surgery consult. Ng tube for decompression, NPO, dilaudid as needed. Leukocytosis improved. Plan to contact oncologist to discuss further prognosis
and management given possibility of SBO in setting of carcinomatoses and malignant ascites pending cytology.
#SBO
- NG tube to suction
- NPO
- IVF
- Surgery consult
#ascites
#metastatic endometrial cx
- paracentesis
- Known liver mets; follow
- last chemotherapy
#hypothyroidism secondary to thyroidectomy
- levothyroxine IV
#HTN
- hold atenolol
DVT prophylaxis: heparin
Diet: NPO
Code: DNR
Anticipated Discharge: 24 - 48 hours
Subjective/Interval History
-
Date of Service: July 20, 2025
Pt reports continued nausea with no vomiting or BM. She attributes this episode to pain medication she takes for peripheral neuropathy. Last chemotherapy .
Objective Data
-
Labs:
Laboratory Results
07/20/25
05:15
WBC 9.9
Hgb 11.3 L
Hct 34.4 L
Plt Count 359
Sodium 134 L
Potassium 4.2
Chloride 100
Carbon Dioxide 24
BUN 14
Creatinine 1.1 H
Glucose 104 H
Calcium 8.7
Total Bilirubin 0.6
AST 25
ALT 18
Alkaline Phosphatase 120
Vital Signs:
Vital Signs
Temp Pulse Resp BP Pulse Ox
98.8 F 85 14 134/62 94
07/19/25 23:00 07/19/25 23:00 07/19/25 23:00 07/19/25 23:00 07/19/25 23:00
I&O
07/19/25 07/20/25 07/21/25
06:59 06:59 06:59
Intake Total 60 / 60
Output Total 500 / 500
Balance -440 / -440
Physical Exam
-
General: No Apparent Distress and Comfortable (uncomfortable with NG tube but laying comfortably)
HEENT: Normocephalic, Atraumatic and Moist Mucous Membranes
Respiratory: Clear to Auscultation and Non Labored Respirations
Cardiac: Regular Rhythm and S1/S2
GI: Tender (diffuse with increased epigastric) and Distended (tympanic)
Musculoskeletal: No Edema
Skin: Warm and Dry
Neuro: AO x 3 and Nonfocal/Grossly Intact
[2025-07-20 07:43] VITALS: BP 152/67
[2025-07-20 09:02] VITALS: BP 158/67; BP_SYST 79
[2025-07-20] MEDS: HEPARIN SC ×2 (09:16→22:44)
[2025-07-20 09:55] VITALS: BP 149/65; BP_SYST 74
[2025-07-20 10:09] VITALS: BP 149/65
--- NOTE | 2025-07-20 12:21 | CON.GS ---
Addendum entered and electronically signed by Maurilio Dias MD 07/21/25 09:40:
Delayed entry from 07/20/25
I saw and examined the patient.
The Manager Lsw's note was reviewed and I agree with the note.
Comment: Pt with 2 months of n/v. No recent flatus or BM. Severe fluid distention on abd exam. She reportedly responds well to milk of mag. Can try milk fo mag via NGT. PO contrast study if no improvement within 24-48 hrs. For paracentesis today,
this may help her obstructive symptoms as well.
Original Note:
Consultation
-
Date/Time Consultation Performed: 07/20/27 0950
Medical History
-
Chief Complaint: n/v
History of Present Illness:
Ms Sterling is a 74 yo female with a h/o metastatic (to omentum) endometrial cancer with prior DIANA who has been following with Dr. Box for chemotherapy (currently between treatments with last chemo this summer). She does report she has required
paracentesis once in the remote past but has not been routinely requiring this. She presents with ongoing nausea over the past weeks. Over the past months, she notes that she has been taking milk of magnesium intermittently when her bowels have not
been working well which usually gives her some relief, but this has not worked over the past few days. She had onset of nausea with vomiting about 3 days ago and presented given ongoing symptoms. She reports feeling very thirsty. She is actively
vomiting around the NGT which was clamped at time of exam for transport to IR for pericentesis. Bilious emesis and outputs noted from NGT. Ascites/abdominal distention noted on exam. She has not been passing flatus and has not had a BM recently.
Past Medical History
Past Medical History: Cancer (thyroid tx surgically, metastatic endometrial ca tx surgically and with chemo), GERD, Hypothyroidism and Psychiatric (anxiety)
Past Surgical History: Appendectomy, Gynecological (Myomectomy, DIANA (07/2021)), Tonsilectomy and Other (partial thyroidectomy, polypectomy from vocal chords)
Social History
Tobacco: Smoker
Alcohol: Occasional
Family History
Family History: Reviewed & Not Pertinent
Allergies / Home Medications
Allergy/AdvReac Type Severity Reaction Status Date / Time
ENVIRONMENTAL Allergy Unknown Uncoded 07/19/25 11:25
�Medication �Instructions �Recorded �Confirmed �Type
atenolol 25 mg tablet 12.5 mg PO BID Blood Pressure 07/23/21 07/19/25 History
clorazepate dipotassium 3.75 mg 3.75 mg PO BID Neurological 07/23/21 07/19/25 History
tablet Condition
levothyroxine 50 mcg tablet 50 mcg PO DAILY Thyroid 03/07/24 07/19/25 History
(Levoxyl)
calcium 333 mg-vit D3 133 1 tab PO DAILY Supplement 01/16/25 07/19/25 History
unit-magnesium 133 mg-zinc 5 mg
tablet
budesonide 160 mcg-glycopyr 9 2 inh inhalation R BID 01/31/25 07/19/25 History
mcg-formot 4.8 mcg/actuation HFA
inhaler (Breztri Aerosphere)
aluminum-mag hydroxide-simethicone 15 ml PO DAILYPRN PRN 07/19/25 07/19/25 History
200 mg-200 mg-20 mg/5 mL oral susp heartburn/indigestion
ascorbic acid (vitamin C) 500 mg 500 mg PO DAILY 07/19/25 07/19/25 History
tablet (Vitamin C)
glutathione 1 cap PO DAILY 07/19/25 07/19/25 History
xustfhts-zee-ysqf-FA-Ca carb-vit K 1 tab PO DAILY 07/19/25 07/19/25 History
18 mg iron-400 mcg-500 mg tablet
oxycodone 10 mg tablet 10 mg PO TID@0700,1500,2300 Severe 07/19/25 07/19/25 History
Pain
pregabalin 50 mg capsule 50 mg PO TID@0700,1500,2300 07/19/25 07/19/25 History
Review of Systems
-
History Source: Patient and Family
All other systems: Negative unless noted
A 10 point review of systems was completed, and was negative except as per HPI.
Physical Exam
Vital Signs
Temp Pulse Resp BP Pulse Ox
98.3 F 74 15 149/65 95
07/20/25 09:02 07/20/25 10:09 07/20/25 10:09 07/20/25 10:09 07/20/25 09:55
07/19/25 07/20/25 07/21/25
06:59 06:59 06:59
Actual Weight 46.351 kg
Body Mass Index (BMI) 20.7
Lab Results
07/20/25 05:15
07/20/25 05:15
WBC 9.9 10^3/uL (4.8-10.8) 07/20/25 05:15
Hgb 11.3 g/dL (12.0-16.0) L 07/20/25 05:15
Hct 34.4 % (37.0-47.0) L 07/20/25 05:15
Plt Count 359 10^3/uL (130-400) 07/20/25 05:15
Abs Immat Gran (auto) 0.0 10^3/uL (0-0.05) 07/20/25 05:15
Neutrophils % 80.2 % (42.2-75.2) H 07/20/25 05:15
Physical Exam
General: Other (vomiting); Negative Well Nourished or Comfortable
HEENT: Normocephalic and Moist Mucous Membranes
Respiratory: Non Labored Respirations
GI: Soft, Tender (mild, generalized), Distended and Other (NGT with bilious outputs)
Skin: Warm and Dry
Neuro: Awake, Alert and AO x 3
Data Reviewed
-
CT Scan: Image Personally Visualized and interpreted, Report Reviewed by me, Discussed with Physician, Discussed with Nurse, Discussed with Patient and Discussed with Family
Labs: Labs Reviewed by me, Discussed with Physician, Discussed with Nurse, Discussed with Patient and Discussed with Family
Old Records: Reviewed
Assessment / Plan
-
Ms Sterling is a 74 yo female with a h/o metastatic (to omentum) endometrial cancer with prior DIANA who has been following with Dr. Box for chemotherapy (currently between treatments with last chemo this summer). She does report she has required
paracentesis once in the remote past but has not been routinely requiring this. She presents with worsening nausea over the past weeks to months with recurrent vomiting over the past [address] imaging reviewed with ascites present. Concern
for SBO with transition in the central pelvis to the right of midline. Suspect secondary to metastatic disease vs adhesions from prior surgery. NGT placed in the ED with bilious outputs noted, small bore tube utilized/pt vomiting around it. XR
confirms good placement. s/p paracentesis today for ascites.
Plan:
Continue with NGT to LIWS
NPO with ice chips
IVF while NPO
Analgesics/antiemetics as needed
IV PPI for GI ppx while NGT in place
Medical management as per primary team, consider oncology evaluation
No emergent surgery planned at this time, will follow for improvement with bowel rest/decompression and medical supportive care at this time
[2025-07-20] MEDS: ZOFRAN 4 MG IV (12:31)
[2025-07-20 13:03] LABS: Body Fluid Second Tech HB
[2025-07-20 15:36] VITALS: BP 124/48
[2025-07-20] MEDS: NSS (PRESERVATIVE FREE) 10 ML IV (16:00)
[2025-07-20] MEDS: PROTONIX IV 40 MG IV (16:00)
[2025-07-20 23:45] VITALS: BP 120/39
[2025-07-21] MEDS: NSS 1000 IV (02:12)
[2025-07-21] MEDS: ZOFRAN 4 MG IV (03:53)
[2025-07-21] MEDS: CHLORASEPTIC/SORE THROAT SPRAY 1 SPRAY PO (03:53)
[2025-07-21 07:05] VITALS: BP 150/59
--- NOTE | 2025-07-21 07:05 | W.PN.HOSP.TC ---
Today's Communication/Plan
-
Obstruction r/o, likely ileus
Continue medical management
Assessment / Plan
Assessment / Plan
74yoF PMH PMH thyroid cx s/p thyroidectomy, metastatic endometrial cx, MVP, HTN, GERD here for SBO.
AFVSS. Ct demonstrated SBO with transition point and mod ascites. Paracentesis today 2.5L removed. Surgery consult. Ng tube for decompression, NPO, dilaudid as needed. Leukocytosis improved. Plan to contact oncologist to discuss further prognosis
and management given possibility of SBO in setting of carcinomatoses and malignant ascites pending cytology.
07/21 AFVSS. Pt uncomfortable with NG in tube, continued dark bilious output. BM overnight. Continued GOC. Dr Box, outpt oncologist TT. Distended and tympanic. KUB with continued gas likely ileus rather than obstructive as contrast is in colon.
#SBO
- NG tube to suction
- NPO
- IVF
- Surgery consult. Nonobstructive pattern on KUB.
#ascites
#metastatic endometrial cx
- paracentesis
- Known liver mets; follow
- last chemotherapy
#hypothyroidism secondary to thyroidectomy
- levothyroxine IV
#HTN
- hold atenolol
DVT prophylaxis: heparin
Diet: NPO
Code: DNR
Anticipated Discharge: > 48 hours
Subjective/Interval History
-
Date of Service: July 21, 2025
Pt reports feeling unwell this morning. She states she was up all night having loose BM; one large and then many smaller bouts of diarrhea. She endorses the NG tube has been putting out dark fluid. Reports nausea and sore throat with NG tube,
overall discomfort.
Discussed with pt goals for current tx. She understands the surgeons are not offering surgery, but she states she would not want to undergo surgery if it were an option currently. She has a desire to go home but not the way she is currently feeling.
We had discussions regarding further treatment in general, as she is not certain she will continue to undergo chemotherapy in the future at all.
Objective Data
-
Labs:
Laboratory Results
07/21/25
06:48
WBC Pending
Hgb Pending
Hct Pending
Plt Count Pending
Sodium Pending
Potassium Pending
Chloride Pending
Carbon Dioxide Pending
BUN Pending
Creatinine Pending
Glucose Pending
Calcium Pending
Vital Signs:
Vital Signs
Temp Pulse Resp BP Pulse Ox
99.8 F 71 14 120/39 96
07/20/25 23:45 07/20/25 23:45 07/20/25 23:45 07/20/25 23:45 07/20/25 23:45
I&O
07/20/25 07/21/25 07/22/25
06:59 06:59 06:59
Intake Total 60 / 60 1260 / 1260
Output Total 500 / 500 1225 / 1225
Balance -440 / -440 35 / 35
Physical Exam
-
General: Conversant and Appears Chronically Ill (uncomfortable)
HEENT: Normocephalic, Atraumatic and Moist Mucous Membranes
Respiratory: Clear to Auscultation and Non Labored Respirations
Cardiac: Regular Rhythm and S1/S2
GI: Soft, Tender, Distended (tympanic, less than prior to paracentesis but more than yesterday afternoon) and Other (NG bilious outpt)
Musculoskeletal: No Edema
Skin: Warm and Dry
Neuro: AO x 3 and Nonfocal/Grossly Intact (L foot neuropathy worse but at pt baseline)
[2025-07-21 07:18] LABS: Hematocrit 30.5 % (37.0-47.0); Hemoglobin 10.0 g/dL (12.0-16.0); Mean Corp Hgb Conc. 32.8 g/dL (33.0-37.0); Mean Corpuscular Volume 79.8 fL (81.0-99.0); Platelet Count 316 10^3/uL (130-400); Red Cell Dist. Width 16.2 % (11.5-14.5)
[2025-07-21 07:38] LABS: Blood Urea Nitrogen 15 mg/dl (7-17); Calcium 8.0 mg/dl (8.4-10.2); Carbon Dioxide 20 mmol/L (22-30); Chloride 104 mmol/L (98-107); Estimated Creatinine Clearance 36 ml/min; Glucose 85 mg/dl (70-99); Potassium 3.8 mmol/L (3.5-5.1); Sodium 136 mmol/L (135-145); eGFR > 60.00
[2025-07-21] MEDS: HEPARIN 5000 UNITS SC (09:56)
[2025-07-21] MEDS: PROTONIX IV 40 MG IV (09:57)
[2025-07-21] MEDS: NSS (PRESERVATIVE FREE) 10 ML IV (09:57)
[2025-07-21] MEDS: LR 1000 IV ×2 (09:58→20:25)
--- NOTE | 2025-07-21 11:36 | W.PN.GS2 ---
Today's Communication / Plan
-
c/w NGT
Assessment / Plan
-
Ms Sterling is a 74 yo female with a h/o metastatic (to omentum) endometrial cancer with prior DIANA who has been following with Dr. Box for chemotherapy (currently between treatments with last chemo this summer). Intermittent n/v x2 months and
presenting with more persistent symptoms
Presenting with SBO suspect secondary to metastatic disease vs adhesions from prior surgery.
S/P paracentesis on 07/20 for 2.5L, cytology pending
Symptomatic improvement, now passing some flatus/liquid stool
F/U XR today with contrast into the colon, still with small bowel distention with bilious outputs in NGT
AFVSS
Labs stable
Plan:
C/W NGT decompression
NPO with sips/chips for comfort
Analgesics/antiemetics prn
IV PPI for GI ppx while NGT in place
Medical management as per primary team, consider oncology evaluation
Will send tumor markers, cytology from paracentesis pending
No emergent surgery planned at this time, will follow for continued improvement with bowel rest/decompression and medical supportive care at this time
Subjective Data
-
Date of Service: July 21, 2025
Pt seen and examined at bedside with Dr Land. Intermittent mild nausea but no further vomiting. Passing flatus and some loose material since yesterday afternoon. Denies abd pain. Irritation from NGT.
Objective Data
-
Intake and Output
07/20/25 07/21/25 07/22/25
06:59 06:59 06:59
Intake Total 60 / 60 1260 / 1260
Output Total 500 / 500 1225 / 1225
Balance -440 / -440 35 / 35
Intake:
IV fluids (Total) 1200 / 1200
Amount instilled into GI Tube ( 60 / 60 60 / 60
Total)
[place] Sump 60 / 60 60 / 60
Output:
Gastrointestinal tube output ( 500 / 500 1225 / 1225
Total)
[place] Sump 500 / 500 1225 / 1225
Other:
Number of approximated SMALL 1
amounts of urine
Number of approximated MODERATE 1
amounts of urine
Vital Signs
Temp Pulse Resp BP Pulse Ox
99.2 F 68 17 150/59 96
07/21/25 07:05 07/21/25 07:05 07/21/25 07:05 07/21/25 07:05 07/21/25 07:05
Lab Results
07/21/25 06:48
07/21/25 06:48
Calcium 8.0 mg/dl (8.4-10.2) L 07/21/25 06:48
Magnesium 2.1 mg/dl (1.6-2.3) 07/19/25 11:28
Total Bilirubin 0.6 mg/dl (0.2-1.3) 07/20/25 05:15
AST 25 U/L (14-36) 07/20/25 05:15
ALT 18 U/L (0-35) 07/20/25 05:15
Alkaline Phosphatase 120 U/L (38-126) 07/20/25 05:15
Total Protein 5.8 g/dl (6.3-8.2) L 07/20/25 05:15
Albumin 3.5 g/dl (3.5-5.0) 07/20/25 05:15
Physical Exam
-
NAD
ABD softly distended, nt, ngt with bilious outputs
[2025-07-21 15:10] VITALS: BP 170/63
[2025-07-21 18:05] VITALS: BP 158/66
[2025-07-21] MEDS: LOPRESSOR 5 MG IV (18:44)
[2025-07-21] MEDS: HEPARIN SC (20:32)
[2025-07-21 23:00] VITALS: BP 160/66
[2025-07-22] MEDS: LR 1000 IV (05:51)
[2025-07-22 06:39] LABS: Hematocrit 35.7 % (37.0-47.0); Hemoglobin 11.8 g/dL (12.0-16.0); Mean Corp Hgb Conc. 33.1 g/dL (33.0-37.0); Mean Corpuscular Volume 78.1 fL (81.0-99.0); Platelet Count 351 10^3/uL (130-400); Red Cell Dist. Width 15.9 % (11.5-14.5)
[2025-07-22 06:58] LABS: Blood Urea Nitrogen 12 mg/dl (7-17); Calcium 8.5 mg/dl (8.4-10.2); Carbon Dioxide 21 mmol/L (22-30); Chloride 101 mmol/L (98-107); Estimated Creatinine Clearance 47 ml/min; Glucose 83 mg/dl (70-99); Magnesium 2.1 mg/dl (1.6-2.3); Potassium 3.4 mmol/L (3.5-5.1); Sodium 134 mmol/L (135-145); eGFR > 60.00
[2025-07-22 07:07] VITALS: BP 173/68
[2025-07-22] MEDS: PROTONIX IV 40 MG IV (07:32)
[2025-07-22] MEDS: NSS (PRESERVATIVE FREE) 10 ML IV (07:33)
[2025-07-22] MEDS: HEPARIN SC (07:34)
--- NOTE | 2025-07-22 09:47 | W.PN.HOSP.TC ---
Today's Communication/Plan
-
Improving ileus
Pending surgery recs
Assessment / Plan
Assessment / Plan
74yoF PMH PMH thyroid cx s/p thyroidectomy, metastatic endometrial cx, MVP, HTN, GERD here for SBO.
AFVSS. Ct demonstrated SBO with transition point and mod ascites. Paracentesis today 2.5L removed. Surgery consult. Ng tube for decompression, NPO, dilaudid as needed. Leukocytosis improved. Plan to contact oncologist to discuss further prognosis
and management given possibility of SBO in setting of carcinomatoses and malignant ascites pending cytology.
07/21 AFVSS. Pt uncomfortable with NG in tube, continued dark bilious output. BM overnight. Continued GOC. Dr Box, outpt oncologist TT. Distended and tympanic. KUB with continued gas likely ileus rather than obstructive as contrast is in colon.
07/22 AVFSS. NG output checking department supervisor gastric content color. Multiple large BM overnight. Resolving ileus. WBC increase to 15.9. HTN off home meds atenolol. PRN hydralazine SBP>180 added. Pending surgery recs for NG tube.
#SBO
- NG tube to suction
- NPO
- IVF
- Surgery consult. Nonobstructive pattern on KUB.
#ascites
#metastatic endometrial cx
- paracentesis
- Known liver mets; follow
- last chemotherapy
#hypothyroidism secondary to thyroidectomy
- levothyroxine IV
#HTN
- hold atenolol
DVT prophylaxis: heparin
Diet: NPO
Code: DNR
Anticipated Discharge: Within 24 hours
Subjective/Interval History
-
Date of Service: July 22, 2025
Pt reports sleeping poorly and wanting to go home. She feels as though her abdomen is back to baseline without bloating. She is irritated by the NG tube. Multiple large BM overnight with notice of clearer NG output right after 1 large BM. Denies
fevers or chills overnight.
Objective Data
-
Labs:
Laboratory Results
07/22/25
06:05
WBC 15.9 H
Hgb 11.8 L
Hct 35.7 L
Plt Count 351
Sodium 134 L
Potassium 3.4 L
Chloride 101
Carbon Dioxide 21 L
BUN 12
Creatinine 0.7
Glucose 83
Calcium 8.5
Vital Signs:
Vital Signs
Temp Pulse Resp BP Pulse Ox
98.9 F 69 19 173/68 98
07/22/25 07:07 07/22/25 07:07 07/22/25 07:07 07/22/25 07:07 07/22/25 07:07
I&O
07/21/25 07/22/25 07/23/25
06:59 06:59 06:59
Intake Total 1260 / 1260 1260 / 1260
Output Total 1225 / 1225 600 / 600
Balance 35 / 35 660 / 660
Physical Exam
-
General: Other (uncomfortable)
HEENT: Normocephalic, Atraumatic and Moist Mucous Membranes (NG in place)
Respiratory: Clear to Auscultation and Non Labored Respirations
Cardiac: Regular Rhythm and S1/S2
GI: Soft, Nontender, Distended (tympanic) and Other (NG output checking department supervisor color, gastric content color, nonbilious)
Musculoskeletal: No Edema
Skin: Warm and Dry
Neuro: AO x 3 and Nonfocal/Grossly Intact
[2025-07-22 09:51] VITALS: BMI 20.7
[2025-07-22] MEDS: DILAUDID 0.5 MG IV (09:53)
[2025-07-22 10:28] LABS: Urine Character Clear (Clear)
[2025-07-22] MEDS: DICLOFENAC 1% TOPICAL GEL 4 GRAM TOPICAL (10:48)
[2025-07-22 11:31] LABS: Urine Squamous Cell 21-25 /LPF (Few)
[2025-07-22 11:33] LABS: Urine White Cell 21-25 /HPF (0-5)
--- NOTE | 2025-07-22 12:06 | W.PN.GS2 ---
Today's Communication / Plan
-
d/c NGT
trial of clears
Assessment / Plan
-
Ms Sterling is a 74 yo female with a h/o metastatic (to omentum) endometrial cancer with prior DIANA who has been following with Dr. Box for chemotherapy (currently between treatments with last chemo this summer). Intermittent n/v x2 months and
presenting with more persistent symptoms
Presenting with SBO suspect secondary to metastatic disease vs adhesions from prior surgery.
S/P paracentesis on 07/20 for 2.5L, cytology pending. D/W primary team, oncology aware of pt admission/new ascites
Symptomatic improvement, now passing some flatus/liquid stool. No further nausea
F/U XR 07/21 with contrast into the colon, sb distention still present
AFVSS
New leukocytosis
Hypokalemia/hyponatremia secondary to GI losses
Plan:
D/C NGT
Trial of clears
Replace K
Analgesics/antiemetics prn
IV PPI for GI ppx
UA sent d/t urinary frequency
Medical management as per primary team
Tumor markers pending, cytology from paracentesis pending. Cx NGTD
Will follow for continued improvement with nonoperative measures. Pt/ agreeable with plan of care.
Subjective Data
-
Date of Service: July 22, 2025
Pt seen and examined at bedside with Dr. Land. Pt's present, updated on care. questions addressed. Denies n/v. Passing gas and stools, voiding frequently.
Objective Data
-
Intake and Output
07/21/25 07/22/25 07/23/25
06:59 06:59 06:59
Intake Total 1260 / 1260 1260 / 1260
Output Total 1225 / 1225 600 / 600
Balance 35 / 35 660 / 660
Intake:
IV fluids (Total) 1200 / 1200 1200 / 1200
Amount instilled into GI Tube ( 60 / 60 60 / 60
Total)
[place] Sump 60 / 60 60 / 60
Output:
Gastrointestinal tube output ( 1225 / 1225 600 / 600
Total)
[place] Sump 1225 / 1225 600 / 600
Other:
Number of approximated SMALL 1 1
amounts of urine
Number of approximated LARGE 3
amounts of urine
Vital Signs
Temp Pulse Resp BP Pulse Ox
98.9 F 69 19 173/68 98
07/22/25 07:07 07/22/25 07:07 07/22/25 07:07 07/22/25 07:07 07/22/25 07:07
Lab Results
07/22/25 06:05
07/22/25 06:05
Calcium 8.5 mg/dl (8.4-10.2) 07/22/25 06:05
Phosphorus 2.8 mg/dl (2.5-4.5) 07/22/25 06:05
Magnesium 2.1 mg/dl (1.6-2.3) 07/22/25 06:05
Total Bilirubin 0.6 mg/dl (0.2-1.3) 07/20/25 05:15
AST 25 U/L (14-36) 07/20/25 05:15
ALT 18 U/L (0-35) 07/20/25 05:15
Alkaline Phosphatase 120 U/L (38-126) 07/20/25 05:15
Total Protein 5.8 g/dl (6.3-8.2) L 07/20/25 05:15
Albumin 3.5 g/dl (3.5-5.0) 07/20/25 05:15
Physical Exam
-
NAD
ABD soft, minimal distention/ascites, nt, ngt with gastric outputs
[2025-07-22] MEDS: KCL 270 MEQ IV (12:44)
[2025-07-22] MEDS: ZOFRAN 4 MG IV (14:30)
[2025-07-22 15:25] VITALS: BP 174/69
[2025-07-22] MEDS: LR IV (16:56)
--- NOTE | 2025-07-22 17:58 | PTCARENOTE ---
pt decided to leave AMA after speaking with DR Greenwood and Dr Arroyo, all papers signed
--- NOTE | 2025-07-22 18:13 | W.DCSUMMARY ---
Discharge Summary
Discharge Data
Date of Admission: 07/19/25
Date of Discharge: 07/22/25
-
Pending Results: Yes
Additional Pending Results:
Cytology of paracentesis
Hospital Course
74yoF PMH PMH thyroid cx s/p thyroidectomy, metastatic endometrial cx, MVP, HTN, GERD here for SBO.
07/[address] demonstrated SBO with transition point and mod ascites. Paracentesis today 2.5L removed. Surgery consult. Ng tube for decompression, NPO, dilaudid as needed. Leukocytosis improved. Plan to contact oncologist to discuss further
prognosis and management given possibility of SBO in setting of carcinomatoses and malignant ascites pending cytology.
07/21 AFVSS. Pt uncomfortable with NG in tube, continued dark bilious output. BM overnight. Continued GOC. Dr Box, outpt oncologist TT. Distended and tympanic. KUB with continued gas likely ileus rather than obstructive as contrast is in colon.
07/22 AVFSS. NG output leather sponger gastric content color. Multiple large BM overnight. Likely beginnings of resolving ileus. WBC increase to 15.9. HTN off home meds atenolol. PRN hydralazine SBP>180 added. NG taken out per pt request. Continued nausea
managed with zofran and abdominal discomfort later in the day. Pt was explained the risks of leaving of an elevated WBC and possibility of continued ileus. Pt decided to leave AMA. Provided resources for nearby PCP to follow up with closely and
encouraged to have repeat lab work done this week. Encouraged to follow up with heme/onc soon regarding paracentesis and status of endometrial cancer.
Discharge Plan
-
Patient Disposition: Against Medical Advice
Discharge Diagnosis/Procedures: partial SBO
Ileus
Metastatic endometrial cancer
Condition: Fair
Diet: Low Residue
Activity: As tolerated
Driving Restrictions: not on opioid medications
Bathing Restrictions: None
Blood Work: CBC, CMP 1 week
Referrals:
Remy Box DO [Active, Hematology / Oncology] - 07/30/25
Jose Giang DO [Family Provider, Internal Medicine]
Additional Discharge Medication Instructions: Follow up with oncology regarding paracentesis cytology.
Limit opioid medication as ileus resolves. If you are in pain, take bowel regimen with opioid medication.
Prescriptions:
New
ondansetron HCl (PF) 4 mg/2 mL Solution
4 mg IV Q6HPRN PRN (Reason: nausea and vomiting) 7 Days Qty: 28 0RF
Continued
clorazepate dipotassium 3.75 MG tablet
3.75 mg PO BID
atenolol 25 MG tablet
12.5 mg PO BID
levothyroxine [Levoxyl] 50 mcg Tablet
50 mcg PO DAILY
calcium carb-D3-mag ox-zinc ox 333 mg-133 unit -133 mg-5 mg Tablet
1 tab PO DAILY
Breztri Aerosphere 160-9-4.8 mcg/actuation HFA aerosol inhaler
2 inh inhalation R BID
ascorbic acid (vitamin C) [Vitamin C] 500 mg Tablet
500 mg PO DAILY
alum-mag hydroxide-simeth [Maalox] 200-200-20 mg/5 mL Suspension
15 ml PO DAILYPRN PRN (Reason: heartburn/indigestion)
pregabalin 50 mg Capsule
50 mg PO TID@0700,1500,2300
Patient Comments:
07/19/2025, taken w/ oxycodone. Last filled on 06/22/2025 for 120 caps for 30-day supply per PDMP.
Women's Multivitamin 18 mg iron-400 mcg-500 mg Tablet
1 tab PO DAILY
glutathione
1 cap PO DAILY
oxycodone 10 mg tablet
10 mg PO TID@0700,1500,2300
Patient Comments:
07/19/2025, taken with pregabalin. Last filled on 07/15/2025 for 60 tabs for 20-day supply per PDMP.
Discharge Date and Time
Discharge Date/Time: 07/22/25 18:41
Print Language: [id number]
[2025-07-23 19:19] LABS: CA 125 783 U/mL (0-35)
[2025-07-23 19:23] LABS: AFP Male/Tumor Marker 5.48 ng/ml
== END 2025-07-22 18:41 | disposition left against medical advice (07) | DRG 389 ==
LOC: 3 WEST ACU 16:14
PROVIDERS: Emergency Medicine; Physician Assistant; Radiology Vascular & Interventional Radiology; Registered Nurse; ADMITTING PHYSICIAN Hospitalist; ATTENDING PHYSICIAN Internal Medicine; CONSULT PHYSICIAN Surgery; EMERGENCY PHYSICIAN Emergency Medicine; FAMILY PHYSICIAN Internal Medicine
PROC: 0W9G3ZZ Drainage of Peritoneal Cavity, Percutaneous Approach (ICD-10-PCS; 2025-07-20)
PROC: 0D9680Z Drainage of Stomach with Drainage Device, Via Natural or Artificial Opening Endoscopic (ICD-10-PCS; 2025-07-20)
DX: K56.600 Partial intestinal obstruction, unspecified as to cause (principal); C78.7 Secondary malignant neoplasm of liver and intrahepatic bile duct; N17.9 Acute kidney failure, unspecified; E87.1 Hypo-osmolality and hyponatremia; R18.0 Malignant ascites; K76.6 Portal hypertension; C54.1 Malignant neoplasm of endometrium; K56.7 Ileus, unspecified; F17.200 Nicotine dependence, unspecified, uncomplicated; Z66 Do not resuscitate; E87.6 Hypokalemia; Z53.29 Procedure and treatment not carried out because of patient's decision for other reasons
CPT/HCPCS: 43752; 49083; 71045; 74018; 74177; 80048; 80053; 81003; 81015; 82042; 82105; 82150; 83605; 83615; 83690; 83735; 84100; 84157; 85025; 85027; 86304; 87015; 87070; 87086; 87205; 88112; 88305; 88341; 88342; 89051; 93005; 96361; 96374; 96375; 99285; Q9967